=== PATIENT | female | born 1990 | race Caucasian/White ===

== ENCOUNTER 2023-02-13 10:09 | Emergency (ER) | payer BC, SELFPAY ==
[2023-02-13 10:14] VITALS: BP 151/104; PULSE 84; RESP 18; TEMP 36.5; O2SAT 99; BMI 29.8
--- NOTE | 2023-02-13 10:39 | ED_ITS ---
HPI - General Adult General Chief complaint: Headache Stated complaint: HEADACHE Time Seen by Provider: 02/13/23 10:30 Source: patient Mode of arrival: walk-in History of Present Illness HPI narrative: Patient is a 32-year-old female who is presenting to the Emergency Room today with chief complaint of nausea, vomiting, headache this started around 3:00 this morning. Patient's headache is slightly getting worse since 3:00 this morning. Patient has not been to the Emergency Room in several years for headache/migraine. Patient's complaining of 4 episodes of nausea and vomits morning, bile colored. No head injury. Patient felt fine when she went to bed last evening. Patient just finished her menses yesterday. 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 Patient has significant photophobia and mild phonophobia. Patient was brought to the Emergency Room by her mother. Patient still has her appendix. Patient has a headache specialist at [facility] ([place], [place]), neurologist. Patient was due to be on a special medication help prevent headaches or migraines, patient has multiple ALLERGIES and her insurance would not improve the medication Prandin. Neck pain. Patient has bilateral frontal and sinus headache, this is typical and classic of her previous migraines. Patient's headache was not the worse headache of her life, not sudden onset, not thunderclap in nature. . All systems are negative except as noted/marked. All systems reviewed and otherwise negative. . Nurses note and vital signs reviewed and patient is not hypoxic. General: The patient appears well and in no apparent distress. Patient is resting comfortably on cart. Patient is not toxic, lethargic, or listless Skin: Warm, dry, no pallor noted. There is no rash noted. No petechiae, purpura. Head: Normocephalic, atraumatic; No reproducible tenderness to palpation to bilateral frontomaxillary sinuses. Full range of motion of cervical spine no difficulty, no nuchal rigidity. No meningeal signs or symptoms. Eye: Normal conjunctiva, no drainage, EOMI. PERRL; Pupils are 4/2, equal, bilateral. Ears, Nose, Mouth, and Throat: oral mucosa is moist. Nares patent. Mouth without vesicles. Cardiovascular: Regular Rate and Rhythm, no murmur, gallop, rub Respiratory: Patient is in no distress, no accessory muscle use, lungs are clear to auscultation, no wheezing, rales or rhonchi Back: non-tender, no CVA tenderness bilaterally to percussion. No CT LS midline pain GI: soft, no tenderness to palpation, no masses appreciated. No rebound, guarding, or rigidity noted. No flank pain bilateral, No distention Musculoskeletal: Patient has full range of motion of all of the extremities, no motor, sensory, or focal neurological deficits. Neurological: A&O x3, normal speech, NIH 0 Psychiatric: Cooperative Related Data Previous Rx's Medication Instructions Recorded brxftztdox-vsztjzmtlbtio-ncvahiuq 1 cap PO Q8H PRN pain/headache #7 02/13/23 50 mg-300 mg-40 mg capsule caps (Fioricet) promethazine 25 mg rectal 25 mg MT Q6H PRN nausea and 02/13/23 suppository vomiting #6 ea Allergies Allergy/AdvReac Type Severity Reaction Status Date / Time acetaminophen [From Percocet] AdvReac Unknown Verified 02/13/23 10:19 hydrocodone [From Vicodin] AdvReac Unknown Verified 02/13/23 10:19 oxycodone [From Percocet] AdvReac Unknown Verified 02/13/23 10:19 vancomycin AdvReac Unknown Verified 02/13/23 10:19 wheat AdvReac Unknown Verified 02/13/23 10:19 Exam Constitutional Vital Signs, click to edit/add: Last Vital Signs Temp 97.7 F 02/13/23 10:14 Pulse 84 02/13/23 10:14 Resp 18 02/13/23 10:14 BP 151/104 H 02/13/23 10:14 Pulse Ox 99 02/13/23 10:14 O2 Del Method Room Air 02/13/23 10:14 Course Vital Signs Vital signs: Vital Signs Temperature 97.7 F 02/13/23 10:14 Pulse Rate 84 02/13/23 10:14 Respiratory Rate 18 02/13/23 10:14 Blood Pressure 151/104 H 02/13/23 10:14 Pulse Oximetry 99 02/13/23 10:14 Oxygen Delivery Method Room Air 02/13/23 10:14 Temperature 97.7 F 02/13/23 10:14 Pulse Rate 84 02/13/23 10:14 Respiratory Rate 18 02/13/23 10:14 Blood Pressure 151/104 H 02/13/23 10:14 Pulse Oximetry 99 02/13/23 10:14 Oxygen Delivery Method Room Air 02/13/23 10:14 Medical Decision Making MDM Narrative Medical decision making narrative: Patient's headache at discharge is a 6/10. Patient feels much better at discharge. Patient was thankful for help. Patient was given 1 L of IV fluid, patient was given multiple IV medications to help with nausea and vomiting as well. Patient was relieved that her lipase and LFTs were within normal limits as well secondary to her significant pancreas history. Patient was brought to your by her mother. Lab Data Lab results reviewed: Yes I reviewed the patient's lab results Labs: Lab Results 02/13/23 Range/Units 10:45 WBC 9.1 (4.0-11.0) 10^3/uL RBC 4.37 (4.20-5.40) 10^6/uL Hgb 13.1 (12.0-16.0) g/dL Hct 39.1 (36.0-48.0) % MCV 89.5 (81.0-99.0) fL MCH 30.0 (26.7-34.0) pg MCHC 33.5 (29.9-35.2) g/dL RDW 13.2 (11.0-15.0) % Plt Count 546 H (150-450) 10^3/uL MPV 9.6 (9.5-13.5) fL Neut % (Auto) 66.9 (43.0-75.0) % Lymph % (Auto) 24.0 (20.5-60.0) % [place] % (Auto) 6.1 (1.7-12.0) % Eos % (Auto) 1.9 (0.9-7.0) % Baso % (Auto) 0.9 (0.2-2.0) % Neut # (Auto) 6.1 (1.4-6.5) 10^3/uL Lymph # (Auto) 2.2 (1.2-3.8) 10^3/uL [place] # (Auto) 0.6 (0.3-0.8) 10^3/uL Eos # (Auto) 0.2 (0.0-0.7) 10^3/uL Baso # (Auto) 0.1 (0.0-0.1) 10^3/uL Abs Immat Gran (auto) 0.02 (0.00-0.03) 10^3/uL Imm/Tot Granulo (auto) 0.2 (0.0-0.5) % Sodium 140 (136-145) mmol/L Potassium 3.7 (3.5-5.1) mmol/L Chloride 105 (98-107) mmol/L Carbon Dioxide 25.7 (21.0-32.0) mmol/L Anion Gap 13.0 BUN 12.0 (7.0-18.0) mg/dL Creatinine 0.61 (0.55-1.02) mg/dL Est GFR ( Amer) >60 (>=60) Est GFR (Non-Af Amer) >60 (>=60) BUN/Creatinine Ratio 19.7 Glucose 120 H (74-106) mg/dL Calcium 8.5 (8.5-10.1) mg/dL Magnesium 1.9 (1.8-2.4) mg/dL Total Bilirubin 0.7 (0.2-1.0) mg/dL AST 12 L (15-37) U/L ALT 28 (14-59) U/L Alkaline Phosphatase 59 (46-116) U/L Total Protein 7.2 (6.4-8.2) g/dL Albumin 4.0 (3.4-5.0) g/dL Globulin 3.2 g/dL Albumin/Globulin Ratio 1.3 Lipase 39.0 (16.0-77.0) U/L Discharge Plan Discharge Chief Complaint: Headache Clinical Impression: Headache, Nausea & vomiting Patient Disposition: Home, Self-Care Time of Disposition Decision: 13:24 Condition: Fair Prescriptions / Home Meds: New promethazine 25 mg suppository 25 mg MT Q6H PRN (Reason: nausea and vomiting) Qty: 6 0RF [id number]-muutluflwshad-yhwz [Fioricet] 50-300-40 mg capsule 1 cap PO Q8H PRN (Reason: pain/headache) Qty: 7 0RF Instructions: Acute Nausea and Vomiting (DC), General Headache (ED) Additional Instructions: Follow-up with neurologist in [place] as well. Use Phenergan as needed for nausea, vomiting or headache at home. Fioricet is a tobacco medication to help with headache and migraine as well. Increase fluids at home. Stand Alone Forms: Portal Instructions Referrals: Gerardo Tapia MD [Primary Care Provider] - 1 week
[2023-02-13 10:53] LABS: Basophils Absolute Auto 0.1 10^3/uL (0.0-0.1); Basophils Percent Auto 0.9 % (0.2-2.0); Eosinophils Absolute Auto 0.2 10^3/uL (0.0-0.7); Eosinophils Percent Auto 1.9 % (0.9-7.0); Hematocrit 39.1 % (36.0-48.0); Hemoglobin 13.1 g/dL (12.0-16.0); Immature Granulocytes Abs Auto 0.02 10^3/uL (0.00-0.03); Immature Granulocytes Pct Auto 0.2 % (0.0-0.5); Lymphocytes Absolute Auto 2.2 10^3/uL (1.2-3.8); Mean Corpuscular HGB Conc 33.5 g/dL (29.9-35.2); Mean Corpuscular Volume 89.5 fL (81.0-99.0); Mean Platelet Volume 9.6 fL (9.5-13.5); Monocytes Absolute Auto 0.6 10^3/uL (0.3-0.8); Monocytes Percent Auto 6.1 % (1.7-12.0); Neutrophils Absolute Auto 6.1 10^3/uL (1.4-6.5); Neutrophils Percent Auto 66.9 % (43.0-75.0); Platelet Count 546 10^3/uL (150-450); Red Blood Count 4.37 10^6/uL (4.20-5.40); Red Cell Distribution Width 13.2 % (11.0-15.0); White Blood Count 9.1 10^3/uL (4.0-11.0)
[2023-02-13] MEDS: 0.9 % SODIUM CHLORIDE 1,000 ML 999 ML IV (10:55)
[2023-02-13] MEDS: ONDANSETRON PF 4 MG/2 ML VIAL IV (10:56)
[2023-02-13] MEDS: PROCHLORPERAZINE 10 MG/2 ML VIAL IV (10:56)
[2023-02-13] MEDS: KETOROLAC TROMETHAMINE 30 MG/ML VIAL 15 MG IVP (10:56)
[2023-02-13] MEDS: DIPHENHYDRAMINE HCL 50 MG/ML (1ML) VIAL 25 MG IV (10:56)
[2023-02-13 11:29] LABS: Alanine Aminotransferase 28 U/L (14-59); Albumin Globulin Ratio 1.3; Alkaline Phosphatase 59 U/L (46-116); Aspartate Amino Transferase 12 U/L (15-37); BUN Creatinine Ratio 19.7; Bilirubin Total 0.7 mg/dL (0.2-1.0); Calcium 8.5 mg/dL (8.5-10.1); Carbon Dioxide 25.7 mmol/L (21.0-32.0); Chloride 105 mmol/L (98-107); Estimated GFR (African America >60 (>=60); Estimated GFR (Non-African Ame >60 (>=60); Globulin 3.2 g/dL; Glucose 120 mg/dL (74-106); Magnesium 1.9 mg/dL (1.8-2.4); Potassium 3.7 mmol/L (3.5-5.1); Sodium 140 mmol/L (136-145); Total Protein 7.2 g/dL (6.4-8.2)
[2023-02-13] MEDS: DEXAMETHASONE SOD PHOS 10 MG/ML VIAL IV (12:30)
[2023-02-13] MEDS: BUTALB/ACETAMINOPHEN/CAFFEINE 50-325-40MG TABLET 1 TAB PO (12:30)
== END 2023-02-13 13:42 | disposition home or self-care (01) ==
PROVIDERS: Emergency Provider Emergency Medicine; PCP Family Medicine
DX: R51.9 Headache, unspecified (principal); R11.2 Nausea with vomiting, unspecified; Z90.49 Acquired absence of other specified parts of digestive tract; Z90.81 Acquired absence of spleen
CPT/HCPCS: 36415; 80053; 83690; 83735; 85025; 96361; 96374; 96375; 99284; J1100

== ENCOUNTER 2023-05-04 20:52 | Outpatient (REF) | payer BC, SELFPAY ==
--- OUTSIDE RECORDS SUMMARY | 2023-05-04 20:58 | XMS_ITS | CCD ---
Author Name Unknown Address [address] [place] [address] Organization [facility] Care Team Providers Care Regulatory Attorney Name Role Phone HASAN, BONG Admitting Unavailable HASAN, BONG Attending Unavailable HASAN, BONG Referring Unavailable STEFANO REBOLLAR Primary Care Unavailable NAWRAS, ALI T Admitting Unavailable NAWRAS, ALI T Attending Unavailable NADERERYESICA Referring Unavailable NADERER, YESICA Primary Care Unavailable MS Procedure Practitioner Unavailab OPAL Lozoya Surgeon Unavailable HASAN, BONG Admitting Unavailable HASAN, BONG Attending Unavailable HASAN, BONG Referring Unavailable NADEREYESICA Nassar Primary Care Unavailable JOSE ., DR YIN Attending Unavailable JOSE ., DR YIN Consulting Unavailable JOSE ., DR YIN Admitting Unavailable NADERER, DR YESICA Patterson Primary Care Unavailable NADERER, DR YESICA Patterson Primary Care Unavailable NADERER, DR YESICA Patterson Admitting Unavailable NADERER, DR YESICA Patterson Attending Unavailable ZIEBER, DR LUCERO Nassar Consulting Unavailable NADERER, DR YESICA Patterson Consulting Unavailable NADERER, DR YESICA Patterson Primary Care Unavailable NADERER, DR YESICA Patterson Admitting Unavailable NADERER, DR YESICA Patterson Attending Unavailable JOSE ., DR YIN Admitting Unavailable JOSE ., DR YIN Attending Unavailable JOSE ., DR YIN Consulting Unavailable NADERER, DR YESICA Patterson Primary Care Unavailable MALENFANTGIRISH Attending Unavaila ble Allergies Allergy Classification Reported Allergen(s) Allergy Type Date of Onset Reaction(s) Facility (1 source) Acetaminophen / HYDROcodone Drug Allergy 02-12-20 16 [facility] Repository (2 sources) Acetaminophen / oxyCODONE Drug Allergy 02-12-20 16 [facility] Repository (1 source) Adhesive Tape Drug allergy (disorder) 02-12-20 16 [facility] Repository (1 source) buPROPion Drug Allergy 06-21-19 19 [facility] Repository (3 sources) Latex Drug allergy (disorder) 02-11-20 16 [facility] Repository (3 sources) Sulfamethoxazole / Trimethoprim Drug Allergy 06-21-19 19 [facility] Repository (3 sources) Vancomycin Drug Allergy 02-28-20 16 [facility] Repository (1 source) Acetaminophen / HYDROcodone Drug Allergy [facility] Repository (1 source) Desonide Drug Allergy [facility] Repository (2 sources) Gluten Drug allergy (disorder) [facility] Repository (1 source) POLYETHYLENE GLYCOL 3350 Drug Allergy [facility] Repository (2 sources) traMADol; Translations: [TRAMADOL] Drug Allergy 07-02-19 [facility] Repository (1 source) Acetaminophen / HYDROcodone; Translations: [HYDROCODONE-ACETAMI NOPHEN] Drug Allergy 02-15-20 [facility] Repository (1 source) Acetaminophen / oxyCODONE; Translations: [OXYCODONE-ACETAMINO PHEN] Drug Allergy 02-15-20 [facility] Repository (1 source) Doxycycline; Translations: [DOXYCYCLINE] Drug Allergy 07-02-19 [facility] Repository (1 source) Feather; Translations: [FEATHERS] Propensity to adverse reactions to drug (disorder) 07-02-19 [facility] Repository (1 source) Glycopeptides (Antibiotic); Translations: [VANCOMYCIN ANALOGUES] Propensity to adverse reactions to drug (disorder) 08-24-19 [facility] Repository (1 source) Grass pollen; Translations: [GRASS POLLEN] Propensity to adverse reactions to drug (disorder) 07-02-19 [facility] Repository (1 source) Milk; Translations: [MILK] Propensity to adverse reactions to drug (disorder) 10-08-19 23 [facility] Repository (1 source) natural latex rubber; Translations: [LATEX, NATURAL RUBBER] Propensity to adverse reactions to drug (disorder) 08-24-19 [facility] Repository (1 source) Sulfamethoxazole / Trimethoprim; Translations: [SULFAMETHOXAZOLE-TR IMETHOPRIM] Drug Allergy 07-02-19 [facility] Repository (1 source) Wheat preparation; Translations: [WHEAT] Drug Allergy 07-02-19 [facility] Repository (1 source) WHEAT CONTAINING PROD; Translations: [WHEAT CONTAINING PROD] Propensity to adverse reactions to drug (disorder) 08-24-19 [facility] Repository (1 source) DYCLONINE-BENZETHONI UM; Translations: [DYCLONINE-BENZETHON IUM] Propensity to adverse reactions to drug (disorder) 08-24-19 [facility] Repository Problems Active Problems Problem Classification Problem Date Documented Da te Episodic/Chronic Abdominal pain (3 sources) Unspecified abdominal pain; Translations: [UNSPECIFIED ABDOMINAL PAIN] Onset: 06-27-2018 Episodic Allergic reactions (1 source) Latex allergy status; Translations: [LATEX ALLERGY STATUS] Onset: 06-27-2018 Episodic Headache; including migraine (1 source) Headache; including migraine; Translations: [HEADACHE UNSPECIFIED] Onset: 10-06-2021 Other disorders of stomach and duodenum (1 source) Other diseases of stomach and duodenum; Translations: [OTHER DISEASES OF STOMACH AND DUODENUM] Onset: 06-27-2018 Episodic Other gastrointestinal disorders (2 sources) Celiac disease; Translations: [Celiac disease] Onset: 10-07-2022 Chronic Other gastrointestinal disorders (1 source) Bariatric surgery status; Translations: [BARIATRIC SURGERY STATUS] Onset: 06-27-2018 Episodic Pancreatic disorders (not diabetes) (6 sources) Other chronic pancreatitis; Translations: [OTHER CHRONIC PANCREATITIS] Onset: 07-17-2018 Chronic Pancreatic disorders (not diabetes) (4 sources) Acute pancreatitis without necrosis or infection, unspecified; Translations: [ACUTE PANCREATITIS WITHOUT NECROSIS OR INFECTION, UNSP] Onset: 06-12-2018 Residual codes; unclassified (1 source) Acquired partial absence of pancreas; Translations: [ACQUIRED PARTIAL ABSENCE OF PANCREAS] Onset: 06-27-2018 Chronic Thyroid disorders (4 sources) Hypothyroidism, unspecified; Translations: [HYPOTHYROIDISM UNSPECIFIED] Onset: 05-25-2022 Chronic Unclassified (2 sources) LAB Onset: 06-12-2018 Past or Other Problems Problem Classification Problem Date Documented Date Episodic/Chronic Immunizations and screening for infectious disease (1 source) Encounter for screening for human papillomavirus (HPV); Translations: [ENC SCREENING HUMAN PAPILLOMAVIRUS] Onset: 10-06-2021 Episodic Other endocrine disorders (1 source) Endocrine disorder, unspecified; Translations: [ENDOCRINE DISORDER UNSPECIFIED] Onset: 10-06-2021 Episodic Other screening for suspected conditions (not mental disorders or infectious disease) (4 sources) Encounter for screening for malignant neoplasm of cervix; Translations: [ENC SCREENING MALIG NEOPLASM CERV] Onset: 10-05-2021 Episodic Results Test Name Value Interpretation Reference Range Facility 36on 01-02-2023 36 Follow up call made. M to call [phone]. Discussed with pharmacist Reina who is unsure if patient was able to parts picker her creon at an outlying pharmacy. If the patient was unable to fill at that rx, Reina has it available at the [facility] Access Rx. Normal [facility] 36on 12-30-2022 36 Patient calls today stating she went to refill her Creon and was told there is a nationwide shortage for the dosing she is on (36,000 - 2 capsules 3 times a day and 1 in evening). Pharmacist recommended a lower dose with more capsules but cannot garuntee there will not be a shortage of them also soon. She is wondering what she needs to do as she is down to two days left of her prescription. I talked with Reina at the pharmacy - Expected Resolution SPLR [employer]OCATION NEXT RELEASE LATE DEC 2022 Notes [employer] IS OUT OF STOCK. FULL RECOVERY TBD Please advise. Normal [facility] Telephoneon 12-30-2022 Telephone [id number] Reina Razo 1990 F Date Provider Department Center 12/30/2022 [facility] No family history on file Normal [facility] COPPER, SERUMon 10-11-2022 COPPER 117.3 ug/dL Normal 80.0-155.0 [facility] Comment on above: Result Comment: INTE RPRETIVE INFORMATION: Copper, Serum or Plasma Elevated results may be due to skin or collection-related contamination, including the use of a noncertified metal-free collection/transport tube. If contamination concerns exist due to elevated levels of serum/plasma copper, confirmation with a second specimen collected in a certified metal-free tube is recommended. Serum copper may be elevated with infection, inflammation, stress, and copper supplementation. In females, elevated copper may also be caused by oral contraceptives and (concentrations may be elevated up to 3 times normal during the third trimester). This test was developed and its performance characteristics determined by [facility]. It has not been cleared or approved by the US Food and Drug Administration. This test was performed in a CLIA certified laboratory and is intended for clinical purposes. Performed By: [facility] [address] [place] [address] Registered Dietitian: Jai Lawler MD, PhD Performed By: #### L [id number] #### [facility] ([facility]) [address] [place] [address] FERRITINon 10-11-2022 FERRITIN (NG/ML) IN SER/PLAS 7.0 ng/mL Low 11.0-307.0 [facility] Comment on above: Performed By: #### L [id number] #### [facility] ([facility]) [address] [place] [address] FOLATEon 10-11-2022 FOLATE (NG/ML) IN SER/PLAS 310.00 ng/mL Normal 6.6-1000 [facility] Comment on above: Performed By: #### L AB69 #### [facility] ([facility]) [address] [place] [address] IRON AND TIBCon 10-11-2022 IRON (UG/DL) IN SER/PLAS 139 ug/dL Normal 50-212 [facility] Comment on above: Performed By: #### L [id number] #### [facility] ([facility] [address] [place] [address] IRON BINDING CAPACITY (UG/DL) IN SER/PLAS 445 ug/dL Normal 250-450 [facility] Comment on above: Performed By: #### L [id number] #### [facility] ([facility] [place]) [address] [place] [address] IRON BINDING CAPACITY.UNSATURATED (UG/DL) IN SER/PLAS 306.0 ug/dL Normal 155.0-355.0 [facility] Comment on above: Performed By: #### L [id number] #### [facility] ([facility] [place]) [address] [place] [address] IRON SATURATION (%) IN SER/PLAS 31 % Normal 20-50 [facility] Comment on above: Performed By: #### L [id number] #### [facility] ([facility]) [address] [place] [address] Labon 10-11-2022 Lab [id number] Reina Razo 1990 F Date Provider Department [place] 10/11/2022 2244-[facility] MP LAB RESOURCE MP DRAW Medical Pavi No family history on file Normal [facility] MAGNESIUMon 10-11-2022 Magnesium [Mass/Vol] 1.7 mg/dL Low 1.9-2.7 [facility] Comment on above: Performed By: #### L AB125 #### [facility] [place] [address] [place] [address] Office Visiton 10-11-2022 Follow-up visit [id number] Reina Razo 1990 Date Provider Department [place] 10/11/2022 [id number]-TVSRPATRDMARÍA MONACO*MP GI [facility] Pavi No family history on file Level of Service:84754 MS OFFICE/OUTPATIENT ESTABLISHED MOD MDM 30-39 MIN Reason for Visit and Comments: yearly follow up [Other] Normal [facility] PHOSPHORUSon 10-11-2022 Magnesium [Mass/Vol] 3.7 mg/dL Normal 2.5-5.0 [facility] Comment on above: Performed By: #### L AB125 #### [facility] ([facility] [place] [address] [place] [address] PREALBUMINon 10-11-2022 Prealbumin [Mass/Vol] 21.8 mg/dL Normal [facility] Comment on above: Performed By: #### L [id number] #### [facility] ([facility]) [address] [place] [address] PROTIME-INRon 10-11-2022 INR IN PPP BY COAGULATION ASSAY 1.01 Normal 0.90-1.10 [facility] Comment on above: Result Comment: ACCC P RECOMMENDED INR FOR WARFARIN THERAPY CONDITION INR PROPHYLAXIS OF VENOUS THROMBOSIS 2-3 (HIGH-RISK SURGERY) TREATMENT OF VENOUS THROMBOSIS 2-3 TREATMENT OF PULMONARY EMBOLISM 2-3 PREVENTION OF SYSTEMIC EMBOLISM: 2-3 ACUTE MYOCARDIAL INFARCTION TISSUE HEART VALVES VALVULAR HEART DISEASE ATRIAL FIBRILLATION RECURRENT SYSTEMIC EMBOLISM MECHANICAL HEART VALVE 2.5-3.5 FROM: ORAL ANTICOAGULANTS. MECHANISM OF ACTION, CLINICAL EFFECTIVENESS, AND OPTIMAL THERAPEUTIC RANGE. CHEST 1995;108:231S-246S. Performed By: #### L AB125 #### [facility]) [address] [place] [address] PROTHROMBIN TIME (PT) IN PPP BY COAGULATION ASSAY 13.3 Seconds Normal 12.3-14.8 [facility] Comment on above: Performed By: #### L AB125 #### [employer]) [address] [place] [address] VITAMIN Aon 10-11-2022 VITAMIN A (RETINOL) 0.55 mg/L Normal 0.30-1.20 [facility] Comment on above: Performed By: #### L [id number] #### [employer]) [address] [place] [address] VITAMIN A (RETINYL PALMITATE) <0.02 Normal 0.00-0.10 [facility] Comment on above: Performed By: #### L [id number] #### [employer]) [address] [place] [address] VITAMIN A, SER/RADHA - INTERPRETATION Normal Normal [facility] Comment on above: Result Comment: This test was developed and its performance characteristics determined by [facility]. It has not been cleared or approved by the [place] Food and Drug Administration. This test was performed in a CLIA certified laboratory and is intended for clinical purposes. Performed By: [facility] [employer] [address] [place] [address] Registered Dietitian: Jai Lawler MD, PhD Performed By: #### L [id number] #### [facility] ([facility]) [address] [place] [address] VITAMIN B1on 10-11-2022 VITAMIN B1, PLASMA 4 nmol/L Normal 4-15 [facility] Comment on above: Result Comment: INTE RPRETIVE DATA: Vitamin B1, Plasma Thiamine (vitamin B1) is reported. However, thiamine diphosphate (TDP), the biologically active form of thiamine, is not found in measurable concentrations in plasma, and is best determined in whole blood specimens. Plasma thiamine concentration reflects recent intake rather than body stores. This test was developed and its performance characteristics determined by [facility]. It has not been cleared or approved by the US Food and Drug Administration. This test was performed in a CLIA certified laboratory and is intended for clinical purposes. Performed By: [facility] [address] [place] [address] Registered Dietitian: Jai Lawler MD, PhD Performed By: #### L AB125 #### [facility] ([address] [address] VITAMIN B12on 10-11-2022 Cobalamin (Vitamin B12) [Mass/Vol] 720 pg/mL Normal 180-914 [facility] Comment on above: Result Comment: REFE RENCE RANGES: 180-914 pg/mL Normal 145-179 pg/mL Indeterminate <145 pg/mL Deficient Performed By: #### L AB130 #### [facility] ([facility]) [address] [place] [address] VITAMIN B6on 10-11-2022 VITAMIN B6 83.5 nmol/L Normal 20.0-125.0 [facility] Comment on above: Result Comment: INTE RPRETIVE INFORMATION: Vitamin B6 (Pyridoxal 5-Phosphate) Pyridoxal 5'-phosphate measured in a specimen collected following an 8-hour or overnight fast accurately indicates vitamin B6 nutritional status. Non-fasting specimen concentration reflects recent vitamin intake. This test was developed and its performance characteristics determined by [facility]. It has not been cleared or approved by the US Food and Drug Administration. This test was performed in a CLIA certified laboratory and is intended for clinical purposes. Performed By: [facility] [address] [place] [address] Registered Dietitian: Jai Lawler MD, PhD Performed By: #### L [id number] #### [facility] ([facility]) [address] [place] [address] VITAMIN D 25 HYDROXYon 10-11 CALCIDIOL (25 [place] VITAMIN D3) (NG/ML) IN SER/PLAS 32.9 ng/mL Normal 30.0-80.0 [facility] Comment on above: Result Comment: >80. 0 Toxicity possible Performed By: #### L [id number] #### [facility] ([facility]) [address] [place] [address] VITAMIN Blane 10-11-2022 VITAMIN E LEVEL (ALPHA-TOCOPHEROL) 7.5 mg/L Normal 5.5-18.0 [facility] Comment on above: Result Comment: This test was developed and its performance characteristics determined by [facility]. It has not been cleared or approved by the US Food and Drug Administration. This test was performed in a CLIA certified laboratory and is intended for clinical purposes. Performed By: #### L AB130 #### [facility] ([facility]) [address] [place] [address] VITAMIN E LEVEL (GAMMA-TOCOPHEROL) 0.5 mg/L Normal 0.0-6.0 [facility] Comment on above: Result Comment: Perf ormed By: [facility] [address] [place] [address] Registered Dietitian: Jai Lawler MD, PhD Performed By: #### L AB130 #### [facility] ([facility]) [address] [place] [address] ZINCon 10-11-2022 ZINC 76.7 ug/dL Normal 60.0-120.0 [facility] Comment on above: Result Comment: INTE RPRETIVE INFORMATION: Zinc, Serum or Plasma Elevated results may be due to skin or collection-related contamination, including the use of a noncertified metal-free collection/transport tube. If contamination concerns exist due to elevated levels of serum/plasma zinc, confirmation with a second specimen collected in a certified metal-free tube is recommended. Circulating zinc concentrations are dependent on albumin status and are depressed with malnutrition. Zinc may also be lowered with infection, inflammation, stress, oral contraceptives, and . Zinc may be elevated with zinc supplementation or fasting. Elevated zinc concentrations may interfere with copper absorption. This test was developed and its performance characteristics determined by [facility]. It has not been cleared or approved by the US Food and Drug Administration. This test was performed in a CLIA certified laboratory and is intended for clinical purposes. Performed By: [facility] [address] [place] [address] Registered Dietitian: Jai Lawler MD, PhD Performed By: #### L [id number] #### [facility] ([facility] [place]) [address] [place] [address] THYROGLOBULINon 06-03-2022 Thyroglobulin 3.4 ng/mL Normal [facility] Comment on above: Result Comment: This test was developed and its performance characteristics determined by [facility]. It has not been cleared or approved by the Food and Drug Administration. Reference Range: Pubertal Children and Adults: <40 According to the National Academy of Clinical Biochemistry, the reference interval for Thyroglobulin (TG) should be related to euthyroid patients and not for patients who underwent thyroidectomy. TG reference intervals for these patients depend on the residual mass of the thyroid tissue left after surgery. Establishing a post-operative baseline is recommended. The assay quantitation limit is 2.0 ng/mL. Performed By: #### A 1C #### [facility] [address] [place] [address] Dr. Michael Williamson THYR STIM IMMUNOGLOBULINon 0 05-27-2022 Thyroid Sim Immunoglobulin <0.10 Normal 0.00-0.[address] [facility] Comment on above: Performed By: #### T HSI #### [facility] [address] [place] [address] Dr. Michael Williamson FREE T3on 05-25-2022 FREE T3 2.72 pg/mlL Normal 2.18-3.[address] [facility] Comment on above: Performed By: #### F T3, TSH #### [facility] [address] [place] [address] Dr. Michael Williamson FREE T4on 05-25-2022 Free T4 [Mass/Vol] 0.83 ng/dL Normal 0.76-1.46 [facility] Comment on above: Performed By: #### F T4 #### [facility] [address] [place] [address] [address] Michael Williamson TSHon 05-25-2022 TSH 0.798 uIU/mL Normal 0.358-3.740 [facility] Comment on above: Performed By: #### F T3, TSH #### [facility] [address] [address] [address] Michael Williamson US THYROIDon 05-25-2022 US THYROID EXAMINATION: US THYROID HISTORY: Hypothyroidism COMPARISON: No relevant comparison available. FINDINGS: RIGHT LOBE: Normal size and echotexture. Lobe size: 5.2 x 1.1 x 1.3 cm LEFT LOBE: Normal size and echotexture. Lobe size: 4.4 x 1.1 x 1.3 cm ISTHMUS: Normal size and echotexture. Thickness: 3 mm Other: Several benign-appearing lymph nodes with fatty hilum noted within left neck, largest is 2.1 x 1.0 x 0.5 cm. IMPRESSION: 1. Normal appearance of thyroid gland. 2. Several lymph nodes within left neck incidentally noted, favoring benign etiology. If there is clinical concern consider dedicated ultrasound evaluation of left neck soft tissues. Electronically authenticated by: LUCERO SCHROEDER Date: 2022-05-25 10:[address] [facility] PAP ACOG PANEL 2: 30 to 65on 10-08-2021 . . Normal [facility] Comment on above: Result Comment: Perf ormed at: WB Performed By: #### A 1C #### [facility] [address] [place] [address] [address] Michael Williamson Age Gdln ACOG Testing 30-65 [facility] Comment on above: Performed By: #### A 1C #### [facility] [address] [place] [address] [address] Michael Williamson DIAGNOSIS: Comment Normal [facility] Comment on above: Result Comment: NEGA TIVE FOR INTRAEPITHELIAL LESION OR MALIGNANCY. CELLULAR CHANGES ASSOCIATED WITH INFLAMMATION ARE PRESENT. Performed at: WB Performed By: #### A 1C #### [facility] [address] [place] [address] Dr. Michael Williamson HPV Aptima Negative Normal Negative [facility] Comment on above: Result Comment: This nucleic acid amplification test detects fourteen high-risk HPV types (16,18,31,33,35,39,45,51,52,56,58,59,66,68) without differentiation. Performed at: =G Performed By: #### A 1C #### [facility] [address] [place] [address] Dr. Michael Williamson Methodology: Comment Normal [facility] Comment on above: Result Comment: This liquid based ThinPrep(R) pap test was screened with the use of an image guided system. Performed at: WB Performed By: #### A 1C #### [facility] [address] [place] [address] Dr. Michael Williamson Note: Comment Normal [facility] Comment on above: Result Comment: The Pap smear is a screening test designed to aid in the detection of premalignant and malignant conditions of the uterine cervix. It is not a diagnostic procedure and should not be used as the sole means of detecting cervical cancer. Both false-positive and false-negative reports do occur. . Performed at: WB Performed By: #### A 1C #### [facility] [address] [place] [address] Dr. Michael Williamson Performed by: Comment Normal [facility] Comment on above: Result Comment: Toshia Cordoba, Supervisory Inpatient Auditor (ASCP) Performed at: WB Performed By: #### A 1C #### [facility] [address] [place] [address] Dr. Michael Williamson Specimen adequacy: Comment Normal [facility] Comment on above: Result Comment: Sati sfactory for evaluation. Endocervical and/or squamous metaplastic cells (endocervical component) are present. Performed at: WB Performed By: #### A 1C #### [facility] [address] [place] [address] Dr. Michael Williamson ESTRADIOLon 10-06-2021 Estradiol 7.1 pg/mL [facility] Comment on above: Result Comment: Adul t Female: Follicular phase 12.5 - 166.0 Ovulation phase 85.8 - 498.0 Luteal phase 43.8 - 211.0 Postmenopausal <6.0 - 54.7 1st trimester 215.0 - >4300.0 Kelsey ECLIA methodology Performed By: #### A 1C #### [facility] [address] [place] [address] Dr. Michael Williamson PROGESTERONEon 10-06-2021 Progesterone <0.[address] [facility] Comment on above: Result Comment: Foll icular phase 0.1 - 0.9 Luteal phase 1.8 - 23.9 Ovulation phase 0.1 - 12.0 First trimester 11.0 - 44.3 Second trimester 25.4 - 83.3 Third trimester 58.7 - 214.0 Postmenopausal 0.0 - 0.1 Performed By: #### P RADHA #### [facility] [address] [place] [address] Dr. Michael Williamson CALCIUMon 10-05-2021 Calcium [Mass/Vol] 8.5 mg/dL Normal 8.5-10.1 [facility] Comment on above: Performed By: #### A 1C #### [facility] [address] [place] [address] Dr. Michael Williamson CBC AUTO DIFFon 10-05-2021 BASO # 0.1 103/ul Normal 0.0-0.[address] [facility] Comment on above: Performed By: #### C BC #### [facility] [address] [place] [address] Dr. Michael Williamson Basophils/100 WBC (Bld) 0.9 % Normal 0.2-2.[address] [facility] Comment on above: Performed By: #### C BC #### [facility] [address] [place] [address] Dr. Michael Williamson EO # 0.2 103/ul Normal 0.0-0.[address] [facility] Comment on above: Performed By: #### C BC #### [facility] [address] [place] [address] Dr. Michael Williamson Eosinophils/100 WBC (Bld) 2.2 % Normal 0.9-7.[address] [facility] Comment on above: Performed By: #### C BC #### [facility] [address] [place] [address] Dr. Michael Williamson Erythrocyte distribution width (RBC) [Ratio] 13.3 % Normal 11.0-15.[address] [facility] Comment on above: Performed By: #### C BC #### [facility] [address] [place] [address] Dr. Michael Williamson Hematocrit (Bld) [Volume fraction] 39.4 % Normal 36.0-48.[address] [facility] Comment on above: Performed By: #### C BC #### [facility] [address] [place] [address] Dr. Michael Williamson Hemoglobin (Bld) [Mass/Vol] 12.7 g/dL Normal 12.0-16.[address] [facility] Comment on above: Performed By: #### C BC #### [facility] [address] [place] [address] Dr. Michael Williamson IG # 0.02 10e3/ul Normal 0.00-0.[address] [facility] Comment on above: Performed By: #### C BC #### [facility] [address] [place] [address] Dr. Michael Williamson IG % 0.2 % Normal 0.0-0.[address] [facility] Comment on above: Performed By: #### C BC #### [facility] [address] [place] [address] Dr. Michael Williamson LYMPH # 3.4 103/ul Normal 1.2-3.[address] [facility] Comment on above: Performed By: #### C BC #### [facility] [address] [place] [address] Dr. Michael Williamson Lymphocytes/100 WBC (Bld) 31.4 % Normal 20.5-60.[address] [facility] Comment on above: Performed By: #### C BC #### [facility] [address] [place] [address] Dr. Michael Williamson MANUAL DIFF REQ NO Normal [facility] Comment on above: Performed By: #### C BC #### [facility] [address] [address] [address] Michael Williamson MCH (RBC) [Entitic mass] 29.3 pg Normal 26.7-34.[address] [facility] Comment on above: Performed By: #### C BC #### [facility] [address] [address] [address] Michael Williamson MCHC (RBC) [Mass/Vol] 32.2 g/dL Normal 29.9-35.[address] [facility] Comment on above: Performed By: #### C BC #### [facility] [address] [address] [address] Michael Williamson MCV (RBC) [Entitic vol] 91.0 fL Normal 81.0-99.[address] [facility] Comment on above: Performed By: #### C BC #### [facility] [address] [place] [address] Dr. Michael Williamson MONO # 1.1 103/ul Critically high 0.3-0.8 [facility] Comment on above: Performed By: #### C BC #### [facility] [address] [place] [address] Dr. Michael Williamson Monocytes/100 WBC (Bld) 10.4 % Normal 1.7-12.0 [facility] Comment on above: Performed By: #### C BC #### [facility] [address] [place] [address] Dr. Michael Williamson NEUT # 6.0 103/ul Normal 1.4-6.5 [facility] Comment on above: Performed By: #### C BC #### [facility] [address] [place] [address] Dr. Michael Williamson Neutrophils/100 WBC (Bld) 54.9 % Normal 43.0-75.0 [facility] Comment on above: Performed By: #### C BC #### [facility] [address] [place] [address] Dr. Michael Williamson Platelet mean volume (Bld) [Entitic vol] 9.6 fL Normal 9.5-13.5 [facility] Comment on above: Performed By: #### C BC #### [facility] [address] [address] [address] Michael Williamson PLT 490 103/ul Critically high 150-450 [facility] Comment on above: Performed By: #### C BC #### [facility] [address] [address] [address] Michael Williamson RBC 4.33 106/ul Normal 4.20-5.[address] [facility] Comment on above: Performed By: #### C BC #### [facility] [address] [address] [address] Michael Williamson WBC 10.9 103/ul Normal 4.0-11.[address] [facility] Comment on above: Performed By: #### C BC #### [facility] [address] [address] [address] Michael Williamson ELECTROLYTESon 10-05-2021 Anion gap [Moles/Vol] 13.5 mmol/L Normal [facility] Comment on above: Performed By: #### A 1C #### [facility] [address] [address] [address] Michael Williamson Chloride [Moles/Vol] 105 mmol/L Normal 98-[address] [facility] Comment on above: Performed By: #### A 1C #### [facility] [address] [address] [address] Michael Williamson CO2 [Moles/Vol] 27.9 mmol/L Normal 21.0-32.0 [facility] Comment on above: Performed By: #### A 1C #### [facility] [address] [address] [address] Michael Williamson Potassium [Moles/Vol] 3.4 mmol/L Critically low 3.5-5.[address] [facility] Comment on above: Performed By: #### A 1C #### [facility] [address] [address] [address] Michael Williamson Sodium [Moles/Vol] 143 mmol/L Normal 136-145 [facility] Comment on above: Performed By: #### A 1C #### [facility] [address] [place] [address] Dr. Michael Williamson FREE T4on 10-05-2021 Free T4 [Mass/Vol] 0.85 ng/dL Normal 0.76-1.46 [facility] Comment on above: Performed By: #### F T4, VITB12 #### [facility] [address] [place] [address] Dr. Michael Williamson GLYCOHEMOGLOBIN A1Con 2021 ADA RECOMMENDATION SEE BELOW Normal [facility] Comment on above: Result Comment: ADA RECOMMENDED LIMIT 4.0 - 6.0 ADA THERAPEUTIC TARGET < 7.0 ACTION SUGGESTED > 7.0 Performed By: #### A 1C #### [facility] [address] [place] [address] Dr. Michael Williamson Glucose [Mass/Vol] 126 mg/dL Normal [facility] Comment on above: Performed By: #### A 1C #### [facility] [address] [place] [address] Dr. Michael Williamson HbA1c (Bld) [Mass fraction] 6.0 % Normal 4.5-6.2 [facility] Comment on above: Performed By: #### A 1C #### [facility] [address] [place] [address] Dr. Michael Williamson MAGNESIUMon 10-05-2021 Magnesium [Mass/Vol] 1.8 mg/dL Normal 1.8-2.4 [facility] Comment on above: Performed By: #### A 1C #### [facility] [address] [place] [address] Dr. Michael Williamson TSHon 10-05-2021 TSH 0.727 uIU/mL Normal 0.358-3.740 [facility] Comment on above: Performed By: #### A 1C #### [facility] [address] [place] [address] Dr. Michael Williamson TSH RANGE SEE BELOW Normal [facility] Comment on above: Result Comment: <0.3 4 UIU/ml HYPERTHYROID 0.34-5.60 UIU/ml EUTHYROID >5.60 UIU/ml HYPOTHYROID Performed By: #### A 1C #### [facility] [address] [address] [address] Michael Williamson VITAMIN B12on 10-05-2021 Cobalamin (Vitamin B12) [Mass/Vol] 1077.0 pg/mL Critically high 193.0-986.[address] [facility] Comment on above: Performed By: #### F T4, VITB12 #### [facility] [address] [address] [address] Michael Williamson Coagulation Profileon 2020 aPTT Coag (Bld) [Time] 31.0 s Normal 25.1-36.5 [facility] Comment on above: Order Comment: List the anticoagulant: COUMADIN/WARFARIN Result Comment: PERF ORMED BY: [place] [address] PATHOLOGIST BLOW MOULDING MACHINE OPERATOR PATRIZIA FITZPATRICK M.D. Performed By: #### P P #### [facility] [address] [place] [address] INR Coag (PPP) [Relative time] 0.9 {INR} Normal [facility] Comment on above: Order Comment: List the anticoagulant: COUMADIN/WARFARIN Result Comment: INR Therapeutic Range A) Pre- and Peroperative OAT started two weeks before surgery. NOT HIP SURGERY: 1.5 - 2.5 HIP SURGERY: 2 - 3 B) Primary and secondary prevention of venous THROMBOSIS: 2 - 3 C) Active venous thrombosis, pulmonary embolism and prevention of recurrent venous thrombosis: 2 - 3 D) Prevention of arterial thromboembolism including patients with mechanical heart valves: 3 - 4.5 Performed By: #### P P #### [facility] [address] [place] [address] PT Coag (PPP) [Time] 9.7 s Normal 9.0-12.9 [facility] Comment on above: Order Comment: List the anticoagulant: COUMADIN/WARFARIN Performed By: #### P P #### [facility] [address] [place] [address] Physician Orderon 12-13-2020 Physician Order [id number]# 1.00CD:[address] [facility] FOLATE SERUMon 07-17-2018 Folate mass conc 27.43 ng/mL Normal 6.60-1000.00 [facility] Comment on above: Result Comment: Norm al range reflects World Health Organization International Standard Performed By: #### 4 6413, 29879, 22448, 48620, 01941 #### [facility] [address] VITAMIN A [id number] 07-17-2018 INTERPRETATION (VIT A) Normal Normal [facility] Comment on above: Result Comment: Test developed and characteristics determined by [facility]. See Compliance Statement B: [employer] Performed by [facility], [address] [place] [address] www.[email or web address], Ahsan Abel MD - Lab. Director RETINYL PALMTATE <0.02 Normal 0.00-0.10 [facility] VITAMIN A MG/L 0.45 mg/L Normal 0.30-1.[address] [facility] VITAMIN B12on 07-17-2018 Cobalamin (Vitamin B12) mass conc 679 pg/mL Normal 180-914 [facility] Comment on above: Result Comment: REFE RENCE RANGES: 180-914 pg/mL Normal 145-179 pg/mL Indeterminate <145 pg/mL Deficient Performed By: #### 4 6413, 40697, 24690, 48527, 62232 #### [facility] [address] [place] [address], [facility] VITAMIN D 25-HYDROXYon 07-17 VITAMIN D 25-OH 21.0 ng/mL Low 30.0-80.0 [facility] Comment on above: Result Comment: >80. 0 Toxicity possible Performed By: #### 4 6413, 33920, 08255, 39463, 66586 #### [facility] [address] [place] [address], [facility] POC URINE PREGNANCYon 2018 HCG.beta subunit ( test) Ql (U) Negative Normal NEGATIVE [facility] Comment on above: Result Comment: Perf ormed in PACU Performed By: #### 8 4140 #### [facility] [address] [place] [address], [facility] AMYLASE BLOODon 06-12-2018 Amylase enzyme act/vol 21 Units/L Low 29-103 [facility] Comment on above: Performed By: #### 4 6413, 83143, 86468, 70189, 80699 #### [facility] [address] [place] [address], [facility] ANAon 06-12-2018 Nuclear Ab IF titer (S) 1:80 Abnormal <1:40,1:40 [facility] Comment on above: Performed By: #### 6 2510, 06814 #### [facility] [address] [facility] [address] Nuclear Ab IF titer (S) SPECKLED Normal [facility] Comment on above: Performed By: #### 6 2510, 44442 #### [facility] [address] [facility] [address] COMP METABOLIC PANELon 06-12 Albumin mass conc 4.4 g/dL Normal 3.5-5.7 [facility] Comment on above: Performed By: #### 4 6413, 71493, 25359, 21976, 59448 #### [facility] [address] [facility] [place] [address], [facility] ALKALINE PHOSPH 96 IU/L Normal 34-104 [facility] Comment on above: Performed By: #### 4 6413, 82213, 18705, 63634, 68947 #### [facility] [address] [place] [address], [facility] ALT enzyme act/vol 484 U/L Critically high 7-52 T [facility] Comment on above: Performed By: #### 4 6413, 80703, 22989, 86798, 55435 #### [facility] [address] [place] [address], [place] AST enzyme act/vol 424 U/L High 13-39 [facility] Comment on above: Performed By: #### 4 6413, 52070, 21190, 32543, 60362 #### [facility] [address] [place] [address], [place] Bilirubin mass conc 0.8 mg/dL Normal 0.3-1.0 [facility] Comment on above: Performed By: #### 4 6413, 37926, 03248, 99829, 19671 #### [facility] [address] [place] [address], [place] Calcium mass conc 9.1 mg/dL Normal 8.6-10.3 [facility] Comment on above: Performed By: #### 4 6413, 93656, 71954, 95864, 42690 #### [facility] [address] [place] [address], [place] Chloride molar conc 104 mmol/L Normal 98-107 [facility] Comment on above: Performed By: #### 4 6413, 29858, 51330, 78472, 22265 #### [facility] [address] [place] [address], [place] CO2 molar conc 28 mmol/L Normal 21-[address] [facility] Comment on above: Performed By: #### 4 6413, 13320, 77864, 83135, 09831 #### [facility] [address] [place] [address], [place] Creatinine mass conc 0.53 mg/dL Low 0.60-1.20 [facility] Comment on above: Performed By: #### 4 6413, 14290, 00143, 75131, 26592 #### [facility] [address] [place] [address], [place] GFR/1.73 sq M predicted among blacks MDRD vol rate/area (S/P/Bld) mL/min/{1.73_m2} Normal >60 [facility] Comment on above: Performed By: #### 4 6413, 36548, 91113, 90306, 59983 #### [facility] [address] [place] [address], [place] GFR/1.73 sq M predicted among non-blacks MDRD vol rate/area (S/P/Bld) mL/min/{1.73_m2} Normal >60 [facility] Comment on above: Performed By: #### 4 6413, 95627, 24453, 79614, 91072 #### [facility] [address] [place] [address], [place] Glucose mass conc 88 mg/dL Normal 70-100 [facility] Comment on above: Performed By: #### 4 6413, 56305, 07024, 31555, 26922 #### [facility] [address] [place] [address], [place] Potassium molar conc 4.0 mmol/L Normal 3.5-5.1 [facility] Comment on above: Performed By: #### 4 6413, 46376, 51201, 22249, 16731 #### [facility] [address] [place] [address], [place] Protein mass conc 7.0 g/dL Normal 6.0-8.3 [facility] Comment on above: Performed By: #### 4 6413, 05652, 47328, 05803, 49876 #### [facility] [address] [place] [address], [place] Sodium molar conc 139 mmol/L Normal 136-145 [facility] Comment on above: Performed By: #### 4 6413, 33493, 78555, 86948, 33048 #### [facility] [address] [place] [address], [facility] Urea nitrogen mass conc 8 mg/dL Normal 7-25 [facility] Comment on above: Performed By: #### 4 6413, 01316, 12863, 15530, 01718 #### [facility] [address] IGG SUBCLASSES (1,2,3,4) 505 77on 06-12-2018 IGG SUBCLASS 1 520 mg/dL Normal 240-[address] [facility] Comment on above: Result Comment: REFE RENCE INTERVAL: Immunoglobulin G Subclass 1 Access complete set of age- and/or gender-specific reference intervals for this test in the [facility] Test [facility] ([employer]). IGG SUBCLASS 2 265 mg/dL Normal 124-[address] [facility] Comment on above: Result Comment: REFE RENCE INTERVAL: Immunoglobulin G Subclass 2 Access complete set of age- and/or gender-specific reference intervals for this test in the [facility] Test [facility] ([employer]). IGG SUBCLASS 3 50 mg/dL Normal 21-[address] [facility] Comment on above: Result Comment: REFE RENCE INTERVAL: Immunoglobulin G Subclass 3 Access complete set of age- and/or gender-specific reference intervals for this test in the [facility] Test [facility] ([employer]). IGG SUBCLASS 4 19 mg/dL Normal 1-[address] [facility] Comment on above: Result Comment: The total IgG (mg/dL) can be derived by the sum of the subclasses IgG1, IgG2, IgG3 and IgG4 values. However, a confirmatory and more precise total IgG is available by the nephelometric method of total IgG (Test # [id number]). REFERENCE INTERVAL: Immunoglobulin G Subclass 4 Access complete set of age- and/or gender-specific reference intervals for this test in the [facility] Test Directory ([employer]). Performed by [facility], [address] [place] [address] www.[employer], Ahsan Abel MD - Lab. Director LIPASE BLOODon 06-12-2018 Lipase enzyme act/vol 82 Units/L Normal 11-82 [facility] Comment on above: Performed By: #### 4 6413, 02670, 31602, 36626, 04144 #### [facility] [address] [place] [address], [facility] LIPID PROFILEon 06-12-2018 Cholesterol in HDL mass conc 56 mg/dL Normal 23-92 [facility] Comment on above: Result Comment: Slig ht variation in normal range could be due to gender and/or age. HDL CHOLESTEROL REFERENCE RANGE: 20 years and older Cardiovascular Risk > or =60 mg/dL Desirable 40 TO 59 mg/dL Low Risk <40 mg/dL High Risk Performed By: #### 4 6413, 28889, 74363, 45103, 45373 #### [facility] [address] [place] [address], [facility] Cholesterol in LDL mass conc 56 mg/dL Normal 0-130 [facility] Comment on above: Result Comment: LDL IS A CALCULATION LDL IS ONLY VALID IF THE TRIG IS LESS THAN 400. Performed By: #### 4 6413, 11120, 90300, 40278, 28304 #### [facility] [address] [place] [address], [facility] Cholesterol mass conc 122 mg/dL Normal 120-200 [facility] Comment on above: Result Comment: CHOL ESTEROL REFERENCE RANGE: 20 YEARS AND OLDER CARDIOVASCULAR RISK Less than 200 mg/dl Low Risk 200 to 239 mg/dl Borderline Risk 240 mg/dl and greater High Risk Performed By: #### 4 6413, 45090, 20675, 83667, 12744 #### [facility] [address] [place] [address], [place] Cholesterol.total/Cho lesterol in HDL mass ratio 2.2 {ratio} Normal .0-4.5 [facility] Comment on above: Performed By: #### 4 6413, 05322, 26666, 58783, 21299 #### [facility] [address] [place] [address], [place] NON-HDL CHOLESTEROL 66 mg/dL Normal [facility] Comment on above: Performed By: #### 4 6413, 08065, 63524, 00091, 10564 #### [facility] [address] [facility]. [address] Triglyceride mass conc 49 mg/dL Normal 40-149 [facility] Comment on above: Result Comment: TRIG LYCERIDE REFERENCE RANGE: 20 YEARS AND OLDER CARDIOVASCULAR RISK LESS THAN 150 mg/dl LOW RISK 150 TO 199 mg/dl BORDERLINE RISK 200 mg/dl AND GREATER HIGH RISK Performed By: #### 4 6413, 07859, 02721, 79629, 06277 #### [facility] [address] VLDL CHOL 10 mg/dL Normal 0-40 [facility] Comment on above: Performed By: #### 4 6413, 10462, 47506, 30220, 96393 #### [facility] [address] [facility]. [address] SMOOTH MUSCLE ABon 9 SMOOTH MUSC AB 1:20 Abnormal NONE DETECTED [facility] Comment on above: Result Comment: NONE DETECTED: LESS THAN 1:20 WEAKLY POSITIVE: 1:20 - 1:40 SUGGESTIVE OF CHRONIC HEPATITIS: 1:80 OR GREATER NOTE: FOR WEAKLY POSITIVE RESULTS, TITER MAY BE PRESENT IN ACUTE VIRAL HEPATITIS, INFECTIOUS MONONUCLEOSIS OR MALIGNANCY. Performed By: #### 6 2510, 44003 #### [facility] [address] TISSUE TRANSGLUTAMINASE IGA [id number] 06-12-2018 TTG IGA 0 U/mL Normal 0-3 [facility] Comment on above: Result Comment: INTE RPRETIVE INFORMATION: Tissue Transglutaminase (tTG) Antibody, IgA 3 U/mL or less: Negative 4-10 U/mL: Weak Positive 11 U/mL or greater: Positive Presence of the tissue transglutaminase (tTG) IgA antibody is associated with glutensensitive enteropathies such as celiac disease and dermatitis herpetiformis. tTG IgA antibody concentrations greater than 40 U/mL usually correlate with results of duodenal biopsies consistent with a diagnosis of celiac disease. For antibody concentrations greater or equal to 4 U/mL but less than or equal to 40 U/mL, additional testing for endomysial (DAVID) IgA concentrations may improve the positive predictive value for disease. Performed by [facility], [address] [place] [address] www.[employer], Ahsan Abel MD - Lab. Director TSH3 WITH REFLEXon 9 T4 free mass conc 0.78 ng/dL Normal 0.71-1.85 [facility] Comment on above: Result Comment: This result added by IF on 06/12/2018 15:20. Performed By: #### 4 6413, 97639, 92443, 37406, 76683 #### [facility] [address] TSH 3RD GENERATION 1.27 uIU/mL Normal 0.34-5.60 [facility] Comment on above: Performed By: #### 4 6413, 70625, 12169, 03770, 14599 #### [facility] [address] Encounters Encounter Date Encounter Type Care Provider Facility Start: 10-11-2022 ambulatory GIRISH MONACO [facility] Start: 10-11-2022 End: 10-11-2022 ambulatory GIRISH MONACO [facility] Start: 09-15-[address] YESICA TOLBERT [facility] ity:[facility] Start: 05-25-2022 End: 05-26-[address] YESICA TOLBERT Facility:[facility] Start: 10-05-2021 End: 10-05-[address] ANNAMARIA GARCIA . Facility:[facility] Start: 10-05-2021 End: 10-06-[address] ANNAMARIA GARCIA . Facility: Start: 07-17-2018 End: 07-18-2018 Patient encounter procedure BONG ESCALERA Facility:[facility] Start: 06-27-2018 End: 06-28-2018 Patient encounter procedure WHITNEY MCKEON Facility:[facility] Start: 06-12-2018 End: 06-13-2018 Patient encounter procedure BONG ESCALERA Facility:[facility] Procedures Date Procedure Procedure Detail Performing Clinician Start: 06-27-2018 ANES UPR GI NDSC PX NOS OPAL BERRIOS Payers Date Payer Category Payer Unknown [id number] 1990 Unknown [id number] [id number] 1990 Unknown [id number] 2.16.8 [id number] 1990 Unknown [id number] 2.16.8 [id number] 1990 Unknown [id number] 2.16.84 [id number] 1991 Unknown [id number] 2.16.84 [id number] 1991 Unknown [id number] 2.16.84 [id number] 1990 Unknown [id number] 2.16.84 [id number] 1958 Private Health Insurance [id number] 1958 Unknown [id number] Progress note 10-11-2022 Note Date & Type Note Facility 10-11-2022 Note [facility] Gastroenterolog y Follow-Up Patient Visit CHIEF COMPLAINT Chief Complaint Patient presents with yearly follow up HISTORY OF PRESENT ILLNESS: Reina Razo is a 32 y.o. 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 Her ASMA was mildly elevated concerning for possible autoimmune pancreatitis. She has also been wheat sensitivity for quite some time and assumed it was celiac disease. She has been on Gluten Free diet for years and her last TTG was negative. Also has h/o gastric sleeve d/t scaring from the previous surgery and a sepsis infection. Back in [address] Mckeon she had equivocal EUS for chronic pancreatitis but was started on Creon 72K units with meals 36K with snacks. She also was noted to have gastric erosions. Was placed on protonix. She reported improvement in symptoms w/ Creon and PPI. When last in clinic back in 2020 she was , had been feeling well until she developed cholestasis at the end of her . INTERVAL HISTORY: Some days feels great, some days has horrible days and experiencing body weakness, headaches, generalized pain, poor memory. Reports these issues started years ago, after she developed sepsis back in 2016 however recently more severe. She doesn't complain of abd pain NV fever chills. Denies any persistent diarrhea, steatorrhea, bloody BMs. Her weight has been stable. Still on Creon 72K units with meals 36K with snacks Remains GF Eats 6 smaller meals per day. Avoids meat - recognized an total inability to digest it HISTORY: Problem list: Patient Active Problem List Diagnosis Abdominal pain, generalized ADHD (attention deficit hyperactivity disorder) Adult attention deficit hyperactivity disorder B12 deficiency Celiac disease Cervical herniated disc Degenerative disc disease, cervical Dehiscence of operative wound Dyspepsia and other specified disorders of function of stomach GERD (gastroesophageal reflux disease) Family history of factor V deficiency Flatulence, eructation, and gas pain History of pancreatectomy History of bariatric surgery History of partial splenectomy Hypothyroidism MRSA (methicillin resistant Staphylococcus aureus) 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 No pertinent past medical history. Past Surgical History: History reviewed. No pertinent surgical history. FAMILY HISTORY: No family history on file. SOCIAL HISTORY: Social History Tobacco Use Smoking status: Never Smokeless tobacco: Never Vaping Use Vaping Use: Never used Substance Use Topics Alcohol use: Never Drug use: Never ALLERGIES: Vancomycin analogues; Wheat containing prod; Doxycycline; Latex, natural rubber; Sulfamethoxazole-trimethoprim; Tramadol; Feathers; Grass pollen; Hydrocodone-acetaminophen; Milk; Oxycodone-acetaminophen; Wheat; and Dyclonine-benzethonium Current Medications: Current Outpatient Medications: amphetamine-dextroamphetamine (Adderall) 30 mg tablet, Take 1 tablet by mouth in the morning and at bedtime., Disp: , Rfl: blood sugar diagnostic (True Metrix Glucose Test Strip) strip, True metrix strips for true metrix meter testing 4 times per day, Disp: , Rfl: blood-glucose meter misc, OneTouch Ultra2 Meter use as directed, Disp: , Rfl: buPROPion XL (Wellbutrin XL) 150 mg 24 hr tablet, , Disp: , Rfl: zxtfmosxlc-ubxrvhvervzig-gsqm (Fioricet) 50-300-40 mg capsule, TAKE 1 CAPSULE BY MOUTH FOUR TIMES A DAY NEEDED, Disp: , Rfl: calcium-vits C6-M-L8-minerals 166.75 mg- 166.75 unit capsule, Take 1 capsule by mouth., Disp: , Rfl: cholecalciferol (Vitamin D-3) 25 MCG (1000 units) tablet, Take 1,000 Units by mouth in the morning., Disp: , Rfl: coenzyme Q-10 100 mg capsule, Take 100 mg by mouth twice a day., Disp: , Rfl: cranberry 500 mg capsule, Take 2,000 mg by mouth., Disp: , Rfl: lancets 33 gauge misc, 33 gauge lancets for true metrix meter testing 4 times per day, Disp: , Rfl: levothyroxine (Synthroid, Levoxyl) 25 mcg tablet, Take 25 mcg by mouth in the morning and at bedtime., Disp: , Rfl: pancrelipase, Hje-Nqfl-Miys, (Creon) 36,000-114,000- 180,000 unit capsule,delayed release(DR/EC) capsule, Take 1 capsule by mouth 6 (six) times a day. Corrected sig: Take 2 capsules six times daily, Disp: 1080 capsule, Rfl: 3 saccharomyces boulardii (Florastor) 250 mg capsule, Take 250 mg by mout (more content not included)... [facility] Summary Purpose Family History No Family History Records FoundNo Family History Records FoundNo Family History Records FoundNo Family History Records FoundNo Family History Records Found Advance Directives No Advanced Directives Records FoundNo Advanced Directives Records FoundNo Advanced Directives Records FoundNo Advanced Directives Records FoundNo Advanced Directives Records Found Procedure Findings Note MR#: [id number] [facility] Pt. Name: Reina Razo Surgery Date: 06/27/2018 Room #: 0C Date of : 1990 PROCEDURE NOTE ATTENDING: Whitney Mckeon M.D. PROCEDURE PERFORMED: Endoscopic ultrasound with biopsy. 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 MEDICATIONS: General anesthesia administered by Anesthesia team. REGULATORY ATTORNEY: Gibson Manriquez M.D. PROCEDURE IN DETAIL: After obtaining the informed consent, which include the risks, benefits, alternatives, and complications, complications include bleeding, perforation, and reaction to medications, the patient was placed in the left lateral decubitus position after receiving general anesthesia administered by Anesthesia team after which the Olympus video GIF-190 gastroscope was introduced through the mouth down to the esophagus, stomach, then to the 1st and 2nd part of the duodenum with no difficulties. The examination of the e (more content not included)... Additional Source Comments INFORMATION SOURCE (unrecogn ized section and content) DATE CREATED AUTHOR 07/21/2018 [facility] DATE CREATED AUTHOR AUTHOR'S ORGANIZ ATION 12/14/2020 [facility] DATE CREATED AUTHOR AUTHOR'S ORGANIZ ATION 05/17/2021 [facility] DATE CREATED AUTHOR AUTHOR'S ORGANIZ ATION 09/05/2022 [facility] DATE CREATED AUTHOR AUTHOR'S ORGANIZ ATION 01/02/2023 [facility] FOR RECORDS PERTAINING TO PATIENTS WHO ARE OR HAVE BEEN ENROLLED IN A CHEMICAL DEPENDENCY/SUBSTANCEABUSE PROGRAM, SOME INFORMATION MAY BE OMITTED. This clinical summary was aggregated from multiple sources. Caution should be exercised in using it in the provision of clinical care. This summary normalizes information from multiple sources, and as a consequence, information in this document may materially change the coding, format and clinical context of patient data. In addition, data may be omitted in some cases. CLINICAL DECISIONS SHOULD BE BASED ON THE PRIMARY CLINICAL RECORDS. [employer] provides no warranty or guarantee of the accuracy or completeness of information in this document.
[2023-05-09 14:12] LABS: Age Gdln ACOG Testing Note (.); HPV Aptima Negative (Negative); IGP, Aptima HPV, rfx 16/18,45 Note (.)
== END 2023-05-04 20:53 | disposition home or self-care (01) ==
LOC: LAB 20:52
PROVIDERS: PCP Family Medicine; Visit Provider Obstetrics & Gynecology
DX: Z01.419 Encounter for gynecological examination (general) (routine) without abnormal findings (principal)
CPT/HCPCS: 87624; 88142; G0145

== ENCOUNTER 2023-12-05 15:07 | Outpatient (REF) | payer BC, SELFPAY | END 2023-12-05 15:08 | disposition home or self-care (01) | LOC: LAB 15:07 | PROVIDERS: PCP Family Medicine; Visit Provider Obstetrics & Gynecology | DX: N94.9 Unspecified condition associated with female genital organs and menstrual cycle (principal); L91.8 Other hypertrophic disorders of the skin | CPT/HCPCS: 88305 ==

== ENCOUNTER 2024-02-15 10:16 | Outpatient (OUT) | payer BC, SELFPAY ==
--- OUTSIDE RECORDS SUMMARY | 2024-02-15 10:24 | XMS_ITS | CCD ---
Author Organization [facility] CliniSyga Care Team Providers Care Refrigeration Repair Supervisor Name Role Phone HASAN, BONG Admitting Unavailable HASAN, BONG Attending Unavailable HASAN, BONG Referring Unavailable JOSIAH REBOLLAR Primary Care Unavailable NAWRAS, ALI T Admitting Unavailable NALINDAAS, ALI T Attending Unavailable GERARDO TOLBERT Referring Unavailable HEAVENERER, GERARDO Primary Care Unavailable NE Procedure Practitioner Unavailab OPAL Lozoya Surgeon Unavailable HASAN, BONG Admitting Unavailable HASAN, BONG Attending Unavailable HASAN, BONG Referring Unavailable HEAVENEREMaday, GERARDO Primary Care Unavailable SUZANNA ., DR YIN Attending Unavailable SUZANNA ., DR YIN Consulting Unavailable SUZANNA ., DR YIN Admitting Unavailable NADERER, DR GERARDO Patterson Primary Care Unavailable NADERER, DR GERARDO Patterson Primary Care Unavailable NADERER, DR GERARDO Patterson Admitting Unavailable NADERER, DR GERADRO Patterson Attending Unavailable ZIEBER, DR LUCERO Nassar Consulting Unavailable NADERER, DR GERARDO Patterson Consulting Unavailable NADERER, DR GERARDO Patterson Primary Care Unavailable NADERER, DR GERARDO Patterson Admitting Unavailable NADERER, DR GERARDO Patterson Attending Unavailable SUZANNA ., DR YIN Admitting Unavailable SUZANNA ., DR YIN Attending Unavailable SUZANNA ., DR YIN Consulting Unavailable NADERER, DR GERARDO Patterson Primary Care Unavailable Gerardo Tolbert MD Primary Care Provider Gerardo Tolbert MD Primary Care Provider Gerardo Tolbert MD Unavailable DO Annamaria Briseno Attending Provider [phone] Annamaria Briseno Attending Unavailable Annamaria Briseno Admitting Unavailable SHAWN PICKETT Referring Unavailable MIKE MONTANEZ Attending Unavailable GIRISH MONACO Attending Unavaila ble SHAWN PICKETT Attending Unavailable ANNAMARIA BRISENO Attending Unavailable GERARDO TOLBERT Attending Unavailable GERARDO TOLBERT Attending Unavailable ANNAMARIA BRISENO Attending Unavailable ANNAMARIA BRISENO Attending Unavailable GERARDO TOLBERT Attending Unavailable Allergies Allergy Classification Reported Allergen(s) Allergy Type Date of Onset Reaction(s) Facility (1 source) Acetaminophen / HYDROcodone Drug Allergy [facility] Repository (2 sources) Acetaminophen / oxyCODONE Drug Allergy [facility] (1 source) Adhesive Tape Drug allergy (disorder) [facility] (1 source) buPROPion Drug Allergy [facility] (4 sources) Latex; Translations: [LATEX] Drug allergy (disorder) [facility] (3 sources) Sulfamethoxazole / Trimethoprim Drug Allergy [facility] (4 sources) Vancomycin; Translations: [VANCOMYCIN] Drug Allergy [facility] (1 source) Acetaminophen / HYDROcodone Drug Allergy [facility] Repository (1 source) Desonide Drug Allergy [facility] Rep[facility] (2 sources) Gluten Drug allergy (disorder) [facility] Repository (1 source) POLYETHYLENE GLYCOL 3350 Drug Allergy [facility] Repository (2 sources) traMADol; Translations: [TRAMADOL] Drug Allergy [facility] Repository (5 sources) Latex Propensity to adverse reactions Itching, Rash, Hives [facility] (5 sources) traMADol Drug Allergy Hallucinations [facility] Work Phone: (7 sources) Vancomycin Drug Allergy Other (See Comments) [facility] (3 sources) WHEAT DEXTRIN Drug Allergy [facility] (4 sources) Acetaminophen / HYDROcodone; Translations: [HYDROCODONE-ACETAM INOPHEN] Drug Allergy Vomiting [facility] (4 sources) Acetaminophen / oxyCODONE; Translations: [OXYCODONE-ACETAMIN OPHEN] Drug Allergy Vomiting [facility] (4 sources) Benzethonium / dyclonine; Translations: [DYCLONINE-BENZETHO NIUM] Drug Allergy Rash, Dermatitis, Itching [facility] (4 sources) Doxycycline; Translations: [DOXYCYCLINE] Drug Allergy Vomiting [facility] (3 sources) Feather; Translations: [FEATHERS] Propensity to adverse reactions to drug Hives [facility] (3 sources) Grass pollen; Translations: [GRASS POLLEN] Propensity to adverse reactions to drug [facility] (4 sources) Sulfamethoxazole / Trimethoprim; Translations: [SULFAMETHOXAZOLE-T RIMETHOPRIM] Drug Allergy [facility] (3 sources) Wheat; Translations: [WHEAT CONTAINING PROD] Propensity to adverse reactions to drug Other (See Comments) [facility] (3 sources) Wheat preparation; Translations: [WHEAT] Drug Allergy [facility] (2 sources) amLODIPine; Translations: [AMLODIPINE] Drug Allergy Itching, Swelling [facility] (2 sources) buPROPion; Translations: [BUPROPION] Drug Allergy [facility] (1 source) Glycopeptides (Antibiotic); Translations: [VANCOMYCIN ANALOGUES] Propensity to adverse reactions to drug (disorder) [facility] (1 source) Milk; Translations: [MILK] Propensity to adverse reactions to drug (disorder) [facility] (1 source) natural latex rubber; Translations: [LATEX, NATURAL RUBBER] Propensity to adverse reactions to drug (disorder) [facility] (2 sources) Psyllium; Translations: [PSYLLIUM] Drug Allergy [facility] (2 sources) OTHER; Translations: [OTHER] Propensity to adverse reactions (disorder) [facility] (1 source) FREMANEZUMAB-VFRM; Translations: [FREMANEZUMAB-VFRM] Propensity to adverse reactions to drug (disorder) 024 [facility] (1 source) Cow milk Allergy to substance 023 [facility] (1 source) Grass pollen Drug Intolerance 020 Hives [facility] (1 source) Fremanezumab Propensity to adverse reactions 024 [facility] Medications Current Medications Medication Drug Class(es) Dates Sig (Normalized) Sig (Original) acetaminophen 500 mg oral tablet (2 sources) Start: 12-18-2020 take 2 tablets by mouth every eight hours as needed for pain acetaminophen (TYLENOL EXTRA STRENGTH) 500 mg tablet Take 2 tablets (1,000 mg total) by mouth every 8 (eight) hours as needed for pain. 30 tablet 2 12/18/2020 Active amphetamine aspartate 7.5 mg / amphetamine sulfate 7.5 mg / dextroamphetamine saccharate 7.5 mg / dextroamphetamine sulfate 7.5 mg oral tablet (7 sources) Central Nervous System Stimulant Start: 12-27-2023 End: 02-22-2024 take 1 tablet by mouth in the morning amphetamine-dextro amphetamine (Adderall) 30 MG tablet Indications: ADHD, predominantly inattentive type (CMS/HCC) Take 1 tablet (30 mg) by mouth in the morning and 1 tablet (30 mg) before bedtime. 60 tablet 01/23/2024 02/22/2024 Active Start: 04-28-2023 End: 05-26-2023 take 1 tablet by mouth in the morning amphetamine-dextroamphetamine (Adderall) 30 MG tablet Indications: ADHD, predominantly inattentive type (CMS/HCC) Take 1 tablet (30 mg) by mouth in the morning and 1 tablet (30 mg) before bedtime. 60 tablet 0 05/26/2023 Active amylase 375429 unt / lipase 14145 unt / protease [id number] unt delayed release oral capsule (5 sources) pancrelipase, Li p-Prot-Amyl, (Creon) 97852-136223 units capsule delayed-release particles capsule Take 3 capsules by mouth 6 (six) times a day Active lipase-protease- amylase (CREON) 36,000-114,000- 180,000 unit capsule,delayed release(DR/EC) Take 1 capsule (36,000 units of lipase total) by mouth in the morning and 1 capsule (36,000 units of lipase total) at noon and 1 capsule (36,000 units of lipase total) in the evening. Take with meals. 0 Active pancrelipase, Li p-Prot-Amyl, (Creon) 18736-707418 units capsule delayed- release particles capsule Take 2 capsules by mouth in the morning and 2 capsules at noon and 2 capsules in the evening. Take with meals. 0 Active atogepant (QULIPTA) 60 mg tablet (3 sources) Start: 06-14-2023 take 1 tablet by mouth in the morning atogepant (QULIPTA) 60 mg tablet Indications: Migraine with aura and without status migrainosus, not intractable Take 60 mg by mouth in the morning. 30 tablet 5 06/14/2023 Active Start: 06-01-2023 End: 06-14-2023 take 1 tablet by mouth in the morning atogepant (QULIPTA) 60 mg tablet Indications: Migraine with aura and without status migrainosus, not intractable Take 60 mg by mouth in the morning. 30 tablet 5 06/01/2023 06/14/2023 Discontinued (Reorder) Start: 06-01-2023 take 1 tablet by ambar th in the morning atogepant (QULIPTA) 60 mg tablet Indications: Migraine with aura and without status migrainosus, not intractable Take 60 mg by mouth in the morning. 30 tablet 5 06/01/2023 Active Atogepant (Qulipta) 60 MG ta blet (1 source) Atogepant (Qulip ta) 60 MG tablet Take by mouth Active B Complex-C (SUPER B COMPLEX PO) (3 sources) B Complex-C (SUP ER B COMPLEX PO) Take by mouth Active B Complex-C (SUP ER B COMPLEX PO) Take by mouth 0 Active 12 hr buPROPion hydrochloride 150 mg extended release oral tablet (5 sources) Aminoketone Start: 01-16-2024 take 1 tablet by mouth every twelve hours in the morning buPROPion SR (Wellbutrin SR) 150 MG 12 hr tablet Indications: Generalized anxiety disorder (CMS/HCC) Take 1 tablet (150 mg) by mouth in the morning and 1 tablet (150 mg) before bedtime. Do not crush, chew, or split.. 60 tablet 3 01/16/2024 Active Start: 03-21-2023 take 1 tablet by ambar th once daily buPROPion XL (Wellbutrin XL) 150 MG 24 hr tablet Indications: EUGENE (generalized anxiety disorder) (CMS/HCC) TAKE 1 TABLET BY MOUTH EVERY DAY 90 tablet 3 03/21/2023 Active calcium-vits D8-Y-R6-minerals 166.75 mg- 166.75 unit capsule (2 sources) calcium-vits E5-R-N9-minerals 166.75 mg- 166.75 unit capsule Take 1 capsule by mouth. 0 Active cholecalciferol 0.025 mg oral capsule (5 sources) Vitamin D take 1 capsule by mouth in the morning cholecalciferol (Vitamin D-3) 25 MCG (1000 UT) capsule Take 1,000 Units by mouth in the morning. Active take 1 tablet by mouth in the mo rning cholecalciferol (VITAMIN D3) 1,000 units tablet Take 1 tablet (1,000 Units total) by mouth in the morning. 0 Active Glucose Blood (FREESTYLE PB T ) (3 sources) Glucose Blood (F REESTYLE TEST ) by In Vitro route Active Glucose Blood (F REESTYLE TEST ) by In Vitro route 0 Active guanFACINE 1 mg oral tablet (1 source) Central alpha-2 Adrenergic Agonist guanFACINE (Tenex) 1 MG tablet 1 mg in the morning and 1 mg before bedtime. Active Lactobacillus acidophilus (2 sources) Lactobacillus acidophilus (PROBIOTIC ORAL) Take by mouth. 0 Active levothyroxine sodium 0.025 mg oral tablet (5 sources) l-Thyroxine Start: 11-16-19 take 1 tablet by mouth twice daily levothyroxine (Synthroid, Levoxyl) 25 MCG tablet Indications: Hypothyroidism, unspecified (CMS/HCC) , Hypothyroidism (CMS/HCC) TAKE 1 TABLET BY MOUTH TWICE A DAY 180 tablet 3 11/16/2023 Active take 1 tablet by ambar th in the morning, then take 1 tablet by mouth at bedtime levothyroxine (SYNTHROID, LEVOTHROID) 25 MCG tablet Take 1 tablet (25 mcg total) by mouth in the morning and 1 tablet (25 mcg total) before bedtime. 0 Active Magnesium (5 sources) take 2 tablets by mo uth once daily magnesium 250 MG tablet Take 500 mg by mouth 1 (one) time each day Active take 400 mg by mouth at bedtime MAGNESIUM ORAL Take 400 mg by mouth in the morning and at bedtime. 0 Active take 2 tablets by mouth once so ly magnesium 250 MG tablet Take 500 mg by mouth 1 (one) time each day 0 Active Uni-Pde-CJ-Fish Oil ([facility] Gummy) 0.4-113.5 MG chewable tablet (3 sources) Vit-Min -FA-Fish Oil ([facility] Gummy) 0.4-113.5 MG chewable tablet Chew 1 tablet 1 (one) time each day Active Vit-Min -FA-Fish Oil ([facility] Gummy) 0.4-113.5 MG chewable tablet Chew 1 tablet 1 (one) time each day 0 Active rizatriptan 10 mg disintegrating oral tablet (2 sources) Serotonin-1b and Serotonin-1d Receptor Agonist Start: 10-18-2022 take 1 tablet by mouth every two hours, then take 2 tablets by mouth every twenty-four hours rizatriptan CLINICAL MOLECULAR GENETICIST (MAXALT-CLINICAL MOLECULAR GENETICIST) 10 mg disintegrating tablet Indications: Migraine with aura and without status migrainosus, not intractable Dissolve 1 tablet in mouth at the onset of migraine. May repeat the dose after 2 hours if headache persists. Max of 2 doses per 24 hours 12 tablet 2 10/18/2022 Active SUMAtriptan 20 mg/actuat nasal spray (3 sources) Serotonin-1b and Serotonin-1d Receptor Agonist SUMAtriptan (Imitrex) 20 MG/ACT nasal spray Administer 20 mg into one nostril See administration instructions Active ubidecarenone 30 mg oral capsule (3 sources) take 1 capsule by mouth once daily co-enzyme Q-10 30 MG capsule Take 30 mg by mouth Daily Active take 10 capsules by mouth once in the morning coenzyme Q10 200 mg capsule Take 100 mg by mouth in the morning. 0 Active Completed/Discontinued Medications Medication Drug Class(es) Dates Sig (Normalized) Sig (Original) 1.5 ml fremanezumab-vfrm 150 mg/ml auto-injector (3 sources) Start: 01-17-2023 End: 06-01-2023 fremanezumab-vfrm (AJOVY AUTOINJECTOR) 225 mg/1.5 mL Indications: Migraine with aura and without status migrainosus, not intractable Inject 1.5 mL (225 mg total) under the skin every 28 days. 1.5 mL 5 01/17/2023 06/01/2023 Discontinued Start: 01-17-2023 inject 225 mg by sub cutaneous injection every 30 days Ajovy 225 MG/1.5ML auto-injector Inject 225 mg under the skin every 30 (thirty) days 0 01/17/2023 Active Problems Active Problems Problem Classification Problem Date Documented Da te Episodic/Chronic Abdominal pain (3 sources) Unspecified abdominal pain; Translations: [UNSPECIFIED ABDOMINAL PAIN] Onset: 9 Episodic Allergic reactions (1 source) Latex allergy status; Translations: [LATEX ALLERGY STATUS] Onset: 9 Episodic Anxiety disorders (3 sources) Generalized anxiety disorder; Translations: [Generalized anxiety disorder] Onset: 3 03-30-2023 Chronic Attention-deficit, conduct, and disruptive behavior disorders (5 sources) Attention deficit hyperactivity disorder, predominantly inattentive type; Translations: [Attention-deficit hyperactivity disorder, predominantly inattentive type] Onset: 3 05-26-2023 Chronic Attention-deficit, conduct, and disruptive behavior disorders (2 sources) Attention deficit hyperactivity disorder; Translations: [Attention-deficit hyperactivity disorder, unspecified type] Onset: 7 02-15-2017 Chronic Cardiac dysrhythmias (2 sources) Postural orthostatic tachycardia syndrome ; Translations: [POTS (postural orthostatic tachycardia syndrome)] Onset: 1 07-17-2020 Chronic Esophageal disorders (2 sources) Gastroesophageal reflux disease; Translations: [Gastro-esophageal reflux disease without esophagitis] Onset: 7 02-15-2017 Chronic Essential hypertension (2 sources) Essential (primary) hypertension; Translations: [Essential (primary) hypertension] Onset: 4 Chronic Gastritis and duodenitis (3 sources) Chronic superficial gastritis; Translations: [Chronic superficial gastritis without bleeding] Onset: 3 03-30-2023 Chronic Headache; including migraine (7 sources) Migraine with aura; Translations: [Migraine with aura, not intractable, without status migrainosus] Onset: 3 05-11-2023 Chronic Headache; including migraine (1 source) Headache; including migraine; Translations: [HEADACHE UNSPECIFIED] Onset: 2 Nervous system congenital anomalies (2 sources) Cerebellar disorder; 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] Onset: 3 01-05-2023 Chronic Other disorders of stomach and duodenum (1 source) Other diseases of stomach and duodenum; Translations: [OTHER DISEASES OF STOMACH AND DUODENUM] Onset: 9 Episodic Other female genital disorders (1 source) Cyst of vagina; Translations: [Other specified noninflammatory disorders of vagina] Onset: 4 11-14-2023 Episodic Other gastrointestinal disorders (6 sources) Celiac disease; Translations: [Celiac disease] Onset: 1 05-11-2023 Chronic Other gastrointestinal disorders (1 source) Celiac disease; Translations: [Celiac disease] Onset: 3 Chronic Other gastrointestinal disorders (1 source) Bariatric surgery status; Translations: [BARIATRIC SURGERY STATUS] Onset: 9 Episodic Other nervous system disorders (6 sources) Disorder of autonomic nervous system; Translations: [Disorder of the autonomic nervous system, unspecified] Onset: 3 Resolved: 4 05-11-2023 Chronic Other nervous system disorders (2 sources) Disorder of the autonomic nervous system, unspecified; Translations: [Disorder of the autonomic nervous system, unspecified] Onset: 4 Chronic Other nutritional; endocrine; and metabolic disorders (3 sources) Insulin resistance; Translations: [Insulin resistance] Onset: 3 03-30-2023 Chronic Pancreatic disorders (not diabetes) (9 sources) Other chronic pancreatitis; Translations: [Chronic pancreatitis] Onset: 9 03-30-2023 Chronic Pancreatic disorders (not diabetes) (4 sources) Acute pancreatitis without necrosis or infection, unspecified; Translations: [ACUTE PANCREATITIS WITHOUT NECROSIS OR INFECTION, UNSP] Onset: 9 Residual codes; unclassified (1 source) Acquired partial absence of pancreas; Translations: [ACQUIRED PARTIAL ABSENCE OF PANCREAS] Onset: 9 Chronic Residual codes; unclassified (2 sources) History of pancreatectomy; 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] Onset: 0 07-02-2019 Chronic Spondylosis; intervertebral disc disorders; other back problems (7 sources) Degeneration of cervical intervertebral disc; Translations: [Other cervical disc degeneration, unspecified cervical region] Onset: 7 05-11-2023 Chronic Thyroid disorders (13 sources) Hypothyroidism, unspecified; Translations: [Unspecified acquired hypothyroidism] Onset: 1 Chronic Unclassified (2 sources) LAB Onset: 9 Past or Other Problems Problem Classification Problem Date Documented Da te Episodic/Chronic Bacterial infection; unspecified site (2 sources) Methicillin resistant Staphylococcus aureus infection; Translations: [Methicillin resistant Staphylococcus aureus infection, unspecified site] Onset: 04-24-2015 07-02-2019 Episodic Diabetes mellitus without complication (3 sources) Prediabetes; Translations: [Prediabetes] Onset: 03-30-2023 03-30-2023 Episodic Immunizations and screening for infectious disease (5 sources) Encounter for screening for human papillomavirus (HPV); Translations: [Methicillin resistant staphylococcus aureus carrier] Onset: 10-06-2021 03-30-2023 Episodic Lymphadenitis (3 sources) Cervical lymphadenopathy; Translations: [Localized enlarged lymph nodes] Onset: 03-30-2023 Resolved: 05-11-2023 05-11-2023 Episodic Mood disorders (2 sources) Mood disorders Onset: 01-05-2023 01-05-2023 Nausea and vomiting (2 sources) Postoperative nausea and vomiting; Translations: [Nausea with vomiting, unspecified] Onset: 07-02-2019 07-02-2019 Episodic Neoplasms of unspecified nature or uncertain behavior (2 sources) Neoplasm of pancreas; Translations: [Neoplasm of unspecified behavior of digestive system] Onset: 04-24-2007 07-02-2019 Episodic Nutritional deficiencies (5 sources) Cobalamin deficiency; Translations: [Deficiency of other specified B group vitamins] Onset: 02-14-2017 05-11-2023 Episodic Other circulatory disease (2 sources) Postural orthostatic tachycardia syndrome ; Translations: [Postural orthostatic tachycardia syndrome (POTS)] Onset: 10-07-2022 Episodic Other complications of (2 sources) Maternal obesity complicating , childbirth and the puerperium, antepartum; Translations: [Obesity complicating , unspecified trimester] Onset: 07-17-2020 Resolved: 12-21-2020 12-21-2020 Chronic Other complications of (2 sources) Nausea and vomiting; Translations: [Vomiting of , unspecified] Onset: 07-17-2020 Resolved: 12-21-2020 12-21-2020 Episodic Other endocrine disorders (1 source) Endocrine disorder, unspecified; Translations: [ENDOCRINE DISORDER UNSPECIFIED] Onset: 10-06-2021 Episodic Other gastrointestinal disorders (4 sources) History of bariatric surgical procedure; Translations: [Bariatric surgery status] Onset: 06-04-2017 07-17-2020 Episodic Other and delivery including normal (4 sources) Vaginal delivery; Translations: [Encounter for full-term uncomplicated delivery] Onset: 12-16-2020 Resolved: 12-21-2020 12-21-2020 Episodic Other screening for suspected conditions (not mental disorders or infectious disease) (4 sources) Encounter for screening for malignant neoplasm of cervix; Translations: [ENC SCREENING MALIG NEOPLASM CERV] Onset: 10-05-2021 Episodic Residual codes; unclassified (2 sources) Family history of factor V deficiency; Translations: [Family history of diseases of the blood and blood-forming organs and certain disorders involving the immune mechanism] Onset: 07-17-2020 07-17-2020 Episodic Spondylosis; intervertebral disc disorders; other back problems (3 sources) Chronic back pain ; Translations: [Dorsalgia, unspecified] Onset: 03-30-2023 03-30-2023 Episodic Results Test Name Value Interpretation Reference Range Facility Orders Onlyon 12-26-2023 Orders Only [id number] Freya Jennings 1990 F Date Provider Department Center 12/26/2023 [id number] MONACO* [facility] Family History Problem Relation Age of Onset Hypertension Mother Hypertension Father Gout Father Migraines Sister No Known Problems Brother Hypertension Paternal Grandmother Hypertension Paternal Grandfather Atrial fibrillation Paternal Grandfather No Known Problems Son Sudden Neg Hx SIDS Neg Hx Congenital heart disease Neg Hx Congenital Hearing Loss Neg Hx Autoimmune disease Neg Hx Family Status - Relation Status Age at Mother Alive Father Alive Sister Brother Paternal Grandmother Paternal Grandfather Son Alive Neg Hx Normal [facility] BASIC METABOLIC PANELon 08-2 Anion gap [Moles/Vol] 9 mmol/L Normal - [facility] Comment on above: Performed By: #### L [id number] #### [facility] ([facility]AK[facility]) [address] [place] [address] Calcium [Mass/Vol] 9.0 mg/dL Normal 8.6-10.3 [facility] Comment on above: Performed By: #### L [id number] #### [facility] ([facility]) [address] [place] [address] Chloride [Moles/Vol] 106 mmol/L Normal 98-107 [facility] Comment on above: Performed By: #### L [id number] #### [facility] ([facility] [place] [address] [place] [address] CO2 [Moles/Vol] 29 mmol/L Normal 21-31 [facility] Comment on above: Performed By: #### L [id number] #### [facility] ([facility] [place]) [address] [place] [address] Creatinine [Mass/Vol] 0.66 mg/dL Normal 0.60-1.20 [facility] Comment on above: Performed By: #### L [id number] #### [facility] ([facility]) [address] [place] [address] GLOMERULAR FILTRATION RATE ML/MIN/1.73 SQ M.PREDICTED 119.5 mL/min/1.73m*2 Normal >60.0 [facility] Comment on above: Result Comment: The [facility]???s estimated glomerular filtration rate (eGFR) will no longer include consideration of race in its calculation. The [employer]???s eGFR Task Force developed new recommendations for the estimation of the glomerular filtration rate in the [place] They recommend immediate implementation of the new equation refit without the race variable in all laboratories because the calculation does not include race. In addition to not including race in the calculation and reporting, it included diversity in its development, and has acceptable performance characteristics and potential consequences that do not disproportionately affect any one group of individuals. Performed By: #### L [id number] #### [facility] ([facility] [place]) [address] [place] [address] Glucose [Mass/Vol] 86 mg/dL Normal 70-100 [facility] Comment on above: Performed By: #### L [id number] #### [facility] ([facility]) [address] [place] [address] Potassium [Moles/Vol] 3.6 mmol/L Normal 3.5-5.1 [facility] Comment on above: Performed By: #### L [id number] #### [facility] ([facility]) [address] [place] [address] Sodium [Moles/Vol] 140 mmol/L Normal 136-145 [facility] Comment on above: Performed By: #### L [id number] #### [facility] ([facility]) [address] [place] [address] Urea nitrogen [Mass/Vol] 10 mg/dL Normal 7-25 [facility] Comment on above: Performed By: #### L [id number] #### [facility] ([facility]) [address] [place] [address] UREA NITROGEN/CREATININE (MASS RATIO) IN SER/PLAS 15.2 Normal [facility] Comment on above: Performed By: #### L [id number] #### [facility] ([facility]) [address] [place] [address] CBC WITH AUTO DIFFERENTIALon 12-19-2023 Basophils (Bld) [#/Vol] 0.08 10*3/uL Normal 0.00-0.20 [facility] Comment on above: Performed By: #### L [id number] #### [facility] ([facility]) [address] [place] [address] Basophils/100 WBC (Bld) 1.0 % Normal 0.0-1.0 [facility] Comment on above: Performed By: #### L [id number] #### [facility] ([facility]) [address] [place] [address] Eosinophils (Bld) [#/Vol] 0.28 10*3/uL Normal 0.00-0.50 [facility] Comment on above: Performed By: #### L [id number] #### [facility] ([facility]) [address] [place] [address] Eosinophils/100 WBC (Bld) 3.4 % Normal 0.0-6.0 [facility] Comment on above: Performed By: #### L [id number] #### [facility] ([facility]) [address] [place] [address] Erythrocyte distribution width (RBC) [Ratio] 12.6 % Normal 11.5-15.0 [facility] Comment on above: Performed By: #### L [id number] #### [facility] ([facility]) [address] [place] [address] ERYTHROCYTE MEAN CORPUSCULAR HEMOGLOBIN CONCENTRATION (G/DL) BY AUTOMATED 33.6 g/dL Normal 32.0-35.0 [facility] Comment on above: Performed By: #### L [id number] #### [facility] ([facility]) [address] [place] [address] Hematocrit (Bld) [Volume fraction] 41.4 % Normal 36.0-48.0 [facility] Comment on above: Performed By: #### L [id number] #### [facility] ([facility]) [address] [place] [address] Hemoglobin (Bld) [Mass/Vol] 13.9 g/dL Normal 12.0-15.0 [facility] Comment on above: Performed By: #### L [id number] #### [facility] ([facility]) [address] [place] [address] Immature granulocytes (Bld) [#/Vol] 0.01 10*3/uL Normal 0.00-0.20 [facility] Comment on above: Performed By: #### L [id number] #### [facility] ([facility]) [address] [place] [address] Immature granulocytes/100 WBC (Bld) 0.1 % Normal 0.0-1.0 [facility] Comment on above: Performed By: #### L [id number] #### [facility] ([facility]) [address] [place] [address] Lymphocytes (Bld) [#/Vol] 2.82 10*3/uL Normal 1.20-4.00 [facility] Comment on above: Performed By: #### L [id number] #### [facility] ([facility]) [address] [place] [address] Lymphocytes/100 WBC (Bld) 34.1 % Normal 20.0-45.0 [facility] Comment on above: Performed By: #### L [id number] #### [facility] ([facility]) [address] [place] [address] MCH (RBC) [Entitic mass] 30.6 pg Normal 27.0-33.0 [facility] Comment on above: Performed By: #### L [id number] #### [facility] ([facility]) [address] [place] [address] MCV (RBC) [Entitic vol] 91.2 fL Normal 82.0-98.0 [facility] Comment on above: Performed By: #### L [id number] #### [facility] ([facility]) [address] [place] [address] Monocytes (Bld) [#/Vol] 0.62 10*3/uL Normal 0.10-1.00 [facility] Comment on above: Performed By: #### L [id number] #### [facility] ([facility]) [address] [place] [address] Monocytes/100 WBC (Bld) 7.5 % Normal 5.0-12.0 [facility] Comment on above: Performed By: #### L [id number] #### [facility] ([facility]) [address] [place] [address] Neutrophils (Bld) [#/Vol] 4.46 10*3/uL Normal 1.60-7.60 [facility] Comment on above: Performed By: #### L [id number] #### [facility] ([facility]) [address] [place] [address] Neutrophils/100 WBC (Bld) 53.9 % Normal 40.0-72.0 [facility] Comment on above: Performed By: #### L [id number] #### [facility] ([facility]) [address] [place] [address] NRBC (PER 100 WBCS) BY AUTOMATED COUNT 0.0 % Normal 0 [facility] Comment on above: Performed By: #### L [id number] #### [facility] ([facility]) [address] [place] [address] PLATELETS (10*3/UL) IN BLOOD AUTOMATED COUNT 506 10*3/uL High 150-400 [facility] Comment on above: Performed By: #### L [id number] #### [facility] ([facility]) [address] [place] [address] RBC (Bld) [#/Vol] 4.54 10*6/uL Normal 3.80-5.00 [facility] Comment on above: Performed By: #### L [id number] #### [facility] ([facility]) [address] [place] [address] WBC (Bld) [#/Vol] 8.27 10*3/uL Normal 4.00-10.60 [facility] Comment on above: Performed By: #### L [id number] #### [facility] ([facility]) [address] [place] [address] COPPER, SERUMon 12-19-2023 COPPER 83.2 ug/dL Normal 80.0-155.0 [facility] Comment on above: Result Comment: INTE [...] developed and its performance characteristics determined by [employer]. It has not been cleared or approved by the US Food and Drug Administration. This test was performed in a CLIA certified laboratory and is intended for clinical purposes. Performed By: [employer] [address] [place] [address] Marketing Intern: Jai Lawler MD, PhD CLIA Number: [id number] Performed By: #### L [id number] ####[facility] ([facility])[address] [place] [address] FERRITINon 12-19-2023 FERRITIN (NG/ML) IN SER/PLAS 21.0 ng/mL Normal 11.0-307.0 [facility] Comment on above: Performed By: #### L [id number] ####[facility] ([facility])[address] [place] [address] FOLATEon 12-19-2023 FOLATE (NG/ML) IN SER/PLAS 25.0 ng/mL Normal 6.6-1000 [facility] Comment on above: Performed By: #### L [id number] ####[facility] ([facility])[address] [place] [address] HEPATIC FUNCTION PANELon Albumin [Mass/Vol] 4.4 g/dL Normal 3.5-5.7 [facility] Comment on above: Performed By: #### L [id number] #### [facility] ([facility]) [address] [facility] [place] [address] ALP [Catalytic activity/Vol] 46 U/L Normal 34-104 [facility] Comment on above: Performed By: #### L [id number] #### [facility] ([facility]) [address] [facility] [place] [address] ALT [Catalytic activity/Vol] 12 U/L Normal 7-52 [facility] Comment on above: Performed By: #### L [id number] #### [facility] ([facility]) [address] [place] [place] [address] AST [Catalytic activity/Vol] 11 U/L Low 13-39 [facility] Comment on above: Performed By: #### L [id number] #### [facility] ([facility]) [address] [place] [address] Bilirubin [Mass/Vol] 0.5 mg/dL Normal 0.3-1.0 [facility] Comment on above: Performed By: #### L [id number] #### [facility] ([facility]) [address] [place] [address] Magnesium [Mass/Vol] 0.1 mg/dL Normal 0-0.2 [facility] Comment on above: Performed By: #### L [id number] #### [facility] ([facility]) [address] [place] [address] Protein [Mass/Vol] 6.8 g/dL Normal 6.0-8.3 [facility] Comment on above: Performed By: #### L [id number] #### [facility] ([facility]) [address] [place] [address] IGAon 12-19-2023 Magnesium [Mass/Vol] 202 mg/dL Normal 60-413 [facility] Comment on above: Performed By: #### L [id number] ####[facility] ([facility])[address] [place] [address] IRON AND TIBCon 12-19-2023 IRON (UG/DL) IN SER/PLAS 193 ug/dL Normal 50-212 [facility] Comment on above: Performed By: #### L [id number] #### [facility] ([facility]) [address] [place] [address] IRON BINDING CAPACITY (UG/DL) IN SER/PLAS 322 ug/dL Normal 250-450 [facility] Comment on above: Performed By: #### L [id number] #### [facility] ([facility]) [address] [place] [address] IRON BINDING CAPACITY.UNSATURATED (UG/DL) IN SER/PLAS 129.0 ug/dL Low 155.0-355.0 [facility] Comment on above: Performed By: #### L [id number] #### [facility] ([facility]) [address] [place] [address] IRON SATURATION (%) IN SER/PLAS 60 % High 20-50 [facility] Comment on above: Performed By: #### L [id number] #### [facility] ([facility]) [address] [place] [address] Labon 12-19-2023 Lab [id number] Freya Jennings 1990 F Date Provider Department Center 12/19/2023 2[address]-[facility] MP LAB RESOURCE MP DRAW Medical Pavi Family History Problem Relation Age of Onset Hypertension Mother Hypertension Father Gout Father Migraines Sister No Known Problems Brother Hypertension Paternal Grandmother Hypertension Paternal Grandfather Atrial fibrillation Paternal Grandfather No Known Problems Son Sudden Neg Hx SIDS Neg Hx Congenital heart disease Neg Hx Congenital Hearing Loss Neg Hx Autoimmune disease Neg Hx Family Status - Relation Status Age at Mother Alive Father Alive Sister Brother Paternal Grandmother Paternal Grandfather Son Alive Neg Hx Normal [facility] MAGNESIUMon 12-19-2023 Magnesium [Mass/Vol] 1.8 mg/dL Low 1.9-2.7 [facility] Comment on above: Performed By: #### L [id number] #### [facility] ([facility]) [address] [place] [address] Office Visiton 12-19-2023 Follow-up visit [id number] Freya Jennings 1990 Provider Department Center 12/19/2023 [id number]-HJPGFTMUNMARÍA MONACO* GI Medical Pavi Family History Problem Relation Age of Onset Hypertension Mother Hypertension Father Gout Father Migraines Sister No Known Problems Brother Hypertension Paternal Grandmother Hypertension Paternal Grandfather Atrial fibrillation Paternal Grandfather No Known Problems Son Sudden Neg Hx SIDS Neg Hx Congenital heart disease Neg Hx Congenital Hearing Loss Neg Hx Autoimmune disease Neg Hx Family Status - Relation Status Age at Mother Alive Father Alive Sister Brother Paternal Grandmother Paternal Grandfather Son Alive Neg Hx Level of Service:95077 NE OFFICE/OUTPATIENT ESTABLISHED HIGH MDM 40 MIN Reason for Visit and Comments: Follow-up [608167] chronic pancreatitis [Other] Normal [facility] PHOSPHORUSon 12-19-2023 Magnesium [Mass/Vol] 2.3 mg/dL Low 2.5-5.0 [facility] Comment on above: Performed By: #### L [id number] #### [facility] ([facility]) [address] [place] [address] PREALBUMINon 12-19-2023 Prealbumin [Mass/Vol] 25.1 mg/dL Normal [facility] Comment on above: Performed By: #### L [id number] #### [facility] ([facility]) [address] [place] [address] PROTIME-INRon 12-19-2023 INR IN PPP BY COAGULATION ASSAY 1.01 Normal 0.90-1.10 [facility] Comment on above: Result Comment: ACCC [...] RANGE. CHEST 1995;108:[id number]. Performed By: #### L [id number] #### [facility] ([facility]) [address] [place] [address] PROTHROMBIN TIME (PT) IN PPP BY COAGULATION ASSAY 13.3 Seconds Normal 12.3-14.8 [facility] Comment on above: Performed By: #### L [id number] #### [facility] ([facility]) [address] [place] [address] TISSUE TRANSGLUTAMINASE, IGA on 12-19-2023 TISSUE TRANSGLUTAMINASE, IGA <1.02 Normal 0.00-4.99 [facility] Comment on above: Result Comment: INTE RPRETIVE INFORMATION: Tissue Transglutaminase (tTG) Antibody, IgA Presence of the tissue transglutaminase (tTG) IgA antibody is associated with gluten-sensitive enteropathies such as celiac disease and dermatitis herpetiformis. Individuals with positive results should be confirmed with small intestinal biopsy to establish celiac disease diagnosis. tTG IgA antibody concentrations greater than 50 FLU exhibits higher correlation with results of duodenal biopsies consistent with celiac disease. For antibody concentrations greater than or equal to 5 FLU but less than 10 FLU, additional testing for endomysial (DAVID) IgA concentrations may improve the positive predictive value for disease. A decrease in tTG IgA antibody concentration after initiation of a gluten-free diet may indicate a response to therapy. Performed By: [employer] [address] [place] [address] Marketing Intern: Jai Lawler MD, PhD CLIA Number: [id number] Performed By: #### L [id number] ####[facility] ([facility])[address] [place] [address] TRANSFERRINon 12-19-2023 Magnesium [Mass/Vol] 238 mg/dL Normal 168-348 [facility] Comment on above: Performed By: #### L [id number] #### [facility] ([facility]) [address] [place] [address] VITAMIN Aon 12-19-2023 VITAMIN A (RETINOL) 0.54 mg/L Normal 0.30-1.20 [facility] Comment on above: Performed By: #### L [id number] #### [facility] ([facility]) [address] [place] [address] VITAMIN A (RETINYL PALMITATE) <0.02 Normal 0.00-0.10 [facility] Comment on above: Performed By: #### L [id number] #### [facility] ([facility]) [address] [place] [address] VITAMIN A, SER/RADHA - INTERPRETATION Normal Normal [facility] Comment on above: Result Comment: This test was developed and its performance characteristics determined by [employer]. It has not been cleared or approved by the US Food and Drug Administration. This test was performed in a CLIA certified laboratory and is intended for clinical purposes. Performed By: [employer] [address] [place] [address] Marketing Intern: Jai Lawler MD, PhD CLIA Number: [id number] Performed By: #### L [id number] #### [facility] ([facility]) [address] [place] [address] VITAMIN B1on 12-19-2023 VITAMIN B1, PLASMA 20 nmol/L High 4-15 [facility] Comment on above: Result Comment: INTE RPRETIVE DATA: Vitamin B1, Plasma Thiamine (vitamin B1) is reported. However, thiamine diphosphate (TDP), the biologically active form of thiamine, is not found in measurable concentrations in plasma, and is best determined in whole blood specimens. Plasma thiamine concentration reflects recent intake rather than body stores. This test was developed and its performance characteristics determined by [employer]. It has not been cleared or approved by the US Food and Drug Administration. This test was performed in a CLIA certified laboratory and is intended for clinical purposes. Performed By: [employer] [address] [place] [address] Marketing Intern: Jai Lawler MD, PhD CLIA Number: [id number] Performed By: #### L [id number] ####[facility] ([facility])[address] [place] [address] VITAMIN B12on 12-19-2023 Cobalamin (Vitamin B12) [Mass/Vol] 696 pg/mL Normal 180-914 [facility] Comment on above: Result Comment: REFE RENCE RANGES: 180-914 pg/mL Normal 145-179 pg/mL Indeterminate <145 pg/mL Deficient Performed By: #### L [id number] ####[facility] ([facility])[address] [place] [address] VITAMIN B6on 12-19-2023 VITAMIN B6 197.2 nmol/L High 20.0-125.0 [facility] Comment on above: Result Comment: INTE RPRETIVE INFORMATION: Vitamin B6 (Pyridoxal 5-Phosphate) Pyridoxal 5'-phosphate measured in a specimen collected following an 8-hour or overnight fast accurately indicates vitamin B6 nutritional status. Non-fasting specimen concentration reflects recent vitamin intake. This test was developed and its performance characteristics determined by [employer]. It has not been cleared or approved by the US Food and Drug Administration. This test was performed in a CLIA certified laboratory and is intended for clinical purposes. Performed By: [employer] [address] [place] [address] Marketing Intern: Jai Lawler MD, PhD CLIA Number: [id number] Performed By: #### L [id number] #### [facility] ([facility]) [address] [place] [address] VITAMIN D 25 HYDROXYon 12-18 CALCIDIOL (25 [place] VITAMIN D3) (NG/ML) IN SER/PLAS 35.8 ng/mL Normal 30.0-80.0 [facility] Comment on above: Result Comment: >80. 0 Toxicity possible Performed By: #### L [id number] #### [facility] ([facility]) [address] [place] [address] VITAMIN Blane 12-19-2023 VITAMIN E LEVEL (ALPHA-TOCOPHEROL) 5.9 mg/L Normal 5.5-18.0 [facility] Comment on above: Result Comment: This test was developed and its performance characteristics determined by [employer]. It has not been cleared or approved by the US Food and Drug Administration. This test was performed in a CLIA certified laboratory and is intended for clinical purposes. Performed By: #### L [id number] ####[facility] ([facility])[address] [place] [address] VITAMIN E LEVEL (GAMMA-TOCOPHEROL) 0.5 mg/L Normal 0.0-6.0 [facility] Comment on above: Result Comment: Perf ormed By: [employer] [address] [place] [address] Marketing Intern: Jai Lawler MD, PhD CLIA Number: [id number] Performed By: #### L [id number] ####[facility] ([facility] [place])[address] [place], [place] [id number] ZINCon 12-19-2023 ZINC 73.8 ug/dL Normal 60.0-120.0 [facility] Comment on above: Result Comment: INTE [...] developed and its performance characteristics determined by [employer]. It has not been cleared or approved by the US Food and Drug Administration. This test was performed in a CLIA certified laboratory and is intended for clinical purposes. Performed By: [employer] [address] [place] [address] Marketing Intern: Jai Lawler MD, PhD CLIA Number: [id number] Performed By: #### L [id number] ####[facility] ([facility]ER)[address] [place] [address] Pathology Request for Lab Co rpon 12-05-2023 Pathology Request for Lab Jen Normal [facility] Comment on above: Order Comment: PATHO LOGY HIDE WASHER SPECIMEN Result Comment: See report. Scanned copy available in EMR. PERFORMED BY: [place] [address] PATHOLOGIST [employer] PATRIZIA FITZPATRICK M.D. Performed By: #### P ATH TO [facility] #### [address] 36on 10-19-2023 36 Called pt and inform ed of script sent to the pharmacy. [facility] 36 Pt calling wanting t o know if she can get a refill on her creon sent to the pharmacy until her scheduled appt in November. She is taking Creon 24,000 and she states that she is taking 18 pills a day. [facility] Orders Onlyon 10-19-2023 Orders Only [id number] Freya Jennings 1990 Date Provider Department Center 10/19/2023 [id number]-ZKCWRHEPGMARÍA MONACO*[facility] Medical Pavi Family History Problem Relation Age of Onset Hypertension Mother Hypertension Father Gout Father Migraines Sister No Known Problems Brother Hypertension Paternal Grandmother Hypertension Paternal Grandfather Atrial fibrillation Paternal Grandfather No Known Problems Son Sudden Neg Hx SIDS Neg Hx Congenital heart disease Neg Hx Congenital Hearing Loss Neg Hx Autoimmune disease Neg Hx Family Status - Relation Status Age at Mother Alive Father Alive Sister Brother Paternal Grandmother Paternal Grandfather Son Alive Neg Hx Normal [facility] 37on 07-27-2023 37 Please take your thyroid hormone medication (levothyroxine) first thing in the morning on empty stomach with plain water, from other medication by 1 to 2 hours (especially calcium, iron and multivitamin pills), and wait 30 min before eating. Normal [facility] Office Visiton 07-27-2023 Follow-up visit [id number] Freya Jennings 1990 Provider Department Center 07/27/2023 316-MIKE MONTANEZ [facility] END[facility] UTCF Family History Problem Relation Age of Onset Hypertension Mother Hypertension Father Gout Father Migraines Sister No Known Problems Brother Hypertension Paternal Grandmother Hypertension Paternal Grandfather Atrial fibrillation Paternal Grandfather No Known Problems Son Sudden Neg Hx SIDS Neg Hx Congenital heart disease Neg Hx Congenital Hearing Loss Neg Hx Autoimmune disease Neg Hx Family Status - Relation Status Age at Mother Alive Father Alive Sister Brother Paternal Grandmother Paternal Grandfather Son Alive Neg Hx Level of Service:31153 NE OFFICE/OP CONSLTJ NEW/EST PT MOD MDM 40 MINUTES (GC) Reason for Visit and Comments: Thyroid Problem [110] - New patient Normal [facility] Orders Onlyon 07-24-2023 Orders Only [id number] Freya Jennings 1990 Date Provider Department Center 07/24/2023 135-[facility] [place] [facility] Family History Problem Relation Age of Onset Hypertension Mother Hypertension Father Gout Father Migraines Sister No Known Problems Brother Hypertension Paternal Grandmother Hypertension Paternal Grandfather Atrial fibrillation Paternal Grandfather No Known Problems Son Sudden Neg Hx SIDS Neg Hx Congenital heart disease Neg Hx Congenital Hearing Loss Neg Hx Autoimmune disease Neg Hx Family Status - Relation Status Age at Mother Alive Father Alive Sister Brother Paternal Grandmother Paternal Grandfather Son Alive Neg Hx Normal [facility] Orders Onlyon 06-07-2023 Orders Only [id number] DickKeanuvanessa Lao 1990 F Date Provider Department Center 06/07/2023 JaneTRINISHAWN WAYNE [facility] CARD [place] [facility] Family History Problem Relation Age of Onset Hypertension Mother Hypertension Father Gout Father Migraines Sister No Known Problems Brother Hypertension Paternal Grandmother Hypertension Paternal Grandfather Atrial fibrillation Paternal Grandfather No Known Problems Son Sudden Neg Hx SIDS Neg Hx Congenital heart disease Neg Hx Congenital Hearing Loss Neg Hx Autoimmune disease Neg Hx Family Status - Relation Status Age at Mother Alive Father Alive Sister Brother Paternal Grandmother Paternal Grandfather Son Alive Neg Hx Normal [facility] CBC WITH AUTO DIFFERENTIALon 05-23-2023 Erythrocyte distribution width (RBC) [Ratio] 13.4 % Normal 11.5-15.0 [facility] Comment on above: Performed By: #### L [id number] #### [facility] ([facility]) [address] [place] [address] ERYTHROCYTE MEAN CORPUSCULAR HEMOGLOBIN CONCENTRATION (G/DL) BY AUTOMATED 33.3 g/dL Normal 32.0-35.0 [facility] Comment on above: Performed By: #### L [id number] #### [facility] ([facility]) [address] [place] [address] Hematocrit (Bld) [Volume fraction] 39.0 % Normal 36.0-48.0 [facility] Comment on above: Performed By: #### L [id number] #### [facility] ([facility]) [address] [place] [address] Hemoglobin (Bld) [Mass/Vol] 13.0 g/dL Normal 12.0-15.0 [facility] Comment on above: Performed By: #### L [id number] #### [facility] ([facility]) [address] [place] [address] MCH (RBC) [Entitic mass] 30.2 pg Normal 27.0-33.0 [facility] Comment on above: Performed By: #### L [id number] #### [facility] ([facility]) [address] [place] [address] MCV (RBC) [Entitic vol] 90.5 fL Normal 82.0-98.0 [facility] Comment on above: Performed By: #### L [id number] #### [facility] ([facility]) [address] [place] [address] NRBC (PER 100 WBCS) BY AUTOMATED COUNT 0.0 % Normal 0 [facility] Comment on above: Performed By: #### L [id number] #### [facility] ([facility]) [address] [place] [address] PLATELETS (10*3/UL) IN BLOOD AUTOMATED COUNT 444 10*3/uL High 150-400 [facility] Comment on above: Performed By: #### L [id number] #### [facility] ([facility]) [address] [place] [address] RBC (Bld) [#/Vol] 4.31 10*6/uL Normal 3.80-5.00 [facility] Comment on above: Performed By: #### L [id number] #### [facility] ([facility]) [address] [place] [address] WBC (Bld) [#/Vol] 11.91 10*3/uL High 4.00-10.60 [facility] Comment on above: Performed By: #### L [id number] #### [facility] ([facility]) [address] [place] [address] COMPREHENSIVE METABOLIC PANE Jason 05-23-2023 Albumin [Mass/Vol] 4.3 g/dL Normal 3.5-5.7 [facility] Comment on above: Performed By: #### L [id number] #### [facility] ([facility]) [address] [place] [address] ALP [Catalytic activity/Vol] 50 U/L Normal 34-104 [facility] Comment on above: Performed By: #### L [id number] #### [facility] ([facility]) [address] [place] [address] ALT [Catalytic activity/Vol] 41 U/L Normal 7-52 [facility] Comment on above: Performed By: #### L [id number] #### [facility] ([facility]) [address] [place] [address] Anion gap [Moles/Vol] 7 mmol/L Normal 7-20 [facility] Comment on above: Performed By: #### L [id number] #### [facility] ([facility]) [address] [place] [address] AST [Catalytic activity/Vol] 21 U/L Normal 13-39 [facility] Comment on above: Performed By: #### L [id number] #### [facility] ([facility]) [address] [place] [address] Bilirubin [Mass/Vol] 0.3 mg/dL Normal 0.3-1.0 [facility] Comment on above: Performed By: #### L [id number] #### [facility] ([facility]) [address] [place] [address] Calcium [Mass/Vol] 9.1 mg/dL Normal 8.6-10.3 [facility] Comment on above: Performed By: #### L [id number] #### [facility] ([facility]) [address] [place] [address] Chloride [Moles/Vol] 105 mmol/L Normal 98-107 [facility] Comment on above: Performed By: #### L [id number] #### [facility] ([facility]) [address] [place] [address] CO2 [Moles/Vol] 30 mmol/L Normal 21-31 [facility] Comment on above: Performed By: #### L [id number] #### [facility] ([facility]) [address] [place] [address] Creatinine [Mass/Vol] 0.52 mg/dL Low 0.60-1.20 [facility] Comment on above: Performed By: #### L [id number] #### [facility] ([facility]) [address] [place] [address] GLOMERULAR FILTRATION RATE ML/MIN/1.73 SQ M.PREDICTED 126.5 mL/min/1.73m*2 Normal >60.0 [facility] Comment on above: Result Comment: The [facility]???s estimated glomerular filtration rate (eGFR) will no longer include consideration of race in its calculation. The National Kidney Foundation???s eGFR Task Force developed new recommendations for the estimation of the glomerular filtration rate in the [place] They recommend immediate implementation of the new equation refit without the race variable in all laboratories because the calculation does not include race. In addition to not including race in the calculation and reporting, it included diversity in its development, and has acceptable performance characteristics and potential consequences that do not disproportionately affect any one group of individuals. Performed By: #### L [id number] #### [facility] ([facility]) [address] [facility] [place] [address] Glucose [Mass/Vol] 124 mg/dL High 70-100 [facility] Comment on above: Performed By: #### L [id number] #### [facility] ([facility]) [address] [place] [address] Potassium [Moles/Vol] 3.8 mmol/L Normal 3.5-5.1 [facility] Comment on above: Performed By: #### L [id number] #### [facility] ([facility]) [address] [place] [address] Protein [Mass/Vol] 6.6 g/dL Normal 6.0-8.3 [facility] Comment on above: Performed By: #### L [id number] #### [facility] ([facility]) [address] [place] [address] Sodium [Moles/Vol] 138 mmol/L Normal 136-145 [facility] Comment on above: Performed By: #### L [id number] #### [facility] ([facility]) [address] [place] [address] Urea nitrogen [Mass/Vol] 12 mg/dL Normal 7-25 [facility] Comment on above: Performed By: #### L [id number] #### [facility] ([facility]) [address] [place] [address] UREA NITROGEN/CREATININE (MASS RATIO) IN SER/PLAS 23.1 Normal [facility] Comment on above: Performed By: #### L [id number] #### [facility] ([facility]) [address] [place] [address] Labon 05-23-2023 Lab [id number] Freya Jennings 1990 F Date Provider Department Center 05/23/2023 2[address]-[facility] OPD LAB RESOURCE [facility] Family History Problem Relation Age of Onset Hypertension Mother Hypertension Father Gout Father Migraines Sister No Known Problems Brother Hypertension Paternal Grandmother Hypertension Paternal Grandfather Atrial fibrillation Paternal Grandfather No Known Problems Son Sudden Neg Hx SIDS Neg Hx Congenital heart disease Neg Hx Congenital Hearing Loss Neg Hx Autoimmune disease Neg Hx Family Status - Relation Status Age at Mother Alive Father Alive Sister Brother Paternal Grandmother Paternal Grandfather Son Alive Neg Hx Normal [facility] MANUAL DIFFERENTIALon 2023 BASOPHILS (10*3/UL) IN BLOOD BY CALCULATION 0.00 10*3/uL Normal 0.00-0.20 [facility] Comment on above: Performed By: #### L [id number] ####[facility] ([facility])[address] [place] [address] BASOPHILS/100 LEUKOCYTES IN BLOOD BY AUTOMATED COUNT 0.0 % Normal 0.0-1.0 [facility] Comment on above: Performed By: #### L [id number] ####[facility] ([facility])[address] [place] [address] EOSINOPHILS (10*3/UL) IN BLOOD BY CALCULATION 0.86 10*3/uL High 0.00-0.50 [facility] Comment on above: Performed By: #### L [id number] ####[facility] ([facility])[address] [place] [address] EOSINOPHILS/100 LEUKOCYTES IN BLOOD BY AUTOMATED COUNT 7.2 % High 0.0-6.0 [facility] Comment on above: Performed By: #### L [id number] ####[facility] ([facility])[address] [place] [address] IMMATURE GRANULOCYTES (10*3/UL) IN BLOOD BY CALCULATION 0.04 10*3/uL Normal 0.00-0.20 [facility] Comment on above: Performed By: #### L [id number] ####[facility] ([facility])[address] [place] [address] IMMATURE GRANULOCYTES/100 LEUKOCYTES IN BLOOD BY AUTOMATED COUNT 0.3 % Normal 0.0-1.0 [facility] Comment on above: Performed By: #### L [id number] ####[facility] ([facility])[address] [place] [address] LYMPHOCYTES (10*3/UL) IN BLOOD BY CALCULATION 3.37 10*3/uL Normal 1.20-4.00 [facility] Comment on above: Performed By: #### L [id number] ####[facility] ([facility])[address] [place] [address] LYMPHOCYTES/100 LEUKOCYTES IN BLOOD BY AUTOMATED COUNT 28.3 % Normal 20.0-45.0 [facility] Comment on above: Performed By: #### L [id number] ####[facility] ([facility])[address] [place] [address] MONOCYTES (10*3/UL) IN BLOOD BY CALCUATION 0.79 10*3/uL Normal 0.10-1.00 [facility] Comment on above: Performed By: #### L [id number] ####[facility] ([facility])[address] [place] [address] MONOCYTES/100 LEUKOCYTES IN BLOOD BY AUTOMATED COUNT 6.6 % Normal 5.0-12.0 [facility] Comment on above: Performed By: #### L [id number] ####[facility] ([facility])[address] [place] [address] NEUTROPHILS (10*3/UL) IN BLOOD BY CALCULATION 6.9 10*3/uL Normal 1.6-7.6 [facility] Comment on above: Performed By: #### L [id number] ####[facility] ([facility])[address] [place] [address] NEUTROPHILS/100 LEUKOCYTES IN BLOOD BY AUTOMATED COUNT 57.9 % Normal 40.0-72.0 [facility] Comment on above: Performed By: #### L [id number] ####[facility] ([facility])[address] [place] [address] PLASMA CELLS/100 LEUKOCYTES IN BLOOD 0 % Normal 0 [facility] Comment on above: Performed By: #### L [id number] ####[facility] ([facility])[address] [place] [address] PLATELETS GIANT PRESENCE IN BLOOD BY LIGHT MICROSCOPY Present Normal [facility] Comment on above: Performed By: #### L [id number] ####[facility] ([facility])[address] [place] [address] VARIANT LYMPHOCYTES (10*3/UL) IN BLOOD BY CALCULATION 0.00 10*3/uL Normal 0.00 [facility] Comment on above: Performed By: #### L [id number] ####[facility] ([facility])[address] [place] [address] VARIANT LYMPHOCYTES/100 LEUKOCYTES IN BLOOD CELLAVISION 0.0 % Normal 0.0-0.0 [facility] Comment on above: Performed By: #### L [id number] ####[facility] ([facility])[address] [place] [address] METANEPHRINES PLASMAon 05-23 METANEPHRINE <0.10 Normal 0.00-0.49 [facility] Comment on above: Performed By: #### L [id number] #### [facility] ([facility]) [address] [place] [address] METANEPHRINE INTERP See Note Normal [facility] Comment on above: Result Comment: INTE RPRETIVE INFORMATION: Metanephrines, Plasma (Free) This test is useful in the detection of pheochromocytoma, a rare neuroendocrine tumor. The majority of patients with pheochromocytoma have a plasma normetanephrine concentration in excess of 2.2 nmol/L and/or a metanephrine concentration in excess of 1.1 nmol/L. Increased concentrations of these analytes serve as confirmation for diagnosis. Patients with essential hypertension and plasma concentrations of normetanephrine below 0.9 nmol/L and a metanephrine concentration below 0.5 nmol/L, can be excluded from further testing. If clinical suspicion remains, repeat testing or testing for metanephrines in a 24-hr. urine specimen should be considered. This test was developed and its performance characteristics determined by [employer]. It has not been cleared or approved by the [place] Food and Drug Administration. This test was performed in a CLIA certified laboratory and is intended for clinical purposes. Performed By: [employer] [address] [place] [id number] Marketing Intern: Jai Lawler MD, PhD CLIA Number: [id number] Performed By: #### L [id number] #### [facility] ([facility]) [address] [place] [address] NORMETANEPHRINE 0.43 nmol/L Normal 0.00-0.89 [facility] Comment on above: Performed By: #### L [id number] #### [facility] ([facility]) [address] [place] [address] Office Visiton 05-23-2023 Follow-up visit [id number] Freya eJnnings 1990 F Date Provider Department Center 05/23/2023 [facility] Family History Problem Relation Age of Onset Hypertension Mother Hypertension Father Gout Father Migraines Sister No Known Problems Brother Hypertension Paternal Grandmother Hypertension Paternal Grandfather Atrial fibrillation Paternal Grandfather No Known Problems Son Sudden Neg Hx SIDS Neg Hx Congenital heart disease Neg Hx Congenital Hearing Loss Neg Hx Autoimmune disease Neg Hx Family Status - Relation Status Age at Mother Alive Father Alive Sister Brother Paternal Grandmother Paternal Grandfather Son Alive Neg Hx Level of Service:37944 NE OFFICE/OUTPATIENT ESTABLISHED MOD MDM 30 MIN Reason for Visit and Comments: Follow-up [045903] Normal [facility] PTH, INTACTon 05-23-2023 PARATHYRIN INTACT (PG/ML) IN SER/PLAS 31 pg/mL Normal 12-88 [facility] Comment on above: Performed By: #### L [id number] ####[facility] ([facility])[address] [place] [address] THYROID PEROXIDASE ANTIBODYo n 05-23-2023 THYROPEROXIDASE AB (IU/ML) IN SER/PLAS 26.6 IU/mL High 0.0-9.0 [facility] Comment on above: Result Comment: Perf ormed By: [employer] [address] [place] [address] Marketing Intern: Jai Lawler MD, PhD CLIA Number: [id number] Performed By: #### L [id number] ####[facility] ([facility])[address] [place] [address] THYROID STIMULATING IMMUNOGL OBULINon 05-23-2023 THYROID STIMULATING IMMUNOGLOBULIN <0.10 Normal <=0.54 [facility] Comment on above: Result Comment: INTE RPRETIVE INFORMATION: Thyroid Stimulating Immunoglobulin (TSI) 0.54 IU/L or less.........Consistent with healthy thyroid function or non-Graves thyroid or autoimmune disease. Those with healthy thyroid function typically have results less than 0.1 IU/L. 0.55 IU/L or greater......Consistent with Graves disease (autoimmune hyperthyroidism) This assay specifically detects thyroid stimulating autoantibodies. For diagnostic purposes, the results obtained from this assay should be used in combination with clinical examination, patient medical history, and other findings. Performed By: [employer] [address] [place] [address] Marketing Intern: Jai Lawler MD, PhD CLIA Number: [id number] Performed By: #### L [id number] #### [facility] ([facility]) [address] [place] [address] TSHon 05-23-2023 THYROTROPIN (MIU/L) IN SER/PLAS BY DETECTION LIMIT <= 0.05 MIU/L 0.86 mIU/L Normal 0.34-5.60 [facility] Comment on above: Performed By: #### L [id number] #### [facility] ([place]) [address] [place] [address] 36on 01-02-2023 36 Follow up call made. LVM to call [phone]. Discussed with pharmacist Reina who is unsure if patient was able to picker and packer her creon at an outlying pharmacy. If the patient was unable to fill at that rx, Reina has it available at the [facility] Access Rx. Normal [facility] 36on 12-30-2022 36 Patient calls today [...] ALLOCATION NEXT RELEASE LATE DEC 2022 Notes [employer] IS OUT OF STOCK. FULL RECOVERY TBD Please advise. Normal [facility] THYROGLOBULINon 06-03-2022 Thyroglobulin 3.4 ng/mL Normal [facility] Comment on above: Result Comment: This test was developed and its performance characteristics determined by [facility]. It has not been cleared or approved [...] ng/mL. Performed By: #### A 1C #### [facility] [address] [place] [address] [address] Michael Williamson THYR STIM IMMUNOGLOBULINon 0 05-27-2022 Thyroid Sim Immunoglobulin <0.10 Normal 0.00-0.55 [facility] Comment on above: Performed By: #### T HSI #### [facility] [address] [address] [address] Michael Williamson FREE T3on 05-25-2022 FREE T3 2.72 pg/mlL Normal 2.18-3.98 [facility] Comment on above: Performed By: #### F T3, TSH #### [facility] [address] [address] [address] Michael Williamson FREE T4on 05-25-2022 Free T4 [Mass/Vol] 0.83 ng/dL Normal 0.76-1.46 [facility] Comment on above: Performed By: #### F T4 #### [facility] [address] [address] [address] Michael Williamson TSHon 05-25-2022 TSH 0.798 uIU/mL Normal 0.358-3.740 [facility] Comment on above: Performed By: #### F T3, TSH #### [facility] [address] [place] [address] Dr. Michael Williamson US THYROIDon 05-25-2022 US [...] by: LUCERO SCHROEDER Date: 2022-05-25 10:55 Normal [facility] PAP ACOG PANEL 2: 30 to 65on 10-08-2021 . . Normal [facility] Comment on above: Result Comment: Perf ormed at: WB Performed By: #### A 1C #### [facility] [address] [place] [address] Dr. Michael Williamson Age Gdln ACOG Testing 30-65 Normal [facility] Comment on above: Performed By: #### A 1C #### [facility] [address] [place] [address] Dr. Michael Williamson DIAGNOSIS: Comment Normal [facility] Comment on above: Result Comment: NEGA TIVE FOR INTRAEPITHELIAL LESION OR MALIGNANCY. CELLULAR CHANGES ASSOCIATED WITH INFLAMMATION ARE PRESENT. Performed at: WB Performed By: #### A 1C #### [facility] [address] [address] [address] Michael Williamson HPV Aptima Negative Normal Negative [facility] Comment on above: Result Comment: This nucleic acid amplification test detects fourteen high-risk HPV types (16,18,31,33,35,39,45,51,52,56,58,59,66,68) without differentiation. Performed at: =G Performed By: #### A 1C #### [facility] [address] [place] [address] Dr. Michael Williamson Methodology: Comment Normal [facility] Comment on above: Result Comment: This liquid based ThinPrep(R) pap test was screened with the use of an image guided system. Performed at: WB Performed By: #### A 1C #### [facility] [address] [place] [address] Dr. Michael Williamson Note: Comment Normal [facility] Comment on above: Result Comment: The Pap smear is a screening test designed to aid in the detection of premalignant and malignant conditions of the uterine cervix. It is not a diagnostic procedure and should not be used as the sole means of detecting cervical cancer. Both false-positive and false-negative reports do occur. . Performed at: WB Performed By: #### A 1C #### [facility] [address] [place] [address] Dr. Michael Williamson Performed by: Comment Normal [facility] Comment on above: Result Comment: Toshia Cordoba, Supervisory Local Announcer (ASCP) Performed at: WB Performed By: #### A 1C #### [facility] [address] [place] [address] Dr. Michael Williamson Specimen adequacy: Comment Normal [facility] Comment on above: Result Comment: Sati sfactory for evaluation. Endocervical and/or squamous metaplastic cells (endocervical component) are present. Performed at: WB Performed By: #### A 1C #### [facility] [address] [place] [address] Dr. Michael Williamson ESTRADIOLon 10-06-2021 Estradiol 7.1 pg/mL Normal [facility] Comment on above: Result Comment: Adul t Female: Follicular phase 12.5 - 166.0 Ovulation phase 85.8 - 498.0 Luteal phase 43.8 - 211.0 Postmenopausal <6.0 - 54.7 1st trimester 215.0 - >4300.0 [facility] ECLIA methodology Performed By: #### A 1C #### [facility] [address] [place] [address] Dr. Michael Williamson PROGESTERONEon 10-06-2021 Progesterone <0.1 Normal [facility] Comment on above: Result Comment: Foll icular phase 0.1 - 0.9 Luteal phase 1.8 - 23.9 Ovulation phase 0.1 - 12.0 First trimester 11.0 - 44.3 Second trimester 25.4 - 83.3 Third trimester 58.7 - 214.0 Postmenopausal 0.0 - 0.1 Performed By: #### P RADHA #### [facility] [address] [place] [address] Dr. Michael Williamson CALCIUMon 10-05-2021 Calcium [Mass/Vol] 8.5 mg/dL Normal 8.5-10.1 [facility] Comment on above: Performed By: #### A 1C #### [facility] [address] [place] [address] Dr. Michael Williamson CBC AUTO DIFFon 10-05-2021 BASO # 0.1 103/ul Normal 0.0-0.1 [facility] Comment on above: Performed By: #### C BC #### [facility] [address] [place] [address] Dr. Michael Williamson Basophils/100 WBC (Bld) 0.9 % Normal 0.2-2.0 [facility] Comment on above: Performed By: #### C BC #### [facility] [address] [place] [address] Dr. Michael Williamson EO # 0.2 103/ul Normal 0.0-0.7 [facility] Comment on above: Performed By: #### C BC #### [facility] [address] [place] [address] Dr. Michael Williamson Eosinophils/100 WBC (Bld) 2.2 % Normal 0.9-7.0 [facility] Comment on above: Performed By: #### C BC #### [facility] [address] [place] [address] Dr. Michael Williamson Erythrocyte distribution width (RBC) [Ratio] 13.3 % Normal 11.0-15.0 [facility] Comment on above: Performed By: #### C BC #### [facility] [address] [place] [address] Dr. Michael Williamson Hematocrit (Bld) [Volume fraction] 39.4 % Normal 36.0-48.0 [facility] Comment on above: Performed By: #### C BC #### [facility] [address] [place] [address] Dr. Michael Williamson Hemoglobin (Bld) [Mass/Vol] 12.7 g/dL Normal 12.0-16.0 [facility] Comment on above: Performed By: #### C BC #### [facility] [address] [place] [address] Dr. Michael Willaimson IG # 0.02 10e3/ul Normal 0.00-0.03 [facility] Comment on above: Performed By: #### C BC #### [facility] [address] [place] [address] Dr. Michael Williamson IG % 0.2 % Normal 0.0-0.5 [facility] Comment on above: Performed By: #### C BC #### [facility] [address] [place] [address] Dr. Michael Williamson LYMPH # 3.4 103/ul Normal 1.2-3.8 [facility] Comment on above: Performed By: #### C BC #### [facility] [address] [place] [address] Dr. Michael Williamson Lymphocytes/100 WBC (Bld) 31.4 % Normal 20.5-60.0 [facility] Comment on above: Performed By: #### C BC #### [facility] [address] [place] [address] Dr. Michael Williamson MANUAL DIFF REQ NO Normal [facility] Comment on above: Performed By: #### C BC #### [facility] [address] [place] [address] Dr. Michael Williamson MCH (RBC) [Entitic mass] 29.3 pg Normal 26.7-34.0 The [facility] Comment on above: Performed By: #### C BC #### [facility] [address] [place] [address] Dr. Michael Williamson MCHC (RBC) [Mass/Vol] 32.2 g/dL Normal 29.9-35.2 [facility] Comment on above: Performed By: #### C BC #### [facility] [address] [place] [address] Dr. Michael Williamson MCV (RBC) [Entitic vol] 91.0 fL Normal 81.0-99.0 [facility] Comment on above: Performed By: #### C BC #### [facility] [address] [place] [address] Dr. Michael Williamson MONO # 1.1 103/ul Critically high 0.3-0.[address] [facility] Comment on above: Performed By: #### C BC #### [facility] [address] [place] [address] Dr. Michael Williamson Monocytes/100 WBC (Bld) 10.4 % Normal 1.7-12.0 [facility] Comment on above: Performed By: #### C BC #### [facility] [address] [place] [address] Dr. Michael Williamson NEUT # 6.0 103/ul Normal 1.4-6.5 [facility] Comment on above: Performed By: #### C BC #### [facility] [address] [place] [address] Dr. Michael Williamson Neutrophils/100 WBC (Bld) 54.9 % Normal 43.0-75.0 [facility] Comment on above: Performed By: #### C BC #### [facility] [address] [place] [address] Dr. Michael Williamson Platelet mean volume (Bld) [Entitic vol] 9.6 fL Normal 9.5-13.5 [facility] Comment on above: Performed By: #### C BC #### [facility] [address] [place] [address] Dr. Michael Williamson PLT 490 103/ul Critically high 150-[address] [facility] Comment on above: Performed By: #### C BC #### [facility] [address] [place] [address] Dr. Michael Williamson RBC 4.33 106/ul Normal 4.20-5.40 [facility] Comment on above: Performed By: #### C BC #### [facility] [address] [place] [address] Dr. Michael Williamson WBC 10.9 103/ul Normal 4.0-11.0 [facility] Comment on above: Performed By: #### C BC #### [facility] [address] [place] [address] Dr. Michael Williamson ELECTROLYTESon 10-05-2021 Anion gap [Moles/Vol] 13.5 mmol/L Normal [facility] Comment on above: Performed By: #### A 1C #### [facility] [address] [place] [address] Dr. Michael Williamson Chloride [Moles/Vol] 105 mmol/L Normal 98-107 [facility] Comment on above: Performed By: #### A 1C #### [facility] [address] [place] [address] Dr. Michael Williamson CO2 [Moles/Vol] 27.9 mmol/L Normal 21.0-32.0 The [facility] Comment on above: Performed By: #### A 1C #### [facility] [address] [place] [address] Dr. Michael Williamson Potassium [Moles/Vol] 3.4 mmol/L Critically low 3.5-5.1 [facility] Comment on above: Performed By: #### A 1C #### [facility] [address] [place] [address] Dr. Michael Williamson Sodium [Moles/Vol] 143 mmol/L Normal 136-145 The [facility] Comment on above: Performed By: #### A 1C #### [facility] [address] [place] [address] Dr. Michael Williamson FREE T4on 10-05-2021 Free T4 [Mass/Vol] 0.85 ng/dL Normal 0.76-1.46 The [facility] Comment on above: Performed By: #### F T4, VITB12 #### [facility] [address] [place] [address] Dr. Michael Williamson GLYCOHEMOGLOBIN A1Con 2021 ADA RECOMMENDATION SEE BELOW Normal The [facility] Comment on above: Result Comment: ADA RECOMMENDED LIMIT 4.0 - 6.0 ADA THERAPEUTIC TARGET < 7.0 ACTION SUGGESTED > 7.0 Performed By: #### A 1C #### [facility] [address] [place] [address] Dr. Michael Williamson Glucose [Mass/Vol] 126 mg/dL Normal [facility] Comment on above: Performed By: #### A 1C #### [facility] [address] [place] [address] Dr. Michael Williamson HbA1c (Bld) [Mass fraction] 6.0 % Normal 4.5-6.2 [facility] Comment on above: Performed By: #### A 1C #### [facility] [address] [place] [address] Dr. Michael Williamson MAGNESIUMon 10-05-2021 Magnesium [Mass/Vol] 1.8 mg/dL Normal 1.8-2.4 [facility] Comment on above: Performed By: #### A 1C #### [facility] [address] [place] [address] Dr. Michael Williamson TSHon 10-05-2021 TSH 0.727 uIU/mL Normal 0.358-3.740 The [facility] Comment on above: Performed By: #### A 1C #### [facility] [address] [place] [address] Dr. Michael Williamson TSH RANGE SEE BELOW Normal [facility] Comment on above: Result Comment: <0.3 4 UIU/ml HYPERTHYROID 0.34-5.60 UIU/ml EUTHYROID >5.60 UIU/ml HYPOTHYROID Performed By: #### A 1C #### [facility] [address] [place] [address] Dr. Michael Williamson VITAMIN B12on 10-05-2021 Cobalamin (Vitamin B12) [Mass/Vol] 1077.0 pg/mL Critically high 193.0-986.0 [facility] Comment on above: Performed By: #### F T4, VITB12 #### [facility] [address] [place] [address] Dr. Michael Williamson Physician Orderon 12-13-2020 Physician Order [id number]. [id number]:127 Normal [facility] FOLATE SERUMon 07-17-2018 Folate mass conc 27.43 ng/mL Normal 6.60-1000.00 [facility] Comment on above: Result Comment: Norm al range reflects World Health Organization International Standard Performed By: #### 4 6413, 18364, 06663, 88094, 35803 #### [facility] [address] VITAMIN A 83047ml 07-17-2018 INTERPRETATION (VIT A) Normal Normal [facility] Comment on above: Result Comment: Test developed and characteristics determined by [employer]. See Compliance Statement B: [email or web address]/CS Performed by [employer], [address] [place] [address] www.[email or web address], Ahsan Abel MD - Lab. Director RETINYL PALMTATE <0.02 Normal 0.00-0.10 [facility] VITAMIN A MG/L 0.45 mg/L Normal 0.30-1.20 The [facility] VITAMIN B12on 07-17-2018 Cobalamin (Vitamin B12) mass conc 679 pg/mL Normal 180-914 The [facility] Comment on above: Result Comment: REFE RENCE RANGES: 180-914 pg/mL Normal 145-179 pg/mL Indeterminate <145 pg/mL Deficient Performed By: #### 4 6413, 78940, 94256, 72125, 02216 #### [facility] [address] VITAMIN D 25-HYDROXYon 07-17 VITAMIN D 25-OH 21.0 ng/mL Low 30.0-80.0 The [facility] Comment on above: Result Comment: >80. 0 Toxicity possible Performed By: #### 4 6413, 50318, 04213, 62310, 64113 #### [facility] [address] [place] [address], [facility] POC URINE PREGNANCYon 2018 HCG.beta subunit ( test) Ql (U) Negative Normal NEGATIVE The [facility] Comment on above: Result Comment: Perf ormed in PACU Performed By: #### 8 4140 #### [facility] [address] [place] [address], [facility] AMYLASE BLOODon 06-12-2018 Amylase enzyme act/vol 21 Units/L Low 29-103 The [facility] Comment on above: Performed By: #### 4 6413, 20553, 81081, 60861, 28153 #### [facility] [address] [place] [address], [facility] ANAon 06-12-2018 Nuclear Ab IF titer (S) 1:80 Abnormal <1:40,1:40 The [facility] Comment on above: Performed By: #### 6 2870, 71161 #### [facility] [address] [place] [address], [facility] Nuclear Ab IF titer (S) SPECKLED Normal [facility] Comment on above: Performed By: #### 6 2510, 58236 #### [facility] [address] [place] [address], [facility] COMP METABOLIC PANELon 06-12 Albumin mass conc 4.4 g/dL Normal 3.5-5.7 The [facility] Comment on above: Performed By: #### 4 6413, 16858, 84690, 22570, 17565 #### [facility] [address] [place] [address], [facility] ALKALINE PHOSPH 96 IU/L Normal 34-104 The [facility] Comment on above: Performed By: #### 4 6413, 62512, 09715, 40397, 65910 #### [facility] [address] [place] [address], [facility] ALT enzyme act/vol 484 U/L Critically high 7-52 T he [facility] Comment on above: Performed By: #### 4 6413, 46354, 55601, 36723, 47314 #### [facility] [address] [place] [address], [place] AST enzyme act/vol 424 U/L High 13-39 The [facility] Comment on above: Performed By: #### 4 6413, 11787, 08085, 58506, 89032 #### [facility] [address] [place] [address], [facility] Bilirubin mass conc 0.8 mg/dL Normal 0.3-1.0 The [facility] Comment on above: Performed By: #### 4 6413, 36235, 01801, 50408, 91691 #### [facility] [address] [place] [address], [place] Calcium mass conc 9.1 mg/dL Normal 8.6-10.3 The [facility] Comment on above: Performed By: #### 4 6413, 50948, 65942, 40575, 19795 #### [facility] [address] [place] [address], [place] Chloride molar conc 104 mmol/L Normal 98-107 [facility] Comment on above: Performed By: #### 4 6413, 99916, 67737, 85852, 15480 #### [facility] [address] [place] [address], [place] CO2 molar conc 28 mmol/L Normal 21-31 The [facility] Comment on above: Performed By: #### 4 6413, 00328, 47236, 00759, 21774 #### [facility] [address] [place] [address], [place] Creatinine mass conc 0.53 mg/dL Low 0.60-1.20 [facility] Comment on above: Performed By: #### 4 6413, 76126, 39594, 37958, 92214 #### [facility] [address] [place] [address], [place] GFR/1.73 sq M predicted among blacks MDRD vol rate/area (S/P/Bld) mL/min/{1.73_m2} Normal >60 The [facility] Comment on above: Performed By: #### 4 6413, 65912, 95063, 01471, 28807 #### [facility] [address] [place] [address], [place] GFR/1.73 sq M predicted among non-blacks MDRD vol rate/area (S/P/Bld) mL/min/{1.73_m2} Normal >60 The [facility] Comment on above: Performed By: #### 4 6413, 08460, 27199, 74247, 30963 #### [facility] [address] [place] [address], [place] Glucose mass conc 88 mg/dL Normal 70-100 [facility] Comment on above: Performed By: #### 4 6413, 00852, 75741, 90765, 79475 #### [facility] [address] [place] [address], [facility] Potassium molar conc 4.0 mmol/L Normal 3.5-5.1 The [facility] Comment on above: Performed By: #### 4 6413, 72817, 25657, 52726, 59074 #### [facility] [address] [place] [address], [facility] Protein mass conc 7.0 g/dL Normal 6.0-8.3 [facility] Comment on above: Performed By: #### 4 6413, 95960, 25379, 83457, 84706 #### [facility] [address] [place] [address], [facility] Sodium molar conc 139 mmol/L Normal 136-145 [facility] Comment on above: Performed By: #### 4 6413, 53520, 75774, 46051, 90505 #### [facility] [address] [place] [address], [facility] Urea nitrogen mass conc 8 mg/dL Normal 7-25 The [facility] Comment on above: Performed By: #### 4 6413, 61349, 98188, 25674, 72164 #### [facility] [address] IGG SUBCLASSES (1,2,3,4) 505 77on 06-12-2018 IGG SUBCLASS 1 520 mg/dL Normal 240-1118 The [facility] Comment on above: Result Comment: REFE RENCE INTERVAL: Immunoglobulin G Subclass 1 Access complete set of age- and/or gender-specific reference intervals for this test in the [employer] [facility] Test Directory ([employer]). IGG SUBCLASS 2 265 mg/dL Normal 124-549 The [facility] Comment on above: Result Comment: REFE RENCE INTERVAL: Immunoglobulin G Subclass 2 Access complete set of age- and/or gender-specific reference intervals for this test in the [employer] [facility] Test Directory ([employer]). IGG SUBCLASS 3 50 mg/dL Normal 21-134 The [facility] Comment on above: Result Comment: REFE RENCE INTERVAL: Immunoglobulin G Subclass 3 Access complete set of age- and/or gender-specific reference intervals for this test in the [employer] [facility] Test Directory ([employer]). IGG SUBCLASS 4 19 mg/dL Normal 1-123 The [facility] Comment on above: Result Comment: The total IgG (mg/dL) can be derived by the sum of the subclasses IgG1, IgG2, IgG3 and IgG4 values. However, a confirmatory and more precise total IgG is available by the nephelometric method of total IgG (Test # [id number]). REFERENCE INTERVAL: Immunoglobulin G Subclass 4 Access complete set of age- and/or gender-specific reference intervals for this test in the [employer] [facility] Test Directory ([employer]). Performed by [employer], [address] [place] [address] www.[employer], Ahsan Abel MD - Lab. Director LIPASE BLOODon 06-12-2018 Lipase enzyme act/vol 82 Units/L Normal 11-82 [facility] Comment on above: Performed By: #### 4 6413, 31203, 72249, 90409, 30388 #### [facility] [address] [place] [address], [facility] LIPID PROFILEon 06-12-2018 Cholesterol in HDL mass conc 56 mg/dL Normal 23-92 The [facility] Comment on above: Result Comment: Slig ht variation in normal range could be due to gender and/or age. HDL CHOLESTEROL REFERENCE RANGE: 20 years and older Cardiovascular Risk > or =60 mg/dL Desirable 40 TO 59 mg/dL Low Risk <40 mg/dL High Risk Performed By: #### 4 6413, 01691, 84354, 83868, 25668 #### [facility] [address] [place] [address], [facility] Cholesterol in LDL mass conc 56 mg/dL Normal 0-130 The [facility] Comment on above: Result Comment: LDL IS A CALCULATION LDL IS ONLY VALID IF THE TRIG IS LESS THAN 400. Performed By: #### 4 7737, 85822, 14265, 82462, 66281 #### [facility] [address] [place] [address], [facility] Cholesterol mass conc 122 mg/dL Normal 120-200 [facility] Comment on above: Result Comment: CHOL ESTEROL REFERENCE RANGE: 20 YEARS AND OLDER CARDIOVASCULAR RISK Less than 200 mg/dl Low Risk 200 to 239 mg/dl Borderline Risk 240 mg/dl and greater High Risk Performed By: #### 4 6413, 01240, 21032, 35017, 69806 #### [facility] [address] [place] [address], [facility] Cholesterol.total/Ch olesterol in HDL mass ratio 2.2 {ratio} Normal .0-4.5 [facility] Comment on above: Performed By: #### 4 6413, 22404, 37063, 91018, 57990 #### [facility] [address] [place] [address], [facility] NON-HDL CHOLESTEROL 66 mg/dL Normal The [facility] Comment on above: Performed By: #### 4 6413, 62299, 83312, 56756, 42427 #### [facility] [address] [facility] [place] [address], [facility] Triglyceride mass conc 49 mg/dL Normal 40-149 [facility] Comment on above: Result Comment: TRIG LYCERIDE REFERENCE RANGE: 20 YEARS AND OLDER CARDIOVASCULAR RISK LESS THAN 150 mg/dl LOW RISK 150 TO 199 mg/dl BORDERLINE RISK 200 mg/dl AND GREATER HIGH RISK Performed By: #### 4 6413, 25700, 63419, 00328, 49475 #### [facility] [address] [place] [address], [facility] VLDL CHOL 10 mg/dL Normal 0-40 [facility] Comment on above: Performed By: #### 4 6413, 16160, 81242, 16123, 88280 #### [facility] [address] [place] [address], [facility] SMOOTH MUSCLE ABon 9 SMOOTH MUSC AB 1:20 Abnormal NONE DETECTED The [facility] Comment on above: Result Comment: NONE DETECTED: LESS THAN 1:20 WEAKLY POSITIVE: 1:20 - 1:40 SUGGESTIVE OF CHRONIC HEPATITIS: 1:80 OR GREATER NOTE: FOR WEAKLY POSITIVE RESULTS, TITER MAY BE PRESENT IN ACUTE VIRAL HEPATITIS, INFECTIOUS MONONUCLEOSIS OR MALIGNANCY. Performed By: #### 6 2510, 83846 #### [facility] [address] [facility] [address] TISSUE TRANSGLUTAMINASE IGA 15355ll 06-12-2018 TTG IGA 0 U/mL Normal 0-3 The [facility] Comment on above: Result Comment: INTE [...] positive predictive value for disease. Performed by [employer], [address] [place] [address] www.[employer], Ahsan Abel MD - Lab. Director TSH3 WITH REFLEXon 9 T4 free mass conc 0.78 ng/dL Normal 0.71-1.85 [facility] Comment on above: Result Comment: This result added by IF on 06/12/2018 15:20. Performed By: #### 4 6413, 70514, 59830, 29392, 34245 #### [facility] [address] [place] [address], [facility] TSH 3RD GENERATION 1.27 uIU/mL Normal 0.34-5.60 The [facility] Comment on above: Performed By: #### 4 6413, 14971, 41315, 23894, 82298 #### [facility] [address] [place] [address], [facility] Encounters Encounter Date Encounter Type Care Provider Facility Start: 01-23-2024 End: 01-23-2024 Refill Gerardo Tolbert MD Work Phone: [facility] Comment on above: ADHD, predominantly inattentive type (CMS/HCC) Start: 01-16-2024 End: 01-16-2024 ambulatory GERARDO TOLBERT Not Available Start: 12-19-2023 ambulatory SHAWN Deluca [facility] Start: 12-19-2023 End: 12-19-2023 ambulatory GIRISH MONACO [facility] Start: 12-05-2023 End: 12-05-2023 ambulatory Annamaria Suzanna [facility] Work Phone: Start: 12-05-2023 End: 12-05-2023 Departed Referred DO Annamaria Suzanna Work Phone: [facility] Start: 12-05-2023 End: 12-05-2023 ambulatory ANNAMARIA SZUANNA Not Available Start: 11-28-2023 End: 11-28-2023 ambulatory ANNAMARIA SUZANNA Not Available Start: 11-14-2023 End: 11-14-2023 ambulatory EGRARDO TOLBERT Not Available Start: 07-27-2023 End: 07-27-2023 ambulatory MIKE MONTANEZ [facility] Start: 06-14-2023 Refill Magalis Jeffries RN [facility] Comment on above: Migraine with aura a nd without status migrainosus, not intractable Start: 06-01-2023 Orders Only Leonidas boss PA-C Work Phone: [facility] Comment on above: Migraine with aura a nd without status migrainosus, not intractable (Primary Dx) Start: 05-26-2023 Refill Gerardo Cheema Work Phone: [facility] Comment on above: ADHD, predominantly inattentive type (CMS/HCC) Start: 05-23-2023 End: 05-23-2023 ambulatory SHAWN EDGEVanessa [facility] Start: 05-11-2023 End: 05-11-2023 ambulatory GERARDO TOLBERT Not Available Start: 05-04-2023 End: 05-04-2023 ambulatory ANNAMARIA BRISENO Not Available Start: 09-15-[address] GERARDO TOLBERT [facility] ity:H1 Start: 05-25-2022 End: 05-26-[address] GERARDO TOLBERT Facility: Start: 10-05-2021 End: 10-05-[address] ANNAMARIA BRISENO . Facility: Start: 10-05-2021 End: 10-06-[address] ANNAMARIA BRISENO . Facility: Start: 07-17-2018 End: 07-18-2018 Patient encounter procedure BONG ESCALERA Facility:[facility] Start: 06-27-2018 End: 06-28-2018 Patient encounter procedure WHITNEY MCKEON Facility:[facility] Start: 06-12-2018 End: 06-13-2018 Patient encounter procedure BONG ESCALERA Facility:[facility] Procedures Date Procedure Procedure Detail Performing Clinician Start: 05-04-2023 Microscopic observat ion [Identifier] in Cervix by Cyto stain Gearrdo Tolbert MD Work Phone: Start: 01-05-2023 Adult depression screening assessment Leonidas Antunez PA-C Work Phone: Start: 07-02-2019 H/O splenectomy History of par tial splenectomy Leonidas Antunez PA-C Work Phone: Start: 06-27-2018 ANES UPR GI NDSC PX NOS OPAL PITRODA Plan of Treatment Date Care Activity Detail Author Start: 05-04-2026 Screening for malign ant neoplasm of cervix [facility] Start: 05-09-2024 End: 05-09-2024 Patient encounter procedure 05/09/2024 9:00 AM EST Office Visit [facility] [address] [place] [id number] Annamaria Briseno, DO [address] [place] [address] [facility] Start: 02-15-2024 End: 02-15-2024 Patient encounter procedure 02/15/2024 9:30 AM EDT Office Visit [facility] [address] [place] [phone] Gerardo Tolbert MD [address] [place] [phone] [facility] Start: 01-06-2024 Adult BMI Screening Adult BMI Screen ing [facility] Start: 01-06-2024 Depression Screening Depression Scre ening [facility] Start: 01-06-2024 Tobacco Screening Tobacco Screening [facility] Start: 12-24-2023 Influenza vaccination Influenza Vacc ine (#1) [facility] Start: 12-05-2023 [facility] Start: 11-14-2023 End: 11-14-2023 Patient encounter procedure 11/14/2023 10:45 AM EDT Office Visit [facility] [address] [place] [phone] Gerardo Tolbert MD [address] [place] [address] [facility] Start: 12-23-2022 Influenza vaccination [facility] Start: 2021 Screening for malign ant neoplasm of cervix [facility] Start: 07-08-2017 DTaP,Tdap and Td Vaccines (7 - Td or Tdap) DTaP,Tdap and Td Vaccines (7 - Td or Tdap) [facility] Start: 2012 Screening for malign ant neoplasm of cervix Pap Smear [facility] Start: 2009 Adult BMI Follow Up Plan Adult BMI Follow Up Plan [facility] Immunizations Immunization Date Immunization Notes Care Provider Fa cility 01-23-2020 influenza virus vaccine, unspecified formulation Gerardo Tolbert MD Work Phone: [facility] 03-04-2018 Influenza, injectabl e, [place]in [place] Canine Kidney, preservative free, quadrivalent Leonidas Antunez PA-C Work Phone: [facility] [employer] [facility] 01-24-2017 influenza, injectabl e, quadrivalent, preservative free Leonidas Antunez PA-C Work Phone: [facility] [employer] [facility] 01-22-2017 influenza virus vaccine, unspecified formulation Leonidas Antunez PA-C Work Phone: [facility] Payers Date Payer Category Payer Self-pay [id number] 2022 Unknown [id number] 2014 Unknown [id number] 1991 Unknown [id number] [id number] .647 1991 Unknown [id number] 2.16.840.1.751289.3.579.2 .647 1991 Unknown [id number] 2.16.840.1.800043.3.579.2 .647 1991 Unknown [id number] 2.16.840.1.516220.3.579.2 .593 1991 Unknown [id number] 2.16.840.1.244056.3.579.2 .593 1991 Unknown [id number] 2.16.840.1.654526.3.579.2 .593 1991 Unknown [id number] 2.16.840.1.969751.3.579.2 .593 1991 Unknown [id number] 2.16.840.1.524036.3.579.2 .1259 1991 Unknown [id number] 2.16.840.1.654787.3.579.2 .1259 1991 Unknown [id number] 2.16.840.1.863987.3.579.2 .1259 1991 Unknown [id number] 1990 Unknown [id number] 1990 Unknown [id number] 1958 Private Health Insurance [id number] 1958 Unknown [id number] Unknown [facility] [id number] Unknown [facility] [id number] Unknown [id number] Worker's Compensation Industrial Self Ins Misc [id number] Social History Date Type Detail Facility Start: 08-23-2016 End: 05-11-2023 Tobacco smoking status NHIS Never smoked tobacco [facility] Start: 08-23-2016 End: 05-11-2023 Tobacco use and exposure Smokeless tobacco non-user [facility] Start: 05-11-2023 End: 01-10-2024 History of Social function [facility] Start: 05-11-2023 End: 01-10-2024 Tobacco use panel [facility] Start: 1990 Sex Assigned At Not on file [facility] Start: 01-05-2023 Alcohol intake 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 Yes [facility] Are you now , , , , never or living with a partner? [facility] How hard is it for y ou to pay for the very basics like food, housing, medical care, and heating Somewhat hard [facility] Do you feel stress - tense, restless, nervous, or anxious, or unable to sleep at night because your mind is troubled all the time - these days [OSQ] Only a little [facility] (I/We) worried wheth er (my/our) food would run out before (I/we) got money to buy more. Sometimes true [facility] The food that (I/we) bought just didn't last, and (I/we) didn't have money to get more. Never true [facility] In the past 12 month s, was there a time when you were not able to pay the mortgage or rent on time? No [facility] Medical Equipment Procedure Code Equipment Code Equipment Origin al Text Equipment Identifier Dates 1 (one) time eac h day [id number] Anch Sut 2.4mm 2 Sut Tk Fbrwr - [id number] Start: 08-23-2016 Plt Ant Cerv Xte nd 1-Lev 10 - [id number] Start: 02-14-2017 Scr Xtend 4.2x14 mm Vasd - [id number] Start: 02-14-2017 Cervical Allograft [id number] Start: 02-14-2017 Clinical Notes 05-23-2023 to 12-19-2023 Telephone Encounter - Magalis Jeffries RN - 06/14/2023 11:58 AM ESTTelephone Encounter - Magalis Jeffries RN - 06/14/2023 11:58 AM ESTTelephone Encounter - DARIUSZ PHILLIPS - 06/01/2023 1:50 PM EST Note Date & Type Note Facility 12-19-[address] [facility] Gastroenterolog y Follow-Up Patient Visit CHIEF COMPLAINT Chief Complaint Patient presents with Follow-up chronic pancreatitis HISTORY OF PRESENT ILLNESS: Freya aLo Dick is a 33 y.o. female w/ chronic pancreatitis in setting [...] surgery and a sepsis infection. Back in [address] Mckeon she had equivocal EUS [...] at the end of her . INTERVAL HISTORY 09/2022: Some days feels great, some days has [...] recognized an total inability to digest it INTERVAL HISTORY 12/19/23: Still on Creon 72K units with meals 36K with snacks. However, now having an issue tolerating the taste/smell. She reports the capsules look different and she does not feel like they are working the same. She is concerned for them affecting her absorption and effecting her blood sugars. Denies any GI symptoms or issues. Only issues today is chronic fatigue despite being on adderall and controlled thyroid markers. 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 Other specified disease of pancreas Pancreatic tumor Other acne PONV (postoperative nausea and vomiting) POTS (postural orthostatic tachycardia syndrome) Autonomic dysfunction Chronic back pain Chronic pancreatitis (CMS/HCC) Chronic superficial gastritis without bleeding Dizziness Generalized anxiety disorder Cerebellar tonsillar ectopia (CMS/HCC) Migraine with aura and without status migrainosus, not intractable MRSA (methicillin resistant Staphylococcus aureus) carrier Prediabetes Sepsis (CMS/HCC) Vaginal cyst Primary hypothyroidism Insulin resistance Malignant tumor of pancreas (CMS/HCC) Past Medical History: History reviewed. No pertinent past medical history. Past Surgical History: History reviewed. No pertinent surgical history. FAMILY HISTORY: Family History Problem Relation Name Age of Onset Hypertension Mother Hypertension Father Gout Father Migraines Sister No Known Problems Brother Hypertension Paternal Grandmother Hypertension Paternal Grandfather Atrial fibrillation Paternal Grandfather No Known Problems Son 2 Sudden Neg Hx SIDS Neg Hx Congenital heart disease Neg Hx Congenital Hearing Loss Neg Hx Autoimmune disease Neg Hx SOCIAL HISTORY: Social History Tobacco Use Smoking status: Never Smokeless tobacco: Never Vaping Use Vaping Use: Never used Substance Use Topics Alcohol use: Never Drug use: Never ALLERGIES: Fremanezumab-vfrm; Hydrocodone-acetaminophen; Oxycodone-acetaminophen; Vancomycin; Vancomycin analogues; Wheat; Wheat containing prod; Doxycycline; Latex; Latex, natural rubber; Sulfamethoxazole-trimethoprim; Tramadol; Amlodipine; Bupropion; Feathers; Grass pollen; Milk; Other; Psyllium; and Dyclonine-benzethonium Current Medications: Current Outpatient Medications: amphetamine-dextroamphetamine (Adderall) 30 mg tablet, Take 1 tablet by mouth in the morning and at bedtime., Disp: , Rfl: atogepant (Qulipta) 60 mg tablet, Take 1 tablet by (more content not included)... [facility] 07-27-2023 Note Attestation signed by Mike Montanez at 07/27/2023 9:50 AM By using the attestations below, the signing clinician agrees that I have read and verify that the documentation has been personally reviewed by me and ensure that the documentation accurately reflects the encounter. GC: I personally saw this patient on the day of the encounter, performed the davis portion(s) of the service and participated in the management and confirm the resident's documentation. Please note there may be an additional personal documentation from me. Reason for Visit: Freya Jennings is a 33 y.o. female who is being seen today in consultation at the request of Dr. oTlbert. History of Present Illness: She states that she has been having overwhelming fatigue. She also reports significant joint pain as well as raynaud phenomenon. She states that it hurts everywhere especially temperature changes. She states that the symptoms have been going on for about 2.5 years. She is asplenic. 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 Grandmother with breast cancer, other grandmother with lung cancer. Grandfather with prostate cancer. Uncle with esophagus cancer. No neck nodule other than lipoma that was found on outer neck. She has been taking synthroid 25mcg BID for increased absorption for 5-6 years. It was due to elevated TSH. Thyroid-related symptoms Constitutional Symptom Yes No Comment Irritability [] [x] Anxiety [x] [] Difficulty concentrating [x] [] Difficulty sleeping [x] [] Mood swings [] [x] Depression [] [x] Exhaustion [x] [] Forgetfulness [x] [] Decreased libido [x] [] Low energy fatigue [x] [] Heat intolerance [] [x] Excessive sweating [] [x] Cold intolerance [x] [] Weight loss [] [x] Weight gain [] [x] Increasing itchiness [] [x] Recent viral illness [] [x] Cardiovascular Symptom Yes No Comment Racing heartbeat [x] [] Palpitation [x] [] Slow heartbeat [] [x] Fluid retention [] [x] Trouble breathing [] [x] Neuromuscular Symptom Yes No Comment Proximal muscle weakness with upper extremities [x] [] Proximal muscle weakness with lower extremities [x] [] Muscle aches/cramps [x] [] Shakes/tremors [] [x] Joint pain [x] [] Decreased exercise capacity [x] [] Gastrointestinal Symptom Yes No Comment Hyperactive bowel movement [] [x] Constipation [] [x] Integumentary Symptom Yes No Comment Dry skin [x] [] Yellowing skin [] [x] Brittle hair [] [x] Hair loss [x] [] Brittle nail [x] [] Eyes Symptom Yes No Comment Dryness [x] [] Discomfort/pain [x] [] Tearing [] [x] Protrusion [] [x] Blurry vision [x] [] Double vision [] [x] Decreased near vision [] [x] Thyroid hormone administration Yes No Comment Taken on empty stomach [] [x] from food by 30 min before eating [] [x] from heavy metals (ex. calcium or iron pills), and multivitamin by 2 hours [] [x] Compressive symptoms in the neck Symptom Yes No Comment A new mass [] [x] Choking [] [x] Trouble swallowing [] [x] Change in voice [] [x] Fullness [] [x] Lower central neck pain [x] [] For thyroid nodule(s) Yes No Comment Personal history of radiation exposure under the age 20 years [] [] Family history of thyroid cancer [] [] If yes, what type? REVIEW OF SYSTEMS Negative except as above No past medical history on file. No past surgical history on file. Current Outpatient Medications: Ajovy Autoinjector 225 mg/1.5 mL auto-injector, INJECT 1.5 ML (225 MG TOTAL) UNDER THE SKIN EVERY 28 DAYS., Disp: , Rfl: amphetamine-dextroamphetamine (Adderall) 30 mg tablet, Take 1 [...] 24 hr tablet, , Disp: , Rfl: wrkzfgickc-iqmxqcdjohsna-lbpj (Fioricet) 50-300-40 mg capsule, TAKE 1 CAPSULE BY MOUTH FOUR TIMES A DAY NEEDED, Disp: , Rfl: calcium-vits I3-P-S0-minerals 166.75 mg- 166.75 unit capsule, Take 1 capsule by mouth., Disp: , Rfl: cholecalciferol (Vitamin D-3) 25 MCG (1000 units) tablet, Take 1,000 Units by mouth in the morning., Disp: , Rfl: Cinnamon 500 mg capsule, Take 1,000 mg by mouth in the morning., Disp: , Rfl: coenzyme Q-10 100 mg capsule, Take 100 mg by mouth twice a day., Disp: , Rfl: cranberry 500 mg capsule, Take 2,000 mg by mouth., Disp: , Rfl: guanFACINE (Tenex) 1 mg tablet, Take 0.5 tablets (0.5 mg) by mouth in the morning and at bedtime., Disp: 30 tablet, Rfl: 11 lancets 33 gauge misc, 33 gauge lancets f (more content not included)... [facility] 06-14-2023 Miscellaneous Notes Medication to be sent to [facility]. Script pended to Andrea. documented in this encounter [facility] 06-14-2023 Telephone encounter Note Medication to be sent to [facility]. [facility] to Andrea. [facility]-01-2023 Telephone encounter Note Patient called [facility] cardiology would like her to see an endo. Specialist as her thyroid antibody was 26.6 on recent bloodwork done at [facility] cardiology. Patient would like to go to [place] to see specialist. clm [facility] 06-01-2023 Miscellaneous Notes Patient called [facility] cardiology would like her to see an endo. Specialist as her thyroid antibody was 26.6 on recent bloodwork done at [facility] cardiology. Patient would like to go to [place] to see specialist. clm documented in this encounter [facility] 05-23-2023 Note Freya Jennings is a pleasant 32 year old female previously evaluated for orthostatic intolerance (OI) consistent with postural orthostatic tachycardia syndrome (POTS) our Syncope and Autonomic Disorders Clinic in the Heart and Vascular Center at the [facility]. Last evaluated as a new patient in 2018. I COPIED AND PASTED NOTE FROM [facility] FOR CONTINUITY OF CARE: As you well recall Freya is a 27-year-old female with a complicated past medical history noted for malignant tumor of the pancreas (2007) with then subsequent surgery ([facility]-removal 06/25 pancreas/spleen/cholecystectomy ). No radiation or chemotherapy. She underwent a gastric sleeve procedure at the due to obesity in 2014. She next underwent an abdominal reconstructive surgery and scar tissue revision November 2015, . After another surgery she developed complications postoperatively included including severe sepsis and dehiscence of surgical wound. She was hospitalized at [facility] (January 2016) and transferred immediately to [facility]. She was under the care of ID/ general surgeon and reconstructive surgery. 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 She underwent 5 rounds of dialysis for the kidney failure. She was at our facility for 21 days. Fortunately her kidney function improved and she is known to have a functioning pancreas. August 2016 Underwent left shoulder surgery for torn labrium. [facility]. OP. No problems with recovery. January 2017: C6-C7 Anterior spinal fusion. Dr. Rakes[facility]. Less migraines, improved. She reports healthy childhood except Kamas Palsy age 9. No syncope, near syncope, breath holding spells or seizures. 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 September 2016 Adderall for ADHD. HPI: She began to develop episodes of extreme fatigue and dizziness after sepsis 2015. Thoroughly evaluated by Dr. 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 She underwent an echocardiogram in January 2017, demonstrating normal left ventricular systolic function and diastolic function. Normal valves and normal aorta. Holter monitor demonstrated no significant arrhythmia. Not normal sinus rhythm. Head upright tilt table test negative for syncope, orthostatic hypotension and postural orthostatic tachycardia response. [place] awful on tilt and awful all night after the test . Despite the fact that the sepsis has resolved, she still has orthostatic intolerance. She is here for possible dysautonomia. ROS: Dizziness and lightheaded/near syncope daily. Triggers: Standing, morning, stairs, bending. I do not sweat . Wheat intolerant- hives, sick. Since pancreas surgery age 17. She reports her function: most days 70%. Some days 50%/weakness, fatigue. Current exercise: walks for short distances. Therapies: no therapy. Adderall for ADHD does not take consistently. Adult onset ADHD. Social History: . Lives in [place]. 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 Family Medical History: no sudden cardiac below the age of 40. No vascular ruptures or aneurysms. No congenital heart disease, congenital deafness, SIDS. No defibrillators. Mother: hypothyroidism, goiter, Father: hypertension Siblings: a/w Maternal uncle [place], 5 vessel coronary artery disease age 59. Maternal grandfather; PM Sick sinus syndrome (80). No syncope, seizures. No autoimmune disease. Cancer in family. The physical findings may be found in the body of this note. She's a pleasant female with an appropriate BMI 27.4. The blood pressure showed no evidence of orthostatic hypotension. 122/70 mmHg right arm and immediately upon standing, blood pressure 121/67 mmHg. Heart rate 90 bpm, strong and regular. Immediately upon standing, heart rate 10 7 bpm without any excessive upright tachycardia. 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 Likely the underlying trigger is the bariatric procedure. We have followed a number of individuals who develop orthostatic intolerance post bariatric procedures. The mechanism is thought to be due to a likely change in the autonomic blood pressure control mechanisms due to weight fluctuations. Nonetheless, we discussed this at length and we did discuss the importance of reconditioning. She will need to recondition to improve her skeletal muscle tone. I provided her with weight training guidelines and cardio/strengthening guidelines for cardiac reconditioning to be done in the recumbent position. We discussed the avoidance of triggers, fluids, sodium, therapeutic options. She is not quite sure if the Adderall gives an improvement to the orthostatic intolerance. I told her this is also potent venous constrictor and may help. In the interim, we can start a low dose of midodrine 2.5 mg up to 3 times daily as needed. We di (more content not included)... [facility] Evaluation note Diagnosis ADHD, 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 [facility] Diagnosis Migraine with aura and without status migrainosus, not intractable- [facility] Thyroid receptor antibody positive- Primary [facility]* Diagnosis Migraine with aura and without status migrainosus, not intractable documented [facility] noteNo assessment information available [facility] Work Phone: Evaluation note* Diagnosis ADHD, 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 documented in this encounter [facility] HealthcareInstructionsNot on filedocumented in this encounterProMedica Health SystemInstructionsNot on filedocumented in this encounterProMedica Health SystemReason for referral (narrative)* Consultation (Routine) - Pending Review Specialty Diagnoses / Procedures Referred By Blaise wolfe Referred To Contact Endocrinology Diagnoses Thyroid receptor antibody positive Procedures NE OFFICE/OUTPATIENT NEW HIGH MDM 60 MINUTES Gerardo Tolbert MD [address] [place] [address] Referral ID Status Reason Start Date Expiration Date Visits Requested Visits Authorized [id number] Pending Review Specialty Services Required 06/01/2023 11/28/2023 1 1 [facility] Summary Purpose Family History No Family History Records FoundNo Family History Records FoundNo Family History Records FoundNo Family History Records FoundNo Family History Records FoundNo Family History Records Found Advance Directives Advance Directive Response Recorded Date/ Time Advance Directives No December 16, 2020 12:55pm Procedure Findings Note MR#: [id number] [facility] Pt. Name: Freya Jennings Surgery Date: 06/27/2018 Room #: 0C Date of : 1990 PROCEDURE NOTE ATTENDING: Whitney Mckeon M.D. PROCEDURE PERFORMED: Endoscopic ultrasound with biopsy. 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 MEDICATIONS: General anesthesia administered by Anesthesia team. ANALYST MARKET INTELLIGENCE: Gibson Manriquez M.D. PROCEDURE IN DETAIL: After [...] of the e (more content not included)... Reason for Referral Specialty Diagnoses / Procedures Referred By Blaise wolfe Referred To Contact Diagnoses Migraine with aura and without status migrainosus, not intractable Leonidas Antunez PA-C [address] [facility] [place] [address] Referral ID Status Reason Start Date Expiration Date V isits Requested Visits Authorized [id number] Pending Review 1 1 Additional Source Comments INFORMATION SOURCE (unrecogn ized section and content) DATE CREATED AUTHOR 07/21/2018 [facility] DATE CREATED AUTHOR AUTHOR'S ORGANIZ ATION 12/14/2020 [facility] DATE CREATED AUTHOR AUTHOR'S ORGANIZ ATION 09/05/2022 [facility] DATE CREATED AUTHOR AUTHOR'S ORGANIZ ATION 12/11/2023 [facility] DATE CREATED AUTHOR AUTHOR'S ORGANIZ ATION 12/30/2023 [facility] DATE CREATED AUTHOR AUTHOR'S ORGANIZ ATION 01/18/2024 [facility] Reason for Visit (unrecogniz ed section and content) Reason Onset Date Comments Med Refill 05/26/2023 Reason Onset Date Comments Med Refill 06/14/2023 Reason Onset Date Comments Med Refill 01/23/2024 Care Teams (unrecognized sec tion and content) Refrigeration Repair Supervisor Relationship Specialty Start Date End Date Gerardo Tolbert MD [address] [place] [address] PCP - General Family Medicine 05/11/23 Refrigeration Repair Supervisor Relationship Specialty Start Date End Date Gerardo Tolbert MD [address] [place] [address] PCP - General Family Medicine 07/03/19 Refrigeration Repair Supervisor Relationship Specialty Start Date End Date Gerardo Tolbert MD [address] [place] [phone] PCP - General Family Medicine 05/11/23 Gerardo Tolbert MD [address] [place] [phone] PCP - [facility] 04/24/23 Refrigeration Repair Supervisor Relationship Specialty Start Date End Date Gerardo Tolbert MD [address] [place] [address] PCP - General Family Medicine 07/03/19 Team Status: Inactive Member Role Status Dates Annamaria Briseno DO Attending Provider Active Start : December 05, 2023 End: December 05, 2023 Refrigeration Repair Supervisor Relationship Specialty Start Date End Date Gerardo Tolbert MD [address] [place] [phone] PCP - General Family Medicine 05/11/23 Gerardo Tolbert MD [address] [place] [phone] [facility] [employer] 04/24/23 Goals (unrecognized section and content) Goals may be documented in a n alternate section FOR RECORDS PERTAINING TO PATIENTS WHO ARE [...] BE BASED ON THE PRIMARY CLINICAL RECORDS. [facility]. provides no warranty or guarantee of the accuracy or completeness of information in this document.
[2024-02-15 11:39] LABS: Free T4 0.94 ng/dL (0.76-1.46)
[2024-02-15 11:44] LABS: Estimated Average Glucose 108 mg/dL; Glycohemoglobin A1C 5.4 % (4.5-6.2)
[2024-02-15 11:50] LABS: Free T3 2.63 pg/mL (2.18-3.98)
== END 2024-02-15 10:17 | disposition home or self-care (01) ==
LOC: LAB 10:18
PROVIDERS: PCP Family Medicine; Visit Provider Family Medicine
DX: R73.03 Prediabetes (principal); E03.9 Hypothyroidism, unspecified
CPT/HCPCS: 36415; 83036; 84439; 84443; 84481

== ENCOUNTER 2024-05-09 19:00 | Outpatient (OUT) | payer BC, SELFPAY ==
--- OUTSIDE RECORDS SUMMARY | 2024-05-09 19:06 | XMS_ITS | CCD ---
Author Organization [facility]iniSyva Care Team Providers Care Systems Security Consultant Name Role Phone HASAN, BONG Admitting Unavailable HASAN, BONG Attending Unavailable HASAN, BONG Referring Unavailable JOSIAH REBOLLAR Primary Care Unavailable NAWRAS, ALI T Admitting Unavailable NALINDAAS, ALI T Attending Unavailable GERARDO TOLBERT Referring Unavailable HEAVENERER, GERARDO Primary Care Unavailable [place] Procedure Practitioner Unavailab OPAL Lozoya Surgeon Unavailable HASAN, BONG Admitting Unavailable HASAN, BONG Attending Unavailable HASAN, BONG Referring Unavailable HEAVENEREMaday, GERARDO Primary Care Unavailable JOSE ., DR YIN Attending Unavailable JOSE ., DR YIN Consulting Unavailable JOSE ., DR YIN Admitting Unavailable NADERER, DR GERARDO Patterson Primary Care Unavailable NADERER, DR GERARDO Patterson Primary Care Unavailable NADERER, DR GERARDO Patterson Admitting Unavailable NADERER, DR GERARDO Patterson Attending Unavailable ZIEBER, DR LUCERO Nassar Consulting Unavailable NADERER, DR GERARDO Patterson Consulting Unavailable NADERER, DR GERARDO Patterson Primary Care Unavailable NADERER, DR GERARDO Patterson Admitting Unavailable NADERER, DR GERARDO Patterson Attending Unavailable JOSE ., DR YIN Admitting Unavailable JOSE ., DR YIN Attending Unavailable JOSE ., DR YIN Consulting Unavailable NADERER, DR GERARDO Patterson Primary Care Unavailable Gerardo Tolbert MD Primary Care Provider Gerardo Tolbert MD Primary Care Provider [phone] Gerardo Tolbert MD Unavailable DO Annamaria Briseno Attending Provider Annamaria Briseno Attending Unavailable Annamaria Briseno Admitting Unavailable SHAWN PICKETT Referring Unavailable MIKE MONTANEZ Attending Unavailable GIRISH MONACO Attending Unavaila ble SHAWN PICKETT Attending Unavailable ANNAMARIA BRISENO Attending Unavailable NADGERARDO HILARIO Attending Unavailable GERARDO TOLBERT Attending Unavailable ANNAMARIA BRISENO Attending Unavailable ANNAMARIA BRISENO Attending Unavailable GERARDO TOLBERT Attending Unavailable GERARDO TOLBERT Attending Unavailable Allergies Allergy Classification Reported Allergen(s) Allergy Type Date of Onset Reaction(s) Facility (1 source) Acetaminophen / HYDROcodone Drug Allergy [facility] Repository (2 sources) Acetaminophen / oxyCODONE Drug Allergy [facility] Repository (1 source) Adhesive Tape Drug allergy (disorder) [facility] Repository (1 source) buPROPion Drug Allergy [facility] Repository (4 sources) Latex; Translations: [LATEX] Drug allergy (disorder) [facility] Repository (3 sources) Sulfamethoxazole / Trimethoprim Drug Allergy [facility] Repository (4 sources) Vancomycin; Translations: [VANCOMYCIN] Drug Allergy [facility] Repository (1 source) Acetaminophen / HYDROcodone Drug Allergy [facility] Repository (1 source) Desonide Drug Allergy [facility] Repository (2 sources) Gluten Drug allergy (disorder) [facility] Repository (1 source) POLYETHYLENE GLYCOL 3350 Drug Allergy [facility] Repository (2 sources) traMADol; Translations: [TRAMADOL] Drug Allergy [facility] Repository (17 sources) Latex Propensity to adverse reactions Itching, Rash, Hives [facility] Healthcare (17 sources) traMADol Drug Allergy Hallucinations [facility] Healthcare Work Phone: (19 sources) Vancomycin Drug Allergy Other (See Comments) [facility] (15 sources) WHEAT DEXTRIN Drug Allergy [facility] Healthcare (16 sources) Acetaminophen / HYDROcodone; Translations: [HYDROCODONE-ACETAM INOPHEN] Drug Allergy Vomiting [facility] (16 sources) Acetaminophen / oxyCODONE; Translations: [OXYCODONE-ACETAMIN OPHEN] Drug Allergy Vomiting [facility] (16 sources) Benzethonium / dyclonine; Translations: [DYCLONINE-BENZETHO NIUM] Drug Allergy Rash, Dermatitis, Itching [facility] (16 sources) Doxycycline; Translations: [DOXYCYCLINE] Drug Allergy Vomiting [facility] (3 sources) Feather; Translations: [FEATHERS] Propensity to adverse reactions to drug Hives [facility] (3 sources) Grass pollen; Translations: [GRASS POLLEN] Propensity to adverse reactions to drug [facility] (16 sources) Sulfamethoxazole / Trimethoprim; Translations: [SULFAMETHOXAZOLE-T RIMETHOPRIM] Drug Allergy [facility] (3 sources) Wheat; Translations: [WHEAT CONTAINING PROD] Propensity to adverse reactions to drug Other (See Comments) [facility] (3 sources) Wheat preparation; Translations: [WHEAT] Drug Allergy [facility] (14 sources) amLODIPine; Translations: [AMLODIPINE] Drug Allergy Itching, Swelling [facility] Repository (14 sources) buPROPion; Translations: [BUPROPION] Drug Allergy [facility] Repository (1 source) Glycopeptides (Antibiotic); Translations: [VANCOMYCIN ANALOGUES] Propensity to adverse reactions to drug (disorder) [facility] Repository (1 source) Milk; Translations: [MILK] Propensity to adverse reactions to drug (disorder) [facility] Repository (1 source) natural latex rubber; Translations: [LATEX, NATURAL RUBBER] Propensity to adverse reactions to drug (disorder) [facility] Repository (14 sources) Psyllium; Translations: [PSYLLIUM] Drug Allergy [facility] Repository (14 sources) OTHER; Translations: [OTHER] Propensity to adverse reactions (disorder) [facility] Repository (1 source) FREMANEZUMAB-VFRM; Translations: [FREMANEZUMAB-VFRM] Propensity to adverse reactions to drug (disorder) 024 [facility] Repository (13 sources) Cow milk Allergy to substance 023 [facility] (13 sources) Grass pollen Drug Intolerance 020 Hives [facility] (13 sources) Fremanezumab Propensity to adverse reactions 024 [facility] Medications Current Medications Medication Drug Class(es) Dates [...] / dextroamphetamine sulfate 7.5 mg oral tablet (20 sources) Central Nervous System Stimulant Start: 03-25-2024 End: 05-22-2024 take 1 tablet by mouth in the morning amphetamine-dextro amphetamine (Adderall) 30 MG tablet Indications: ADHD, predominantly inattentive type (CMS/HCC) Take 1 tablet (30 mg) by mouth in the morning and 1 tablet (30 mg) before bedtime. 60 tablet 04/22/2024 05/22/2024 Active Start: 11-23-2023 End: 03-23-2024 take 1 tablet by mouth twice daily at bedtime amphetamine-dextroamphetamine (Adderall) 30 MG tablet Indications: ADHD, predominantly inattentive type (CMS/HCC) TAKE 1 TABLET BY MOUTH TWICE DAILY (IN THE MORNING and BEFORE bedtime) 60 tablet 12/27/2023 Active Start: 04-28-2023 End: 05-26-2023 take 1 tablet by mouth in the morning amphetamine-dextroamphetamine (Adderall) 30 MG tablet Indications: ADHD, predominantly inattentive type (CMS/HCC) Take 1 tablet (30 mg) by mouth in the morning and 1 tablet (30 mg) before bedtime. 60 tablet 0 05/26/2023 Active amylase 185862 unt / lipase 96630 unt / protease [id number] unt delayed release oral capsule (17 sources) pancrelipase, Li p-Prot-Amyl, (Creon) 52409-787469 units capsule delayed-release particles capsule Take 3 [...] meals. 0 Active pancrelipase, Li p-Prot-Amyl, (Creon) 13480-614013 units capsule delayed- release particles capsule Take [...] Active Atogepant (Qulipta) 60 MG ta blet (13 sources) Atogepant (Qulip ta) 60 MG tablet Take by mouth Active B Complex-C (SUPER B COMPLEX PO) (15 sources) B Complex-C (SUP ER B COMPLEX PO) Take by mouth Active B Complex-C (SUP ER B COMPLEX PO) Take by mouth 0 Active 12 hr buPROPion hydrochloride 150 mg extended release oral tablet (20 sources) Aminoketone Start: 01-16-2024 End: 02-21-2024 take 1 tablet by mouth every twelve hours in the morning buPROPion SR (Wellbutrin SR) 150 MG 12 hr tablet Indications: Generalized anxiety disorder (CMS/HCC) Take 1 tablet (150 mg) by mouth in the morning and 1 tablet (150 mg) before bedtime. Do not crush, chew, or split.. 60 tablet 5 02/22/2024 Active Start: 11-14-2023 End: 01-16-2024 take 1 tablet by mouth once daily buPROPion XL (Wellbutrin XL) 300 MG 24 hr tablet Indications: EUGENE (generalized anxiety disorder) (CMS/HCC) Take 1 tablet (300 mg) by mouth Daily 30 tablet 5 11/14/2023 01/16/2024 Discontinued Start: 03-21-2023 take 1 tablet by ambar th once daily buPROPion XL (Wellbutrin XL) 150 MG 24 hr tablet Indications: EUGENE (generalized anxiety disorder) (CMS/HCC) TAKE 1 TABLET BY MOUTH EVERY DAY 90 tablet 3 03/21/2023 Active calcium-vits S6-P-Y6-minerals 166.75 mg- 166.75 unit capsule (2 sources) calcium-vits K2-I-T4-minerals 166.75 mg- 166.75 unit capsule Take 1 capsule by mouth. 0 Active cholecalciferol 0.025 mg oral capsule (17 sources) Vitamin D take 1 capsule by mouth in the morning cholecalciferol (Vitamin D-3) 25 MCG (1000 UT) capsule Take 1,000 Units by mouth in the morning. Active take 1 tablet by mouth in the mo rning cholecalciferol (VITAMIN D3) 1,000 units tablet Take 1 tablet (1,000 Units total) by mouth in the morning. 0 Active Glucose Blood (FREESTYLE PB T ) (15 sources) Glucose Blood (F REESTYLE TEST ) by In Vitro route Active Glucose Blood (F REESTYLE TEST ) by In Vitro route 0 Active guanFACINE 1 mg oral tablet (13 sources) Central alpha-2 Adrenergic Agonist take 0.5 mg by mouth in the morning guanFACINE (Tenex) 1 MG tablet Take 0.5 mg by mouth in the morning and 0.5 mg before bedtime. Active guanFACINE (Tene x) 1 MG tablet 1 mg in the morning and 1 mg before bedtime. Active Lactobacillus acidophilus (2 sources) Lactobacillus acidophilus (PROBIOTIC ORAL) Take by mouth. 0 Active levothyroxine sodium 0.025 mg oral tablet (17 sources) l-Thyroxine Start: 11-16-2023 take 1 tablet by mouth twice daily [...] mcg total) before bedtime. 0 Active Magnesium (17 sources) take 2 tablets by mo uth [...] 1 (one) time each day 0 Active Xzj-Owa-NL-Fish Oil ([facility] Gummy) 0.4-113.5 MG chewable tablet (15 sources) Vit-Min -FA-Fish Oil ([facility] Gummy) 0.4-113.5 [...] tablets by mouth every twenty-four hours rizatriptan FRUIT OR NUT GROWER (MAXALT-FRUIT OR NUT GROWER) 10 mg disintegrating tablet Indications: Migraine with aura and without status migrainosus, not intractable Dissolve 1 tablet in mouth at the onset of migraine. May repeat the dose after 2 hours if headache persists. Max of 2 doses per 24 hours 12 tablet 2 10/18/2022 Active SUMAtriptan 20 mg/actuat nasal spray (15 sources) Serotonin-1b and Serotonin-1d Receptor Agonist SUMAtriptan (Imitrex) 20 MG/ACT nasal spray Administer 20 mg into one nostril See administration instructions Active ubidecarenone 30 mg oral capsule (15 sources) take 1 capsule by mouth once [...] ALLERGY STATUS] Onset: 9 Episodic Anxiety disorders (20 sources) Generalized anxiety disorder; Translations: [Generalized anxiety disorder] Onset: 3 03-30-2023 Chronic Attention-deficit, conduct, and disruptive behavior disorders (20 sources) Attention deficit hyperactivity disorder, predominantly inattentive [...] hypertension] Onset: 4 Chronic Gastritis and duodenitis (15 sources) Chronic superficial gastritis; Translations: [Chronic superficial gastritis without bleeding] Onset: 3 03-30-2023 Chronic Headache; including migraine (20 sources) Migraine with aura; Translations: [Migraine with [...] STOMACH AND DUODENUM] Onset: 9 Episodic Other gastrointestinal disorders (18 sources) Celiac disease; Translations: [Celiac disease] Onset: 1 05-11-2023 Chronic Other gastrointestinal disorders (1 source) Celiac disease; Translations: [Celiac disease] Onset: 3 Chronic Other gastrointestinal disorders (1 source) Bariatric surgery status; Translations: [BARIATRIC SURGERY STATUS] Onset: 9 Episodic Other nervous system disorders (20 sources) Disorder of autonomic nervous system; Translations: [Disorder of the autonomic nervous system, unspecified] Onset: 3 Resolved: 4 05-11-2023 Chronic Other nervous system disorders (2 sources) Disorder of the autonomic nervous system, unspecified; Translations: [Disorder of the autonomic nervous system, unspecified] Onset: 4 Chronic Other nutritional; endocrine; and metabolic disorders (15 sources) Insulin resistance; Translations: [Insulin resistance] Onset: 3 03-30-2023 Chronic Pancreatic disorders (not diabetes) (20 sources) Other chronic pancreatitis; Translations: [Chronic pancreatitis] [...] Spondylosis; intervertebral disc disorders; other back problems (19 sources) Degeneration of cervical intervertebral disc; Translations: [Other cervical disc degeneration, unspecified cervical region] Onset: 7 05-11-2023 Chronic Thyroid disorders (20 sources) Hypothyroidism, unspecified; Translations: [Unspecified acquired hypothyroidism] Onset: 1 Chronic Unclassified (2 sources) LAB Onset: 9 Past or Other Problems Problem Classification Problem Date Documented Da te Episodic/Chronic Bacterial infection; unspecified site (2 sources) Methicillin resistant Staphylococcus aureus infection; Translations: [Methicillin resistant Staphylococcus aureus infection, unspecified site] Onset: 04-24-2015 07-02-2019 Episodic Diabetes mellitus without complication (17 sources) Prediabetes; Translations: [Prediabetes] Onset: 03-30-2023 03-30-2023 Episodic Immunizations and screening for infectious disease (17 sources) Encounter for screening for human papillomavirus (HPV); Translations: [Methicillin resistant staphylococcus aureus carrier] Onset: 10-06-2021 03-30-2023 Episodic Lymphadenitis (15 sources) Cervical lymphadenopathy; Translations: [Localized enlarged lymph [...] system] Onset: 04-24-2007 07-02-2019 Episodic Nutritional deficiencies (17 sources) Cobalamin deficiency; Translations: [Deficiency of other [...] [ENDOCRINE DISORDER UNSPECIFIED] Onset: 10-06-2021 Episodic Other female genital disorders (13 sources) Cyst of vagina; Translations: [Other specified noninflammatory disorders of vagina] Onset: 11-14-2023 11-14-2023 Episodic Other gastrointestinal disorders (4 sources) History [...] Spondylosis; intervertebral disc disorders; other back problems (15 sources) Chronic back pain ; Translations: [Dorsalgia, unspecified] Onset: 03-30-2023 03-30-2023 Episodic Results Test Name Value Interpretation Reference Range Facility ALL THYROXINE (T4) FREEon Free T4 [Mass/Vol] 0.94 ng/dL 0.76 - 1. 46 ng/dL [facility] Orders Onlyon 12-26-2023 Orders Only [id number] Freya Jennings 1990 F Date Provider Department Center 12/26/2023 [id number] MONACO*MP [facility] Family History Problem Relation [...] Paternal Grandfather Son Alive Neg Hx Normal [facility] BASIC METABOLIC PANELon 11-23 Anion gap [Moles/Vol] 9 mmol/L Normal 7-20 [facility] Comment on above: Performed By: #### L [id number] #### [facility] (BEAKER) [address] [place] [address] Calcium [Mass/Vol] 9.0 mg/dL Normal 8.6-10.3 [facility] Comment on above: Performed By: #### L [id number] #### [facility] (BEAKER) [address] [place] [address] Chloride [Moles/Vol] 106 mmol/L Normal 98-107 [facility] Comment on above: Performed By: #### L [id number] #### [facility] (BEAKER) [address] [place] [address] CO2 [Moles/Vol] 29 mmol/L Normal 21-31 [facility] Comment on above: Performed By: #### L [id number] #### [facility] ([facility]AKER) [address] [place] [address] Creatinine [Mass/Vol] 0.66 mg/dL Normal 0.60-1.20 [facility] Comment on above: Performed By: #### L [id number] #### [facility] ([facility]) [address] [place] [address] GLOMERULAR FILTRATION RATE ML/MIN/1.73 SQ M.PREDICTED 119.5 mL/min/1.73m*2 Normal >60.0 [facility] Comment on above: Result Comment: [facility]???s estimated glomerular filtration rate (eGFR) will [...] individuals. Performed By: #### L [id number] #### [facility] ([facility]) [address] [place] [address] Glucose [Mass/Vol] 86 mg/dL Normal 70-100 [facility] Comment on above: Performed By: #### L [id number] #### [facility] ([facility]) [address] [place] [address] Potassium [Moles/Vol] 3.6 mmol/L Normal 3.5-5.1 [facility] Comment on above: Performed By: #### L [id number] #### [facility] ([facility]) [address] [place] [address] Sodium [Moles/Vol] 140 mmol/L Normal 136-145 [facility] Comment on above: Performed By: #### L [id number] #### [facility] ([facility]) [address] [place] [address] Urea nitrogen [Mass/Vol] 10 mg/dL Normal 7-25 [facility] Comment on above: Performed By: #### L [id number] #### [facility] ([facility]) [address] [place] [address] UREA NITROGEN/CREATININE (MASS RATIO) IN SER/PLAS 15.2 Normal [facility] Comment on above: Performed By: #### L [id number] #### [facility] ([facility]) [address] [place] [address] CBC WITH AUTO DIFFERENTIALon 12-19-2023 Basophils (Bld) [#/Vol] 0.08 10*3/uL Normal 0.00-0.20 [facility] Comment on above: Performed By: #### L [id number] #### [facility] ([facility]) [address] [place] [address] Basophils/100 WBC (Bld) 1.0 % Normal 0.0-1.0 [facility] Comment on above: Performed By: #### L [id number] #### [facility] ([facility]) [address] [place] [address] Eosinophils (Bld) [#/Vol] 0.28 10*3/uL Normal 0.00-0.50 [facility] Comment on above: Performed By: #### L [id number] #### [facility] ([facility]) [address] [place] [address] Eosinophils/100 WBC (Bld) 3.4 % Normal 0.0-6.0 [facility] Comment on above: Performed By: #### L [id number] #### [facility] ([facility]) [address] [place] [address] Erythrocyte distribution width (RBC) [Ratio] 12.6 % Normal 11.5-15.0 [facility] Comment on above: Performed By: #### L [id number] #### [facility] ([facility]) [address] [place] [address] ERYTHROCYTE MEAN CORPUSCULAR HEMOGLOBIN CONCENTRATION (G/DL) BY AUTOMATED 33.6 g/dL Normal 32.0-35.0 [facility] Comment on above: Performed By: #### L [id number] #### [facility] ([facility]) [address] [place] [address] Hematocrit (Bld) [Volume fraction] 41.4 % Normal 36.0-48.0 [facility] Comment on above: Performed By: #### L [id number] #### [facility] (BEAKER) [address] [place] [address] Hemoglobin (Bld) [Mass/Vol] 13.9 g/dL Normal 12.0-15.0 [facility] Comment on above: Performed By: #### L [id number] #### [facility] ([facility]) [address] [place] [address] Immature granulocytes (Bld) [#/Vol] 0.01 10*3/uL Normal 0.00-0.20 [facility] Comment on above: Performed By: #### L [id number] #### [facility] ([facility]) [address] [place] [address] Immature granulocytes/100 WBC (Bld) 0.1 % Normal 0.0-1.0 [facility] Comment on above: Performed By: #### L [id number] #### [facility] ([facility]) [address] [place] [address] Lymphocytes (Bld) [#/Vol] 2.82 10*3/uL Normal 1.20-4.00 [facility] Comment on above: Performed By: #### L [id number] #### [facility] ([facility]) [address] [place] [address] Lymphocytes/100 WBC (Bld) 34.1 % Normal 20.0-45.0 [facility] Comment on above: Performed By: #### L [id number] #### [facility] ([facility]) [address] [place] [address] MCH (RBC) [Entitic mass] 30.6 pg Normal 27.0-33.0 [facility] Comment on above: Performed By: #### L [id number] #### [facility] (BEAKER) [address] [place] [address] MCV (RBC) [Entitic vol] 91.2 fL Normal 82.0-98.0 [facility] Comment on above: Performed By: #### L [id number] #### [facility] ([facility]) [address] [place] [address] Monocytes (Bld) [#/Vol] 0.62 10*3/uL Normal 0.10-1.00 [facility] Comment on above: Performed By: #### L [id number] #### [facility] ([facility]) [address] [place] [address] Monocytes/100 WBC (Bld) 7.5 % Normal 5.0-12.0 [facility] Comment on above: Performed By: #### L [id number] #### [facility] ([facility]) [address] [place] [address] Neutrophils (Bld) [#/Vol] 4.46 10*3/uL Normal 1.60-7.60 [facility] Comment on above: Performed By: #### L [id number] #### [facility] ([facility]) [address] [place] [address] Neutrophils/100 WBC (Bld) 53.9 % Normal 40.0-72.0 [facility] Comment on above: Performed By: #### L [id number] #### [facility] ([facility]) [address] [place] [address] NRBC (PER 100 WBCS) BY AUTOMATED COUNT 0.0 % Normal 0 [facility] Comment on above: Performed By: #### L [id number] #### [facility] ([facility]) [address] [place] [address] PLATELETS (10*3/UL) IN BLOOD AUTOMATED COUNT 506 10*3/uL High 150-400 [facility] Comment on above: Performed By: #### L [id number] #### [facility] ([facility]) [address] [place] [address] RBC (Bld) [#/Vol] 4.54 10*6/uL Normal 3.80-5.00 [facility] Comment on above: Performed By: #### L [id number] #### [facility] (BEAKER) [address] [place] [address] WBC (Bld) [#/Vol] 8.27 10*3/uL Normal 4.00-10.60 [facility] Comment on above: Performed By: #### L [id number] #### [facility] (BEAKER) [address] [place] [address] COPPER, SERUMon 12-19-2023 COPPER 83.2 ug/dL Normal 80.0-155.0 [facility] Comment on above: Result Comment: INTE [...] developed and its performance characteristics determined by [facility]. It has not been cleared or approved by the [place] Food and Drug Administration. This test was performed in a CLIA certified laboratory and is intended for clinical purposes. Performed By: [facility] [address] [place] [id number] Jig Filler: Jai Lawler MD, PhD CLIA Number: [id number] Performed By: #### L [id number] ####[facility] ([facility])[address] [place] [address] FERRITINon 12-19-2023 FERRITIN (NG/ML) IN SER/PLAS 21.0 ng/mL Normal 11.0-307.0 [facility] Comment on above: Performed By: #### L [id number] ####[facility] (BEAKER)[address] [place] [address] FOLATEon 12-19-2023 FOLATE (NG/ML) IN SER/PLAS 25.0 ng/mL Normal 6.6-1000 [facility] Comment on above: Performed By: #### L [id number] ####[facility] ([facility])[address] [place] [address] HEPATIC FUNCTION PANELon Albumin [Mass/Vol] 4.4 g/dL Normal 3.5-5.7 [facility] Comment on above: Performed By: #### L [id number] #### [facility] ([facility]) [address] [place] [address] ALP [Catalytic activity/Vol] 46 U/L Normal 34-104 [facility] Comment on above: Performed By: #### L [id number] #### [facility] ([facility]) [address] [place] [address] ALT [Catalytic activity/Vol] 12 U/L Normal 7-52 [facility] Comment on above: Performed By: #### L [id number] #### [facility] ([facility]) [address] [place] [address] AST [Catalytic activity/Vol] 11 U/L Low 13-39 [facility] Comment on above: Performed By: #### L [id number] #### [facility] ([facility]) [address] [place] [address] Bilirubin [Mass/Vol] 0.5 mg/dL Normal 0.3-1.0 [facility] Comment on above: Performed By: #### L [id number] #### [facility] ([facility]) [address] [place] [address] Magnesium [Mass/Vol] 0.1 mg/dL Normal 0-0.2 [facility] Comment on above: Performed By: #### L [id number] #### [facility] ([facility]) [address] [place] [address] Protein [Mass/Vol] 6.8 g/dL Normal 6.0-8.3 [facility] Comment on above: Performed By: #### L [id number] #### [facility] ([facility]) [address] [place] [address] IGAon 12-19-2023 Magnesium [Mass/Vol] 202 mg/dL Normal 60-413 [facility] Comment on above: Performed By: #### L [id number] ####[facility] ([facility])[address] [place] [address] IRON AND TIBCon 12-19-2023 IRON (UG/DL) IN SER/PLAS 193 ug/dL Normal 50-212 [facility] Comment on above: Performed By: #### L [id number] #### [facility] ([facility]) [address] [place] [address] IRON BINDING CAPACITY (UG/DL) IN SER/PLAS 322 ug/dL Normal 250-450 [facility] Comment on above: Performed By: #### L [id number] #### [facility] ([facility]) [address] [place] [address] IRON BINDING CAPACITY.UNSATURATED (UG/DL) IN SER/PLAS 129.0 ug/dL Low 155.0-355.[address] [facility] Comment on above: Performed By: #### L [id number] #### [facility] ([facility]) [address] [place] [address] IRON SATURATION (%) IN SER/PLAS 60 % High 20-50 [facility] Comment on above: Performed By: #### L [id number] #### [facility] ([facility]) [address] [place] [address] Labon 12-19-2023 Lab [id number] Freya Jennings 1990 F Date Provider Department Center 12/19/2023 2244[facility] MP LAB RESOURCE MP DRAW Medical Pavi [...] Paternal Grandfather Son Alive Neg Hx Normal [facility] MAGNESIUMon 12-19-2023 Magnesium [Mass/Vol] 1.8 mg/dL Low 1.9-2.7 [facility] Comment on above: Performed By: #### L [id number] #### [facility] ([facility]) [address] [place] [address] Office Visiton 12-19-2023 Follow-up visit [id number] Freya Jennings 1990 F Date Provider Department Center 12/19/2023 [id number] MONACO*MP GI Medical Pavi Family History Problem Relation [...] Grandfather Son Alive Neg Hx Level of Service:78367 [place] OFFICE/OUTPATIENT ESTABLISHED HIGH MDM 40 MIN Reason for Visit and Comments: Follow-up [562541] chronic pancreatitis [Other] Normal [facility] PHOSPHORUSon 12-19-2023 Magnesium [Mass/Vol] 2.3 mg/dL Low 2.5-5.0 [facility] Comment on above: Performed By: #### L [id number] #### [facility] ([place]) [address] [place] [address] PREALBUMINon 12-19-2023 Prealbumin [Mass/Vol] 25.1 mg/dL Normal [facility] Comment on above: Performed By: #### L [id number] #### [facility] (BEATUL) [address] [place] [address] PROTIME-INRon 12-19-2023 INR IN PPP BY COAGULATION ASSAY 1.01 Normal 0.90-1.10 [facility] Comment on above: Result Comment: ACCC [...] 1995;108:[id number]. Performed By: #### L [id number] #### [facility] ([facility]ER) [address] [place] [address] PROTHROMBIN TIME (PT) IN PPP BY COAGULATION ASSAY 13.3 Seconds Normal 12.3-14.8 [facility] Comment on above: Performed By: #### L [id number] #### [facility] ([facility]ER) [address] [place] [address] TISSUE TRANSGLUTAMINASE, IGA on 12-19-2023 TISSUE TRANSGLUTAMINASE, IGA <1.02 Normal 0.00-4.99 [facility] Comment on above: Result Comment: INTE [...] indicate a response to therapy. Performed By: [facility] [address] [place] [address] Jig Filler: Jai Lawler MD, PhD CLIA Number: [id number] Performed By: #### L [id number] ####[facility] ([facility])[address] [place] [address] TRANSFERRINon 12-19-2023 Magnesium [Mass/Vol] 238 mg/dL Normal 168-348 [facility] Comment on above: Performed By: #### L [id number] #### [facility] ([facility]) [address] [place] [address] VITAMIN Aon 12-19-2023 VITAMIN A (RETINOL) 0.54 mg/L Normal 0.30-1.20 [facility] Comment on above: Performed By: #### L [id number] #### [facility] ([facility]) [address] [place] [address] VITAMIN A (RETINYL PALMITATE) <0.02 Normal 0.00-0.10 [facility] Comment on above: Performed By: #### L [id number] #### [facility] ([facility]) [address] [place] [address] VITAMIN A, SER/RADHA - INTERPRETATION Normal Normal [facility] Comment on above: Result Comment: This test was developed and its performance characteristics determined by [facility]. It has not been cleared or approved by the US Food and Drug Administration. This test was performed in a CLIA certified laboratory and is intended for clinical purposes. Performed By: [facility] [address] [place] [address] Jig Filler: Jai Lawler MD, PhD CLIA Number: [id number] Performed By: #### L [id number] #### [facility] ([facility]) [address] [place] [address] VITAMIN B1on 12-19-2023 VITAMIN B1, PLASMA 20 nmol/L High 4-15 [facility] Comment on above: Result Comment: INTE RPRETIVE DATA: Vitamin B1, Plasma Thiamine (vitamin B1) is reported. However, thiamine diphosphate (TDP), the biologically active form of thiamine, is not found in measurable concentrations in plasma, and is best determined in whole blood specimens. Plasma thiamine concentration reflects recent intake rather than body stores. This test was developed and its performance characteristics determined by [facility]. It has not been cleared or approved by the US Food and Drug Administration. This test was performed in a CLIA certified laboratory and is intended for clinical purposes. Performed By: [facility] [address] [place] [address] Jig Filler: Jai Lawler MD, PhD CLIA Number: [id number] Performed By: #### L [id number] ####[facility] ([facility])[address] [place] [address] VITAMIN B12on 12-19-2023 Cobalamin (Vitamin B12) [Mass/Vol] 696 pg/mL Normal 180-914 [facility] Comment on above: Result Comment: REFE RENCE RANGES: 180-914 pg/mL Normal 145-179 pg/mL Indeterminate <145 pg/mL Deficient Performed By: #### L [id number] ####[facility] (BEAKER)[address] [place] [address] VITAMIN B6on 12-19-2023 VITAMIN B6 197.2 nmol/L High 20.0-125.[address] [facility] Comment on above: Result Comment: INTE RPRETIVE INFORMATION: Vitamin B6 (Pyridoxal 5-Phosphate) Pyridoxal 5'-phosphate measured in a specimen collected following an 8-hour or overnight fast accurately indicates vitamin B6 nutritional status. Non-fasting specimen concentration reflects recent vitamin intake. This test was developed and its performance characteristics determined by [facility]. It has not been cleared or approved by the US Food and Drug Administration. This test was performed in a CLIA certified laboratory and is intended for clinical purposes. Performed By: [facility] [address] [place] [address] Jig Filler: Jai Lawler MD, PhD CLIA Number: [id number] Performed By: #### L [id number] #### [facility] ([facility]) [address] [place] [address] VITAMIN D 25 HYDROXYon 12-18 CALCIDIOL (25 [place] VITAMIN D3) (NG/ML) IN SER/PLAS 35.8 ng/mL Normal 30.0-80.0 [facility] Comment on above: Result Comment: >80. 0 Toxicity possible Performed By: #### L [id number] #### [facility] ([facility]) [address] [place] [address] VITAMIN Blane 12-19-2023 VITAMIN E LEVEL (ALPHA-TOCOPHEROL) 5.9 mg/L Normal 5.5-18.0 [facility] Comment on above: Result Comment: This test was developed and its performance characteristics determined by [facility]. It has not been cleared or approved by the US Food and Drug Administration. This test was performed in a CLIA certified laboratory and is intended for clinical purposes. Performed By: #### L [id number] ####[facility] ([facility])[address] [place] [address] VITAMIN E LEVEL (GAMMA-TOCOPHEROL) 0.5 mg/L Normal 0.0-6.0 [facility] Comment on above: Result Comment: Perf ormed By: [facility] [address] [place] [address] Jig Filler: Jai Lawler MD, PhD CLIA Number: [id number] Performed By: #### L [id number] ####[facility] ([facility])[address] [place] [address] ZINCon 12-19-2023 ZINC 73.8 ug/dL Normal 60.0-120.0 [facility] Comment on above: Result Comment: INTE [...] developed and its performance characteristics determined by [facility]. It has not been cleared or approved by the US Food and Drug Administration. This test was performed in a CLIA certified laboratory and is intended for clinical purposes. 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 Scanned copy available in EMR. PERFORMED BY: [place] [address] PATHOLOGIST SAMPLE GRADER PATRIZIA FITZPATRICK M.D. Performed By: #### P ATH TO [facility] #### [address] 36on 10-19-2023 36 Called pt and inform ed of script sent to the pharmacy. [facility] 36 Pt calling wanting t o know if she can get a refill on her creon sent to the pharmacy until her scheduled appt in November. She is taking Creon 24,000 and she states that she is taking 18 pills a day. [facility] Orders Onlyon 10-19-2023 Orders Only [id number] Freya Jennings 1990 F Date Provider Department [place] 10/19/2023 MARÍA BURKS*SYLVIE GI Medical Pavi Family History Problem Relation [...] Grandmother Paternal Grandfather Son Alive Neg Hx [facility] 37on 07-27-2023 37 Please take your thyroid hormone medication (levothyroxine) first thing in the morning on empty stomach with plain water, from other medication by 1 to 2 hours (especially calcium, iron and multivitamin pills), and wait 30 min before eating. [facility] Office Visiton 07-27-2023 Follow-up visit [id number] Freya Jennings 1990 F Date Provider Department Center 07/27/2023 316-TARIK MIKE Crews [facility] ENDOCR [facility] Family History Problem Relation Age of Onset [...] Grandfather Son Alive Neg Hx Level of Service:13804 [place] OFFICE/OP CONSLTJ NEW/EST PT MOD MDM 40 MINUTES (GC) Reason for Visit and Comments: Thyroid Problem [110] - New patient Normal [facility] Orders Onlyon 07-24-2023 Orders Only [id number] Freya Jennings 1990 F Date Provider Department Center 07/24/2023 SHAWN INMAN bContext CARD [place] [facility] Family History Problem Relation Age of [...] Paternal Grandfather Son Alive Neg Hx Normal [facility] Orders Onlyon 06-07-2023 Orders Only [id number] Freya Jennings 1990 F Date Provider Department Center 06/07/2023 [id number] PICKETT bContext CARD [place] HeartVAS Family History Problem Relation Age of [...] Paternal Grandfather Son Alive Neg Hx Normal [facility] CBC WITH AUTO DIFFERENTIALon 05-23-2023 Erythrocyte distribution width (RBC) [Ratio] 13.4 % Normal 11.5-15.0 [facility] Comment on above: Performed By: #### L [id number] #### [facility] ([facility]) [address] [place] [address] ERYTHROCYTE MEAN CORPUSCULAR HEMOGLOBIN CONCENTRATION (G/DL) BY AUTOMATED 33.3 g/dL Normal 32.0-35.0 [facility] Comment on above: Performed By: #### L [id number] #### [facility] ([facility]) [address] [place] [address] Hematocrit (Bld) [Volume fraction] 39.0 % Normal 36.0-48.0 [facility] Comment on above: Performed By: #### L [id number] #### [facility] ([facility]) [address] [place] [address] Hemoglobin (Bld) [Mass/Vol] 13.0 g/dL Normal 12.0-15.0 [facility] Comment on above: Performed By: #### L [id number] #### [facility] ([facility]) [address] [place] [address] MCH (RBC) [Entitic mass] 30.2 pg Normal 27.0-33.0 [facility] Comment on above: Performed By: #### L [id number] #### [facility] ([facility]) [address] [place] [address] MCV (RBC) [Entitic vol] 90.5 fL Normal 82.0-98.0 [facility] Comment on above: Performed By: #### L [id number] #### [facility] ([facility]) [address] [place] [address] NRBC (PER 100 WBCS) BY AUTOMATED COUNT 0.0 % Normal 0 [facility] Comment on above: Performed By: #### L [id number] #### [facility] ([facility]) [address] [place] [address] PLATELETS (10*3/UL) IN BLOOD AUTOMATED COUNT 444 10*3/uL High 150-400 [facility] Comment on above: Performed By: #### L [id number] #### [facility] ([facility]) [address] [place] [address] RBC (Bld) [#/Vol] 4.31 10*6/uL Normal 3.80-5.00 [facility] Comment on above: Performed By: #### L [id number] #### [facility] ([facility]) [address] [place] [address] WBC (Bld) [#/Vol] 11.91 10*3/uL High 4.00-10.60 [facility] Comment on above: Performed By: #### L [id number] #### [facility] ([facility]) [address] [place] [address] COMPREHENSIVE METABOLIC PANE Jason 05-23-2023 Albumin [Mass/Vol] 4.3 g/dL Normal 3.5-5.7 [facility] Comment on above: Performed By: #### L [id number] #### [facility] ([facility]) [address] [place] [address] ALP [Catalytic activity/Vol] 50 U/L Normal 34-104 [facility] Comment on above: Performed By: #### L [id number] #### [facility] ([facility]) [address] [place] [address] ALT [Catalytic activity/Vol] 41 U/L Normal 7-52 [facility] Comment on above: Performed By: #### L [id number] #### [facility] ([facility]) [address] [place] [address] Anion gap [Moles/Vol] 7 mmol/L Normal 7-20 [facility] Comment on above: Performed By: #### L [id number] #### [facility] ([facility]) [address] [place] [address] AST [Catalytic activity/Vol] 21 U/L Normal 13-39 [facility] Comment on above: Performed By: #### L [id number] #### [facility] ([facility]) [address] [place] [address] Bilirubin [Mass/Vol] 0.3 mg/dL Normal 0.3-1.0 [facility] Comment on above: Performed By: #### L [id number] #### [facility] ([facility]) [address] [place] [address] Calcium [Mass/Vol] 9.1 mg/dL Normal 8.6-10.3 [facility] Comment on above: Performed By: #### L [id number] #### [facility] ([facility]) [address] [place] [address] Chloride [Moles/Vol] 105 mmol/L Normal 98-107 [facility] Comment on above: Performed By: #### L [id number] #### [facility] ([facility]) [address] [place] [address] CO2 [Moles/Vol] 30 mmol/L Normal 21-31 [facility] Comment on above: Performed By: #### L [id number] #### [facility] ([facility]) [address] [place] [address] Creatinine [Mass/Vol] 0.52 mg/dL Low 0.60-1.20 [facility] Comment on above: Performed By: #### L [id number] #### [facility] ([facility]) [address] [place] [address] GLOMERULAR FILTRATION RATE ML/MIN/1.73 SQ M.PREDICTED 126.5 mL/min/1.73m*2 Normal >60.0 [facility] Comment on above: Result Comment: [facility]???s estimated glomerular filtration rate (eGFR) will [...] individuals. Performed By: #### L [id number] #### [facility] ([facility]) [address] [place] [address] Glucose [Mass/Vol] 124 mg/dL High 70-100 [facility] Comment on above: Performed By: #### L [id number] #### [facility] [address] [place] [address] Potassium [Moles/Vol] 3.8 mmol/L Normal 3.5-5.1 [facility] Comment on above: Performed By: #### L [id number] #### [facility] [address] [place] [address] Protein [Mass/Vol] 6.6 g/dL Normal 6.0-8.3 [facility] Comment on above: Performed By: #### L [id number] #### [facility] ([facility]) [address] [place] [address] Sodium [Moles/Vol] 138 mmol/L Normal 136-145 [facility] Comment on above: Performed By: #### L [id number] #### [facility] ([facility]) [address] [place] [address] Urea nitrogen [Mass/Vol] 12 mg/dL Normal 7-25 [facility] Comment on above: Performed By: #### L [id number] #### [facility] ([facility]) [address] [place] [address] UREA NITROGEN/CREATININE (MASS RATIO) IN SER/PLAS 23.1 Normal [facility] Comment on above: Performed By: #### L [id number] #### [facility] ([facility]) [address] [place] [address] Labon 05-23-2023 Lab [id number] Freya Jennings 1990 F Date Provider Department Center 05/23/2023 2245-[facility] LAB RESOURCE [facility] OPD [place] Medical C Family History Problem Relation Age [...] Paternal Grandfather Son Alive Neg Hx Normal [facility] MANUAL DIFFERENTIALon 2023 BASOPHILS (10*3/UL) IN BLOOD BY CALCULATION 0.00 10*3/uL Normal 0.00-0.20 [facility] Comment on above: Performed By: #### L [id number] ####[facility] ([facility])[address] [place] [address] BASOPHILS/100 LEUKOCYTES IN BLOOD BY AUTOMATED COUNT 0.0 % Normal 0.0-1.0 [facility] Comment on above: Performed By: #### L [id number] ####[facility] ([facility])[address] [place] [address] EOSINOPHILS (10*3/UL) IN BLOOD BY CALCULATION 0.86 10*3/uL High 0.00-0.50 [facility] Comment on above: Performed By: #### L [id number] ####[facility] ([facility])[address] [place] [address] EOSINOPHILS/100 LEUKOCYTES IN BLOOD BY AUTOMATED COUNT 7.2 % High 0.0-6.0 [facility] Comment on above: Performed By: #### L [id number] ####[facility] ([facility])[address] [facility] [place] [address] IMMATURE GRANULOCYTES (10*3/UL) IN BLOOD BY CALCULATION 0.04 10*3/uL Normal 0.00-0.20 [facility] Comment on above: Performed By: #### L [id number] ####[facility] [place] [address] IMMATURE GRANULOCYTES/100 LEUKOCYTES IN BLOOD BY AUTOMATED COUNT 0.3 % Normal 0.0-1.0 [facility] Comment on above: Performed By: #### L [id number] ####[facility] [place] [address] LYMPHOCYTES (10*3/UL) IN BLOOD BY CALCULATION 3.37 10*3/uL Normal 1.20-4.00 [facility] Comment on above: Performed By: #### L [id number] ####[facility] ([facility])[address] [place] [address] LYMPHOCYTES/100 LEUKOCYTES IN BLOOD BY AUTOMATED COUNT 28.3 % Normal 20.0-45.0 [facility] Comment on above: Performed By: #### L [id number] ####[facility] ([facility])[address] [place] [address] MONOCYTES (10*3/UL) IN BLOOD BY CALCUATION 0.79 10*3/uL Normal 0.10-1.00 [facility] Comment on above: Performed By: #### L [id number] ####[facility] ([facility])[address] [place] [address] MONOCYTES/100 LEUKOCYTES IN BLOOD BY AUTOMATED COUNT 6.6 % Normal 5.0-12.0 [facility] Comment on above: Performed By: #### L [id number] ####[facility] ([facility])[address] [place] [address] NEUTROPHILS (10*3/UL) IN BLOOD BY CALCULATION 6.9 10*3/uL Normal 1.6-7.6 [facility] Comment on above: Performed By: #### L [id number] ####[facility] ([facility])[address] [place] [address] NEUTROPHILS/100 LEUKOCYTES IN BLOOD BY AUTOMATED COUNT 57.9 % Normal 40.0-72.0 [facility] Comment on above: Performed By: #### L [id number] ####[facility] ([facility])[address] [place] [address] PLASMA CELLS/100 LEUKOCYTES IN BLOOD 0 % Normal [address] [facility] Comment on above: Performed By: #### L [id number] ####[facility] ([facility])[address] [place] [address] PLATELETS GIANT PRESENCE IN BLOOD BY LIGHT MICROSCOPY Present Normal [facility] Comment on above: Performed By: #### L [id number] ####[facility] ([facility])[address] [place] [address] VARIANT LYMPHOCYTES (10*3/UL) IN BLOOD BY CALCULATION 0.00 10*3/uL Normal 0.00 [facility] Comment on above: Performed By: #### L [id number] ####[facility] ([facility])[address] [place] [address] VARIANT LYMPHOCYTES/100 LEUKOCYTES IN BLOOD CELLAVISION 0.0 % Normal 0.0-0.0 [facility] Comment on above: Performed By: #### L [id number] ####[facility] ([facility])[address] [place] [address] METANEPHRINES PLASMAon 05-23 METANEPHRINE <0.10 Normal 0.00-0.[address] [facility] Comment on above: Performed By: #### L [id number] #### [facility] ([facility]) [address] [place] [address] METANEPHRINE INTERP See Note Normal [facility] Comment on above: Result Comment: INTE [...] developed and its performance characteristics determined by [facility]. It has not been cleared or approved by the US Food and Drug Administration. This test was performed in a CLIA certified laboratory and is intended for clinical purposes. Performed By: [facility] [address] [place] [id number] Jig Filler: Jai Lawler MD, PhD CLIA Number: [id number] Performed By: #### L AB133 #### [facility] ([facility]) [address] [place] [address] NORMETANEPHRINE 0.43 nmol/L Normal 0.00-0.89 [facility] Comment on above: Performed By: #### L AB133 #### [facility] ([facility]) [address] [place] [address] Office Visiton 05-23-2023 Follow-up visit [id number] Freya Jennings 1990 F Date Provider Department Center 05/23/2023 [facility] HV CARD [facility] Family History Problem Relation [...] Grandfather Son Alive Neg Hx Level of Service:73867 TX OFFICE/OUTPATIENT ESTABLISHED MOD MDM 30 MIN Reason for Visit and Comments: Follow-up [695721] Normal [facility] PTH, INTACTon 05-23-2023 PARATHYRIN INTACT (PG/ML) IN SER/PLAS 31 pg/mL Normal 12-[address] [facility] Comment on above: Performed By: #### L AB108 ####[facility] ([facility])[address] [place] [address] THYROID PEROXIDASE ANTIBODYo n 05-23-2023 THYROPEROXIDASE AB (IU/ML) IN SER/PLAS 26.6 IU/mL High 0.0-9.[address] [facility] Comment on above: Result Comment: Perf ormed By: [facility] [address] [place] [id number] Jig Filler: Jai Lawler MD, PhD CLIA Number: [id number] Performed By: #### L AB858 ####[facility] ([facility])[address] [place] [address] THYROID STIMULATING IMMUNOGL OBULINon 05-23-2023 THYROID STIMULATING IMMUNOGLOBULIN <0.10 Normal <=0.54 [facility] Comment on above: Result Comment: INTE [...] medical history, and other findings. Performed By: [facility] [address] [place] [address] Jig Filler: Jai Lawler MD, PhD CLIA Number: [id number] Performed By: #### L AB133 #### [facility] ([facility]) [address] [place] [address] TSHon 05-23-2023 THYROTROPIN (MIU/L) IN SER/PLAS BY DETECTION LIMIT <= 0.05 MIU/L 0.86 mIU/L Normal 0.34-5.60 [facility] Comment on above: Performed By: #### L AB129 #### [facility] ([facility]) [address] [place] [address] 36on 01-02-2023 36 Follow up call made. LVM to call [phone]. Discussed with pharmacist Reina who is unsure if patient was able to last picker her creon at an outlying pharmacy. If the patient was unable to fill at that rx, Reina has it available at the [facility] Access Rx. Normal [facility] 36on 12-30-2022 36 Patient calls today [...] ALLOCATION NEXT RELEASE LATE DEC 2022 Notes [employer]IP [employer] IS OUT OF STOCK. FULL RECOVERY TBD Please advise. Normal [facility] THYROGLOBULINon 06-03-2022 Thyroglobulin 3.4 ng/mL Normal [facility] Comment on above: Result Comment: This test was developed and its performance characteristics determined by [employer]. It has not been cleared or approved [...] ng/mL. Performed By: #### A 1C #### [facility] [address] [place] [address] Dr. Michael Williamson THYR STIM IMMUNOGLOBULINon 0 05-27-2022 Thyroid Sim Immunoglobulin <0.10 Normal 0.00-0.55 [facility] Comment on above: Performed By: #### T HSI #### [facility] [address] [place] [address] Dr. Michael Williamson FREE T3on 05-25-2022 FREE T3 2.72 pg/mlL Normal 2.18-3.98 [facility] Comment on above: Performed By: #### F T3, TSH #### [facility] [address] [place] [address] Dr. Michael Williamson FREE T4on 05-25-2022 Free T4 [Mass/Vol] 0.83 ng/dL Normal 0.76-1.46 [facility] Comment on above: Performed By: #### F T4 #### [facility] [address] [place] [address] Dr. Michael Williamson TSHon 05-25-2022 TSH 0.798 uIU/mL Normal 0.358-3.740 [facility] Comment on above: Performed By: #### F T3, TSH #### [facility] [address] [place] [address] Dr. Michael Williamson US THYROIDon 05-25-2022 US [...] by: LUCERO SCHROEDER Date: 2022-05-25 10:55 Normal [facility] PAP ACOG PANEL 2: 30 to 65on 10-08-2021 . . Normal [facility] Comment on above: Result Comment: Perf ormed at: WB Performed By: #### A 1C #### [facility] [address] [address] [address] Michael Williamson Age Gdln ACOG Testing 30-65 Normal [facility] Comment on above: Performed By: #### A 1C #### [facility] [address] [address] [address] Michael Williamson DIAGNOSIS: Comment Normal [facility] Comment on above: Result Comment: NEGA TIVE FOR INTRAEPITHELIAL LESION OR MALIGNANCY. CELLULAR CHANGES ASSOCIATED WITH INFLAMMATION ARE PRESENT. Performed at: WB Performed By: #### A 1C #### [facility] [address] [address] [address] Michael Williamson HPV Aptima Negative Normal Negative [facility] Comment on above: Result Comment: This nucleic acid amplification test detects fourteen high-risk HPV types (16,18,31,33,35,39,45,51,52,56,58,59,66,68) without differentiation. Performed at: =G Performed By: #### A 1C #### [facility] [address] [address] [address] Michael Williamson Methodology: Comment Normal [facility] Comment on above: Result Comment: This liquid based ThinPrep(R) pap test was screened with the use of an image guided system. Performed at: WB Performed By: #### A 1C #### [facility] [address] [place] [address] Dr. Michael Williamson Note: Comment Normal [facility] Comment on above: Result Comment: The [...] WB Performed By: #### A 1C #### [facility] [address] [place] [address] Dr. Michael Williamson Performed by: Comment Normal [facility] Comment on above: Result Comment: Toshia Cordoba, Supervisory Instructor Weaving (ASCP) Performed at: WB Performed By: #### A 1C #### [facility] [address] [place] [address] Dr. Michael Williamson Specimen adequacy: Comment Normal [facility] Comment on above: Result Comment: Sati sfactory for evaluation. Endocervical and/or squamous metaplastic cells (endocervical component) are present. Performed at: WB Performed By: #### A 1C #### [facility] [address] [place] [address] Dr. Michael Williamson ESTRADIOLon 10-06-2021 Estradiol 7.1 pg/mL [facility] Comment on above: Result Comment: Adul t Female: Follicular phase 12.5 - 166.0 Ovulation phase 85.8 - 498.0 Luteal phase 43.8 - 211.0 Postmenopausal <6.0 - 54.7 1st trimester 215.0 - >4300.0 Kelsey ECLIA methodology Performed By: #### A 1C #### [facility] [address] [place] [address] Dr. Michael Williamson PROGESTERONEon 10-06-2021 Progesterone <0.1 [facility] Comment on above: Result Comment: Foll icular phase 0.1 - 0.9 Luteal phase 1.8 - 23.9 Ovulation phase 0.1 - 12.0 First trimester 11.0 - 44.3 Second trimester 25.4 - 83.3 Third trimester 58.7 - 214.0 Postmenopausal 0.0 - 0.1 Performed By: #### P RADHA #### [facility] [address] [place] [address] Dr. Michael Williamson CALCIUMon 10-05-2021 Calcium [Mass/Vol] 8.5 mg/dL Normal 8.5-10.1 [facility] Comment on above: Performed By: #### A 1C #### [facility] [address] [place] [address] Dr. Michael Williamson CBC AUTO DIFFon 10-05-2021 BASO # 0.1 103/ul Normal 0.0-0.1 [facility] Comment on above: Performed By: #### C BC #### [facility] [address] [place] [address] Dr. Michael Willaimson Basophils/100 WBC (Bld) 0.9 % Normal 0.2-2.0 [facility] Comment on above: Performed By: #### C BC #### [facility] [address] [place] [address] Dr. Michael Williamson EO # 0.2 103/ul Normal 0.0-0.7 [facility] Comment on above: Performed By: #### C BC #### [facility] [address] [place] [address] Dr. Michael Williamson Eosinophils/100 WBC (Bld) 2.2 % Normal 0.9-7.0 [facility] Comment on above: Performed By: #### C BC #### [facility] [address] [place] [address] Dr. Michael Williamson Erythrocyte distribution width (RBC) [Ratio] 13.3 % Normal 11.0-15.0 [facility] Comment on above: Performed By: #### C BC #### [facility] [address] [place] [address] Dr. Michael Williasmon Hematocrit (Bld) [Volume fraction] 39.4 % Normal 36.0-48.0 [facility] Comment on above: Performed By: #### C BC #### [facility] [address] [place] [address] Dr. Michael Williamson Hemoglobin (Bld) [Mass/Vol] 12.7 g/dL Normal 12.0-16.0 [facility] Comment on above: Performed By: #### C BC #### [facility] [address] [place] [address] Dr. Michael Williamson IG # 0.02 10e3/ul Normal 0.00-0.03 [facility] Comment on above: Performed By: #### C BC #### [facility] [address] [place] [address] Dr. Michael Williamson IG % 0.2 % Normal 0.0-0.5 [facility] Comment on above: Performed By: #### C BC #### [facility] [address] [place] [address] Dr. Michael Williamson LYMPH # 3.4 103/ul Normal 1.2-3.8 [facility] Comment on above: Performed By: #### C BC #### [facility] [address] [place] [address] Dr. Michael Williamson Lymphocytes/100 WBC (Bld) 31.4 % Normal 20.5-60.0 [facility] Comment on above: Performed By: #### C BC #### [facility] [address] [place] [address] Dr. Michael Williamson MANUAL DIFF REQ NO Normal [facility] Comment on above: Performed By: #### C BC #### [facility] [address] [place] [address] Dr. Michael Williamson MCH (RBC) [Entitic mass] 29.3 pg Normal 26.7-34.0 [facility] Comment on above: Performed By: #### C BC #### [facility] [address] [place] [address] Dr. Michael Williamson MCHC (RBC) [Mass/Vol] 32.2 g/dL Normal 29.9-35.2 [facility] Comment on above: Performed By: #### C BC #### [facility] [address] [address] [address] Michael Williamson MCV (RBC) [Entitic vol] 91.0 fL Normal 81.0-99.0 [facility] Comment on above: Performed By: #### C BC #### [facility] [address] [address] [address] Michael Williamson MONO # 1.1 103/ul Critically high 0.3-0.[address] [facility] Comment on above: Performed By: #### C BC #### [facility] [address] [address] [address] Michael Williamson Monocytes/100 WBC (Bld) 10.4 % Normal 1.7-12.0 [facility] Comment on above: Performed By: #### C BC #### [facility] [address] [place] [address] Dr. Michael Williamson NEUT # 6.0 103/ul Normal 1.4-6.5 [facility] Comment on above: Performed By: #### C BC #### [facility] [address] [place] [address] Dr. Michael Williamson Neutrophils/100 WBC (Bld) 54.9 % Normal 43.0-75.0 [facility] Comment on above: Performed By: #### C BC #### [facility] [address] [place] [address] Dr. Michael Williamson Platelet mean volume (Bld) [Entitic vol] 9.6 fL Normal 9.5-13.5 [facility] Comment on above: Performed By: #### C BC #### [facility] [address] [place] [address] Dr. Michael Williamson PLT 490 103/ul Critically high 150-[address] [facility] Comment on above: Performed By: #### C BC #### [facility] [address] [place] [address] Dr. Michael Williamson RBC 4.33 106/ul Normal 4.20-5.40 [facility] Comment on above: Performed By: #### C BC #### [facility] [address] [place] [address] Dr. Michael Williamson WBC 10.9 103/ul Normal 4.0-11.0 [facility] Comment on above: Performed By: #### C BC #### [facility] [address] [address] [address] Michael Williamson ELECTROLYTESon 10-05-2021 Anion gap [Moles/Vol] 13.5 mmol/L Normal [facility] Comment on above: Performed By: #### A 1C #### [facility] [address] [address] [address] Michael Williamson Chloride [Moles/Vol] 105 mmol/L Normal 98-107 [facility] Comment on above: Performed By: #### A 1C #### [facility] [address] [address] [address] Michael Williamson CO2 [Moles/Vol] 27.9 mmol/L Normal 21.0-32.0 [facility] Comment on above: Performed By: #### A 1C #### [facility] [address] [address] [address] Michael Williamson Potassium [Moles/Vol] 3.4 mmol/L Critically low 3.5-5.1 [facility] Comment on above: Performed By: #### A 1C #### [facility] [address] [place] [address] Dr. Michael Williamson Sodium [Moles/Vol] 143 mmol/L Normal 136-145 [facility] Comment on above: Performed By: #### A 1C #### [facility] [address] [place] [address] Dr. Michael Williamson FREE T4on 10-05-2021 Free T4 [Mass/Vol] 0.85 ng/dL Normal 0.76-1.46 [facility] Comment on above: Performed By: #### F T4, VITB12 #### [facility] [address] [place] [address] Dr. Michael Williamson GLYCOHEMOGLOBIN A1Con 2021 ADA RECOMMENDATION SEE BELOW Normal [facility] Comment on above: Result Comment: ADA RECOMMENDED LIMIT 4.0 - 6.0 ADA THERAPEUTIC TARGET < 7.0 ACTION SUGGESTED > 7.0 Performed By: #### A 1C #### [facility] [address] [place] [address] Dr. Michael Williamson Glucose [Mass/Vol] 126 mg/dL Normal [facility] Comment on above: Performed By: #### A 1C #### [facility] [address] [place] [address] Dr. Michael Williamson HbA1c (Bld) [Mass fraction] 6.0 % Normal 4.5-6.2 [facility] Comment on above: Performed By: #### A 1C #### [facility] [address] [place] [address] Dr. Michael Williamson MAGNESIUMon 10-05-2021 Magnesium [Mass/Vol] 1.8 mg/dL Normal 1.8-2.4 [facility] Comment on above: Performed By: #### A 1C #### [facility] [address] [place] [address] Dr. Michael Williamson TSHon 10-05-2021 TSH 0.727 uIU/mL Normal 0.358-3.740 [facility] Comment on above: Performed By: #### A 1C #### [facility] [address] [place] [address] Dr. Michael Williamson TSH RANGE SEE BELOW Normal [facility] Comment on above: Result Comment: <0.3 4 UIU/ml HYPERTHYROID 0.34-5.60 UIU/ml EUTHYROID >5.60 UIU/ml HYPOTHYROID Performed By: #### A 1C #### [facility] [address] [place] [address] Dr. Michael Williamson VITAMIN B12on 10-05-2021 Cobalamin (Vitamin B12) [Mass/Vol] 1077.0 pg/mL Critically high 193.0-986.0 [facility] Comment on above: Performed By: #### F T4, VITB12 #### [facility] [address] [place] [address] Dr. Michael Williamson Physician Orderon 12-13-2020 Physician Order [id number] Normal [facility] FOLATE SERUMon 07-17-2018 Folate mass conc 27.43 ng/mL Normal 6.60-1000.[address] [facility] Comment on above: Result Comment: Norm al range reflects World Health Organization International Standard Performed By: #### 4 6413, 52883, 29768, 80855, 94182 #### [facility] [address] VITAMIN A 03038dt 07-17-2018 INTERPRETATION (VIT A) Normal Normal [facility] Comment on above: Result Comment: Test developed and characteristics determined by [facility]. See Compliance Statement B: [employer]/CS Performed by [facility], [address] [place] [id number] [email or web address], Ahsan Abel MD - Lab. Director RETINYL PALMTATE <0.02 Normal 0.00-0.10 [facility] VITAMIN A MG/L 0.45 mg/L Normal 0.30-1.20 [facility] VITAMIN B12on 07-17-2018 Cobalamin (Vitamin B12) mass conc 679 pg/mL Normal 180-914 [facility] Comment on above: Result Comment: REFE RENCE RANGES: 180-914 pg/mL Normal 145-179 pg/mL Indeterminate <145 pg/mL Deficient Performed By: #### 4 6413, 66664, 18669, 80456, 42677 #### [facility] [address] [place] [address], [facility] VITAMIN D 25-HYDROXYon 07-17 VITAMIN D 25-OH 21.0 ng/mL Low 30.0-80.0 [facility] Comment on above: Result Comment: >80. 0 Toxicity possible Performed By: #### 4 6413, 07081, 92106, 44547, 16710 #### [facility] [address] [place] [address], [facility] POC URINE PREGNANCYon 2018 HCG.beta subunit ( test) Ql (U) Negative Normal NEGATIVE [facility] Comment on above: Result Comment: Perf ormed in PACU Performed By: #### 8 4140 #### [facility] [address] [place] [address], [facility] AMYLASE BLOODon 06-12-2018 Amylase enzyme act/vol 21 Units/L Low 29-103 [facility] Comment on above: Performed By: #### 4 6413, 40990, 23283, 57780, 55876 #### [facility] [address] [place] [address], [facility] ANAon 06-12-2018 Nuclear Ab IF titer (S) 1:80 Abnormal <1:40,1:40 [facility] Comment on above: Performed By: #### 6 2510, 67403 #### [facility] [address] [facility] [address] Nuclear Ab IF titer (S) SPECKLED Normal [facility] Comment on above: Performed By: #### 6 2510, 19355 #### [facility] [address] [facility]. [address] COMP METABOLIC PANELon 06-12 Albumin mass conc 4.4 g/dL Normal 3.5-5.7 The [facility] Comment on above: Performed By: #### 4 6413, 21815, 28862, 77797, 48368 #### [facility] [address] [facility] [place] [place] [address], [facility] ALKALINE PHOSPH 96 IU/L Normal 34-104 [facility] Comment on above: Performed By: #### 4 6413, 22156, 00035, 65040, 81306 #### [facility] [address] [place] [address], [facility] ALT enzyme act/vol 484 U/L Critically high 7-52 T he [facility] Comment on above: Performed By: #### 4 6413, 89108, 34531, 93863, 66940 #### [facility] [address] [place] [address], [place] AST enzyme act/vol 424 U/L High 13-39 The [facility] Comment on above: Performed By: #### 4 6413, 17595, 49522, 08115, 65629 #### [facility] [address] [place] [address], [place] Bilirubin mass conc 0.8 mg/dL Normal 0.3-1.[address] [facility] Comment on above: Performed By: #### 4 6413, 58039, 76019, 95610, 40683 #### [facility] [address] [place] [address], [place] Calcium mass conc 9.1 mg/dL Normal 8.6-10.3 The [facility] Comment on above: Performed By: #### 4 6413, 74689, 71000, 48338, 79665 #### [facility] [address] [place] [address], [place] Chloride molar conc 104 mmol/L Normal 98-[address] [facility] Comment on above: Performed By: #### 4 6413, 59499, 95616, 93421, 41860 #### [facility] [address] [place] [address], [place] CO2 molar conc 28 mmol/L Normal 21-31 The [facility] Comment on above: Performed By: #### 4 6413, 05540, 29322, 94183, 57211 #### [facility] [address] [place] [address], [place] Creatinine mass conc 0.53 mg/dL Low 0.60-1.20 [facility] Comment on above: Performed By: #### 4 6413, 59372, 29169, 90994, 57340 #### [facility] [address] [place] [address], [place] GFR/1.73 sq M predicted among blacks MDRD vol rate/area (S/P/Bld) mL/min/{1.73_m2} Normal >60 The [facility] Comment on above: Performed By: #### 4 6413, 80960, 83841, 05500, 27900 #### [facility] [address] [place] [address], [place] GFR/1.73 sq M predicted among non-blacks MDRD vol rate/area (S/P/Bld) mL/min/{1.73_m2} Normal >60 The [facility] Comment on above: Performed By: #### 4 6413, 62348, 03654, 69502, 02357 #### [facility] [address] [place] [address], [place] Glucose mass conc 88 mg/dL Normal 70-100 The [facility] Comment on above: Performed By: #### 4 6413, 88000, 92616, 32538, 38749 #### [facility] [address] [place] [address], [place] Potassium molar conc 4.0 mmol/L Normal 3.5-5.1 [facility] Comment on above: Performed By: #### 4 6413, 16721, 06289, 75146, 89742 #### [facility] [address] [place] [address], [place] Protein mass conc 7.0 g/dL Normal 6.0-8.3 [facility] Comment on above: Performed By: #### 4 6413, 04974, 09745, 69856, 97005 #### [facility] [address] [place] [address], [place] Sodium molar conc 139 mmol/L Normal 136-145 The [facility] Comment on above: Performed By: #### 4 6413, 20908, 23355, 05432, 28280 #### [facility] [address] [place] [address], [facility] Urea nitrogen mass conc 8 mg/dL Normal 7-25 [facility] Comment on above: Performed By: #### 4 6413, 05434, 98004, 60840, 26593 #### [facility] [address] [place] [address], [facility] IGG SUBCLASSES (1,2,3,4) 505 77on 06-12-2018 IGG SUBCLASS 1 520 mg/dL Normal 240-1118 The [facility] Comment on above: Result Comment: REFE RENCE INTERVAL: Immunoglobulin G Subclass 1 Access complete set of age- and/or gender-specific reference intervals for this test in the [facility] Test Directory ([employer]). IGG SUBCLASS 2 265 mg/dL Normal 124-549 The [facility] Comment on above: Result Comment: REFE RENCE INTERVAL: Immunoglobulin G Subclass 2 Access complete set of age- and/or gender-specific reference intervals for this test in the [facility] Test Directory (Footmarks). IGG SUBCLASS 3 50 mg/dL Normal 21-134 The [facility] Comment on above: Result Comment: REFE RENCE INTERVAL: Immunoglobulin G Subclass 3 Access complete set of age- and/or gender-specific reference intervals for this test in the [facility] Test Directory (Footmarks). IGG SUBCLASS 4 19 mg/dL Normal 1-123 [facility] Comment on above: Result Comment: The total IgG (mg/dL) can be derived by the sum of the subclasses IgG1, IgG2, IgG3 and IgG4 values. However, a confirmatory and more precise total IgG is available by the nephelometric method of total IgG (Test # [id number]). REFERENCE INTERVAL: Immunoglobulin G Subclass 4 Access complete set of age- and/or gender-specific reference intervals for this test in the [facility] Test Directory (Footmarks). Performed by [facility], [address] [facility] [place] [address] [email or web address], Ahsan Abel MD - Lab. Director LIPASE BLOODon 02-19-2019 Lipase enzyme act/vol 82 Units/L Normal 11-82 The [facility] Comment on above: Performed By: #### 4 6413, 72885, 61017, 71036, 15590 #### [facility] [address] [place] [address], [facility] LIPID PROFILEon 06-12-2018 Cholesterol in HDL mass conc 56 mg/dL Normal 23-92 [facility] Comment on above: Result Comment: Slig ht variation in normal range could be due to gender and/or age. HDL CHOLESTEROL REFERENCE RANGE: 20 years and older Cardiovascular Risk > or =60 mg/dL Desirable 40 TO 59 mg/dL Low Risk <40 mg/dL High Risk Performed By: #### 4 6413, 72228, 45675, 37589, 05630 #### [facility] [address] [place] [address], [facility] Cholesterol in LDL mass conc 56 mg/dL Normal 0-130 [facility] Comment on above: Result Comment: LDL IS A CALCULATION LDL IS ONLY VALID IF THE TRIG IS LESS THAN 400. Performed By: #### 4 6413, 74809, 91403, 76865, 66057 #### [facility] [address] [place] [address], [facility] Cholesterol mass conc 122 mg/dL Normal 120-200 [facility] Comment on above: Result Comment: CHOL ESTEROL REFERENCE RANGE: 20 YEARS AND OLDER CARDIOVASCULAR RISK Less than 200 mg/dl Low Risk 200 to 239 mg/dl Borderline Risk 240 mg/dl and greater High Risk Performed By: #### 4 6413, 13209, 37594, 22424, 68233 #### [facility] [address] [place] [address], [place] Cholesterol.total/Ch olesterol in HDL mass ratio 2.2 {ratio} Normal .0-4.5 [facility] Comment on above: Performed By: #### 4 6413, 80600, 75124, 07994, 32869 #### [facility] [address] [place] [address], [place] NON-HDL CHOLESTEROL 66 mg/dL Normal The [facility] Comment on above: Performed By: #### 4 6413, 32428, 53790, 48982, 81732 #### [facility] [address] Triglyceride mass conc 49 mg/dL Normal 40-149 [facility] Comment on above: Result Comment: TRIG LYCERIDE REFERENCE RANGE: 20 YEARS AND OLDER CARDIOVASCULAR RISK LESS THAN 150 mg/dl LOW RISK 150 TO 199 mg/dl BORDERLINE RISK 200 mg/dl AND GREATER HIGH RISK Performed By: #### 4 6413, 70586, 68945, 21915, 41053 #### [facility] [address] VLDL CHOL 10 mg/dL Normal 0-40 [facility] Comment on above: Performed By: #### 4 6413, 99107, 44145, 80555, 33525 #### [facility] [address] [facility] [address] SMOOTH MUSCLE ABon 9 SMOOTH MUSC AB 1:20 Abnormal NONE DETECTED The [facility] Comment on above: Result Comment: NONE DETECTED: LESS THAN 1:20 WEAKLY POSITIVE: 1:20 - 1:40 SUGGESTIVE OF CHRONIC HEPATITIS: 1:80 OR GREATER NOTE: FOR WEAKLY POSITIVE RESULTS, TITER MAY BE PRESENT IN ACUTE VIRAL HEPATITIS, INFECTIOUS MONONUCLEOSIS OR MALIGNANCY. Performed By: #### 6 2510, 16582 #### [facility] [address] [facility]. [address] TISSUE TRANSGLUTAMINASE IGA [id number] 06-12-2018 TTG IGA 0 U/mL Normal 0-3 [facility] Comment on above: Result Comment: INTE [...] positive predictive value for disease. Performed by [facility], [address] [place] [id number] [email or web address], Ahsan Abel MD - Lab. Director TSH3 WITH REFLEXon 9 T4 free mass conc 0.78 ng/dL Normal 0.71-1.85 [facility] Comment on above: Result Comment: This result added by IF on 06/12/2018 15:20. Performed By: #### 4 6413, 30482, 21092, 53398, 63367 #### [facility] [address] TSH 3RD GENERATION 1.27 uIU/mL Normal 0.34-5.[address] [facility] Comment on above: Performed By: #### 4 6413, 83466, 63975, 03741, 31868 #### [facility] [address] Vital Signs Date Time Vital Sign Value Performing Clinician Anson sage 02-15-2024 09:40-0400 Body height 170.2 cm Gerardo Tolbert MD Work Phone: [facility] 02-15-2024 09:40-0400 Body mass index (BMI) [Ratio] 27.72 kg/m2 Gerardo Tolbert MD Work Phone: [facility] 02-15-2024 09:40-0400 Body temperature 97.81 [degF] Gerardo Tolbert MD Work Phone: [facility] 02-15-2024 09:40-0400 Body weight 80.29 kg Gerardo Tolbert MD Work Phone: [facility] 02-15-2024 09:40-0400 Diastolic blood pressure 70 mm[Hg] Gerardo Tolbert MD Work Phone: [facility] 02-15-2024 09:40-0400 Heart rate 93 /min Gerardo Tolbert MD Work Phone: [facility] 02-15-2024 09:40-0400 Respiratory rate 22 /min Gerardo Tolbert MD Work Phone: [facility] 02-15-2024 09:40-0400 SaO2% (BldA) [Mass fraction] 99 % Gerardo Tolbert MD Work Phone: [facility] 02-15-2024 09:40-0400 Systolic blood pressure 120 mm[Hg] Gerardo Tolbert MD Work Phone: [facility] 01-16-2024 10:12-0400 Body height 170.2 cm Gerardo Tolbert MD Work Phone: [facility] 01-16-2024 10:12-0400 Body mass index (BMI) [Ratio] 27.41 kg/m2 Gerardo Tolbert MD Work Phone: [facility] 01-16-2024 10:12-0400 Body temperature 97.3 [degF] Gerardo Tolbert MD Work Phone: [facility] 01-16-2024 10:12-0400 Body weight 79.38 kg Gerardo Tolbert MD Work Phone: [facility] 01-16-2024 10:12-0400 Diastolic blood pressure 68 mm[Hg] Gerardo Tolbert MD Work Phone: [facility] 01-16-2024 10:12-0400 Heart rate 112 /min Gerardo Tolbert MD Work Phone: [facility] 01-16-2024 10:12-0400 Respiratory rate 20 /min Gerardo Tolbert MD Work Phone: [facility] 01-16-2024 10:12-0400 SaO2% (BldA) [Mass fraction] 99 % Gerardo Tolbert MD Work Phone: [facility] 01-16-2024 10:12-0400 Systolic blood pressure 120 mm[Hg] Gerardo Tolbert MD Work Phone: [facility] Encounters Encounter Date Encounter Type Care Provider Facility Start: 04-22-2024 End: 04-22-2024 Refill Gerardo Tolbert MD Work Phone: [facility] Comment on above: ADHD, predominantly inattentive type (CMS/HCC) Start: 03-22-2024 End: 03-25-2024 Refill Gerardo Tolbert MD Work Phone: [facility] Comment on above: ADHD, predominantly inattentive type (CMS/HCC) Start: 02-21-2024 End: 02-22-2024 Refill Gerardo Tolbert MD Work Phone: [facility] Comment on above: Generalized anxiety disorder (CMS/HCC); ADHD, predominantly inattentive type (CMS/HCC) Start: 02-15-2024 End: 02-15-2024 Bamboo flowsheet Gerardo Tolbert MD Work Phone: [facility] Start: 02-15-2024 End: 02-15-2024 Bamboo flowsheet Gerardo Tolbert MD Work Phone: [facility] Start: 02-15-2024 End: 02-15-2024 Clinisync Result Encounter Gerardo Tolbert MD Work Phone: [facility] External Department Unsolicited Start: 02-15-2024 End: 02-15-2024 ambulatory GERARDO TOLBERT Not Available Start: 02-15-2024 End: 02-15-2024 Office outpatient visit 15 minutes Gerardo Tolbert MD Work Phone: [facility] Comment on above: Autonomic dysfunctio n (Primary Dx); ADHD, predominantly inattentive type (CMS/HCC); Generalized anxiety disorder (CMS/HCC) Start: 01-23-2024 End: 01-23-2024 Refill Gerardo Tolbert MD Work Phone: [facility] Comment on above: ADHD, predominantly inattentive type (CMS/HCC) Start: 01-16-2024 End: 01-16-2024 Bamboo flowsheet Gerardo Tolbert MD Work Phone: [facility] Start: 01-16-2024 End: 01-16-2024 Bamboo flowsheet Gerardo Tolbert MD Work Phone: [facility] Start: 01-16-2024 End: 01-16-2024 ambulatory GERARDO TOLBERT Not Available Start: 01-16-2024 End: 01-16-2024 Office outpatient visit 25 minutes Gerardo Tolbert MD Work Phone: [facility] Comment on above: ADHD, predominantly inattentive type (CMS/HCC) (Primary Dx); Generalized anxiety disorder (CMS/HCC); Autonomic dysfunction; Migraine with aura and without status migrainosus, not intractable (CMS/HCC); Chronic pancreatitis, unspecified pancreatitis type (CMS/HCC); Prediabetes; Primary hypothyroidism (CMS/HCC) Start: 12-26-2023 End: 12-27-2023 Refill Gerardo Tolbert MD Work Phone: [facility] Comment on above: ADHD, predominantly inattentive type (CMS/HCC) Start: 12-26-2023 End: 12-27-2023 Refill Gerardo Tolbert MD Work Phone: [facility] Comment on above: ADHD, predominantly inattentive type (CMS/HCC) Start: 12-19-2023 ambulatory SHAWN Deluca [place] Start: 12-19-2023 End: 12-19-2023 ambulatory GIRISH MONACO [facility] Start: 12-05-2023 End: 12-05-2023 ambulatory Annamaria Briseno [facility] Work Phone: Start: 12-05-2023 End: 12-05-2023 Departed Referred DO Annamaria Briseno Work Phone: [facility] Start: 12-05-2023 End: 12-05-2023 ambulatory ANNAMARIA BRISENO Not Available Start: 11-28-2023 End: 11-28-2023 ambulatory ANNAMARIA BRISENO Not Available Start: 11-14-2023 End: 11-14-2023 ambulatory GERARDO TOLBERT Not Available Start: 07-27-2023 End: 07-27-2023 ambulatory MIKE MONTANEZ [facility] Start: 06-14-2023 Refill Magalis Jeffries RN [facility] Comment on above: Migraine with aura a nd without status migrainosus, not intractable Start: 06-01-2023 Orders Only Leonidas Justina CLAY-Justina Work Phone: [facility] Comment on above: Migraine with aura a nd without status migrainosus, not intractable (Primary Dx) Start: 05-26-2023 Refill Gerardo Cheema Work Phone: [facility] Comment on above: ADHD, predominantly inattentive type (CMS/HCC) Start: 05-23-2023 End: 05-23-2023 ambulatory SHAWN PICKETT [facility] Start: 05-11-2023 End: 05-11-2023 ambulatory GERARDO TOLBERT Not Available Start: 05-04-2023 End: 05-04-2023 ambulatory ANNAMARIA BRISENO Not Available Start: 09-15-[address] GERARDO TOLBERT [facility] ity:H1 Start: 05-25-2022 End: 05-26-[address] GERARDO TOLBERT Facility: Start: 10-05-2021 End: 10-05-[address] ANNAMARIA BRISENO . Facility:[facility] Start: 10-05-2021 End: 10-06-[address] ANNAMARIA BRISENO . Facility: Start: 07-17-2018 End: 07-18-2018 Patient encounter procedure BONG ESCALERA Facility:[facility] Start: 06-27-2018 End: 06-28-2018 Patient encounter procedure WHITNEY MCKEON Facility:[facility] Start: 06-12-2018 End: 06-13-2018 Patient encounter procedure BONG ESCALERA Facility:[facility] Procedures Date Procedure Procedure Detail Performing Clinician Start: 02-15-2024 ALL THYROXINE (T4) FREE Gerardo Tolbert MD Work Phone: Start: 05-04-2023 Microscopic observat ion [Identifier] in Cervix by Cyto stain Gerardo Tolbert MD Work Phone: Start: 01-05-2023 Adult [...] Office Visit [facility] [address] [place] [phone] Annamaria Briseno, [address] [address] [facility] Start: 04-25-2024 End: 04-25-2024 Patient encounter procedure 04/25/2024 9:45 AM EST Office Visit [facility] [address] [place] [phone] Gerardo Tolbert MD [address] [place] [phone] [facility] Start: 02-15-2024 End: 02-15-2024 Patient encounter procedure 02/15/2024 9:30 AM EDT Office Visit [facility] [address] [place] [phone] Gerardo Tolbert MD [address] [place] [phone] [facility] Start: 01-16-2024 End: 01-15-2025 Hemoglobin A1c/Hemoglobin.total in Blood Hemoglobin A1c Lab Routine Prediabetes Expected: 01/16/2024 (Approximate), Expires: 01/15/2025 [facility] Work Phone: Comment on above: Expected: 01/16/2024 (Approximate), Expires: 01/15/2025 Start: 01-16-2024 End: 01-15-2025 Thyrotropin [Units/volume] in Serum or Plasma TSH Lab Routine Primary hypothyroidism (CMS/HCC) Expected: 01/16/2024 (Approximate), Expires: 01/15/2025 [facility] Comment on above: Expected: 01/16/2024 (Approximate), Expires: 01/15/2025 Start: 01-16-2024 End: 01-15-2025 Thyroxine (T4) free [Mass/volume] in Serum or Plasma T4, free Lab Routine Primary hypothyroidism (CMS/HCC) Expected: 01/16/2024 (Approximate), Expires: 01/15/2025 [facility] Comment on above: Expected: 01/16/2024 (Approximate), Expires: 01/15/2025 Start: 01-16-2024 End: 01-15-2025 Triiodothyronine (T3) Free [Mass/volume] in Serum or Plasma T3, free Lab Routine Primary hypothyroidism (CMS/HCC) Expected: 01/16/2024 (Approximate), Expires: 01/15/2025 [facility] Comment on above: Expected: 01/16/2024 (Approximate), Expires: 01/15/2025 Start: 01-16-2024 End: 01-16-2024 Patient encounter procedure 01/16/2024 10:00 AM EDT Office Visit [facility] [address] [place] [phone] Gerardo Tolbert MD [address] [place] [phone] [facility] Start: 01-06-2024 Adult BMI Screening Adult BMI Screen [facility] Start: 01-06-2024 Depression Screening Depression Scre [facility] Start: 01-06-2024 Tobacco Screening Tobacco Screening [facility] Start: 12-24-2023 Influenza vaccination Influenza Vacc ine (#1) [facility] Start: 12-05-2023 [facility] Start: 11-14-2023 End: 11-14-2023 Patient encounter procedure 11/14/2023 10:45 AM EDT Office Visit [facility] [address] [place] [address] Gerardo Tolbert MD [address] [place] [address] [facility] Start: 12-23-2022 Influenza vaccination N [facility] Start: 2021 Screening for malign ant neoplasm of cervix [facility] Start: 07-08-2017 DTaP,Tdap and Td Vac cines (7 - Td or Tdap) DTaP,Tdap and Td Vaccines (7 - Td or Tdap) [facility] Start: 2012 Screening for malign ant neoplasm of cervix Pap Smear [facility] Start: 2009 Adult BMI Follow Up Plan Adult BMI Follow Up Plan [facility] Immunizations Immunization Date Immunization Notes Care Provider Fa cili 01-23-2020 influenza virus vaccine, unspecified formulation Gerardo Tolbert MD Work Phone: [facility] 03-04-2018 Influenza, injectabl e, Madin Richey Canine Kidney, preservative free, quadrivalent Leonidas Antunez PA-C Work Phone: [facility] 01-24-2017 influenza, injectabl e, quadrivalent, preservative free Leonidas Antunez PA-C Work Phone: [facility] 01-22-2017 influenza virus vaccine, unspecified formulation Leonidas Antunez PA-C Work Phone: [facility] Payers Date Payer Category Payer Self-pay [id number] 2022 [employer] BCBS [id number] 2022 Unknown [id number] .[id number] 2014 Unknown [id number] 1991 Unknown [id number] 2.16.840.1.416138.3.579.2 .647 1991 Unknown [id number] 2.16.840.1.079077.3.579.2 .647 1991 Unknown [id number] 2.16.840.1.675839.3.579.2 .647 1991 Unknown [id number] 2.16.840.1.528211.3.579.2 .593 1991 Unknown [id number] 2.16.840.1.261099.3.579.2 .593 1991 Unknown [id number] 2.16.840.1.465126.3.579.2 .593 1991 Unknown [id number] 2.16.840.1.258698.3.579.2 .593 1991 Unknown [id number] 2.16.840.1.720209.3.579.2 .1259 1991 Unknown [id number] 2.16.840.1.238678.3.579.2 .1259 1991 Unknown [id number] 2.16.840.1.209756.3.579.2 .1259 1991 Unknown [id number] 2.16.840.1.597675.3.579.2 .1259 1991 Unknown [id number] 2.16.840.1.254953.3.579.2 .1259 1991 Unknown [id number] 2.16.840.1.909500.3.579.2 .1259 1991 Unknown [id number] 2.16.840.1.334656.3.579.2 .1259 1959 Private Health Insurance [id number] 1959 Unknown [id number] Unknown [facility] [id number] Unknown [facility] [id number] Unknown [id number] [id number] .531 Worker's Compensation [employer] Ins Misc [id number] Social History Date Type Detail Facility Start: 08-23-2016 End: 05-11-2023 Tobacco smoking status NHIS Never smoked tobacco [facility] Start: 08-23-2016 End: 05-11-2023 Tobacco use and exposure Smokeless tobacco non-user [facility] Start: 05-11-2023 End: 01-10-2024 History of Social function [facility] Start: 05-11-2023 End: 01-10-2024 Tobacco use panel [facility] Start: 1991 Sex Assigned At Not on file N [facility] Start: 01-05-2023 Alcohol intake Current non-dr torque tester of alcohol (finding) [facility] How hard is it for y ou to pay for the very basics like food, housing, medical care, and heating Not very hard [facility] Adolescent depressio n screening assessment 0 [facility] The thought of harmi ng myself has occurred to me Never [facility] Start: 1990 Sex Assigned At Female F [facility] Do you belong to any clubs or organizations such as restorationism groups, unions, fraternal or athletic groups, or [...] Dates 1 (one) time eac h day [id number] Anch Sut 2.4mm 2 Sut Tk Fbrwr - [id number] Start: 08-23-2016 Plt Ant Cerv Xte nd 1-Lev 10 [id number] Start: 02-14-2017 Scr Xtend 4.2x14 mm Vasd - [id number] Start: 02-14-2017 Cervical Allograft [id number] Start: 02-14-2017 Clinical Notes 05-23-2023 to 02-15-2024 Gerardo Tolbert MD - 02/15/2024 9:57 AM Brooks Tolbert MD - 02/15/2024 9:57 AM Brooks Tolbert MD - 02/15/2024 9:57 AM Brooks Tolbert MD - 02/15/2024 9:30 AM EDT Note Date & Type Note Facility 02-15-2024 History of Presen t illness Narrative Associated Problem(s): Generalized anxiety disorder (CMS/HCC) Symptoms tolerable with wellbutrin and monitor. Associated Problem(s): Autonomic dysfunction Symptoms improved and monitor. Increase fluid intake and monitor BP. Associated Problem(s): ADHD, predominantly inattentive type (CMS/HCC) Decreased tenex and symptoms unchanged. Continue adderall and monitor. Images from the original note were not included. Subjective Patient ID: Freya Jennings is a 33 y.o. female who presents for Follow-up (1 m). Follow up ADD, autonomic dysfunction, and anxiety. Last visit changed formulation of wellbutrin but no change in symptoms. Patient noted worsening symptoms after tenex and cut dose in half. Better today and not as lightheaded. BP normal today. Still trying to increase fluids. Not notice any worsening of ADD with lower dose. Still on adderall which helps. Still occasionally not organized and distracted but tolerable. Anxiety stable. Not as stressed out or overwhelmed. Not as nervous or worry as much. Not as razo or irritable. Review of Systems Respiratory: Negative for cough, shortness of breath and wheezing. Cardiovascular: Negative for chest pain and palpitations. Gastrointestinal: Negative for abdominal pain, diarrhea, nausea and vomiting. Genitourinary: Negative for dysuria. Objective Physical Exam Constitutional: General: She is not in acute distress. Appearance: Normal appearance. HENT: Head: Normocephalic. Right Ear: Tympanic membrane normal. Left Ear: Tympanic membrane normal. Eyes: Extraocular Movements: Extraocular movements intact. Pupils: Pupils are equal, round, and reactive to light. Cardiovascular: Rate and Rhythm: Normal rate and regular rhythm. Heart sounds: No murmur heard. No friction rub. No gallop. Pulmonary: Effort: Pulmonary effort is normal. Breath sounds: Normal breath sounds. No wheezing, rhonchi or rales. Abdominal: General: Bowel sounds are normal. There is no distension. Palpations: Abdomen is soft. Tenderness: There is no abdominal tenderness. There is no guarding or rebound. Musculoskeletal: Cervical back: Neck supple. Right lower leg: No edema. Left lower leg: No edema. Neurological: Mental Status: She is alert. Assessment/Plan Problem List Items Addressed This Visit ADHD, predominantly inattentive type (CMS/HCC) Decreased tenex and symptoms unchanged. Continue adderall and monitor. Autonomic dysfunction - Primary Symptoms improved and monitor. Increase fluid intake and monitor BP. Generalized anxiety disorder (CMS/HCC) Symptoms tolerable with wellbutrin and monitor. documented in this encounter [facility] 01-16-2024 History of Presen t illness Narrative Associated Problem(s): Migraine with aura and without status migrainosus, not intractable (CMS/HCC) MORENO slightly better and use qulipta. Follow up with neurology as scheduled. Associated Problem(s): Generalized anxiety disorder (CMS/HCC) Symptoms improved with increased wellbutrin but side effects. Try SR formulation. Associated Problem(s): Chronic pancreatitis (CMS/HCC) Symptoms stable and continue creon. Follow up with GI. Associated Problem(s): Autonomic dysfunction Symptoms worse with increased wellbutrin and change to SR dose. Increase fluids. Associated Problem(s): ADHD, predominantly inattentive type (CMS/HCC) Symptoms controlled with adderall and continue. Images from the original note were not included. Subjective Patient ID: Freya Jennings is a 33 y.o. female who presents for Follow-up (2 m/) and Dizziness. Follow up ADD, anxiety, autonomic dysfunction, migraines, and chronic pancreatitis. Increased wellbutrin last visit and anxiety improved. Anxiety stable. Not as stressed out or overwhelmed. Not as nervous or worry as much. Not as razo or irritable. MORENO slightly better with qulipta and MORENO several times a week but not daily. Severe pain and pressure in back head and squeezing pain. Often will wake up with MORENO and hard to function. Throbbing pain in entire head associated with photophobia, phonophobia and nausea. Following with neurology. ADD controlled with medication. Able to stay focused and complete tasks. Not distracted and more organized. Autonomic dysfunction worse since increasing medication. Continues to increase fluids. Very lightheaded and dizzy. Feels like will pass out with position changes. No syncope and BP normal. Pancreatitis stable. No pain or nausea. Taking creon daily. Dizziness Pertinent negatives include no abdominal pain, chest pain, coughing, nausea or vomiting. Review of Systems Respiratory: Negative for cough, shortness of breath and wheezing. Cardiovascular: Negative for chest pain and palpitations. Gastrointestinal: Negative for abdominal pain, diarrhea, nausea and vomiting. Genitourinary: Negative for dysuria. Neurological: Positive for dizziness. Objective Physical Exam Constitutional: General: She is not in acute distress. Appearance: Normal appearance. HENT: Head: Normocephalic. Right Ear: Tympanic membrane normal. Left Ear: Tympanic membrane normal. Eyes: Extraocular Movements: Extraocular movements intact. Pupils: Pupils are equal, round, and reactive to light. Cardiovascular: Rate and Rhythm: Normal rate and regular rhythm. Heart sounds: No murmur heard. No friction rub. No gallop. Pulmonary: Effort: Pulmonary effort is normal. Breath sounds: Normal breath sounds. No wheezing, rhonchi or rales. Abdominal: General: Bowel sounds are normal. There is no distension. Palpations: Abdomen is soft. Tenderness: There is no abdominal tenderness. There is no guarding or rebound. Musculoskeletal: Cervical back: Neck supple. Right lower leg: No edema. Left lower leg: No edema. Neurological: Mental Status: She is alert. Assessment/Plan Problem List Items Addressed This Visit ADHD, predominantly inattentive type (CMS/HCC) - Primary Symptoms controlled with adderall and continue. Autonomic dysfunction Symptoms worse with increased wellbutrin and change to SR dose. Increase fluids. Chronic pancreatitis (CMS/HCC) Symptoms stable and continue creon. Follow up with GI. Generalized anxiety disorder (CMS/HCC) Symptoms improved with increased wellbutrin but side effects. Try SR formulation. Relevant Medications buPROPion SR (Wellbutrin SR) 150 MG 12 hr tablet Primary hypothyroidism (CMS/HCC) Relevant Orders TSH T4, free T3, free Migraine with aura and without status migrainosus, not intractable (CMS/HCC) MORENO slightly better and use qulipta. Follow up with neurology as scheduled. Prediabetes Relevant Orders Hemoglobin A1c documented in this encounter [facility] 12-19-2023 Note [facility] Gastroenterolog y Follow-Up Patient Visit CHIEF COMPLAINT Chief Complaint Patient presents with Follow-up chronic pancreatitis HISTORY OF PRESENT ILLNESS: Freya Jennings is a 33 y.o. female w/ chronic [...] 1 tablet by (more content not included)... [facility] 07-27-2023 Note Attestation signed by Mike [...] in consultation at the request of Dr. Tolbert. History of Present Illness: She states that [...] 24 hr tablet, , Disp: , Rfl: vjzdqidcow-itiapupgsbgwu-ipwe (Fioricet) 50-300-40 mg capsule, TAKE 1 CAPSULE BY MOUTH FOUR TIMES A DAY NEEDED, Disp: , Rfl: calcium-vits X4-O-F7-minerals 166.75 mg- 166.75 unit capsule, Take 1 [...] gauge lancets f (more content not included)... [facility] 06-14-2023 Miscellaneous Notes Medication to be sent to [facility]. Script pended to Andrea. documented in this encounter [facility] 06-14-2023 Telephone encounter Note Medication to be sent to [facility]. Script pended to Andrea. [facility] 06-01-2023 Telephone encounter Note Patient called [facility] cardiology would like her to see an endo. Specialist as her thyroid antibody was 26.6 on recent bloodwork done at [facility] cardiology. Patient would like to go to [place] to see specialist. clm [facility] 06-01-2023 Miscellaneous Notes Patient called [facility] cardiology would like her to see an endo. Specialist as her thyroid antibody was 26.6 on recent bloodwork done at [facility] cardiology. Patient would like to go to [place] to see specialist. clm documented in this encounter [facility] 05-23-2023 Note Freya Jennings is a pleasant 32 year old female previously evaluated for orthostatic intolerance (OI) consistent with postural orthostatic tachycardia syndrome (POTS) our [facility] in the Heart [facility] Vascular Center at the [facility]. Last evaluated as a new patient in 2018. I COPIED AND PASTED NOTE FROM [employer] FOR CONTINUITY OF CARE: As you well recall Freya is a 27-year-old female with a complicated past medical history noted for malignant tumor of the pancreas (2007) with then subsequent surgery ([facility]-removal 06/25 pancreas/spleen/cholecystectomy ). No radiation or chemotherapy. She underwent a gastric sleeve procedure at the due to obesity in 2014. She next underwent an abdominal reconstructive surgery and scar tissue revision November 2015, . After another surgery she developed complications postoperatively included including severe sepsis and dehiscence of surgical wound. She was hospitalized at [facility] (January 2016) and transferred immediately to [facility]. She was under the care of ID/ general surgeon and reconstructive surgery. 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 She underwent 5 rounds of dialysis for the kidney failure. She was at our facility for 21 days. Fortunately her kidney function improved and she is known to have a functioning pancreas. August 2016 Underwent left shoulder surgery for torn labrium. [facility]. OP. No problems with recovery. January 2017: C6-C7 Anterior spinal fusion. Dr. Rakesh [facility]. Less migraines, improved. She reports healthy childhood except Brigantine Palsy age 9. No syncope, near syncope, breath holding spells or seizures. 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 September 2016 Adderall for ADHD. HPI: She began to develop episodes of extreme fatigue and dizziness after sepsis 2015. Thoroughly evaluated by Dr. Josiah Marquez automotive accessory installer. She underwent an echocardiogram in January 2017, demonstrating normal left ventricular systolic function and diastolic function. Normal valves and normal aorta. Holter monitor demonstrated no significant arrhythmia. Not normal sinus rhythm. Head upright tilt table test negative for syncope, orthostatic hypotension and postural orthostatic tachycardia response. [place] awful on tilt and awful all night [...] onset ADHD. Social History: . Lives in [place]. 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 Family Medical History: no sudden cardiac below the age of 40. No vascular ruptures or aneurysms. No congenital heart disease, congenital deafness, SIDS. No defibrillators. Mother: hypothyroidism, goiter, Father: hypertension Siblings: a/w Maternal uncle [place], 5 vessel coronary artery disease age 59. [...] needed. We di (more content not included)... [facility] Evaluation note Diagnosis ADHD, predominantly inattentive [...] [facility] information available [facility] Work Phone: Evaluation note* Diagnosis ADHD, 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 [facility] Diagnosis ADHD, predominantly inattentive type (CMS/HCC)- Primary Attention deficit disorder without mention of hyperactivity Degenerative disc disease, cervical Generalized anxiety disorder (CMS/HCC) Generalized anxiety disorder Autonomic dysfunction Migraine with aura and without status migrainosus, not intractable (CMS/HCC) Chronic pancreatitis, unspecified pancreatitis type (CMS/HCC) ADHD, predominantly inattentive type (CMS/HCC)- Primary Attention deficit disorder without mention of hyperactivity Generalized anxiety disorder (CMS/HCC) Generalized anxiety disorder Autonomic dysfunction Migraine with aura and without status migrainosus, not intractable (CMS/HCC) Chronic pancreatitis, unspecified pancreatitis type (CMS/HCC) EUGENE (generalized anxiety disorder) (CMS/HCC) Generalized anxiety disorder Vaginal cyst Other specified noninflammatory disorder of vagina ADHD, predominantly inattentive type (CMS/HCC)- Primary Attention deficit disorder without mention of hyperactivity Generalized anxiety disorder (CMS/HCC) Generalized anxiety disorder Autonomic dysfunction Migraine with aura and without status migrainosus, not intractable (CMS/HCC) Chronic pancreatitis, unspecified pancreatitis type (CMS/HCC) Prediabetes Other abnormal glucose Primary hypothyroidism (CMS/HCC) Unspecified hypothyroidism Autonomic dysfunction- Primary ADHD, 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 Generalized anxiety disorder (CMS/HCC) Generalized anxiety disorder [facility] Diagnosis ADHD, predominantly inattentive type (CMS/HCC)- Primary Attention deficit disorder without mention of hyperactivity Degenerative disc disease, cervical Generalized anxiety disorder (CMS/HCC) Generalized anxiety disorder Autonomic dysfunction Migraine with aura and without status migrainosus, not intractable (CMS/HCC) Chronic pancreatitis, unspecified pancreatitis type (CMS/HCC) ADHD, predominantly inattentive type (CMS/HCC)- Primary Attention deficit disorder without mention of hyperactivity Generalized anxiety disorder (CMS/HCC) Generalized anxiety disorder Autonomic dysfunction Migraine with aura and without status migrainosus, not intractable (CMS/HCC) Chronic pancreatitis, unspecified pancreatitis type (CMS/HCC) EUGENE (generalized anxiety disorder) (CMS/HCC) Generalized anxiety disorder Vaginal cyst Other specified noninflammatory disorder of vagina ADHD, predominantly inattentive type (CMS/HCC)- Primary Attention deficit disorder without mention of hyperactivity Generalized anxiety disorder (CMS/HCC) Generalized anxiety disorder Autonomic dysfunction Migraine with aura and without status migrainosus, not intractable (CMS/HCC) Chronic pancreatitis, unspecified pancreatitis type (CMS/HCC) Prediabetes Other abnormal glucose Primary hypothyroidism (CMS/HCC) Unspecified hypothyroidism Autonomic dysfunction- Primary ADHD, 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 Generalized anxiety disorder (CMS/HCC) Generalized anxiety disorder Generalized anxiety disorder (CMS/HCC) Generalized anxiety disorder ADHD, 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 [facility] Diagnosis ADHD, predominantly inattentive type (CMS/HCC)- Primary Attention deficit disorder without mention of hyperactivity Degenerative disc disease, cervical Generalized anxiety disorder (CMS/HCC) Generalized anxiety disorder Autonomic dysfunction Migraine with aura and without status migrainosus, not intractable (CMS/HCC) Chronic pancreatitis, unspecified pancreatitis type (CMS/HCC) ADHD, predominantly inattentive type (CMS/HCC)- Primary Attention deficit disorder without mention of hyperactivity Generalized anxiety disorder (CMS/HCC) Generalized anxiety disorder Autonomic dysfunction Migraine with aura and without status migrainosus, not intractable (CMS/HCC) Chronic pancreatitis, unspecified pancreatitis type (CMS/HCC) EUGENE (generalized anxiety disorder) (CMS/HCC) Generalized anxiety disorder Vaginal cyst Other specified noninflammatory disorder of vagina ADHD, predominantly inattentive type (CMS/HCC)- Primary Attention deficit disorder without mention of hyperactivity Generalized anxiety disorder (CMS/HCC) Generalized anxiety disorder Autonomic dysfunction Migraine with aura and without status migrainosus, not intractable (CMS/HCC) Chronic pancreatitis, unspecified pancreatitis type (CMS/HCC) Prediabetes Other abnormal glucose Primary hypothyroidism (CMS/HCC) Unspecified hypothyroidism Autonomic dysfunction- Primary ADHD, 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 Generalized anxiety disorder (CMS/HCC) Generalized anxiety disorder ADHD, 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 [facility] Diagnosis ADHD, 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 [facility]* Diagnosis ADHD, 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 [facility]* Diagnosis ADHD, predominantly inattentive type (CMS/HCC)- Primary Attention deficit disorder without mention of hyperactivity Generalized anxiety disorder (CMS/HCC) Generalized anxiety disorder Autonomic dysfunction Migraine with aura and without status migrainosus, not intractable (CMS/HCC) Chronic pancreatitis, unspecified pancreatitis type (CMS/HCC) Prediabetes Other abnormal glucose Primary hypothyroidism (CMS/HCC) Unspecified hypothyroidism documented in this encounter [facility]* Diagnosis ADHD, predominantly inattentive type (CMS/HCC)- Primary Attention deficit disorder without mention of hyperactivity Degenerative disc disease, cervical Generalized anxiety disorder (CMS/HCC) Generalized anxiety disorder Autonomic dysfunction Migraine with aura and without status migrainosus, not intractable (CMS/HCC) Chronic pancreatitis, unspecified pancreatitis type (CMS/HCC) ADHD, predominantly inattentive type (CMS/HCC)- Primary Attention deficit disorder without mention of hyperactivity Generalized anxiety disorder (CMS/HCC) Generalized anxiety disorder Autonomic dysfunction Migraine with aura and without status migrainosus, not intractable (CMS/HCC) Chronic pancreatitis, unspecified pancreatitis type (CMS/HCC) EUGENE (generalized anxiety disorder) (CMS/HCC) Generalized anxiety disorder Vaginal cyst Other specified noninflammatory disorder of vagina ADHD, predominantly inattentive type (CMS/HCC)- Primary Attention deficit disorder without mention of hyperactivity Generalized anxiety disorder (CMS/HCC) Generalized anxiety disorder Autonomic dysfunction Migraine with aura and without status migrainosus, not intractable (CMS/HCC) Chronic pancreatitis, unspecified pancreatitis type (CMS/HCC) Prediabetes Other abnormal glucose Primary hypothyroidism (CMS/HCC) Unspecified hypothyroidism Autonomic dysfunction- Primary ADHD, 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 Generalized anxiety disorder (CMS/HCC) Generalized anxiety disorder ADHD, 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 documented in this encounter [facility]ructionsNot on filedocumented in this encounterProSt. [facility] SystemInstructionsNot on filedocumented in this encounterProSt. Elizabeth Hospital SystemReason for referral (narrative)* Consultation (Routine) - Pending Review Specialty Diagnoses / Procedures Referred By Blaise wolfe Referred To Contact Endocrinology Diagnoses Thyroid receptor antibody positive Procedures TX OFFICE/OUTPATIENT NEW HIGH MDM 60 MINUTES Gerardo Tolbert MD [address] [place] [address] Referral ID Status Reason Start Date Expiration Date Visits Requested Visits Authorized [id number] Pending Review Specialty Services Required 06/01/2023 11/28/2023 1 1 [facility] Summary Purpose Family History No Family History Records FoundNo Family History Records FoundNo Family History Records FoundNo Family History Records FoundNo Family History Records FoundNo Family History Records Found Advance Directives Advance Directive Response Recorded Date/ Time Advance Directives No December 16, 2020 12:55pm Procedure Findings Note MR#: [id number] [facility] Pt. Name: Freya Jennings Surgery Date: 06/27/2018 Room #: 0 Date of : 1990 PROCEDURE NOTE ATTENDING: Whitney Mckeon M.D. PROCEDURE PERFORMED: Endoscopic ultrasound with biopsy. 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 MEDICATIONS: General anesthesia administered by Anesthesia team. SEMICONDUCTOR PACKAGES SEALER: Gibson Manriquez M.D. PROCEDURE IN DETAIL: After [...] Specialty Diagnoses / Procedures Referred By Blaise t Referred To Contact Diagnoses Migraine with aura and without status migrainosus, not intractable Leonidas Antunez, SHELLY [address] [place] [address] Referral ID Status Reason Start Date Expiration Date V isits Requested Visits Authorized [id number] Pending Review 1 1 Additional Source Comments INFORMATION SOURCE (unrecogn ized section and content) DATE CREATED AUTHOR 07/21/[address] [facility] DATE CREATED AUTHOR AUTHOR'S ORGANIZ ATION 12/14/2020 [facility] DATE CREATED AUTHOR AUTHOR'S ORGANIZ ATION 09/05/2022 [facility] DATE CREATED AUTHOR AUTHOR'S ORGANIZ ATION 12/11/2023 [facility] DATE CREATED AUTHOR AUTHOR'S ORGANIZ ATION 12/30/2023 [facility] DATE CREATED AUTHOR AUTHOR'S ORGANIZ ATION 02/16/2024 [facility] EPIC Reason for Visit (unrecogniz ed section and content) Reason Onset Date Comments Med Refill 05/26/2023 Reason Onset Date Comments Med Refill 06/14/2023 Reason Onset Date Comments Med Refill 01/23/2024 Reason Comments Follow-up 1 m Reason Onset Date Comments Med Refill 02/21/2024 Reason Onset Date Comments Med Refill 03/22/2024 Reason Comments Med Refill Reason Onset Date Comments Med Refill 12/26/2023 Reason Comments Follow-up 2 m Dizziness Reason Onset Date Comments Med Refill 04/22/2024 Care Teams (unrecognized sec tion and content) Systems Security Consultant Relationship Specialty Start Date End Date Gerardo Tolbert MD [address] [place] [phone] PCP - General Family Medicine 05/11/23 Systems Security Consultant Relationship Specialty Start Date End Date Gerardo Tolbert MD [address] [place], [place] [id number] PCP - General Family Medicine 07/03/19 Systems Security Consultant Relationship Specialty Start Date End Date Gerardo Tolbert MD [address] [place] [place] [phone] PCP - General Family Medicine 05/11/23 Gerardo Tolbert MD [address] [place] [place] [phone] PCP - [place] [employer] 04/24/23 Systems Security Consultant Relationship Specialty Start Date End Date Gerardo Tolbert MD [address] [place], [place] [phone] PCP - General Family Medicine 07/03/19 Team Status: Inactive Member Role Status Dates Annamaria Briseno DO Attending Provider Active Start : December 05, 2023 End: December 05, 2023 Systems Security Consultant Relationship Specialty Start Date End Date Gerardo Tolbert MD [address] [place] [phone] PCP - General Family Medicine 05/11/23 Gerardo Tolbert MD [address] [place] [phone] PCP - [place] [employer] 04/24/23 Systems Security Consultant Relationship Specialty Start Date End Date Gerardo Tolbert MD [address] [place] [phone] PCP - General Family Medicine 05/11/23 Gerardo Tolbert MD [address] [place] [phone] PCP - [place] [employer] 04/24/23 Systems Security Consultant Relationship Specialty Start Date End Date Gerardo Tolbert MD [address] [place] [address] PCP - General Family Medicine 05/11/23 Gerardo Tolbert MD [address] [place] [address] PCP - [place] [employer] 04/24/23 Systems Security Consultant Relationship Specialty Start Date End Date Gerardo Tolbert MD [address] [place] [phone] PCP - General Family Medicine 05/11/23 Gerardo Tolbert MD [address] [place] [phone] PCP - [place] [employer] 04/24/23 Systems Security Consultant Relationship Specialty Start Date End Date Gerardo Tolbert MD [address] [place] [address] PCP - General Family Medicine 05/11/23 Gerardo Tolbert MD [address] [place] [phone] PCP - [place] [employer] 04/24/23 Systems Security Consultant Relationship Specialty Start Date End Date Gerardo Tolbert MD [address] [place] [phone] PCP - General Family Medicine 05/11/23 Gerardo Tolbert MD [address] [place] [address] PCP - [place] [employer] 04/24/23 Systems Security Consultant Relationship Specialty Start Date End Date Gerardo Tolbert MD [address] [place] [phone] PCP - General Family Medicine 05/11/23 Gerardo Tolbert MD [address] [place] [phone] PCP - [place] [employer] 04/24/23 Systems Security Consultant Relationship Specialty Start Date End Date Gerardo Tolbert MD [address] [place] [phone] PCP - General Family Medicine 05/11/23 Gerardo Tolbert MD [address] [place] [phone] PCP - [place] [employer] 04/24/23 Systems Security Consultant Relationship Specialty Start Date End Date Gerardo Tolbert MD [address] [place] [phone] PCP - General Family Medicine 05/11/23 Gerardo Tolbert MD [address] [place] [phone] PCP - [place] [employer] 04/24/23 Systems Security Consultant Relationship Specialty Start Date End Date Gerardo Tolbert MD [address] [place] [phone] PCP - General Family Medicine 05/11/23 Gerardo Tolbert MD [address] [place] [phone] PCP - [place] [employer] 04/24/23 Systems Security Consultant Relationship Specialty Start Date End Date Gerardo Tolbert MD [address] [place] [phone] PCP - General Family Medicine 05/11/23 Gerardo Tolbert MD [address] [place] [phone] PCP - [place] [employer] 04/24/23 Goals (unrecognized section and content) [...] BE BASED ON THE PRIMARY CLINICAL RECORDS. [facility] [employer] [facility]. provides no warranty or guarantee of the accuracy or completeness of information in this document.
[2024-05-14 16:08] LABS: Age Gdln ACOG Testing Note (.); HPV Aptima Negative (Negative); IGP, Aptima HPV, rfx 16/18,45 Note (.)
== END 2024-05-09 19:01 | disposition home or self-care (01) ==
PROVIDERS: PCP Family Medicine; Visit Provider Obstetrics & Gynecology
DX: Z01.419 Encounter for gynecological examination (general) (routine) without abnormal findings (principal)
CPT/HCPCS: 87624; 88175

== ENCOUNTER 2024-09-26 14:06 | Emergency (ER) | payer OTHER, SELFPAY ==
[2024-09-26 14:14] VITALS: BP 159/100; PULSE 81; TEMP 36.8; O2SAT 100; BMI 28.2
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
[2024-09-26 14:47] LABS: Bilirubin Urine NEGATIVE (NEGATIVE); Blood Urine NEGATIVE (NEGATIVE); Clarity Urine CLEAR (CLEAR); Color Urine LT. YELLOW (YELLOW); Glucose Urine UA NEGATIVE (NEGATIVE); Ketones Urine NEGATIVE (NEGATIVE); Leukocyte Esterase Urine SMALL (NEGATIVE); Nitrite Urine NEGATIVE (NEGATIVE); Protein Urine NEGATIVE (NEG/TRACE); Urobilinogen Urine 0.2 EU/dL (0.2-1.0); pH Urine 7.5 (5.0-9.0)
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
[2024-09-26 15:01] LABS: Bacteria Urine NONE SEEN #/HPF (NONE SEEN); Cast Seen? NONE SEEN #/LPF (NONE SEEN); Crystals Seen? None Seen #/HPF (None Seen); Mucus Urine NONE SEEN (NONE SEEN); RBC Urine 0-2 #/HPF (0-2); Squamous Epithelial Cell Urine RARE #/LPF (NONE/RARE); Urine Culture Indicated YES-FRMC
[2024-09-26 15:47] VITALS: BP 132/98; PULSE 72; O2SAT 99
== END 2024-09-26 16:04 | disposition home or self-care (01) ==
PROVIDERS: Emergency Provider Emergency Medicine; PCP Family Medicine
DX: S06.0X0A Concussion without loss of consciousness, initial encounter (principal); S16.1XXA Strain of muscle, fascia and tendon at neck level, initial encounter; V49.59XA Passenger injured in collision with other motor vehicles in traffic accident, initial encounter; M54.10 Radiculopathy, site unspecified
CPT/HCPCS: 70450; 72125; 73502; 81001; 87086; 99285

== ENCOUNTER 2024-10-08 11:40 | Outpatient (OUT) | payer BC, SELFPAY ==
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
--- OUTSIDE RECORDS SUMMARY | 2024-10-08 12:01 | XMS_ITS | CCD ---
Author Organization [facility] CliniSyhi Care Team Providers Care Polymer Specialist Name Role Phone HASAN, BONG Admitting Unavailable HASAN, BONG Attending Unavailable HASAN, BONG Referring Unavailable JOSIAH REBOLLAR Primary Care Unavailable NAWRAS, ALI T Admitting Unavailable NALINDAAS, ALI T Attending Unavailable GERARDO TOLBERT Referring Unavailable HEAVENEREMaday, GERARDO Primary Care Unavailable DC Procedure Practitioner Unavailab OPAL Lozoya Surgeon Unavailable HASAN, BONG Admitting Unavailable HASAN, BONG Attending Unavailable HASAN, BONG Referring Unavailable HEAVENEREMaday, GERARDO Primary Care Unavailable SZUANNA ., DR YIN Attending Unavailable SUZANNA ., [...] Care Provider Gerardo Tolbert MD Unavailable DO Kyrie Briseno Attending Provider SHAWN PICKETT Referring Unavailable MIKE YOUNG Attending Unavailable MALENFGIRISH LEMUS Attending Unavaila ble SHAWN PICKETT Attending Unavailable Kyrie Briseno DO Attending Provider [phone] GERARDO TOLBERT Attending Unavailable TOMASZGERARDO Attending Unavailable SUZANNA, KYRIE Attending Unavailable SUZANNA, KYRIE Attending Unavailable GERARDO TOLBERT Attending Unavailable GERARDO TOLBERT Attending Unavailable SUZANNA, KYRIE Attending Unavailable LEONIDAS ANTUNEZ Attending Unavailable TOMASZ, GERARDO Referring Unavailable TOMASZ, GERARDO Primary Care Unavailable Gerardo Tolbert MD Primary Care Provider [phone] Gerardo Tolbert MD Primary Care Provider [phone] Jose L Gomez DO Attending Provider Jose L Gomez Attending Unavailable Jose L Gomez Admitting Unavailable Suzanna, Kyrie Admitting Unavailable Suzanna, Kyrie Attending Unavailable Suzanna, Kyrie Attending Unavailable Suzanna, Kyrie Admitting Unavailable Allergies Allergy Classification Reported Allergen(s) Allergy Type Date of Onset Reaction(s) Facility (1 source) Acetaminophen / HYDROcodone Drug Allergy [facility] Repository (2 sources) Acetaminophen / oxyCODONE Drug Allergy [facility] Repository (1 source) Adhesive Tape Drug allergy (disorder) [facility] Repository (1 source) buPROPion Drug Allergy [facility] Repository (4 sources) Latex; Translations: [LATEX] Drug allergy (disorder) [facility] Repository (3 sources) Sulfamethoxazole / Trimethoprim Drug Allergy [facility] Repository (5 sources) Vancomycin; Translations: [VANCOMYCIN] Drug Allergy [facility] Repository (1 source) Acetaminophen / HYDROcodone Drug Allergy [facility] Repository (1 source) Desonide Drug Allergy [facility] Repository (2 sources) Gluten Drug allergy (disorder) [facility] Repository (1 source) POLYETHYLENE GLYCOL 3350 Drug Allergy [facility] Repository (3 sources) traMADol; Translations: [TRAMADOL] Drug Allergy [facility] Repository (20 sources) Latex Propensity to adverse reactions Itching, Rash, Hives [facility] (20 sources) traMADol Drug Allergy Hallucinations [facility] Work Phone: (20 sources) Vancomycin Drug Allergy Other (See Comments) [facility] (20 sources) WHEAT DEXTRIN Drug Allergy [facility] (20 sources) Acetaminophen / HYDROcodone; Translations: [HYDROCODONE-ACETAM INOPHEN] Drug Allergy Vomiting [facility] Repository (20 sources) Acetaminophen / oxyCODONE; Translations: [OXYCODONE-ACETAMIN OPHEN] Drug Allergy Vomiting [facility] Repository (20 sources) amLODIPine; Translations: [AMLODIPINE] Drug Allergy Itching, Swelling [facility] Repository (20 sources) buPROPion; Translations: [BUPROPION] Drug Allergy [facility] Repository (20 sources) Doxycycline; Translations: [DOXYCYCLINE] Drug Allergy [facility] Repository (10 sources) Feather; Translations: [FEATHERS] Propensity to adverse reactions to drug (disorder) [facility] Repository (2 sources) Glycopeptides (Antibiotic); Translations: [VANCOMYCIN ANALOGUES] Propensity to adverse reactions to drug (disorder) [facility] Repository (10 sources) Grass pollen; Translations: [GRASS POLLEN] Propensity to adverse reactions to drug (disorder) [facility] Repository (1 source) Milk; Translations: [MILK] Propensity to adverse reactions to drug (disorder) [facility] Repository (2 sources) natural latex rubber; Translations: [LATEX, NATURAL RUBBER] Propensity to adverse reactions to drug (disorder) [facility] Repository (20 sources) Psyllium; Translations: [PSYLLIUM] Drug Allergy [facility] Repository (20 sources) Sulfamethoxazole / Trimethoprim; Translations: [SULFAMETHOXAZOLE-T RIMETHOPRIM] Drug Allergy [facility] Repository (10 sources) Wheat preparation; Translations: [WHEAT] Drug Allergy [facility] Repository (20 sources) OTHER; Translations: [OTHER] Propensity to adverse reactions (disorder) [facility] Repository (3 sources) FREMANEZUMAB-VFRM; Translations: [FREMANEZUMAB-VFRM] Propensity to adverse reactions to drug (disorder) Swelling [facility] Repository (10 sources) WHEAT CONTAINING PROD; Translations: [WHEAT CONTAINING PROD] Propensity to adverse reactions to drug (disorder) Other (See Comments) [facility] Repository (10 sources) DYCLONINE-BENZETHON IUM; Translations: [DYCLONINE-BENZETHO NIUM] Propensity to adverse reactions to drug (disorder) Rash [facility] Repository (20 sources) Benzethonium / dyclonine Drug Allergy Dermatitis, Itching, Rash [facility] Healthcare (20 sources) Cow milk Allergy to substance 023 [facility] (20 sources) Grass pollen Drug Intolerance Hives [facility] (20 sources) Fremanezumab Propensity to adverse reactions [facility] Medications Current Medications Medication Drug Class(es) Dates Sig (Normalized) Sig (Original) acetaminophen 500 mg oral tablet (9 sources) Start: 09-17-2024 take 2 tablets by mouth every six hours as needed for pain and pain and pain and pain acetaminophen (Tylenol) 500 MG tablet Indications: Pain Take 2 tablets (1,000 mg) by mouth every 6 (six) hours if needed for mild pain or moderate pain 120 tablet 3 09/17/2024 Active Start: 12-18-2020 take 2 tablets by [facility] every eight hours as needed for pain acetaminophen (TYLENOL EXTRA STRENGTH) 500 mg tablet Take 2 tablets (1,000 mg total) by mouth every 8 (eight) hours as needed for pain. 30 tablet 2 12/18/2020 Active amphetamine aspartate 7.5 mg / amphetamine sulfate 7.5 mg / dextroamphetamine saccharate 7.5 mg / dextroamphetamine sulfate 7.5 mg oral tablet (20 sources) Central Nervous System Stimulant Start: 07-12-2024 End: 10-11-2024 take 1 tablet by mouth in the morning amphetamine-dextroamphetamine (Adderall) 30 MG tablet Indications: ADHD, predominantly inattentive type (CMS/HCC) Take 1 tablet (30 mg) by mouth in the morning and at noon 60 tablet 09/11/2024 10/11/2024 Active Start: 03-25-2024 End: 06-27-2024 take 1 tablet by mouth in the morning amphetamine-dextroamphetamine (Adderall) 30 MG tablet Indications: ADHD, predominantly inattentive type (CMS/HCC) Take 1 tablet (30 mg) by mouth in the morning and at noon 60 tablet 05/28/2024 06/27/2024 Active Start: 11-23-2023 End: 03-23-2024 take 1 [...] bedtime. 60 tablet 0 05/26/2023 Active amylase 889109 unt / lipase 41214 unt / protease [id number] unt delayed release oral capsule (20 sources) pancrelipase, Li p-Prot-Amyl, (Creon) 37010-207705 units capsule delayed-release particles capsule Take 3 capsules by mouth 6 (six) times a day Active lipase-protease- amylase (CREON) 36,000-114,000- 180,000 unit capsule,delayed release(DR/EC) Take 1 capsule (36,000 units of lipase total) by mouth in the morning and 1 capsule (36,000 units of lipase total) at noon and 1 capsule (36,000 units of lipase total) in the evening. Take with meals. Active pancrelipase, Li p-Prot-Amyl, (Creon) 28035-519153 units capsule delayed- release particles capsule Take 2 capsules by mouth in the morning and 2 capsules at noon and 2 capsules in the evening. Take with meals. 0 Active Atogepant (Qulipta) 60 MG tablet (20 sources) Atogepant (Qulip ta) 60 MG tablet Take by mouth Active atogepant (QULIPTA) 60 mg tablet (11 sources) Start: 05-30-2024 take 1 tablet by mouth in the morning atogepant (QULIPTA) 60 mg tablet Indications: Chronic migraine with aura without status migrainosus, not intractable Take 60 mg by mouth in the morning. 30 tablet 5 05/30/2024 Active Start: 11-12-2023 End: 05-30-2024 take 1 tablet by mouth in the morning atogepant (QULIPTA) 60 mg tablet Indications: Migraine with aura and without status migrainosus, not intractable Take 60 mg by mouth in the morning. 30 tablet 5 11/12/2023 05/30/2024 Discontinued (Reorder) Start: 11-12-2023 take 1 tablet by ambar th in the morning atogepant (QULIPTA) 60 mg tablet Indications: Migraine with aura and without status migrainosus, not intractable Take 60 mg by mouth in the morning. 30 tablet 5 11/12/2023 Active Start: 06-14-2023 End: 11-08-2023 take 1 tablet by mouth in the morning atogepant (QULIPTA) 60 mg tablet Indications: Migraine with aura and without status migrainosus, not intractable Take 60 mg by mouth in the morning. 30 tablet 5 06/14/2023 11/08/2023 Discontinued (Reorder) Start: 06-14-2023 take 1 tablet by ambar th in [...] the morning. 30 tablet 5 06/01/2023 Active B Complex-C (SUPER B COMPLEX PO) (20 sources) B Complex-C (SUP ER B COMPLEX [...] DAY 90 tablet 3 03/21/2023 Active calcium-vits O8-U-H6-mineral s 166.75 mg- 166.75 unit capsule (8 sources) calcium-vits D3- X-T5-kqtoteoc 166.75 mg- 166.75 unit capsule Take 1 capsule by mouth. Active calcium-vits D3- M-E1-zyxobfsg 166.75 mg- 166.75 unit capsule Take 1 capsule by mouth. 0 Active cholecalciferol 0.025 mg oral capsule (20 sources) Vitamin D take 1 capsule by mouth in the morning cholecalciferol (Vitamin D-3) 25 MCG (1000 UT) capsule Take 1,000 Units by mouth in the morning. Active take 1 tablet by mouth in the mo rning cholecalciferol (VITAMIN D3) 1,000 units tablet Take 1 tablet (1,000 Units total) by mouth in the morning. Active Glucose Blood (FREESTYLE PB T ) (20 sources) Glucose Blood (F REESTYLE TEST ) by In Vitro route Active Glucose Blood (F REESTYLE TEST ) by In Vitro route 0 Active ibuprofen 800 mg oral tablet (1 source) Nonsteroidal Anti-inflammatory Drug Start: 09-17-2024 take 1 tablet by mouth three times daily as needed for pain ibuprofen 800 MG tablet Indications: Pain Take 1 tablet (800 mg) by mouth 3 (three) times a day as needed for mild pain 90 tablet 2 09/17/2024 Active Lactobacillus acidophilus (8 sources) Lactobacillus acidophilus (PROBIOTIC ORAL) Take by mouth. Active Lactobacillus ac idophilus (PROBIOTIC ORAL) Take by mouth. 0 Active levothyroxine sodium 0.025 mg oral tablet (20 sources) l-Thyroxine Start: 11-16-2023 take 1 tablet by mouth twice daily levothyroxine (Synthroid, Levoxyl) 25 MCG tablet Indications: Hypothyroidism, unspecified , Hypothyroidism (CMS/HCC) TAKE 1 TABLET BY MOUTH TWICE A DAY 180 tablet 3 11/16/2023 Active Magnesium (20 sources) take 2 tablets by mouth once daily magnesium 250 MG tablet Take 500 mg by mouth 1 (one) time each day Active take 400 mg by mouth at bedtime MAGNESIUM ORAL Take 400 mg by mouth in the morning and at bedtime. Active take 400 mg by mouth at bedtime MAGNESIUM ORAL Take 400 mg by mouth in the morning and at bedtime. 0 Active take 2 tablets by mouth once so ly magnesium 250 MG tablet Take 500 mg by mouth 1 (one) time each day 0 Active Mbk-Dph-WS-Fish Oil ([facility] Gummy) 0.4-113.5 MG chewable tablet (20 sources) Vit-Min -FA-Fish Oil ([facility] Gummy) 0.4-113.5 MG chewable tablet Chew 1 tablet 1 (one) time each day Active Vit-Min -FA-Fish Oil ([facility] Gummy) 0.4-113.5 MG chewable tablet Chew 1 tablet 1 (one) time each day 0 Active rizatriptan 10 mg disintegrating oral tablet (9 sources) Serotonin-1b and Serotonin-1d Receptor Agonist Start: 10-18-2022 End: 05-30-2024 take 1 tablet by mouth every two hours, then take 2 tablets by mouth every twenty-four hours rizatriptan TUNNEL ELASTIC OPERATOR CHAINSTITCH (MAXALT-TUNNEL ELASTIC OPERATOR CHAINSTITCH) 10 mg disintegrating tablet Indications: Migraine with aura and without status migrainosus, not intractable DISSOLVE 1 TABLET IN MOUTH AT THE ONSET OF MIGRAINE. MAY REPEAT THE DOSE AFTER 2 HOURS IF HEADACHE PERSISTS. MAX OF 2 DOSES PER 24 HOURS 12 tablet 2 10/23/2023 Active SUMAtriptan 20 mg/actuat nasal spray (20 sources) Serotonin-1b and Serotonin-1d Receptor Agonist Start: 09-12-2024 SUMAtriptan (Imitrex) 20 MG/ACT nasal spray Indications: Migraine with aura and without status migrainosus, not intractable (CMS/HCC) INSTILL 1 SRPAY INTRANASALLY AT ONSET OF HEADACHE. MAY REPEAT IN 2 HOURS ONCE IF NEEDED 1 each 3 09/12/2024 Active Start: 09-11-2024 End: 09-11-2024 SUMAtriptan (Imitrex) 20 MG/ ACT nasal spray Indications: Migraine with aura and without status migrainosus, not intractable (CMS/HCC) Administer 1 spray (20 mg) into one nostril See administration instructions 6 each 5 09/11/2024 Active ubidecarenone 30 mg oral capsule (20 sources) take 1 capsule by mo ut once daily co-enzyme Q-10 30 MG capsule Take 30 mg by mouth Daily Active take 10 capsules by mouth once in the morning coenzyme Q10 200 mg capsule Take 100 mg by mouth in the morning. Active ubrogepant 100 mg oral table t (1 source) Start: 05-30-2024 ubrogepant (UB RELVY) 100 mg tablet Indications: Migraine without aura and without status migrainosus, not intractable Take 1 tablet just after onset of migraine. May repeat the dose after 2 hours if MORENO persists. Max of 2 doses per 24 hours. 16 tablet 5 05/30/2024 Active Completed/Discontinued Medications Medication Drug Class(es) Dates [...] every 30 (thirty) days 0 01/17/2023 Active guanFACINE 1 mg oral tablet (15 sources) Central alpha-2 Adrenergic Agonist End: 05-09-2024 take 0.5 mg by mouth in the morning guanFACINE (Tenex) 1 MG tablet Take 0.5 mg by mouth in the morning and 0.5 mg before bedtime. 05/09/2024 Discontinued (Other) guanFACINE (Tene x) 1 MG tablet 1 mg in the morning and 1 mg before bedtime. Active Problems Active Problems Problem Classification Problem [...] Chronic Attention-deficit, conduct, and disruptive behavior disorders (8 sources) Attention deficit hyperactivity disorder; Translations: [Attention-deficit hyperactivity disorder, unspecified type] Onset: 7 02-15-2017 Chronic Cardiac dysrhythmias (8 sources) Postural orthostatic tachycardia syndrome ; Translations: [POTS (postural orthostatic tachycardia syndrome)] Onset: 1 07-17-2020 Chronic Esophageal disorders (8 sources) Gastroesophageal reflux disease; Translations: [Gastro-esophageal reflux disease without esophagitis] Onset: 7 02-15-2017 Chronic Essential hypertension (2 sources) Essential (primary) hypertension; Translations: [Essential (primary) hypertension] Onset: 4 Chronic Gastritis and duodenitis (20 sources) Chronic superficial gastritis; Translations: [Chronic superficial gastritis without bleeding] Onset: 3 03-30-2023 Chronic Headache; including migraine (20 sources) Migraine with aura; Translations: [Migraine with aura, not intractable, without status migrainosus] Onset: 3 05-11-2023 Chronic Headache; including migraine (1 source) Headache; including migraine; Translations: [HEADACHE UNSPECIFIED] Onset: 2 Nervous system congenital anomalies (10 sources) Other specified congenital malformations of brain; 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] Onset: 3 05-30-2024 Chronic Other disorders of stomach and duodenum (1 source) Other diseases of stomach and duodenum; Translations: [OTHER DISEASES OF STOMACH AND DUODENUM] Onset: 9 Episodic Other gastrointestinal disorders (20 sources) Celiac disease; Translations: [Celiac disease] Onset: [...] Chronic Other nutritional; endocrine; and metabolic disorders (20 sources) Insulin resistance; Translations: [Insulin resistance] Onset: [...] PANCREAS] Onset: 9 Chronic Residual codes; unclassified (8 sources) History of pancreatectomy; 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] Onset: 0 07-02-2019 Chronic Spondylosis; intervertebral disc disorders; other back problems (20 sources) Degeneration of cervical intervertebral disc; Translations: [Other cervical disc degeneration, unspecified cervical region] Onset: 7 05-11-2023 Chronic Thyroid disorders (20 sources) Hypothyroidism, unspecified; Translations: [Unspecified acquired hypothyroidism] Onset: 1 Chronic Unclassified (2 sources) LAB Onset: 9 Unclassified (1 source) Chronic migraine with aura, not intractable, without status migrainosus; Translations: [Chronic migraine with aura, not intractable, without status migrainosus] Onset: 5 Past or Other Problems Problem Classification Problem Date Documented Da te Episodic/Chronic Bacterial infection; unspecified site (8 sources) Methicillin resistant Staphylococcus aureus infection; Translations: [Methicillin resistant Staphylococcus aureus infection, unspecified site] Onset: 04-24-2015 07-02-2019 Episodic Diabetes mellitus without complication (20 sources) Prediabetes; Translations: [Prediabetes] Onset: 03-30-2023 03-30-2023 Episodic Immunizations and screening for infectious disease (20 sources) Encounter for screening for human papillomavirus (HPV); Translations: [Methicillin resistant staphylococcus aureus carrier] Onset: 10-06-2021 03-30-2023 Episodic Lymphadenitis (20 sources) Cervical lymphadenopathy; Translations: [Localized enlarged lymph nodes] Onset: 03-30-2023 Resolved: 05-11-2023 05-11-2023 Episodic Mood disorders (8 sources) Mood disorders Onset: 01-05-2023 01-05-2023 Nausea and vomiting (8 sources) Postoperative nausea and vomiting; Translations: [Nausea with vomiting, unspecified] Onset: 07-02-2019 07-02-2019 Episodic Neoplasms of unspecified nature or uncertain behavior (8 sources) Neoplasm of pancreas; Translations: [Neoplasm of unspecified behavior of digestive system] Onset: 04-24-2007 07-02-2019 Episodic Nutritional deficiencies (20 sources) Cobalamin deficiency; Translations: [Deficiency of other specified B group vitamins] Onset: 02-14-2017 05-11-2023 Episodic Other circulatory disease (2 sources) Postural orthostatic tachycardia syndrome ; Translations: [Postural orthostatic tachycardia syndrome (POTS)] Onset: 10-07-2022 Episodic Other complications of (8 sources) Maternal obesity complicating , childbirth and the puerperium, antepartum; Translations: [Obesity complicating , unspecified trimester] Onset: 07-17-2020 Resolved: 12-21-2020 12-21-2020 Chronic Other complications of (1 source) Vomiting of , unspecified; Translations: [Unspecified vomiting of , unspecified as to episode of care or not applicable] Onset: 07-17-2020 Resolved: 12-21-2020 12-21-2020 Episodic Other complications of (7 sources) Nausea and vomiting; Translations: [Vomiting of , unspecified] Onset: 07-17-2020 Resolved: 12-21-2020 12-21-2020 Episodic Other endocrine disorders (1 source) Endocrine disorder, unspecified; Translations: [ENDOCRINE DISORDER UNSPECIFIED] Onset: 10-06-2021 Episodic Other female genital disorders (20 sources) Cyst of vagina; Translations: [Other specified noninflammatory disorders of vagina] Onset: 11-14-2023 11-14-2023 Episodic Other gastrointestinal disorders (16 sources) History of bariatric surgical procedure; Translations: [Bariatric surgery status] Onset: 06-04-2017 07-17-2020 Episodic Other and delivery including normal (16 sources) Vaginal delivery; Translations: [Encounter for full-term uncomplicated delivery] Onset: 12-16-2020 Resolved: 12-21-2020 12-21-2020 Episodic Other screening for suspected conditions (not mental disorders or infectious disease) (4 sources) Encounter for screening for malignant neoplasm of cervix; Translations: [ENC SCREENING MALIG NEOPLASM CERV] Onset: 10-05-2021 Episodic Residual codes; unclassified (8 sources) Family history of factor V deficiency; Translations: [Family history of diseases of the blood and blood-forming organs and certain disorders involving the immune mechanism] Onset: 07-17-2020 07-17-2020 Episodic Spondylosis; intervertebral disc disorders; other back problems (20 sources) Chronic back pain ; Translations: [Dorsalgia, unspecified] Onset: 03-30-2023 03-30-2023 Episodic Results Test Name Value Interpretation Reference Range [place] [facility] [place] C[place] [facility] [place] [facility] [place] No Growth 2 Days [facility] URINE CULTURE - [facility] [place] C[place] [place] [facility] [place] Testing performed a t [facility] [place]URE [place] [facility] [place] [address] [facility] Urine Cultureon 09-26-2024 Bacteria identified Cx Nom (U) No Growth 2 Days PERFORMED BY: [facility] [address] [facility] [place] [address] PATHOLOGIST COOK PRESSURE MICHELLE Hernandez [facility] Comment on above: Performed By: #### C UU #### [facility] [address] IGP,APTIMA HPV,AGE GDLNon AGE GDLN ACOG TESTING Note . [facility] Comment on above: TESTS RESULT FLAG UN ITS REF RANGE LAB Clinician Provided Cytology Information Source.............Cervix;Endocervix No. of containers..01 ThinPrep Vial Age Algo ACOG Pb... 30-65 FLAG LEGEND: L-Low Normal,H-High Normal,LL-Alert Low,HH-Alert High <-Panic Low,>-Panic High,A-Abnormal,AA-Critical Abnormal Performed at: 01 =[address] [place] [address] Sara Crenshaw MD, HPV APTIMA Negative Negative [facility] Comment on above: This nucleic acid am plification test detects fourteen high- risk HPV types (16,18,31,33,35,39,45,51,52,56,58,59,66,68) without differentiation. Performed at: =[address] [id number] [employer] Order Filler: Sara Crenshaw MD, Phone: [phone] Performed at: [address] [id number] [employer] Order Filler: Sara Crenshaw MD, Phone: [phone] IGP, APTIMA HPV, RFX 16/18,45 Note . [facility] Comment on above: TESTS RESULT FLAG UN ITS REF RANGE LAB DIAGNOSIS: 02 NEGATIVE FOR INTRAEPITHELIAL LESION OR MALIGNANCY. Specimen adequacy: 02 Satisfactory for evaluation. Endocervical and/or squamous metaplastic cells (endocervical component) are present. Performed by: Arnie Sierra, Rim Roller Operator (ASCP) . 02 Note: Note 02 The Pap smear is a screening test designed to aid in the detection of premalignant and malignant conditions of the uterine cervix. It is not a diagnostic procedure and should not be used as the sole means of detecting cervical cancer. Both false-positive and false-negative reports do occur. Test Methodology: Note 02 This liquid based ThinPrep(R) pap test was screened with the use of an image guided system. HPV Genotype Reflex Note 02 Criteria not met, HPV Genotype not performed. FLAG LEGEND: L-Low Normal,H-High Normal,LL-Alert Low,HH-Alert High <-Panic Low,>-Panic High,A-Abnormal,AA-Critical Abnormal Performed at: 02 [facility] [address], [place] [address] Sara Crenshaw MD, BRUSH-SPATULA [facility]IX [facility] L -- ---- Specimen: [id number] Received: 05/10/24 Status: ELIE Miles Num: [id number] Spec Type: Surgical Subm Dr: Kyrie Briseno Tissues: A Cervical Polyp (CERVICAL POLYP) Procedures: HE/4, Gross/Micro L4, AE1-AE3, CD68 ---- Age/ Patient Sex Location Account Attending Physician ---- Freya Razo 33/F LABELL [id number] Kyrie Briseno ---- SPEC NUM: [id number] RECD: 05/10/24 STATUS: ELIE MILES NUM: [id number] ARMANDO: 05/09/24- DR: Kyrie Briseno ENTERED: 05/10/24-[address] [facility] [address]: Varun,Lab SPEC TYPE: Surgical DEPT: ISABEL MORRIS ENTERED BY: [id number] RECV BY: [id number] ORDERED: HE/4, Gross/Micro L4, AE1-AE3, CD68 ORDERED: HE/4, Gross/Micro L4, AE1-AE3, CD68 Pathological Diagnosis Cervical polyp, polypectomy: -A benign large endocervical mucosal polyp with minor associated erosion, mild to moderate chronic inflammation, moderate reactive proliferation and congestion of vessels, mild reactive proliferation of mucosal glands with rare focal mild tubal metaplasia, and mild reactive proliferation the benign stromal cell components -No malignancy or dysplasia identified Note: -A small focus of perivascular mixed type reactive inflammation is noticed in the superficial lamina propria of 1 fragment of section, with the associated hyperchromasia of the histiocytic nuclei and rare mitosis. AE1/3 and CD68 IHC are applied for further confirmation. However, the small focus is entirely depleted in the deeper levels for IHC, and again meaning that this is only a small insignificant focus of nonspecific inflammation Clinical Information Cervical polyp ---- Specimen: [id number] Received: 05/10/24 Status: ELIE Miles Num: [id number] Spec Type: Surgical Subm Dr: Kyrie Briseno Tissues: A Cervical Polyp (CERVICAL POLYP) Procedures: HE/4, Gross/Micro L4, AE1-AE3, CD68 ---- Patient: Freya Razo [id number] (Continued) ---- Specimen: [id number] Received: 05/10/24 (Continued) Signed (signature on file) Tatiana Williamson MD 05/14/24 1727 ---- Specimen: [id number] Received: 05/10/24 Status: ELIE Miles Num: [id number] Spec Type: Surgical Subm Dr: Kyrie Briseno Tissues: A Cervical Polyp (CERVICAL POLYP) Procedures: HE/4, Gross/Micro L4, AE1-AE3, CD68 ---- Patient: DickFreya Lao [id number] (Continued) ---- Specimen: [id number] Received: 05/10/24 (Continued) Gross Description Part A is received in formalin labeled with the patients name, date of , and cervical polyp is a 1.1 x 0.9 x 1.3 cm polypoid structure with an adherent pale ruelas mucoid material, admixed with alvarado-pink, tissue fragments, 1.8 x 1.5 x 0.2 cm in aggregate. The polyp is inked black at the apparent point of attachment, serially sectioned, and entirely submitted in A1 with the mucoid material admixed with tissue fragments filtered, and entirely submitted in A2. (2, ns, [id number] A) Microscopic Description Microscopic examinations are performed supporting the above interpretation [facility] Codes [id number] ---- ---- Specimen: [id number] Received: 05/10/24 Status: ELIE Miles Num: [id number] Spec Type: Surgical Subm Dr: Kyrie Briseno Tissues: A Cervical Polyp (CERVICAL POLYP) Procedures: HE/4, Gross/Micro L4, AE1-AE3, CD68 ---- Patient: Freya Razo [id number] (Continued) ---- Signed (signature on file) Tatiana Williamson MD 05/14/24 172 Normal [facility] ALL THYROXINE (T4) FREEon Free T4 [Mass/Vol] 0.94 ng/dL 0.76 - 1. 46 ng/dL [facility] Orders Onlyon 12-26-2023 Orders Only [id number] Freya Razo 1990 F Date Provider Department Center 12/26/2023 30939-PSVKIEVOOLAUREANO MONACO GI Medical Pavi Family History Problem Relation [...] Paternal Grandfather Son Alive Neg Hx Normal [facility] BASIC METABOLIC PANELon 08-2 Anion gap [Moles/Vol] 9 mmol/L Normal 7-20 [facility] Comment on above: Performed By: #### L [id number] #### [facility] ([facility]) [address] [place] [address] Calcium [Mass/Vol] 9.0 mg/dL Normal 8.6-10.3 [facility] Comment on above: Performed By: #### L [id number] #### [facility] ([facility]) [address] [place] [address] Chloride [Moles/Vol] 106 mmol/L Normal 98-107 [facility] Comment on above: Performed By: #### L [id number] #### [facility] ([facility]) [address] [place] [address] CO2 [Moles/Vol] 29 mmol/L Normal 21-31 [facility] Comment on above: Performed By: #### L [id number] #### [facility] ([facility]) [address] [place] [address] Creatinine [Mass/Vol] 0.66 mg/dL Normal 0.60-1.20 [facility] Comment on above: Performed By: #### L [id number] #### [facility] ([facility]) [address] [place] [address] GLOMERULAR FILTRATION RATE ML/MIN/1.73 SQ M.PREDICTED 119.5 mL/min/1.73m*2 Normal >60.0 [facility] Comment on above: Result Comment: The [facility]???s estimated glomerular filtration rate (eGFR) will [...] individuals. Performed By: #### L [id number] #### [facility] ([facility]) [address] [place] [address] Glucose [Mass/Vol] 86 mg/dL Normal 70-100 [facility] Comment on above: Performed By: #### L [id number] #### [facility] ([facility]) [address] [place] [address] Potassium [Moles/Vol] 3.6 mmol/L Normal 3.5-5.1 [facility] Comment on above: Performed By: #### L [id number] #### [facility] ([facility]) [address] [place] [address] Sodium [Moles/Vol] 140 mmol/L Normal 136-145 [facility] Comment on above: Performed By: #### L [id number] #### [facility] ([facility]) [address] [facility] [place] [address] Urea nitrogen [Mass/Vol] 10 mg/dL Normal 7-25 [facility] Comment on above: Performed By: #### L [id number] #### [facility] ([facility]) [address] [place] [address] UREA NITROGEN/CREATININE (MASS RATIO) IN SER/PLAS 15.2 Normal [facility] Comment on above: Performed By: #### L [id number] #### [facility] ([facility]) [address] [facility] [place] [address] CBC WITH AUTO DIFFERENTIALon 12-19-2023 Basophils (Bld) [#/Vol] 0.08 10*3/uL Normal 0.00-0.20 [facility] Comment on above: Performed By: #### L [id number] #### [facility] ([facility]) [address] [place] [address] Basophils/100 WBC (Bld) 1.0 % Normal 0.0-1.0 [facility] Comment on above: Performed By: #### L [id number] #### [facility] ([facility]) [address] [place] [address] Eosinophils (Bld) [#/Vol] 0.28 10*3/uL Normal 0.00-0.50 [facility] Comment on above: Performed By: #### L [id number] #### [facility] ([facility]) [address] [place] [address] Eosinophils/100 WBC (Bld) 3.4 % Normal 0.0-6.0 [facility] Comment on above: Performed By: #### L [id number] #### [facility] ([facility]) [address] [place] [address] Erythrocyte distribution width (RBC) [Ratio] 12.6 % Normal 11.5-15.0 [facility] Comment on above: Performed By: #### L [id number] #### [facility] ([facility]) [address] [place] [address] ERYTHROCYTE MEAN CORPUSCULAR HEMOGLOBIN CONCENTRATION (G/DL) BY AUTOMATED 33.6 g/dL Normal 32.0-35.0 [facility] Comment on above: Performed By: #### L [id number] #### [facility] ([facility]) [address] [place] [address] Hematocrit (Bld) [Volume fraction] 41.4 % Normal 36.0-48.0 [facility] Comment on above: Performed By: #### L [id number] #### [facility] ([facility]) [address] [place] [address] Hemoglobin (Bld) [Mass/Vol] 13.9 g/dL Normal 12.0-15.0 [facility] Comment on above: Performed By: #### L [id number] #### [facility] ([facility]) [address] [place] [address] Immature granulocytes (Bld) [#/Vol] 0.01 10*3/uL Normal 0.00-0.20 [facility] Comment on above: Performed By: #### L [id number] #### [facility] ([facility]) [address] [place] [address] Immature granulocytes/100 WBC (Bld) 0.1 % Normal 0.0-1.0 [facility] Comment on above: Performed By: #### L [id number] #### [facility] ([facility]) [address] [place] [address] Lymphocytes (Bld) [#/Vol] 2.82 10*3/uL Normal 1.20-4.00 [facility] Comment on above: Performed By: #### L [id number] #### [facility] ([facility]) [address] [place] [address] Lymphocytes/100 WBC (Bld) 34.1 % Normal 20.0-45.0 [facility] Comment on above: Performed By: #### L [id number] #### [facility] ([facility]) [address] [place] [address] MCH (RBC) [Entitic mass] 30.6 pg Normal 27.0-33.0 [facility] Comment on above: Performed By: #### L [id number] #### [facility] ([facility] [address] [place] [address] MCV (RBC) [Entitic vol] 91.2 fL Normal 82.0-98.0 [facility] Comment on above: Performed By: #### L [id number] #### [facility] ([facility] [address] [place] [address] Monocytes (Bld) [#/Vol] 0.62 10*3/uL Normal 0.10-1.00 [facility] Comment on above: Performed By: #### L [id number] #### [facility] ([facility]) [address] [place] [address] Monocytes/100 WBC (Bld) 7.5 % Normal 5.0-12.0 [facility] Comment on above: Performed By: #### L [id number] #### [facility] ([facility]) [address] [place] [address] Neutrophils (Bld) [#/Vol] 4.46 10*3/uL Normal 1.60-7.60 [facility] Comment on above: Performed By: #### L [id number] #### [facility] ([facility]) [address] [place] [address] Neutrophils/100 WBC (Bld) 53.9 % Normal 40.0-72.0 [facility] Comment on above: Performed By: #### L [id number] #### [facility] ([facility]) [address] [place] [address] NRBC (PER 100 WBCS) BY AUTOMATED COUNT 0.0 % Normal 0 [facility] Comment on above: Performed By: #### L [id number] #### [facility] ([facility]) [address] [place] [address] PLATELETS (10*3/UL) IN BLOOD AUTOMATED COUNT 506 10*3/uL High 150-400 [facility] Comment on above: Performed By: #### L [id number] #### [facility] ([facility]) [address] [place] [address] RBC (Bld) [#/Vol] 4.54 10*6/uL Normal 3.80-5.00 [facility] Comment on above: Performed By: #### L [id number] #### [facility] ([facility]) [address] [place] [address] WBC (Bld) [#/Vol] 8.27 10*3/uL Normal 4.00-10.60 [facility] Comment on above: Performed By: #### L [id number] #### [facility] ([facility]) [address] [place] [address] COPPER, SERUMon 12-19-2023 COPPER 83.2 ug/dL Normal 80.0-155.0 [facility] Comment on above: Result Comment: [...] developed and its performance characteristics determined by [employer]. It has not been cleared or approved by the US Food and Drug Administration. This test was performed in a CLIA certified laboratory and is intended for clinical purposes. Performed By: [facility] [address] [place] [id number] Stamp Classifier: Jai Lawler MD, PhD CLIA Number: [id number] Performed By: #### L [id number] ####[facility] ([facility])[address] [place] [address] FERRITINon 12-19-2023 FERRITIN (NG/ML) IN SER/PLAS 21.0 ng/mL Normal 11.0-307.0 [facility] Comment on above: Performed By: #### L [id number] ####[facility] ([facility])[address] [place] [address] FOLATEon 12-19-2023 FOLATE (NG/ML) IN SER/PLAS 25.0 ng/mL Normal 6.6-1000 [facility] Comment on above: Performed By: #### L [id number] ####[facility] ([facility])[address] [place] [address] HEPATIC FUNCTION PANELon Albumin [Mass/Vol] 4.4 g/dL Normal 3.5-5.7 [facility] Comment on above: Performed By: #### L [id number] #### [facility] ([facility]) [address] [place] [address] ALP [Catalytic activity/Vol] 46 U/L Normal 34-104 [facility] Comment on above: Performed By: #### L [id number] #### [facility] ([facility] [address] [place] [address] ALT [Catalytic activity/Vol] 12 U/L Normal 7-52 [facility] Comment on above: Performed By: #### L [id number] #### [facility] ([facility] [address] [place] [address] AST [Catalytic activity/Vol] 11 U/L Low 13-39 [facility] Comment on above: Performed By: #### L [id number] #### [facility] ([facility]) [address] [place] [address] Bilirubin [Mass/Vol] 0.5 mg/dL Normal 0.3-1.0 [facility] Comment on above: Performed By: #### L [id number] #### [facility] ([facility]) [address] [place] [address] Magnesium [Mass/Vol] 0.1 mg/dL Normal 0-0.2 [facility] Comment on above: Performed By: #### L [id number] #### [facility] ([facility]) [address] [place] [address] Protein [Mass/Vol] 6.8 g/dL Normal 6.0-8.3 [facility] Comment on above: Performed By: #### L [id number] #### [facility] ([facility]) [address] [place] [address] IGAon 12-19-2023 Magnesium [Mass/Vol] 202 mg/dL Normal 60-413 [facility] Comment on above: Performed By: #### L [id number] ####[facility] ([facility])[address] [place] [address] IRON AND TIBCon 12-19-2023 IRON (UG/DL) IN SER/PLAS 193 ug/dL Normal 50-212 [facility] Comment on above: Performed By: #### L [id number] #### [facility] ([facility] [address] [place] [address] IRON BINDING CAPACITY (UG/DL) IN SER/PLAS 322 ug/dL Normal 250-450 [facility] Comment on above: Performed By: #### L [id number] #### [facility] ([facility]) [address] [place] [address] IRON BINDING CAPACITY.UNSATURATED (UG/DL) IN SER/PLAS 129.0 ug/dL Low 155.0-355.0 [facility] Comment on above: Performed By: #### L [id number] #### [facility] ([facility]) [address] [place] [address] IRON SATURATION (%) IN SER/PLAS 60 % High 20-50 [facility] Comment on above: Performed By: #### L [id number] #### [facility] ([facility]) [address] [place] [address] Labon 12-19-2023 Lab [id number] Freya Razo 1990 Provider Department Center 12/19/2023 2244-[facility] MP LAB RESOURCE MP DRAW Medical Pavi [...] Paternal Grandfather Son Alive Neg Hx Normal [facility] MAGNESIUMon 12-19-2023 Magnesium [Mass/Vol] 1.8 mg/dL Low 1.9-2.7 [facility] Comment on above: Performed By: #### L [id number] #### [facility] ([facility]) [address] [place] [address] Office Visiton 12-19-2023 Follow-up visit [id number] Freya Razo 1990 Date Provider Department Center 12/19/2023 91192-NPPNUJOKUMARÍA MONACO*MP GI Medical Pavi Family History Problem [...] Grandfather Son Alive Neg Hx Level of Service:85993 DC OFFICE/OUTPATIENT ESTABLISHED HIGH MDM 40 MIN Reason for Visit and Comments: Follow-up [901113] chronic pancreatitis [Other] Normal [facility] PHOSPHORUSon 12-19-2023 Magnesium [Mass/Vol] 2.3 mg/dL Low 2.5-5.0 [facility] Comment on above: Performed By: #### L [id number] #### [facility] ([facility]) [address] [place] [address] PREALBUMINon 12-19-2023 Prealbumin [Mass/Vol] 25.1 mg/dL Normal [facility] Comment on above: Performed By: #### L [id number] #### [facility] ([employer]) [address] [place] [address] PROTIME-INRon 12-19-2023 INR IN PPP BY COAGULATION ASSAY 1.01 Normal 0.90-1.10 [facility] Comment on above: Result Comment: [...] 1995;108:231S-246S. Performed By: #### L [id number] #### [facility] ([facility]) [address] [place] [address] PROTHROMBIN TIME (PT) IN PPP BY COAGULATION ASSAY 13.3 Seconds Normal 12.3-14.8 [facility] Comment on above: Performed By: #### L [id number] #### [facility] ([facility]) [address] [place] [address] TISSUE TRANSGLUTAMINASE, IGA on 12-19-2023 TISSUE TRANSGLUTAMINASE, IGA <1.02 Normal 0.00-4.99 [facility] Comment on above: Result Comment: [...] indicate a response to therapy. Performed By: [facility] [address] [place] [address] Stamp Classifier: Jai Lawler MD, PhD CLIA Number: [id number] Performed By: #### L [id number] ####[facility] ([facility])[address] [place] [address] TRANSFERRINon 12-19-2023 Magnesium [Mass/Vol] 238 mg/dL Normal 168-348 [facility] Comment on above: Performed By: #### L [id number] #### [facility] ([facility]) [address] [place] [address] VITAMIN Aon 12-19-2023 VITAMIN A (RETINOL) 0.54 mg/L Normal 0.30-1.20 [facility] Comment on above: Performed By: #### L [id number] #### [facility] ([facility]) [address] [place] [address] VITAMIN A (RETINYL PALMITATE) <0.02 Normal 0.00-0.10 [facility] Comment on above: Performed By: #### L [id number] #### [facility] ([facility]) [address] [place] [address] VITAMIN A, SER/RADHA - INTERPRETATION Normal Normal [facility] Comment on above: Result Comment: This test was developed and its performance characteristics determined by [employer]. It has not been cleared or approved by the US Food and Drug Administration. This test was performed in a CLIA certified laboratory and is intended for clinical purposes. Performed By: [facility] [address] [place] [address] Stamp Classifier: Jai Lawler MD, PhD CLIA Number: [id number] Performed By: #### L [id number] #### [facility] ([facility]) [address] [place] [address] VITAMIN B1on 12-19-2023 VITAMIN B1, PLASMA 20 nmol/L High 4-15 [facility] Comment on above: Result Comment: INTE RPRETIVE DATA: Vitamin B1, Plasma Thiamine (vitamin B1) is reported. However, thiamine diphosphate (TDP), the biologically active form of thiamine, is not found in measurable concentrations in plasma, and is best determined in whole blood specimens. Plasma thiamine concentration reflects recent intake rather than body stores. This test was developed and its performance characteristics determined by [employer]. It has not been cleared or approved by the US Food and Drug Administration. This test was performed in a CLIA certified laboratory and is intended for clinical purposes. Performed By: [facility] [address] [place] [address] Stamp Classifier: Jai Lawler MD, PhD CLIA Number: [id number] Performed By: #### L [id number] ####[facility] ([facility])[address] [place] [address] VITAMIN B12on 12-19-2023 Cobalamin (Vitamin B12) [Mass/Vol] 696 pg/mL Normal 180-914 [facility] Comment on above: Result Comment: REFE RENCE RANGES: 180-914 pg/mL Normal 145-179 pg/mL Indeterminate <145 pg/mL Deficient Performed By: #### L [id number] ####[facility] ([facility] [place] [address] VITAMIN B6on 12-19-2023 VITAMIN B6 197.2 nmol/L High 20.0-125.0 [facility] Comment on above: Result Comment: INTE RPRETIVE INFORMATION: Vitamin B6 (Pyridoxal 5-Phosphate) Pyridoxal 5'-phosphate measured in a specimen collected following an 8-hour or overnight fast accurately indicates vitamin B6 nutritional status. Non-fasting specimen concentration reflects recent vitamin intake. This test was developed and its performance characteristics determined by [employer]. It has not been cleared or approved by the US Food and Drug Administration. This test was performed in a CLIA certified laboratory and is intended for clinical purposes. Performed By: [facility] [address] [place] [address] Stamp Classifier: Jai Lawler MD, PhD CLIA Number: [id number] Performed By: #### L [id number] #### [facility] ([facility]) [address] [place] [address] VITAMIN D 25 HYDROXYon 12-18 CALCIDIOL (25 [place] VITAMIN D3) (NG/ML) IN SER/PLAS 35.8 ng/mL Normal 30.0-80.0 [facility] Comment on above: Result Comment: >80. 0 Toxicity possible Performed By: #### L [id number] #### [facility] ([facility]) [address] [place] [address] VITAMIN Blane 12-19-2023 VITAMIN E LEVEL (ALPHA-TOCOPHEROL) 5.9 mg/L Normal 5.5-18.0 [facility] Comment on above: Result Comment: This test was developed and its performance characteristics determined by [employer]. It has not been cleared or approved by the US Food and Drug Administration. This test was performed in a CLIA certified laboratory and is intended for clinical purposes. Performed By: #### L [id number] ####[facility] ([facility])[address] [place] [address] VITAMIN E LEVEL (GAMMA-TOCOPHEROL) 0.5 mg/L Normal 0.0-6.0 [facility] Comment on above: Result Comment: Perf ormed By: [employer] [address] [place] [address] Stamp Classifier: Jai Lawler MD, PhD CLIA Number: [id number] Performed By: #### L [id number] ####[facility] ([facility])[address] [place] [address] ZINCon 12-19-2023 ZINC 73.8 ug/dL Normal 60.0-120.0 [facility] Comment on above: Result Comment: [...] developed and its performance characteristics determined by [employer]. It has not been cleared or approved by the US Food and Drug Administration. This test was performed in a CLIA certified laboratory and is intended for clinical purposes. Performed By: [facility] [address] [place] [address] Stamp Classifier: aJi Lawler MD, PhD CLIA Number: [id number] Performed By: #### L [id number] ####[facility] ([facility])[address] [place], [place] [id number] Pathology Request for Lab Co rpon 12-05-2023 Pathology Request for Lab Jen Normal [facility] Comment on above: Order Comment: PATHO LOGY ORGANIC SECTION TECHNICAL LEAD SPECIMEN Result Comment: See report. Scanned copy available in EMR. PERFORMED BY: [place] [address] PATHOLOGIST [employer]OOK [employer] PATRIZIA FITZPATRICK M.D. Performed By: #### P ATH TO [facility] #### [address] 36on 10-19-2023 36 Called pt and inform ed of script sent to the pharmacy. [facility] 36 Pt calling wanting t o know if she can get a refill on her creon sent to the pharmacy until her scheduled appt in November. She is taking Creon 24,000 and she states that she is taking 18 pills a day. [facility] Orders Onlyon 10-19-2023 Orders Only [id number] Freya Razo 1990 F Date Provider Department Center 10/19/2023 63372-PYVEWIMBZMARÍA MONACO*MP GI Medical Pavi Family History Problem [...] Grandmother Paternal Grandfather Son Alive Neg Hx [facility] 37on 07-27-2023 37 Please take your thyroid hormone medication (levothyroxine) first thing in the morning on empty stomach with plain water, from other medication by 1 to 2 hours (especially calcium, iron and multivitamin pills), and wait 30 min before eating. [facility] Office Visiton 07-27-2023 Follow-up visit [id number] Freya Razo 1990 Date Provider Department Center 07/27/2023 MIKE LIPSCOMB [facility] END[facility]CR [facility] Family History Problem Relation Age of Onset [...] Grandfather Son Alive Neg Hx Level of Service:28052 DC OFFICE/OP CONSLTJ NEW/EST PT MOD MDM 40 MINUTES (GC) Reason for Visit and Comments: Thyroid Problem [110] - New patient [facility] Orders Onlyon 07-24-2023 Orders Only [id number] Keanu Razon 1990 F Date Provider Department Center 07/24/2023 SHAWN INMAN Ambassador [facility] [place] [facility] Family History Problem Relation Age of [...] Paternal Grandfather Son Alive Neg Hx Normal [facility] Orders Onlyon 06-07-2023 Orders Only [id number] Freya Razo 1990 F Date Provider Department Center 06/07/2023 SHAWN INMAN Ambassador [facility] [place] [facility] Family History Problem Relation Age of [...] Paternal Grandfather Son Alive Neg Hx Normal [facility] CBC WITH AUTO DIFFERENTIALon 05-23-2023 Erythrocyte distribution width (RBC) [Ratio] 13.4 % Normal 11.5-15.0 [facility] Comment on above: Performed By: #### L [id number] #### [facility] ([facility]) [address] [place] [address] ERYTHROCYTE MEAN CORPUSCULAR HEMOGLOBIN CONCENTRATION (G/DL) BY AUTOMATED 33.3 g/dL Normal 32.0-35.0 [facility] Comment on above: Performed By: #### L [id number] #### [facility] ([facility]) [address] [place] [address] Hematocrit (Bld) [Volume fraction] 39.0 % Normal 36.0-48.0 [facility] Comment on above: Performed By: #### L [id number] #### [facility] ([facility] [address] [place] [address] Hemoglobin (Bld) [Mass/Vol] 13.0 g/dL Normal 12.0-15.0 [facility] Comment on above: Performed By: #### L [id number] #### [facility] ([facility]) [address] [place] [address] MCH (RBC) [Entitic mass] 30.2 pg Normal 27.0-33.0 [facility] Comment on above: Performed By: #### L [id number] #### [facility] ([facility]) [address] [place] [address] MCV (RBC) [Entitic vol] 90.5 fL Normal 82.0-98.0 [facility] Comment on above: Performed By: #### L [id number] #### [facility] ([facility]) [address] [place] [address] NRBC (PER 100 WBCS) BY AUTOMATED COUNT 0.0 % Normal 0 [facility] Comment on above: Performed By: #### L [id number] #### [facility] ([facility]) [address] [place] [address] PLATELETS (10*3/UL) IN BLOOD AUTOMATED COUNT 444 10*3/uL High 150-400 [facility] Comment on above: Performed By: #### L [id number] #### [facility] ([facility]) [address] [place] [address] RBC (Bld) [#/Vol] 4.31 10*6/uL Normal 3.80-5.00 [facility] Comment on above: Performed By: #### L [id number] #### [facility] ([facility]) [address] [place] [address] WBC (Bld) [#/Vol] 11.91 10*3/uL High 4.00-10.60 [facility] Comment on above: Performed By: #### L [id number] #### [facility] ([facility] [address] [place] [address] COMPREHENSIVE METABOLIC PANE Jason 05-23-2023 Albumin [Mass/Vol] 4.3 g/dL Normal 3.5-5.7 [facility] Comment on above: Performed By: #### L [id number] #### [facility] ([facility] [address] [place] [address] ALP [Catalytic activity/Vol] 50 U/L Normal 34-104 [facility] Comment on above: Performed By: #### L [id number] #### [facility] ([facility] [address] [place] [address] ALT [Catalytic activity/Vol] 41 U/L Normal 7-52 [facility] Comment on above: Performed By: #### L [id number] #### [facility] ([facility] [address] [place] [address] Anion gap [Moles/Vol] 7 mmol/L Normal 7-20 [facility] Comment on above: Performed By: #### L [id number] #### [facility] ([facility])) [address] [place] [address] AST [Catalytic activity/Vol] 21 U/L Normal 13-39 [facility] Comment on above: Performed By: #### L [id number] #### [facility] ([facility])) [address] [place] [address] Bilirubin [Mass/Vol] 0.3 mg/dL Normal 0.3-1.0 [facility] Comment on above: Performed By: #### L [id number] #### [facility] ([facility])) [address] [place] [address] Calcium [Mass/Vol] 9.1 mg/dL Normal 8.6-10.3 [facility] Comment on above: Performed By: #### L [id number] #### [facility] ([facility])) [address] [place] [address] Chloride [Moles/Vol] 105 mmol/L Normal 98-107 [facility] Comment on above: Performed By: #### L [id number] #### [facility] ([facility] [address] [place] [address] CO2 [Moles/Vol] 30 mmol/L Normal 21-31 [facility] Comment on above: Performed By: #### L [id number] #### [facility] ([facility]) [address] [place] [address] Creatinine [Mass/Vol] 0.52 mg/dL Low 0.60-1.20 [facility] Comment on above: Performed By: #### L [id number] #### [facility] ([facility]) [address] [place] [address] GLOMERULAR FILTRATION RATE ML/MIN/1.73 SQ M.PREDICTED 126.5 mL/min/1.73m*2 Normal >60.0 [facility] Comment on above: Result Comment: [facility]???s estimated glomerular filtration rate (eGFR) will [...] individuals. Performed By: #### L [id number] #### [facility] ([facility]) [address] [place] [address] Glucose [Mass/Vol] 124 mg/dL High 70-100 [facility] Comment on above: Performed By: #### L [id number] #### [facility] ([facility] [address] [place] [address] Potassium [Moles/Vol] 3.8 mmol/L Normal 3.5-5.1 [facility] Comment on above: Performed By: #### L [id number] #### [facility] ([facility]) [address] [place] [address] Protein [Mass/Vol] 6.6 g/dL Normal 6.0-8.3 [facility] Comment on above: Performed By: #### L [id number] #### [facility] ([facility] [address] [place] [address] Sodium [Moles/Vol] 138 mmol/L Normal 136-145 [facility] Comment on above: Performed By: #### L [id number] #### [facility] ([facility] [address] [place] [address] Urea nitrogen [Mass/Vol] 12 mg/dL Normal 7-25 [facility] Comment on above: Performed By: #### L [id number] #### [facility] ([facility]) [address] [place] [address] UREA NITROGEN/CREATININE (MASS RATIO) IN SER/PLAS 23.1 Normal [facility] Comment on above: Performed By: #### L [id number] #### [facility] ([facility])) [address] [place] [address] Labon 05-23-2023 Lab [id number] Freya Razo 1990 F Date Provider Department Center 05/23/2023 2245-[facility] OPD LAB RESOURCE [facility] [place] [facility] Family History Problem Relation Age of Onset [...] Paternal Grandfather Son Alive Neg Hx Normal [facility] MANUAL DIFFERENTIALon 2023 BASOPHILS (10*3/UL) IN BLOOD BY CALCULATION 0.00 10*3/uL Normal 0.00-0.20 [facility] Comment on above: Performed By: #### L [id number] ####[facility] ([facility])[address] [place] [address] BASOPHILS/100 LEUKOCYTES IN BLOOD BY AUTOMATED COUNT 0.0 % Normal 0.0-1.0 [facility] Comment on above: Performed By: #### L [id number] ####[facility] ([facility])[address] [place] [address] EOSINOPHILS (10*3/UL) IN BLOOD BY CALCULATION 0.86 10*3/uL High 0.00-0.50 [facility] Comment on above: Performed By: #### L [id number] ####[facility] ([facility])[address] [place] [address] EOSINOPHILS/100 LEUKOCYTES IN BLOOD BY AUTOMATED COUNT 7.2 % High 0.0-6.0 [facility] Comment on above: Performed By: #### L [id number] ####[facility] ([facility])[address] [place] [address] IMMATURE GRANULOCYTES (10*3/UL) IN BLOOD BY CALCULATION 0.04 10*3/uL Normal 0.00-0.20 [facility] Comment on above: Performed By: #### L [id number] ####[facility] ([facility])[address] [place] [address] IMMATURE GRANULOCYTES/100 LEUKOCYTES IN BLOOD BY AUTOMATED COUNT 0.3 % Normal 0.0-1.0 [facility] Comment on above: Performed By: #### L [id number] ####[facility] ([facility])[address] [place] [address] LYMPHOCYTES (10*3/UL) IN BLOOD BY CALCULATION 3.37 10*3/uL Normal 1.20-4.00 [facility] Comment on above: Performed By: #### L [id number] ####[facility] ([facility])[address] [place] [address] LYMPHOCYTES/100 LEUKOCYTES IN BLOOD BY AUTOMATED COUNT 28.3 % Normal 20.0-45.0 [facility] Comment on above: Performed By: #### L [id number] ####[facility] ([facility])[address] [place] [address] MONOCYTES (10*3/UL) IN BLOOD BY CALCUATION 0.79 10*3/uL Normal 0.10-1.00 [facility] Comment on above: Performed By: #### L [id number] ####[facility] ([facility])[address] [place] [address] MONOCYTES/100 LEUKOCYTES IN BLOOD BY AUTOMATED COUNT 6.6 % Normal 5.0-12.0 [facility] Comment on above: Performed By: #### L [id number] ####[facility] ([facility])[address] [place] [address] NEUTROPHILS (10*3/UL) IN BLOOD BY CALCULATION 6.9 10*3/uL Normal 1.6-7.6 [facility] Comment on above: Performed By: #### L [id number] ####[facility] ([facility])[address] [place] [address] NEUTROPHILS/100 LEUKOCYTES IN BLOOD BY AUTOMATED COUNT 57.9 % Normal 40.0-72.0 [facility] Comment on above: Performed By: #### L [id number] ####[facility] ([facility])[address] [place] [address] PLASMA CELLS/100 LEUKOCYTES IN BLOOD 0 % Normal 0 [facility] Comment on above: Performed By: #### L [id number] ####[facility] ([facility])[address] [place] [address] PLATELETS GIANT PRESENCE IN BLOOD BY LIGHT MICROSCOPY Present Normal [facility] Comment on above: Performed By: #### L [id number] ####[facility] ([facility])[address] [place] [address] VARIANT LYMPHOCYTES (10*3/UL) IN BLOOD BY CALCULATION 0.00 10*3/uL Normal 0.00 [facility] Comment on above: Performed By: #### L [id number] ####[facility] ([facility] [place] [address] VARIANT LYMPHOCYTES/100 LEUKOCYTES IN BLOOD CELLAVISION 0.0 % Normal 0.0-0.0 [facility] Comment on above: Performed By: #### L [id number] ####[facility] ([facility]))[address] [place] [address] METANEPHRINES PLASMAon 05-23 METANEPHRINE <0.10 Normal 0.00-0.49 [facility] Comment on above: Performed By: #### L [id number] #### [facility] ([facility] [address] [place] [address] METANEPHRINE INTERP See Note Normal [facility] Comment on above: Result Comment: INTE RPRETIVE [...] developed and its performance characteristics determined by [facility]. It has not been cleared or approved by the [place] Food and Drug Administration. This test was performed in a CLIA certified laboratory and is intended for clinical purposes. Performed By: [facility] [address] [place] [id number] Stamp Classifier: Jai Lawler MD, PhD CLIA Number: [id number] Performed By: #### L [id number] #### [facility] ([facility])) [address] [place] [address] NORMETANEPHRINE 0.43 nmol/L Normal 0.00-0.89 [facility] Comment on above: Performed By: #### L [id number] #### [facility] ([facility])) [address] [place] [address] Office Visiton 05-23-2023 Follow-up visit [id number] Freya Razo 1990 F Date Provider Department Center 05/23/2023 SHAWN [facility]ARD [place] [facility] Family History [...] Grandfather Son Alive Neg Hx Level of Service:76981 DC OFFICE/OUTPATIENT ESTABLISHED MOD MDM 30 MIN Reason for Visit and Comments: Follow-up [143453] Normal [facility] PTH, INTACTon 05-23-2023 PARATHYRIN INTACT (PG/ML) IN SER/PLAS 31 pg/mL Normal 12- [facility] Comment on above: Performed By: #### L [id number] ####[facility] ([facility])[address] [place] [address] THYROID PEROXIDASE ANTIBODYo n 05-23-2023 THYROPEROXIDASE AB (IU/ML) IN SER/PLAS 26.6 IU/mL High 0.0-9.0 [facility] Comment on above: Result Comment: Perf ormed By: [facility] [address] [place] [address] Stamp Classifier: Jai Lawler MD, PhD CLIA Number: [id number] Performed By: #### L [id number] ####[facility] ([facility])[address] [place] [address] THYROID STIMULATING IMMUNOGL OBULINon 05-23-2023 THYROID STIMULATING IMMUNOGLOBULIN <0.10 Normal <=0.54 [facility] Comment on above: Result Comment: [...] medical history, and other findings. Performed By: [facility] [address] [place] [address] Stamp Classifier: Jai Lawler MD, PhD CLIA Number: [id number] Performed By: #### L [id number] #### [facility] ([place]) [address] [place] [address] TSHon 05-23-2023 THYROTROPIN (MIU/L) IN SER/PLAS BY DETECTION LIMIT <= 0.05 MIU/L 0.86 mIU/L Normal 0.34-5.60 [facility] Comment on above: Performed By: #### L [id number] #### [facility] ([facility]) [address] [place] [address] 36on 01-02-2023 36 Follow up call made. LVM to call [phone]. 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 If the patient was unable to fill at that rx, Reina has it available at the [facility] Access Rx. Normal [facility] 36on 12-30-2022 36 Patient calls [...] ALLOCATION NEXT RELEASE LATE DEC 2022 Notes FAMILY PSYCHOLOGIST IS OUT OF STOCK. FULL RECOVERY TBD Please advise. Normal [facility] THYROGLOBULINon 06-03-2022 Thyroglobulin 3.4 ng/mL Normal [facility] Comment on above: Result Comment: This test was developed and its performance characteristics determined by [facility]. It has not been cleared or approved [...] ng/mL. Performed By: #### A 1C #### [facility] [address] [place] [address] Dr. Michael Williamson THYR STIM IMMUNOGLOBULINon 0 05-27-2022 Thyroid Sim Immunoglobulin <0.10 Normal 0.00-0.55 [facility] Comment on above: Performed By: #### T HSI #### [facility] [address] [place] [address] Dr. Michael Williamson FREE T3on 05-25-2022 FREE T3 2.72 pg/mlL Normal 2.18-3.98 [facility] Comment on above: Performed By: #### F T3, TSH #### [facility] [address] [place] [address] Dr. Michael Williamson FREE T4on 05-25-2022 Free T4 [Mass/Vol] 0.83 ng/dL Normal 0.76-1.46 [facility] Comment on above: Performed By: #### F T4 #### [facility] [address] [place] [address] Dr. Michael Williamson TSHon 05-25-2022 TSH 0.798 uIU/mL Normal 0.358-3.740 [facility] Comment on above: Performed By: #### F T3, TSH #### [facility] [address] [place] [address] Dr. Michael Williamson US THYROIDon 05-25-2022 US [...] by: LUCERO SCHROEDER Date: 2022-05-25 10:55 Normal [facility] PAP ACOG PANEL 2: 30 to 65on 10-08-2021 . . Normal [facility] Comment on above: Result Comment: Perf ormed at: WB Performed By: #### A 1C #### [facility] [address] [address] [address] Michael Williamson Age Gdln ACOG Testing 30-65 Normal [facility] Comment on above: Performed By: #### A 1C #### [facility] [address] [address] [address] Michael Williamson DIAGNOSIS: Comment Normal [facility] Comment on above: Result Comment: NEGA TIVE FOR INTRAEPITHELIAL LESION OR MALIGNANCY. CELLULAR CHANGES ASSOCIATED WITH INFLAMMATION ARE PRESENT. Performed at: WB Performed By: #### A 1C #### [facility] [address] [place] [address] Dr. Michael Williamson HPV Aptima Negative Normal Negative [facility] Comment on above: Result Comment: This nucleic acid amplification test detects fourteen high-risk HPV types (16,18,31,33,35,39,45,51,52,56,58,59,66,68) without differentiation. Performed at: =G Performed By: #### A 1C #### [facility] [address] [place] [address] Dr. Michael Wliliamson Methodology: Comment Normal [facility] Comment on above: Result Comment: This liquid based ThinPrep(R) pap test was screened with the use of an image guided system. Performed at: WB Performed By: #### A 1C #### [facility] [address] [place] [address] Dr. Michael Williamson Note: Comment Normal [facility] Comment on above: Result Comment: The [...] WB Performed By: #### A 1C #### [facility] [address] [address] [address] Michael Williamson Performed by: Comment Normal [facility] Comment on above: Result Comment: Toshia Cordoba, Supervisory Rim Roller Operator (ASCP) Performed at: WB Performed By: #### A 1C #### [facility] [address] [address] [address] Michael Williamson Specimen adequacy: Comment Normal [facility] Comment on above: Result Comment: Sati sfactory for evaluation. Endocervical and/or squamous metaplastic cells (endocervical component) are present. Performed at: WB Performed By: #### A 1C #### [facility] [address] [address] [address] Michael Williamson ESTRADIOLon 10-06-2021 Estradiol 7.1 pg/mL Normal [facility] Comment on above: Result Comment: Adul t Female: Follicular phase 12.5 - 166.0 Ovulation phase 85.8 - 498.0 Luteal phase 43.8 - 211.0 Postmenopausal <6.0 - 54.7 1st trimester 215.0 - >4300.0 [facility] ECLIA methodology Performed By: #### A 1C #### [facility] [address] [address] [address] Michael Williamson PROGESTERONEon 10-06-2021 Progesterone <0.1 [facility] Comment on above: Result Comment: Foll icular phase 0.1 - 0.9 Luteal phase 1.8 - 23.9 Ovulation phase 0.1 - 12.0 First trimester 11.0 - 44.3 Second trimester 25.4 - 83.3 Third trimester 58.7 - 214.0 Postmenopausal 0.0 - 0.1 Performed By: #### P RADHA #### [facility] [address] [address] [address] Michael Williamson CALCIUMon 10-05-2021 Calcium [Mass/Vol] 8.5 mg/dL Normal 8.5-10.1 [facility] Comment on above: Performed By: #### A 1C #### [facility] [address] [place] [address] Dr. Michael Williamson CBC AUTO DIFFon 10-05-2021 BASO # 0.1 103/ul Normal 0.0-0.1 [facility] Comment on above: Performed By: #### C BC #### [facility] [address] [place] [address] Dr. Michael Williamson Basophils/100 WBC (Bld) 0.9 % Normal 0.2-2.0 [facility] Comment on above: Performed By: #### C BC #### [facility] [address] [place] [address] Dr. Michael Williamson EO # 0.2 103/ul Normal 0.0-0.7 [facility] Comment on above: Performed By: #### C BC #### [facility] [address] [place] [address] Dr. Michael Williamson Eosinophils/100 WBC (Bld) 2.2 % Normal 0.9-7.0 [facility] Comment on above: Performed By: #### C BC #### [facility] [address] [place] [address] Dr. Michael Williamson Erythrocyte distribution width (RBC) [Ratio] 13.3 % Normal 11.0-15.0 [facility] Comment on above: Performed By: #### C BC #### [facility] [address] [place] [address] Dr. Michael Williamson Hematocrit (Bld) [Volume fraction] 39.4 % Normal 36.0-48.0 [facility] Comment on above: Performed By: #### C BC #### [facility] [address] [place] [address] Dr. Michael Williamson Hemoglobin (Bld) [Mass/Vol] 12.7 g/dL Normal 12.0-16.0 [facility] Comment on above: Performed By: #### C BC #### [facility] [address] [place] [address] Dr. Michael Williamson IG # 0.02 10e3/ul Normal 0.00-0.03 [facility] Comment on above: Performed By: #### C BC #### [facility] [address] [place] [address] Dr. Michael Williamson IG % 0.2 % Normal 0.0-0.5 [facility] Comment on above: Performed By: #### C BC #### [facility] [address] [place] [address] Dr. Michael Williamson LYMPH # 3.4 103/ul Normal 1.2-3.8 [facility] Comment on above: Performed By: #### C BC #### [facility] [address] [place] [address] Dr. Michael Williamson Lymphocytes/100 WBC (Bld) 31.4 % Normal 20.5-60.0 [facility] Comment on above: Performed By: #### C BC #### [facility] [address] [place] [address] Dr. Michael Williamson MANUAL DIFF REQ NO Normal [facility] Comment on above: Performed By: #### C BC #### [facility] [address] [place] [address] Dr. Michael Williamson MCH (RBC) [Entitic mass] 29.3 pg Normal 26.7-34.0 [facility] Comment on above: Performed By: #### C BC #### [facility] [address] [place] [address] Dr. Michael Williamson MCHC (RBC) [Mass/Vol] 32.2 g/dL Normal 29.9-35.2 [facility] Comment on above: Performed By: #### C BC #### [facility] [address] [place] [address] Dr. Michael Williamson MCV (RBC) [Entitic vol] 91.0 fL Normal 81.0-99.0 [facility] Comment on above: Performed By: #### C BC #### [facility] [address] [place] [address] Dr. Michael Williamson MONO # 1.1 103/ul Critically high 0.3-0.8 [facility] Comment on above: Performed By: #### C BC #### [facility] [address] [place] [address] Dr. Michael Williamson Monocytes/100 WBC (Bld) 10.4 % Normal 1.7-12.0 [facility] Comment on above: Performed By: #### C BC #### [facility] [address] [place] [address] Dr. Michael Williamson NEUT # 6.0 103/ul Normal 1.4-6.5 [facility] Comment on above: Performed By: #### C BC #### [facility] [address] [place] [address] Dr. Michael Williamson Neutrophils/100 WBC (Bld) 54.9 % Normal 43.0-75.0 [facility] Comment on above: Performed By: #### C BC #### [facility] [address] [place] [address] Dr. Michael Williamson Platelet mean volume (Bld) [Entitic vol] 9.6 fL Normal 9.5-13.5 [facility] Comment on above: Performed By: #### C BC #### [facility] [address] [place] [address] Dr. Michael Williamson PLT 490 103/ul Critically high 150-450 [facility] Comment on above: Performed By: #### C BC #### [facility] [address] [place] [address] Dr. Michael Williamson RBC 4.33 106/ul Normal 4.20-5.40 [facility] Comment on above: Performed By: #### C BC #### [facility] [address] [place] [address] Dr. Michael Williamson WBC 10.9 103/ul Normal 4.0-11.0 [facility] Comment on above: Performed By: #### C BC #### [facility] [address] [place] [address] Dr. Michael Williamson ELECTROLYTESon 10-05-2021 Anion gap [Moles/Vol] 13.5 mmol/L Normal [facility] Comment on above: Performed By: #### A 1C #### [facility] [address] [place] [address] Dr. Michael Williamson Chloride [Moles/Vol] 105 mmol/L Normal 98-107 [facility] Comment on above: Performed By: #### A 1C #### [facility] [address] [place] [address] Dr. Michael Williamson CO2 [Moles/Vol] 27.9 mmol/L Normal 21.0-32.0 [facility] Comment on above: Performed By: #### A 1C #### [facility] [address] [place] [address] Dr. Michael Williamson Potassium [Moles/Vol] 3.4 mmol/L Critically low 3.5-5.1 [facility] Comment on above: Performed By: #### A 1C #### [facility] [address] [place] [address] Dr. Michael Williamson Sodium [Moles/Vol] 143 mmol/L Normal 136-145 [facility] Comment on above: Performed By: #### A 1C #### [facility] [address] [place] [address] Dr. Michael Williamson FREE T4on 10-05-2021 Free T4 [Mass/Vol] 0.85 ng/dL Normal 0.76-1.46 [facility] Comment on above: Performed By: #### F T4, VITB12 #### [facility] [address] [place] [address] Dr. Michael Williamson GLYCOHEMOGLOBIN A1Con 2021 ADA RECOMMENDATION SEE BELOW Normal [facility] Comment on above: Result Comment: ADA RECOMMENDED LIMIT 4.0 - 6.0 ADA THERAPEUTIC TARGET < 7.0 ACTION SUGGESTED > 7.0 Performed By: #### A 1C #### [facility] [address] [place] [address] Dr. Michael Williamsno Glucose [Mass/Vol] 126 mg/dL Normal [facility] Comment on above: Performed By: #### A 1C #### [facility] [address] [place] [address] Dr. Michael Williamson HbA1c (Bld) [Mass fraction] 6.0 % Normal 4.5-6.2 [facility] Comment on above: Performed By: #### A 1C #### [facility] [address] [place] [address] Dr. Michael Williamson MAGNESIUMon 10-05-2021 Magnesium [Mass/Vol] 1.8 mg/dL Normal 1.8-2.4 [facility] Comment on above: Performed By: #### A 1C #### [facility] [address] [place] [address] Dr. Michael Williamson TSHon 10-05-2021 TSH 0.727 uIU/mL Normal 0.358-3.740 [facility] Comment on above: Performed By: #### A 1C #### [facility] [address] [place] [address] Dr. Michael Williamson TSH RANGE SEE BELOW Normal [facility] Comment on above: Result Comment: <0.3 4 UIU/ml HYPERTHYROID 0.34-5.60 UIU/ml EUTHYROID >5.60 UIU/ml HYPOTHYROID Performed By: #### A 1C #### [facility] [address] [place] [address] Dr. Michael Williamson VITAMIN B12on 10-05-2021 Cobalamin (Vitamin B12) [Mass/Vol] 1077.0 pg/mL Critically high 193.0-986.0 [facility] Comment on above: Performed By: #### F T4, VITB12 #### [facility] [address] [place] [address] Dr. Michael Williamson Physician Orderon 12-13-2020 Physician Order [id number] 00 [id number]. 00CD:127 Normal [facility] FOLATE SERUMon 07-17-2018 Folate mass conc 27.43 ng/mL Normal 6.60-1000.00 [facility] Comment on above: Result Comment: Norm al range reflects World Health Organization International Standard Performed By: #### 4 6413, 18783, 63021, 33191, 64173 #### [facility] [address] [place] [address], [place] VITAMIN A [id number] 07-17-2018 INTERPRETATION (VIT A) Normal Normal [facility] Comment on above: Result Comment: Test developed and characteristics determined by [employer]. See Compliance Statement B: [facility]/CS Performed by [employer], [address] [place] [address] www.[employer], Ahsan Abel MD - Lab. Director RETINYL PALMTATE <0.02 Normal 0.00-0.10 The [facility] VITAMIN A MG/L 0.45 mg/L Normal 0.30-1.20 The [facility] VITAMIN B12on 07-17-2018 Cobalamin (Vitamin B12) mass conc 679 pg/mL Normal 180-914 The [facility] Comment on above: Result Comment: REFE RENCE RANGES: 180-914 pg/mL Normal 145-179 pg/mL Indeterminate <145 pg/mL Deficient Performed By: #### 4 6413, 47947, 35553, 67007, 89569 #### [facility] [address] VITAMIN D 25-HYDROXYon 07-17 VITAMIN D 25-OH 21.0 ng/mL Low 30.0-80.0 The [facility] Comment on above: Result Comment: >80. 0 Toxicity possible Performed By: #### 4 6413, 26045, 56875, 61588, 73455 #### [facility] [address] [place] [address], [facility] POC URINE PREGNANCYon 2018 HCG.beta subunit ( test) Ql (U) Negative Normal NEGATIVE The [facility] Comment on above: Result Comment: Perf ormed in PACU Performed By: #### 8 4140 #### [facility] [address] [place] [address], [facility] AMYLASE BLOODon 06-12-2018 Amylase enzyme act/vol 21 Units/L Low 29-103 [facility] Comment on above: Performed By: #### 4 6413, 47476, 86152, 18226, 31097 #### [facility] [address] [place] [address], [place] ANAon 06-12-2018 Nuclear Ab IF titer (S) 1:80 Abnormal <1:40,1:40 [facility] Comment on above: Performed By: #### 6 2510, 83435 #### [facility] [address] [place] [address], [facility] Nuclear Ab IF titer (S) SPECKLED Normal [facility] Comment on above: Performed By: #### 6 2510, 97406 #### [facility] [address] [place] [address], [facility] COMP METABOLIC PANELon 06-12 Albumin mass conc 4.4 g/dL Normal 3.5-5.7 The [facility] Comment on above: Performed By: #### 4 6413, 14022, 33106, 55721, 87806 #### [facility] [address] [place] [address], [facility] ALKALINE PHOSPH 96 IU/L Normal 34-104 [facility] Comment on above: Performed By: #### 4 6413, 80988, 93655, 28366, 33836 #### [facility] [address] [place] [address], [facility] ALT enzyme act/vol 484 U/L Critically high 7-52 T he [facility] Comment on above: Performed By: #### 4 6413, 62068, 17404, 99175, 18232 #### [facility] [address] [place] [address], [facility] AST enzyme act/vol 424 U/L High 13-39 [facility] Comment on above: Performed By: #### 4 6413, 82452, 18607, 99334, 95138 #### [facility] [address] [place] [id number], [facility] Bilirubin mass conc 0.8 mg/dL Normal 0.3-1.0 [facility] Comment on above: Performed By: #### 4 6413, 85888, 55108, 06321, 71435 #### [facility] [address] [place] [address], [place] Calcium mass conc 9.1 mg/dL Normal 8.6-10.3 [facility] Comment on above: Performed By: #### 4 6413, 74013, 84498, 91525, 07864 #### [facility] [address] [place] [address], [place] Chloride molar conc 104 mmol/L Normal 98-107 [facility] Comment on above: Performed By: #### 4 6413, 87874, 03948, 65623, 29046 #### [facility] [address] [place] [address], [place] CO2 molar conc 28 mmol/L Normal 21-31 The [facility] Comment on above: Performed By: #### 4 6413, 65801, 03074, 79090, 44214 #### [facility] [address] [place] [address], [place] Creatinine mass conc 0.53 mg/dL Low 0.60-1.20 [facility] Comment on above: Performed By: #### 4 6413, 56209, 76220, 09547, 07450 #### [facility] [address] [place] [address], [place] GFR/1.73 sq M predicted among blacks MDRD vol rate/area (S/P/Bld) mL/min/{1.73_m2} Normal >60 The [facility] Comment on above: Performed By: #### 4 6413, 23117, 71055, 58054, 03190 #### [facility] [address] [place] [address], [place] GFR/1.73 sq M predicted among non-blacks MDRD vol rate/area (S/P/Bld) mL/min/{1.73_m2} Normal >60 The [facility] Comment on above: Performed By: #### 4 6413, 88432, 69993, 41448, 40168 #### [facility] [address] [place] [address], [place] Glucose mass conc 88 mg/dL Normal 70-100 The [facility] Comment on above: Performed By: #### 4 6413, 37372, 28060, 07040, 54244 #### [facility] [address] [place] [address], [facility] Potassium molar conc 4.0 mmol/L Normal 3.5-5.1 The [facility] Comment on above: Performed By: #### 4 6413, 79976, 99090, 58714, 78518 #### [facility] [address] [place] [address], [facility] Protein mass conc 7.0 g/dL Normal 6.0-8.3 The [facility] Comment on above: Performed By: #### 4 6413, 09886, 58916, 66225, 81845 #### [facility] [address] [place] [address], [facility] Sodium molar conc 139 mmol/L Normal 136-145 The [facility] Comment on above: Performed By: #### 4 6413, 63257, 20470, 03993, 98261 #### [facility] [address] [place] [address], [facility] Urea nitrogen mass conc 8 mg/dL Normal 7-25 The [facility] Comment on above: Performed By: #### 4 6413, 13542, 82522, 73149, 08638 #### [facility] [address] [place] [address], [place] IGG SUBCLASSES (1,2,3,4) 505 77on 06-12-2018 IGG SUBCLASS 1 520 mg/dL Normal 240-1118 The [facility] Comment on above: Result Comment: REFE RENCE INTERVAL: Immunoglobulin G Subclass 1 Access complete set of age- and/or gender-specific reference intervals for this test in the [facility] Laboratory Test Directory ([facility]). IGG SUBCLASS 2 265 mg/dL Normal 124-549 The [facility] Comment on above: Result Comment: REFE RENCE INTERVAL: Immunoglobulin G Subclass 2 Access complete set of age- and/or gender-specific reference intervals for this test in the [facility] Test Directory (Return Path). IGG SUBCLASS 3 50 mg/dL Normal 21-134 The [facility] Comment on above: Result Comment: REFE RENCE INTERVAL: Immunoglobulin G Subclass 3 Access complete set of age- and/or gender-specific reference intervals for this test in the [facility]arrative Laboratory Test Directory (Return Path). IGG SUBCLASS 4 19 mg/dL Normal 1-123 The [facility] Comment on above: Result Comment: The total IgG (mg/dL) can be derived by the sum of the subclasses IgG1, IgG2, IgG3 and IgG4 values. However, a confirmatory and more precise total IgG is available by the nephelometric method of total IgG (Test # [id number]). REFERENCE INTERVAL: Immunoglobulin G Subclass 4 Access complete set of age- and/or gender-specific reference intervals for this test in the [facility]arrative Laboratory Test Directory (Return Path). Performed by [employer], [address] [place] [id number] www.[employer], Ahsan Abel MD - Lab. Director LIPASE BLOODon 06-12-2018 Lipase enzyme act/vol 82 Units/L Normal 11-82 The [facility] Comment on above: Performed By: #### 4 6413, 24351, 84945, 10565, 69919 #### [facility] [address] LIPID PROFILEon 06-12-2018 Cholesterol in HDL mass conc 56 mg/dL Normal 23-92 The [facility] Comment on above: Result Comment: Slig ht variation in normal range could be due to gender and/or age. HDL CHOLESTEROL REFERENCE RANGE: 20 years and older Cardiovascular Risk > or =60 mg/dL Desirable 40 TO 59 mg/dL Low Risk <40 mg/dL High Risk Performed By: #### 4 6413, 47131, 08572, 93976, 58468 #### [facility] [address] [place] [address], [facility] Cholesterol in LDL mass conc 56 mg/dL Normal 0-130 [facility] Comment on above: Result Comment: LDL IS A CALCULATION LDL IS ONLY VALID IF THE TRIG IS LESS THAN 400. Performed By: #### 4 6413, 42978, 64597, 35088, 48097 #### [facility] [address] [place] [address], [facility] Cholesterol mass conc 122 mg/dL Normal 120-200 [facility] Comment on above: Result Comment: CHOL ESTEROL REFERENCE RANGE: 20 YEARS AND OLDER CARDIOVASCULAR RISK Less than 200 mg/dl Low Risk 200 to 239 mg/dl Borderline Risk 240 mg/dl and greater High Risk Performed By: #### 4 6413, 10924, 88313, 19163, 46043 #### [facility] [address] [place] [address], [facility] Cholesterol.total/Ch olesterol in HDL mass ratio 2.2 {ratio} Normal .0-4.5 [facility] Comment on above: Performed By: #### 4 6413, 97316, 27111, 60225, 92509 #### [facility] [address] [place] [address], [facility] NON-HDL CHOLESTEROL 66 mg/dL Normal The [facility] Comment on above: Performed By: #### 4 6413, 86276, 02396, 00033, 53027 #### [facility] [address] [place] [address], [place] Triglyceride mass conc 49 mg/dL Normal 40-149 The [facility] Comment on above: Result Comment: TRIG LYCERIDE REFERENCE RANGE: 20 YEARS AND OLDER CARDIOVASCULAR RISK LESS THAN 150 mg/dl LOW RISK 150 TO 199 mg/dl BORDERLINE RISK 200 mg/dl AND GREATER HIGH RISK Performed By: #### 4 6413, 99967, 79302, 81977, 45159 #### [facility] [address] [place] [address], [facility] VLDL CHOL 10 mg/dL Normal 0-40 [facility] Comment on above: Performed By: #### 4 6413, 18953, 81668, 33274, 86113 #### [facility] [address] SMOOTH MUSCLE ABon 9 SMOOTH MUSC AB 1:20 Abnormal NONE DETECTED The [facility] Comment on above: Result Comment: NONE DETECTED: LESS THAN 1:20 WEAKLY POSITIVE: 1:20 - 1:40 SUGGESTIVE OF CHRONIC HEPATITIS: 1:80 OR GREATER NOTE: FOR WEAKLY POSITIVE RESULTS, TITER MAY BE PRESENT IN ACUTE VIRAL HEPATITIS, INFECTIOUS MONONUCLEOSIS OR MALIGNANCY. Performed By: #### 6 2510, 43862 #### [facility] [address] [facility]. [address] TISSUE TRANSGLUTAMINASE IGA [id number] 06-12-2018 TTG IGA 0 U/mL Normal 0-3 The [facility] Comment on above: Result Comment: [...] positive predictive value for disease. Performed by [employer], [address] [place] [address] www.[employer], Ahsan Abel MD - Lab. Director TSH3 WITH REFLEXon 9 T4 free mass conc 0.78 ng/dL Normal 0.71-1.85 The [facility] Comment on above: Result Comment: This result added by IF on 06/12/2018 15:20. Performed By: #### 4 6413, 15450, 43772, 35934, 65374 #### [facility] [address] [place] [address], [facility] TSH 3RD GENERATION 1.27 uIU/mL Normal 0.34-5.60 The [facility] Comment on above: Performed By: #### 4 6413, 54559, 39932, 04646, 47508 #### [facility] [address] Vital Signs Date Time Vital Sign Value Performing Clinician Facility 05-30-2024 14:13-0500 Body height 170.2 cm Leonidas CLAY-C Work Phone: [facility] 05-30-2024 14:13-0500 Body mass index (BMI) [Ratio] 27.25 kg/m2 Leonidas CLAY-C Work Phone: [facility] 05-30-2024 14:13-0500 Body weight 78.93 kg Leonidas Antunez PA-C Work Phone: [facility] 05-30-2024 14:13-0500 Diastolic blood pressure 84 mm[Hg] Leonidas CLAY-C Work Phone: [facility] 05-30-2024 14:13-0500 Heart rate 68 /min Leonidas CLAY-C Work Phone: [facility] 05-30-2024 14:13-0500 Systolic blood pressure 122 mm[Hg] [facility]C [facility] 05-28-2024 13:18-0500 Body height 170.2 cm Gerardo Tolbert MD Work Phone: [facility] 05-28-2024 13:18-0500 Body mass index (BMI) [Ratio] 27.41 kg/m2 Gerardo Tolbert MD Work Phone: [facility] 05-28-2024 13:18-0500 Body temperature 97.81 [degF] Gerardo Tolbert MD Work Phone: [facility] 05-28-2024 13:18-0500 Body weight 79.38 kg Gerardo Tolbert MD Work Phone: [facility] 05-28-2024 13:18-0500 Diastolic blood pressure 78 mm[Hg] Gerardo Tolbert MD Work Phone: [facility] 05-28-2024 13:18-0500 Heart rate 93 /min Gerardo Tolbert MD Work Phone: [facility] 05-28-2024 13:18-0500 Respiratory rate 20 /min Gerardo Tolbert MD Work Phone: [facility] 05-28-2024 13:18-0500 SaO2% (BldA) [Mass fraction] 99 % Gerardo Tolbert MD Work Phone: [facility] 05-28-2024 13:18-0500 Systolic blood pressure 122 mm[Hg] Gerardo Tolbert MD Work Phone: [facility] 05-09-2024 09:34-0500 Body mass index (BMI) [Ratio] 27.53 kg/m2 Kyrie Suzanna DO Work Phone: [facility] 05-09-2024 09:34-0500 Body weight 79.74 kg Kyrie Suzanna DO Work Phone: [facility] 05-09-2024 09:34-0500 Diastolic blood pressure 86 mm[Hg] Kyrie Suzanna DO Work Phone: [facility] 05-09-2024 09:34-0500 Systolic blood pressure 122 mm[Hg] Kyrie Suzanna DO Work Phone: [facility] 02-15-2024 09:40-0400 Body height 170.2 cm Gerardo Tolbert MD Work Phone: [facility] 02-15-2024 09:40-0400 Body mass index (BMI) [Ratio] 27.72 kg/m2 Gerardo Tolbert MD Work Phone: [facility] 02-15-2024 09:40-0400 Body temperature 97.81 [degF] Gerardo Tolbert MD Work Phone: [facility] 02-15-2024 09:40-0400 Body weight 80.29 kg Gerardo Tolbert MD Work Phone: [facility] 02-15-2024 09:40-0400 Diastolic blood pressure 70 mm[Hg] Gerardo Tolbert MD Work Phone: [facility] 02-15-2024 09:40-0400 Heart rate 93 /min Gerardo Tolbert MD Work Phone: [facility] 02-15-2024 09:40-0400 Respiratory rate 22 /min Gerardo Tolbert MD Work Phone: [facility] 02-15-2024 09:40-0400 SaO2% (BldA) [Mass fraction] 99 % Gerardo Tolbert MD Work Phone: [facility] 02-15-2024 09:40-0400 Systolic blood pressure 120 mm[Hg] Gerardo Tolbert MD Work Phone: [facility] 01-16-2024 10:12-0400 Body height 170.2 cm Gerardo Tolbert MD Work Phone: [facility] 01-16-2024 10:12-0400 Body mass index (BMI) [Ratio] 27.41 kg/m2 Gerardo Tolbert MD Work Phone: [facility] 01-16-2024 10:12-0400 Body temperature 97.3 [degF] Gerardo Tolbert MD Work Phone: [facility] 01-16-2024 10:12-0400 Body weight 79.38 kg Gerardo Tolbert MD Work Phone: [facility] 01-16-2024 10:12-0400 Diastolic blood pressure 68 mm[Hg] Gerardo Tolbert MD Work Phone: [facility] 01-16-2024 10:12-0400 Heart rate 112 /min Gerardo Tolbert MD Work Phone: [facility] 01-16-2024 10:120400 Respiratory rate 20 /min Gerardo Tolbert MD Work Phone: [facility] 01-16-2024 10:12-0400 SaO2% (BldA) [Mass fraction] 99 % Gerardo Tolbert MD Work Phone: [facility] 01-16-2024 10:12-0400 Systolic blood pressure 120 mm[Hg] Gerardo Tolbert MD Work Phone: [facility] Encounters Encounter Date Encounter Type Care Provider Facility Start: 09-26-2024 End: 09-26-2024 ambulatory Jose L Gomez [facility] Work Phone: Start: 09-26-2024 End: 09-26-2024 Departed Referred Jose L Gomez DO Work Phone: [facility] Start: 09-26-2024 End: 09-30-2024 Clinisync Result Encounter Generic External Data Provider [facility] Unsolicited Start: 09-26-2024 End: 09-30-2024 Clinisync Result Encounter Generic External Data Provider [facility] External [facility] Unsolicited Start: 09-11-2024 End: 09-11-2024 Refill Gerardo Tolbert MD Work Phone: [facility] Comment on above: Migraine with aura a nd without status migrainosus, not intractable (CMS/HCC) (Primary Dx); ADHD, predominantly inattentive type (CMS/HCC) Start: 08-12-2024 End: 08-13-2024 Refill Gerardo Tolbert MD Work Phone: [facility] Comment on above: ADHD, predominantly inattentive type (CMS/HCC) Start: 05-30-2024 End: 05-30-2024 ambulatory LEONIDAS ANTUNEZ [facility] Start: 05-30-2024 End: 05-30-2024 Office outpatient visit 25 minutes Leonidas Antunez PA-C Work Phone: [facility] Comment on above: Chronic migraine wit h aura without status migrainosus, not intractable (Primary Dx); Migraine without aura and without status migrainosus, not intractable; Cerebellar tonsillar ectopia (CMS-HCC) Start: 05-28-2024 End: 05-28-2024 Bamboo flowsheet Gerardo Tolbert MD Work Phone: [facility] Start: 05-28-2024 End: 05-28-2024 Bamboo flowsheet Gerardo Tolbert MD Work Phone: [facility] Start: 05-28-2024 End: 05-28-2024 ambulatory GERARDO TOLBERT Not Available Start: 05-28-2024 End: 05-28-2024 Patient encounter procedure Gerardo Tolbert MD Work Phone: [facility] Work Phone: Start: 05-28-2024 End: 05-28-2024 Periodic preventive med est patient 18-39 yrs Gerardo Tolbert MD Work Phone: [facility] Comment on above: Annual physical exam (Primary Dx); ADHD, predominantly inattentive type (CMS/HCC); Primary hypothyroidism (CMS/HCC); Chronic pancreatitis, unspecified pancreatitis type (CMS/HCC) Start: 05-09-2024 End: 05-14-2024 Clinisync Result Encounter Generic External Data Provider [facility] Unsolicited Start: 05-09-2024 End: 05-14-2024 Clinisync Result Encounter Generic External Data Provider [facility] Unsolicited Start: 05-09-2024 End: 05-09-2024 ambulatory Kyrie Suzanna [facility] Work Phone: Start: 05-09-2024 End: 05-09-2024 Departed Referred Kyrie Suzanna DO Work Phone: [facility] Start: 05-09-2024 End: 05-09-2024 ambulatory KYRIE SUZANNA Not Available Start: 05-09-2024 End: 05-09-2024 Patient encounter procedure Kyrie Briseno DO Work Phone: [facility] Start: 05-09-2024 End: 05-09-2024 Periodic preventive med est patient 18-39 yrs Kyrie Briseno DO Work Phone: [facility] Comment on above: Well woman exam with routine gynecological exam Start: 04-22-2024 End: 04-22-2024 Refill Gerardo Tolbert MD Work Phone: [facility] Comment on above: ADHD, predominantly inattentive type (CMS/HCC) Start: 03-22-2024 End: 03-25-2024 Refill Gerardo Tolbert MD Work Phone: [facility] Comment on above: ADHD, predominantly inattentive type (CMS/HCC) Start: 02-21-2024 End: 02-22-2024 Refill eGrardo Tolbert MD Work Phone: [facility] Comment on above: Generalized anxiety disorder (CMS/HCC); ADHD, predominantly inattentive type (CMS/HCC) Start: 02-15-2024 End: 02-15-2024 Bamboo flowsheet Gerardo Tolbert MD Work Phone: [facility] Start: 02-15-2024 End: 02-15-2024 Bamboo flowsheet Gerardo Tolbert MD Work Phone: [facility] Start: 02-15-2024 End: 02-15-2024 Clinisync Result Encounter Gerardo Tolbert MD Work Phone: [facility] Unsolicited Start: 02-15-2024 End: 02-15-2024 [...] [facility] Start: 01-16-2024 End: 01-16-2024 ambulatory EGRARDO TOLBERT Not Available Start: 01-16-2024 End: 01-16-2024 Office outpatient visit 25 minutes Gerardo Tolbert MD Work Phone: [facility] Comment on above: ADHD, predominantly inattentive type (CMS/HCC) (Primary Dx); Generalized anxiety disorder (CMS/HCC); Autonomic dysfunction; Migraine with aura and without status migrainosus, not intractable (CMS/HCC); Chronic pancreatitis, unspecified pancreatitis type (CMS/HCC); Prediabetes; Primary hypothyroidism (CMS/HCC) Start: 12-29-2023 End: 01-01-2024 Telephone encounter Judy Merino CMA [facility] Comment on above: Med PA Request Start: 12-26-2023 End: 12-27-2023 Refill Gerardo Tolbert MD Work Phone: [facility] Comment on above: ADHD, predominantly inattentive type (CMS/HCC) Start: 12-26-2023 End: 12-27-2023 Refill Gerardo Tolbert MD Work Phone: [facility] Comment on above: ADHD, predominantly inattentive type (CMS/HCC) Start: 12-19-2023 ambulatory SHAWN Deluca [facility] Start: 12-19-2023 End: 12-19-2023 ambulatory GIRISH MONACO [facility] Start: 12-05-2023 End: 12-05-2023 ambulatory [facility] Work Phone: Start: 12-05-2023 End: 12-05-2023 Departed Referred DO Kyrie Briseno Work Phone: [facility] Start: 12-05-2023 End: 12-05-2023 ambulatory KYRIE WILLIAMO Not Available Start: 11-28-2023 End: 11-28-2023 ambulatory KYRIEAntoinette WILLIAMO Not Available Start: 11-14-2023 End: 11-14-2023 ambulatory GERARDO TOLBERT Not Available Start: 11-08-2023 End: 11-12-2023 Refill Magalis Jeffries RN [facility] Comment on above: Migraine with aura a nd without status migrainosus, not intractable Start: 11-03-2023 End: 11-03-2023 Orders Only Leonidas Antunez PA-C Work Phone: [facility] Start: 10-22-2023 End: 10-23-2023 Refill Leonidas Antunez PA-C Work Phone: [facility] Comment on above: Migraine with aura a nd without status migrainosus, not intractable Start: 07-27-2023 End: 07-27-2023 ambulatory MIKE YOUNG [facility] Start: 06-14-2023 Refill Magalis Jeffries RN [facility] Comment on above: Migraine with aura a nd without status migrainosus, not intractable Start: 06-05-2023 Telephone encounter Mikaela [facility] Start: 06-01-2023 Telephone encounter Gerardo sebastian MD Work Phone: [facility] Comment on above: Migraine with aura a nd without status migrainosus, not intractable (Primary Dx) Start: 05-26-2023 Refill Gerardo Cheema Work Phone: [facility] Comment on above: ADHD, predominantly inattentive type (CMS/HCC) Start: 05-23-2023 End: 05-23-2023 ambulatory SHAWN PICKETT [facility] Start: 09-15-[address] GERARDO TOLBERT Facil ity:H1 Start: 05-25-2022 End: 05-26-[address] GERARDO TOLBERT Facility: Start: 10-05-2021 End: 10-05-[address] KYRIE BRISENO . Facility: Start: 10-05-2021 End: 10-06-[address] KYRIE BRISENO . Facility: Start: 07-17-2018 End: 07-18-2018 Patient encounter procedure BONGRAY RESENDIZAMY Facility:[facility] Start: 06-27-2018 End: 06-28-2018 Patient encounter procedure WHITNEY Wolfe MIKE Facility:[facility] Start: 06-12-2018 End: 06-13-2018 [facility] Procedures Date Procedure Procedure Detail Performing Clinician Start: 09-26-2024 [place] [facility] [place] External Data Provider Start: 05-09-2024 IGP,APTIMA HPV,AGE GDLN Kyrie Briseno DO Work Phone: Start: 05-09-2024 Microscopic observat ion [Identifier] in Cervix by Cyto stain Gerardo Tolbert MD Work Phone: Start: 02-15-2024 ALL THYROXINE (T4) FREE Gerardo [...] Treatment Date Care Activity Detail Author Start: 05-09-2027 Screening for malign ant neoplasm of cervix [facility] Start: 05-04-2026 Screening for malign ant neoplasm of cervix [facility] Start: 05-30-2025 Adult BMI Screening Adult BMI Screen [facility] Start: 05-30-2025 Tobacco Screening Tobacco Screening [facility] Start: 05-13-2025 End: 05-13-2025 Patient encounter procedure 05/13/2025 2:00 PM EST Office Visit [facility] [address] [place] [phone] Kyrie Briseno, [address] [place] [address] [facility] Start: 12-23-2024 Influenza vaccination Influenz a Vaccine (Season Ended) [facility] Start: 11-26-2024 End: 11-26-2024 Patient encounter procedure 11/26/2024 1:00 PM EDT Office Visit [facility] [address] [place] [address] Gerardo Tolbert MD [address] [place] [phone] [facility] Start: 10-01-2024 End: 10-01-2024 Patient encounter procedure 10/01/2024 1:00 PM EDT Office Visit [facility] [place] [address] [place] [address] Leonidas Antunez PA-C [address] [place] [phone] [facility] [place] Start: 09-26-2024 Urine culture [facility] Start: 09-26-2024 Bacteria identified in Urine by Culture Urine Culture [facility] Start: 05-28-2024 End: 05-28-2025 Basic metabolic 1998 panel - Serum or Plasma Basic metabolic panel Lab Routine Annual physical exam Expected: 05/28/2024 (Approximate), Expires: 05/28/2025 [facility] Comment on above: Expected: 05/28/2024 (Approximate), Expires: 05/28/2025 Start: 05-28-2024 End: 05-28-2025 CBC W Auto Differential panel - Blood CBC and differential Lab Routine Annual physical exam Expected: 05/28/2024 (Approximate), Expires: 05/28/2025 [facility] Comment on above: Expected: 05/28/2024 (Approximate), Expires: 05/28/2025 Start: 05-28-2024 End: 05-28-2025 Hemoglobin A1c/Hemoglobin.total in Blood Hemoglobin A1c Lab Routine Annual physical exam Expected: 05/28/2024 (Approximate), Expires: 05/28/2025 [facility] Work Phone: Comment on above: Expected: 05/28/2024 (Approximate), Expires: 05/28/2025 Start: 05-28-2024 End: 05-28-2025 Hepatic function 2000 panel - Serum or Plasma Hepatic function panel Lab Routine Annual physical exam Expected: 05/28/2024 (Approximate), Expires: 05/28/2025 [facility] Comment on above: Expected: 05/28/2024 (Approximate), Expires: 05/28/2025 Start: 05-28-2024 End: 05-28-2025 Lipid 1996 panel - Serum or Plasma Lipid panel Lab Routine Annual physical exam Expected: 05/28/2024 (Approximate), Expires: 05/28/2025 [facility] Comment on above: Expected: 05/28/2024 (Approximate), Expires: 05/28/2025 Start: 05-28-2024 End: 05-28-2025 Thyroxine (T4) free [Mass/volume] in Serum or Plasma T4, free Lab Routine Primary hypothyroidism (CMS/HCC) Expected: 05/28/2024 (Approximate), Expires: 05/28/2025 [facility] Comment on above: Expected: 05/28/2024 (Approximate), Expires: 05/28/2025 Start: 05-28-2024 End: 05-28-2025 TSH W/REFLEX TO FT4 TSH W/REFLEX TO FT4 Lab Routine Annual physical exam Expected: 05/28/2024 (Approximate), Expires: 05/28/2025 [facility] Comment on above: Expected: 05/28/2024 (Approximate), Expires: 05/28/2025 Start: 05-28-2024 End: 05-28-2024 Patient encounter procedure 05/28/2024 1:00 PM EST Office Visit [facility] [address] [place] [address] Gerardo Tolbert MD [address] [place] [phone] [facility] Start: 05-09-2024 End: 05-09-2024 Patient encounter procedure 05/09/2024 9:00 AM EST Office Visit [facility] [address] [place] [phone] Kyrie Briseno DO [address] [place] [address] [facility] Start: 04-25-2024 End: 04-25-2024 Patient encounter procedure 04/25/2024 9:45 AM EST Office Visit [facility] [address] [place] [address] Gerardo Tolbert MD [address] [place] [phone] [facility] Start: 02-15-2024 End: 02-15-2024 Patient encounter procedure 02/15/2024 9:30 AM EDT Office Visit [facility] [address] [place] [address] Gerardo Tolbert MD [address] [place] [phone] [facility] Start: 01-16-2024 End: 01-15-2025 Hemoglobin A1c/Hemoglobin.total in Blood Hemoglobin A1c Lab Routine Prediabetes Expected: 01/16/2024 (Approximate), Expires: 01/15/2025 [facility] Work Phone: Comment on above: Expected: 01/16/2024 (Approximate), Expires: 01/15/2025 Start: 01-16-2024 End: 01-15-2025 Thyrotropin [Units/volume] in Serum or Plasma TSH Lab Routine Primary hypothyroidism (CMS/HCC) Expected: 01/16/2024 (Approximate), Expires: 01/15/2025 [facility] Comment on above: Expected: 01/16/2024 (Approximate), Expires: 01/15/2025 Start: 01-16-2024 End: 01-15-2025 Thyroxine (T4) free [Mass/volume] in Serum or Plasma T4, free Lab Routine Primary hypothyroidism (CMS/HCC) Expected: 01/16/2024 (Approximate), Expires: 01/15/2025 [facility] Comment on above: Expected: 01/16/2024 (Approximate), Expires: 01/15/2025 Start: 01-16-2024 End: 01-15-2025 Triiodothyronine (T3) Free [Mass/volume] in Serum or Plasma T3, free Lab Routine Primary hypothyroidism (CMS/HCC) Expected: 01/16/2024 (Approximate), Expires: 01/15/2025 [facility] Comment on above: Expected: 01/16/2024 (Approximate), Expires: 01/15/2025 Start: 01-16-2024 End: 01-16-2024 Patient encounter procedure 01/16/2024 10:00 AM EDT Office Visit [facility] [address] [place] [address] Gerardo Tolbert MD [address] [place] [address] [facility] Start: 01-06-2024 Adult BMI Screening Adult BMI Screen ing [facility] Start: 01-06-2024 Depression Screening Depression Scre ening [facility] Start: 01-06-2024 Tobacco Screening Tobacco Screening [facility] Start: 12-24-2023 Influenza vaccination N [facility] Start: 12-05-2023 [facility] Start: 11-14-2023 End: 11-14-2023 Patient encounter procedure 11/14/2023 10:45 AM EDT Office Visit [facility] [address] [place] [phone] Gerardo Tolbert MD [address] [place] [address] [facility] Start: 12-23-2022 Influenza vaccination [facility] Start: 2021 Screening for malign ant neoplasm of cervix [facility] Start: 07-08-2017 DTaP,Tdap and Td Vac cines (7 - Td or Tdap) DTaP,Tdap and Td Vaccines (7 - Td or Tdap) [facility] Start: 2012 Screening for malign ant neoplasm of cervix Pap Smear [facility] Start: 2009 Adult BMI Follow Up Plan Adult BMI Follow Up Plan [facility] Cytology Cervical or vaginal smear or scraping study Pap Smear Pathology and Cytology Routine Well woman exam with routine gynecological exam Ordered: 05/09/2024 [facility] Work Phone: Comment on above: Ordered: 05/09/2024 Human papilloma viru s DNA [Presence] in Unspecified specimen by Probe with amplification HPV DNA probe, amplified Microbiology Routine Well woman exam with routine gynecological exam Ordered: 05/09/2024 [facility] Comment on above: Ordered: 05/09/2024 Immunizations Immunization Date Immunization Notes Care Provider Fa [facility] 01-23-2020 influenza virus vaccine, unspecified formulation Gerardo Tolbert MD Work Phone: [facility] 03-04-2018 Influenza, injectabl e, Madin Yelitza Canine Kidney, preservative free, quadrivalent Leonidas Antunez PA-C Work Phone: [facility] 01-24-2017 influenza, injectabl e, quadrivalent, preservative free Leonidas Antunez PA-C Work Phone: [facility] 01-22-2017 influenza virus vaccine, unspecified formulation Leonidas Antunez PA-C Work Phone: [facility] Payers Date Payer Category Payer Self-pay [id number] 2022 Blue [employer] Blue Shield [id number] [id number] 2022 Blue Cross Blue Shie ld Managed Care - Other ANTHEM [id number] 2022 Unknown [id number]. 1.13.693. [id number] 2014 Unknown [id number] 1991 Unknown [id number] 2.16.840.1.219865.3.579. 2.647 1991 Unknown [id number] 2.16.840.1.300059.3.579. 2.647 1991 Unknown [id number] 2.16.840.1.657482.3.579. 2.647 1991 Unknown [id number] 2.16.840.1.974265.3.579. 2.593 1991 Unknown [id number] 2.16.840.1.118685.3.579. 2.593 1991 Unknown [id number] 2.16.840.1.072972.3.579. 2.593 1991 Unknown [id number] 2.16.840.1.550562.3.579. 2.593 1991 Unknown [id number] 2.16.840.1.469728.3.579. 2.9 1991 Unknown [id number] 2.16.840.1.974893.3.579. 2.9 1991 Unknown [id number] 2.16.840.1.931515.3.579. 2.9 1991 Unknown [id number] 2.16.840.1.308469.3.579. 2.9 1991 Unknown [id number] 2.16.840.1.684823.3.579. 2.9 1991 Unknown [id number] 2.16.840.1.345625.3.579. 2.9 1991 Unknown [id number] 2.16.840.1.208007.3.579. 2.1258 1991 Unknown [id number] 2.16.840.1.629749.3.579. 2.1286 1959 Private Health Insurance [id number] 1959 Unknown [id number] Unknown [facility] [id number] Unknown [facility] [id number] Unknown [id number] 2.16840.1.441996.3.579. 2.531 Unknown [id number] 2.16840.1.048628.3.579. 2.531 Unknown [id number] 2.16840.1.708323.3.579. 2.531 Worker's Compensation Industrial Self Ins Misc [id number] Social History Date Type Detail Facility Start: 08-23-2016 End: 05-11-2023 Tobacco smoking status NHIS Never smoked tobacco [facility] Start: 08-23-2016 End: 05-11-2023 Tobacco use and exposure Smokeless tobacco non-user [facility] Start: 05-11-2023 End: 01-10-2024 History of Social function [facility] Start: 05-11-2023 End: 01-10-2024 Tobacco use panel [facility] Start: 1990 Sex Assigned At Not on file [facility] Start: 1990 Sex Assigned At Female F [facility] How often do you nee d to have someone help you when you read instructions, pamphlets, or other written material from your doctor or pharmacy [SILS] Never [facility] Do you belong to any clubs or organizations such as sabianist groups, unions, fraternal or athletic groups, or school groups? Yes [facility] Are you now , , , , never or living with a partner? [facility] How often to you hav e a drink containing alcohol? Never [facility] How hard is it for [...] or rent on time? No [facility] Tobacco smoking stat us VTIS Unknown if ever smoked [facility] Work Phone: Start: 05-11-2024 End: 09-28-2024 Sex Female (finding) [facility] Start: 01-05-2023 End: 05-30-2024 Alcoholic beverage intake Current non-drinker of alcohol (finding) [facility] How hard is it for y ou to pay for the very basics like food, housing, medical care, and heating Not very hard [facility] Medical Equipment Procedure Code Equipment Code Equipment Origin al Text Equipment Identifier Dates 1 (one) time eac h day [id number] Anch Sut 2.4mm 2 Sut Tk Fbrwr - [id number] Start: 08-23-2016 Plt Ant Cerv Xte nd 1-Lev 10 - [id number] Start: 02-14-2017 Scr Xtend 4.2x14 mm Vasd - [id number] Start: 02-14-2017 Cervical Allograft [id number] Start: 02-14-2017 Clinical Notes 05-23-2023 to 05-30-2024 Leonidas Antunez PA-C - 05/30/2024 2:00 PM Kirk Tolbert MD - 05/28/2024 1:48 PM Kirk Tolbert MD - 05/28/2024 1:47 PM Kirk Tolbert MD - 05/28/2024 1:46 PM EST Note Date & Type Note Facility 05-30-2024 History of Presen t illness Narrative [facility] Office Note 05/29/2024 2:01 PM Patient info: Freya Razo is a 34 y.o. female Account No.: [id number] Acct: : 1990 PCP: GERARDO TOLBERT MD Chief Complaint: Patient, 32 year old female, presents today for initial Neurological evaluation regarding migraines in context of cerebellar tonsillar ectopia. Last seen in the office on 01/05/23 Freya is present in the office today by herself. Interval Hx: Freya is taking Qulipta 60 mg daily for migraine prevention. 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 She reports migraines being present around her menstrual period; daily migrainous MORENO for 10-12 consecutive days each month. Rizatriptan TUNNEL ELASTIC OPERATOR CHAINSTITCH 10 mg provides relief at varying degrees of success. She rarely gets a MORENO throughout the rest of the month. Her baseline was 16-20 migraine days per month, lasting longer than 4 hours each time, typically > 6/10 intensity on pain scale, associated with photophobia > phonophobia, nausea, and dizziness. Current preventative MORENO/migraine medication: Mag Oxide, CoQ10, Qulipta Preventative med/s previously tried include: Topiramate, Nortriptyline, Emgality, Ajovy Preventative med/s not indicated include: Propranolol (asthma), Aimovig (latex allergy) Current abortive/symptomatic relief MORENO/migraine medication: Rizatriptan TUNNEL ELASTIC OPERATOR CHAINSTITCH Abortive/Symptomatic relief med/s previously tried include: Sumatriptan Abortive/Symptomatic relief med/s not indicated include: NSAIDs (gastric bypass) Previous Studies: 11/29/22: Brain MRI without contrast - No intracranial pathology - The cerebellar tonsils extend 6 mm below the plane of the foramen magnum but not to the level of the posterior arch of C1. There is no significant compression upon the brainstem. The remainder of the posterior cranial fossa structures, sella turcica, corpus callosum, and third and fourth ventricles are unremarkable. Prior Hx: Initial Consultation 10/18/22 Headache Hx: Onset of headaches was 8-10 years ago. Worsened initially in [id number]. Worsened again over the past 21 months (since late 2020). Headache Characteristics: - Frequency: most days of the week (4+) - Timing: onset varies - Duration: at least a few hours up to 2-3 days - Location: bi-temporal, retro-orbital, occipital - Quality: pounding/throbbing - Intensity: moderate-severe - Aura: (+) visual aura - Associated sxs.: photophobia > phonophobia, nausea, dizziness - Complicated sxs.: No associated loss of consciousness, confusional episodes, dysarthria, aphasia, paresthesias, or focal/lateralized weakness. Contributing Factors: (-) hx of significant head injury/trauma: (-) hx of LIBRARY MANAGER infection: (-) hx of stroke or cerebrovascular malformation: (-) hx of intracranial mass/tumor/cyst: Family Hx: (+) known family member/s with hx of recurrent MORENO/migraines: Sister (-) known family member/s with hx of cerebral aneurysm: (+) known family member/s with hx of intracranial mass/tumor/cyst: Cousin Freya does wear corrective eye lenses. Most recent eye exam was within the last couple months. Freya does not currently take preventative MORENO medication. She previously tried Topiramate which she could not tolerate. Propranolol is not indicated secondary to a hx of exercise induced Asthma. MORENO's are currently being treated symptomatically with Sumatriptan. NSAIDs are not indicated secondary to gastric sleeve. Follow up 01/05/23 Brain MRI without contrast was completed on 11/29/22. The cerebellar tonsils extend 6 mm below the plane of the foramen magnum but not to the level of the posterior arch of C1. There is no significant compression upon the brainstem. The remainder of the posterior cranial fossa structures, sella turcica, corpus callosum, and third and fourth ventricles are unremarkable. There is no intracranial pathology. I reviewed the brain images with Freya in detail during today's office visit (01/05/23). All questions and concerns were addressed. At last office visit (10/18/22) we started Nortriptyline 25 mg HS for migraine prevention. - other considerations include Aimovig/Ajovy/Emgality, Qulipta, or Nurtec ODT We also switched Sumatriptan to Rizatriptan TUNNEL ELASTIC OPERATOR CHAINSTITCH 10 mg for symptomatic migraine relief. Unfortunately, Freya did not tolerate the Nortriptyline, experiencing significant GI effects along with dizziness. Subsequently, she discontinued the medication after a short time of taking it. Migraine frequency remains at 'most days of the week'. Past Medical Hx: See EMR Surgical Hx: See EMR Allergies: See EMR Review of Systems: Constitutional: Negative for fever, chills, sweats, or unintentional weight loss Eyes: Negative HENT: Negative Cardiovascular: Negative for chest pain and palpitations Respiratory: Negative for cough and shortness of breath Gastrointestinal: Negative for nausea, vomiting, abdominal pain and diarrhea Genitourinary: Negative for dysuria, urgency, frequency, or hematuria Musculoskeletal: Negative for myalgias or joint swelling Skin: Negative for skin rash Neurological: - as noted in the HPI Psychiatric/Behavioral: - anxiety, ADHD Endocrine: Negative Hem/Onc: Negative Allergy/immunology: Negative The remainder of ROS is negative Vitals: BP: 122/84 HR: 68 Weight: 78.9 kg Physical Exam: General: well groomed, appears stated age, and is interactive Extremities: extremities are normal Neurological Exam: The patient is awake, alert, and attentive Speech and language are normal for age Normal affect, with normal orientation and cognition for age EOMI, PERRL, No gross visual field deficits Face is symmetric, without dysmorphic features Tongue protrudes midline Palate rises symmetrically with uvula midline Shoulder shrug is strong bilaterally Nose to finger testing is without dysmetria Fine motor skills are approximately equal in each hand Tremor: (-) Sensation is intact and symmetric in the extremities bilaterally DTR's are 2+ throughout Strength is 5/5 in all 4 extremities Gait is steady with normal base, normal stride and bilateral arm swing ASSESSMENT: Freya is a 32 year old female with a complex medical hx, including cerebellar tonsillar ectopia, who has chronic migraine, some with aura and some without. PLAN: Refer for BOTOX injections for migraine prevention Continue Qulipta 60 mg daily for migraine prevention Discontinue Rizatriptan TUNNEL ELASTIC OPERATOR CHAINSTITCH and start Ubrelvy 100 mg for abortive/symptomatic migraine relief MORENO log is recommended Identification and avoidance of personal MORENO/migraine triggers discussed Trying to stay on a regular sleep and eating schedule, staying well hydrated, and working on stress management to help reduce MORENO/migraine frequency discussed Follow up in the office in 4-5 months Electronically Signed by: Leonidas Antunez PA-C 06/02/24 1321 [facility] History of Presen t illness Narrative Associated Problem(s): Chronic pancreatitis (CMS/HCC) Symptoms stable and continue creon. Follow up with GI. Associated Problem(s): Annual physical exam Due for labs. Discussed proper diet and regular aerobic exercise. Need aerobic exercise 5-6 days a week for 30 minutes at a time. Smaller portions and limit total calories. Colonoscopy after age 45. Tetanus every 10 years. Advised not to smoke. Associated Problem(s): ADHD, predominantly inattentive type (CMS/HCC) Symptoms controlled with adderall and continue. Images from the original note were not included. Subjective Patient ID: Freya Razo is a 34 y.o. female who presents for Annual Exam (wellness). Presents for annual PE. Patient feels well today. Weight down 21 pounds in the past year. Active at work and home but no specific exercise. Tries to watch diet and eat healthy. Increased fruits and vegetables. Smaller portions and limits snacking. Tries to limit total daily calories. Due for labs. ADD controlled with medication and able to stay focused. Review of Systems Respiratory: Negative for cough, [...] There is no guarding or rebound. Musculoskeletal: General: No swelling or tenderness. Cervical back: Neck supple. Right lower leg: No edema. Left lower leg: No edema. Skin: Findings: No erythema or rash. Neurological: General: No focal deficit present. Mental Status: She is alert and oriented to person, place, and time. Cranial Nerves: No cranial nerve deficit. Motor: No weakness. Gait: Gait normal. Assessment/Plan Problem List Items Addressed This Visit ADHD, predominantly inattentive type (CMS/HCC) Symptoms controlled with adderall and continue. Relevant Medications amphetamine-dextroamphetamine (Adderall) 30 MG tablet Primary hypothyroidism (CMS/HCC) Relevant Orders T4, free Annual physical exam - Primary Due for labs. Discussed proper diet and regular aerobic exercise. Need aerobic exercise 5-6 days a week for 30 minutes at a time. Smaller portions and limit total calories. Colonoscopy after age 45. Tetanus every 10 years. Advised not to smoke. Relevant Orders Hemoglobin A1c Basic metabolic panel CBC and differential Hepatic function panel Lipid panel TSH W/REFLEX TO FT4 documented in this encounter [facility] 05-09-2024 History of Presen t illness Narrative Reason for Appointment: Patient ID: Freya Razo is a 33 y.o. female who presents for Well Women Visit Patient presents today for Annual Exam. MEDICATIONS Current Outpatient Medications Medication Instructions amphetamine-dextroamphetamine (Adderall) 30 MG tablet 30 mg, Oral, 2 times daily Atogepant (Qulipta) 60 MG tablet Take by mouth B Complex-C (SUPER B COMPLEX PO) Take by mouth buPROPion SR (WELLBUTRIN SR) 150 mg, Oral, 2 times daily, Do not crush, chew, or split. cholecalciferol (VITAMIN D-3) 1,000 Units, Daily co-enzyme Q-10 30 mg, Daily Glucose Blood (FREESTYLE TEST ) by In Vitro route Lancets Ultra Thin misc Daily levothyroxine (SYNTHROID, LEVOXYL) 25 mcg, Oral, 2 times daily magnesium 500 mg, Daily pancrelipase, Sst-Dmdm-Ucbb, (Creon) 59280-724492 units capsule delayed-release particles capsule 3 capsules, 6 times daily Nnu-Okb-EK-Fish Oil ([facility] Gummy) 0.4-113.5 MG chewable tablet 1 tablet, Daily SUMAtriptan (IMITREX) 20 mg, See admin instructions ALLERGIES Allergies Allergen Reactions Fremanezumab Other Reaction(s): Other (See Comments) Terrible swelling on area injected Other reaction(s): Other (See Comments) Terrible swelling on area injected Hydrocodone-Acetaminophen Other Reaction(s): Not available Other Reaction(s): Other (See Comments), Vomiting Severe vomiting Profusely vomits, Other reaction(s): Vomiting Profusely vomits, Oxycodone-Acetaminophen Other Reaction(s): Other (See Comments), Vomiting Severe vomiting Profusely vomits Other reaction(s): Vomiting Profusely vomits Vancomycin Kidney failure Other Reaction(s): Not available, Other (See Comments), Other (See Comments) Renal failure Other reaction(s): Other (See Comments) Kidney failure Wheat Difficulty swallowing, Swelling; Wheat Gluten Other Reaction(s): GI Intolerance, Not available, Other (See Comments), Other (See Comments), Unknown Skin breaks out, pain Throat swells Abdomen rigid Other reaction(s): Other (See Comments) Throat swells Abdomen rigid Doxycycline Other Reaction(s): Other (See Comments), Vomiting unknown Other reaction(s): Vomiting Latex Itching, Rash and Hives Other Reaction(s): Not available, Other (See Comments) Trouble breathing, skin turns super red Rash Sulfamethoxazole-Trimethoprim Other Reaction(s): Other (See Comments) Red man syndrome Ariela Syndrome Tramadol Hallucinations Other Reaction(s): Other (See Comments) hallucinations Amlodipine Itching and Swelling Bupropion Other Reaction(s): Not available Grass Pollen(K-O-R-T-Swt Nasim) Hives Milk (Cow) Other Reaction(s): Not available, Other (See Comments) lactose intolerance Other Liquid Dermabound: skin turns purple Psyllium Other Reaction(s): Other (See Comments) vomiting Dyclonine Hcl-Benzethonium Cl Dermatitis, Itching and Rash PROBLEMS Active Ambulatory Problems Diagnosis Date Noted ADHD, predominantly inattentive type ([facility]) 03/30/2023 Autonomic dysfunction 03/30/2023 Chronic pancreatitis ([facility]) 03/30/2023 Chronic superficial gastritis without bleeding 03/30/2023 Generalized anxiety disorder ([facility]) 03/30/2023 Primary hypothyroidism ([facility]) 03/30/2023 Insulin resistance 03/30/2023 Migraine with aura and without status migrainosus, not intractable ([facility]) 10/18/2022 MRSA (methicillin resistant Staphylococcus aureus) carrier 03/30/2023 Prediabetes 03/30/2023 Chronic back pain 03/30/2023 B12 deficiency 02/14/2017 Celiac disease ([facility]) 07/17/2020 Degenerative disc disease, cervical 02/07/2017 Vaginal cyst 11/14/2023 Resolved Ambulatory Problems Diagnosis Date Noted Disorder of autonomic nervous system 03/30/2023 Cervical lymphadenopathy 03/30/2023 Past Medical History: Diagnosis Date Acute renal failure (ARF) (CMS/HCC) Adnexal cyst Attention deficit hyperactivity disorder (ADHD), predominantly inattentive type (CMS/HCC) Chronic low blood pressure Chronic recurrent pancreatitis (CMS/HCC) EUGENE (generalized anxiety disorder) (CMS/HCC) History of renal dialysis History of sleeve gastrectomy Hypothyroidism (CMS/HCC) Iron deficiency anemia secondary to blood loss (chronic) Lymphadenopathy, cervical Malignant tumor of pancreas (CMS/HCC) Migraine without aura and without status migrainosus, not intractable (CMS/HCC) MRSA carrier Pancreatic abnormality Upper back pain, chronic HISTORY PAST MEDICAL HISTORY SOCIAL HISTORY Past Medical History: Diagnosis Date Acute renal failure (ARF) (CMS/HCC) Adnexal cyst Attention deficit hyperactivity disorder (ADHD), predominantly inattentive type (CMS/HCC) Autonomic dysfunction Chronic low blood pressure Chronic recurrent pancreatitis (CMS/HCC) Chronic superficial gastritis without bleeding EUGENE (generalized anxiety disorder) (CMS/HCC) History of renal dialysis Vancomycin shut down her kidneys, 5 rounds of dialysis were completed, dialysis port procedure was placed into left side of neck. History of sleeve gastrectomy Hypothyroidism (CMS/HCC) Insulin resistance Iron deficiency anemia secondary to blood loss (chronic) Lymphadenopathy, cervical Malignant tumor of pancreas (CMS/HCC) Softball size Migraine without aura and without status migrainosus, not intractable (CMS/HCC) MRSA carrier Pancreatic abnormality Prediabetes Upper back pain, chronic Social History Tobacco Use Smoking status: Never Smokeless tobacco: Never Substance Use Topics Alcohol use: Not on file Drug use: Not on file FAMILY HISTORY No family history on file. SURGICAL HISTORY Past Surgical History: Procedure Laterality Date ABDOMINAL SURGERY 11/2015 8.5 pounds skin removal skin removal ADENOIDECTOMY 1998 ANKLE SURGERY Right 2006 CHOLECYSTECTOMY 12/03/2007 [place] GUIDED INJECTION SHOULDER LEFT Left 06/08/2016 [place] GUIDED INJECTION SHOULDER LEFT 06/08/2016 GASTRIC BYPASS 07/2014 Sleeve PANCREAS SURGERY 12/03/2007 Removal of softball size malignant tumor SHOULDER SURGERY 08/2016 Arthroscopic, Posterior labrum repair SPINAL FUSION 02/14/2017 C5-C6 plate bone graph and screws SPLENECTOMY, TOTAL 12/03/2007 TONSILLECTOMY 1998 WISDOM TOOTH EXTRACTION REVIEW OF SYSTEMS Review of Systems: Review of Systems All other systems reviewed and are negative. OBJECTIVE Objective: Physical Exam Constitutional: Appearance: Normal appearance. She is well-developed. Genitourinary: Vulva normal. Breasts: Breasts are soft. Right: Normal. Left: Normal. Cardiovascular: Rate and Rhythm: Normal rate and regular rhythm. Pulmonary: Effort: Pulmonary effort is normal. Breath sounds: Normal breath sounds. Abdominal: General: Bowel sounds are normal. There is no distension. Palpations: Abdomen is soft. Tenderness: There is no abdominal tenderness. There is no guarding or rebound. Musculoskeletal: General: No swelling. Normal range of motion. Right lower leg: No edema. Left lower leg: No edema. Neurological: Mental Status: She is alert and oriented to person, place, and time. Skin: General: Skin is warm and dry. Psychiatric: Mood and Affect: Mood normal. Behavior: Behavior normal. Vitals and nursing note reviewed. Exam conducted with a lead pharmacy technician present. Vitals: Estimated body mass index is 27.53 kg/m as calculated from the following: Height as of 02/15/24: 5' 7 . Weight as of this encounter: 175 lb 12.8 oz. BP: 122/86 Patient's last menstrual period was 04/17/2024 (exact date). ASSESSMENT & PLAN ICD-10-CM 1. Well woman exam with routine gynecological exam Z01.419 Pap Smear HPV DNA probe, amplified Annual Exam: Patient presents today for an annual exam. Patient states she is doing well and has no complaints. Pap was obtained without difficulty. Reviewed patient All Natural Hormone Replacement Kit she brought in. Patient feels better after taking replacement. Cervical polyp removed and sent out to pathology. Orders Placed This Encounter Procedures HPV DNA probe, amplified Follow Up: Patient is to return in one year for annual unless needed otherwise. Documented by Leyla Rosario LPN on behalf of: Kyrie Briseno DO documented in this encounter [facility] 02-15-2024 History of Presen t illness Narrative Associated Problem(s): Generalized anxiety disorder (CMS/HCC) Symptoms tolerable with wellbutrin and monitor. Associated Problem(s): Autonomic dysfunction Symptoms improved and monitor. Increase fluid intake and monitor BP. Associated Problem(s): ADHD, predominantly inattentive type (CMS/HCC) Decreased tenex and symptoms unchanged. Continue adderall and monitor. Images from the original note were not included. Subjective Patient ID: Freya Razo is a 33 y.o. female who presents [...] wellbutrin and monitor. documented in this encounter [facility] 01-16-2024 History of Presen t illness Narrative [...] were not included. Subjective Patient ID: Freya Razo is a 33 y.o. female who presents [...] squeezing pain. Often will wake up with MOREON and hard to function. Throbbing pain in [...] Orders Hemoglobin A1c documented in this encounter [facility] 12-29-2023 Miscellaneous Notes Fax received from [facility] specialty requesting for the prior auth of the medication Qulipta. PA for Qulipta pending on CMM with davis # [id number] Auth approved with case # [id number] valid till 12/28/24 documented in this encounter [facility] 12-29-2023 Telephone encounter Note Fax received from [facility] specialty requesting for the prior auth of the medication Qulipta. [facility] 12-29-2023 Telephone encounter Note PA for Qulipta pending on CMM with davis # [id number] [facility] 12-29-2023 Telephone encounter Note Auth approved with case # [id number] valid till 12/28/24 [facility] 12-19-2023 Note [facility] Gastroenterolog y Follow-Up Patient Visit CHIEF COMPLAINT Chief Complaint Patient presents with Follow-up chronic pancreatitis HISTORY OF PRESENT ILLNESS: Freya Razo is a 33 y.o. female w/ chronic [...] sepsis infection. Back in [address] Arrington she had equivocal EUS for chronic pancreatitis [...] 1 tablet by (more content not included)... [facility] 11-08-2023 Miscellaneous Notes See Portr message. documented in this encounter [facility] 11-08-2023 Telephone encounter Note See Portr message. [facility] Note Attestation signed by Mike Young at 07/27/2023 9:50 AM By using the [...] documentation from me. Reason for Visit: Freya Razo is a 33 y.o. female who is being seen today in consultation at the request of Dr. Tolbret. History of Present Illness: She states that [...] per day, Disp: , Rfl: blood-glucose meter [facility], [employer] InternationalTouch Ultra2 Meter use as directed, Disp: , Rfl: buPROPion XL (Wellbutrin XL) 150 mg 24 hr tablet, , Disp: , Rfl: bsclurfqyy-knmvoznnlqaiz-oqgg (Fioricet) 50-300-40 mg capsule, TAKE 1 CAPSULE BY MOUTH FOUR TIMES A DAY NEEDED, Disp: , Rfl: calcium-vits W5-I-Z0-minerals 166.75 mg- 166.75 unit capsule, Take 1 [...] gauge lancets f (more content not included)... [facility] 06-14-2023 Miscellaneous Notes Medication to be sent to [facility]. Script pended to Andrea. documented in this encounter [facility] 06-14-2023 Telephone encounter Note Medication to be sent to [facility]. Script pended to Andrea. [facility] 06-05-2023 Miscellaneous Notes Received PA request for emerson Platt approved with case # [id number] valid till 11/28/23 documented in this encounter [facility] 06-05-2023 Telephone encounter Note Received PA request for emerson Platt approved with case # [id number] valid till 11/28/23 [facility] 06-01-2023 Telephone encounter Note Patient called [facility] cardiology would like her to see an endo. Specialist as her thyroid antibody was 26.6 on recent bloodwork done at [facility] cardiology. Patient would like to go to [place] to see specialist. clm [facility] 06-01-2023 Miscellaneous Notes Patient called [facility] cardiology would like her to see an endo. Specialist as her thyroid antibody was 26.6 on recent bloodwork done at [facility] cardiology. Patient would like to go to [place] to see specialist. clm documented in this encounter [facility] 05-23-2023 Note Freya Razo is a pleasant 32 year old female previously evaluated for orthostatic intolerance (OI) consistent with postural orthostatic tachycardia syndrome (POTS) our S[facility]ope [facility] in the [facility] at the [facility]. Last evaluated as a new patient in 2018. I COPIED AND PASTED NOTE FROM [employer] FOR CONTINUITY OF CARE: As you well recall Freya is a 27-year-old female with a complicated past medical history noted for malignant tumor of the pancreas (2007) with then subsequent surgery ([facility]-removal 06/25 pancreas/spleen/cholecystectomy ). No radiation or chemotherapy. She underwent a gastric sleeve procedure at the due to obesity in 2014. She next underwent an abdominal reconstructive surgery and scar tissue revision November 2015, . After another surgery she developed complications postoperatively included including severe sepsis and dehiscence of surgical wound. She was hospitalized at [facility] (January 2016) and transferred immediately to [facility]. She was under the care of ID/ [...] migraines, improved. She reports healthy childhood except [place] Palsy age 9. No syncope, near syncope, breath holding spells or seizures. Swimmer. 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 September 2016 Adderall for ADHD. HPI: She began to develop episodes of extreme fatigue and dizziness after sepsis 2015. Thoroughly evaluated by Dr. Josiah Marquez informatica developer. She underwent an echocardiogram in January 2017, demonstrating normal left ventricular systolic function and diastolic function. Normal valves and normal aorta. Holter monitor demonstrated no significant arrhythmia. Not normal sinus rhythm. Head upright tilt table test negative for syncope, orthostatic hypotension and postural orthostatic tachycardia response. [place] awful on tilt and awful all night [...] onset ADHD. Social History: . Lives in [place]. 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 Family Medical History: no sudden cardiac below the age of 40. No vascular ruptures or aneurysms. No congenital heart disease, congenital deafness, SIDS. No defibrillators. Mother: hypothyroidism, goiter, Father: hypertension Siblings: a/w Maternal uncle [place], 5 vessel coronary artery disease age 59. [...] needed. We di (more content not included)... [facility] Evaluation note Diagnosis ADHD, 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 documented in this encounter [facility] HealthcareEvaluation note* Diagnosis Thyroid receptor antibody positive- Primary documented in this encounter [facility] HealthcareEvaluation noteNo assessment information availableZanesville City Hospital Work Phone: Evaluation note* Diagnosis ADHD, predominantly [...] (CMS/HCC) Unspecified hypothyroidism documented in this encounter [facility]* [...] Generalized anxiety disorder (CMS/HCC) Generalized anxiety disorder Well woman exam with routine gynecological exam Routine gynecological examination documented in this encounter [facility]* [...] Generalized anxiety disorder (CMS/HCC) Generalized anxiety disorder Annual physical exam- Primary Routine general medical examination at a health care facility ADHD, 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 Primary hypothyroidism (CMS/HCC) Unspecified hypothyroidism Chronic pancreatitis, unspecified pancreatitis type (CMS/HCC) documented in this encounter [facility]* Diagnosis Chronic migraine with aura without status migrainosus, not intractable- Primary Migraine without aura and without status migrainosus, not intractable Cerebellar tonsillar ectopia (CMS-HCC) [facility] Diagnosis Migraine with aura and without status migrainosus, not intractable- Primary [facility]* Diagnosis Migraine with aura and without status migrainosus, not intractable [facility]* Diagnosis Migraine with aura and without status migrainosus, not intractable [facility]* Diagnosis ADHD, predominantly inattentive type (CMS/HCC)- [...] Generalized anxiety disorder (CMS/HCC) Generalized anxiety disorder Annual physical exam- Primary Routine general medical examination at a health care facility ADHD, 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 Primary hypothyroidism (CMS/HCC) Unspecified hypothyroidism Chronic pancreatitis, unspecified pancreatitis type (CMS/HCC) ADHD, 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 documented in this encounter [facility] Healthcare[facility]* Diagnosis ADHD, predominantly inattentive [...] Generalized anxiety disorder (CMS/HCC) Generalized anxiety disorder Annual physical exam- Primary Routine general medical examination at a health care facility ADHD, 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 Primary hypothyroidism (CMS/HCC) Unspecified hypothyroidism Chronic pancreatitis, unspecified pancreatitis type (CMS/HCC) Migraine with aura and without status migrainosus, not intractable (CMS/HCC)- Primary ADHD, 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 documented in this encounter [facility] HealthcareInstructionsNot on filedocumented in this encounterProMedica [facility] SystemInstructionsNot on filedocumented in this encounterProMediTriHealth [facility] SystemInstructionsNot on filedocumented in this encounterProMediTriHealth [facility] SystemInstructionsNot on filedocumented in this encounterProMediLightCyber [facility] System InstructionsNot on filedocumented in this encounterProDoctors Hospitalca [facility] System InstructionsNot on filedocumented in this encounterProKettering Health Preble SystemReason for referral (narrative)* Consultation (Routine) - Pending Review Specialty Diagnoses / Procedures Referred By Blaise wolfe Referred To Contact Endocrinology Diagnoses Thyroid receptor antibody positive Procedures DC OFFICE/OUTPATIENT NEW HIGH MDM 60 MINUTES Gerardo Tolbert MD [address] [place] [address] Referral ID Status Reason Start Date Expiration Date Visits Requested Visits Authorized [id number] Pending Review Specialty Services Required 06/01/2023 11/28/2023 1 1 [facility] Summary Purpose Family History No Family History Records FoundNo Family History Records FoundNo Family History Records FoundNo Family History Records FoundNo Family History Records FoundNo Family History Records FoundNo Family History Records Found Advance Directives Advance Directive Response Recorded Date/ Time Advance Directives No December 16, 2020 12:55pm Advance Directive Response Recorded Date/ Time Advance Directives No December 16, 2020 11:55am Procedure Findings Note MR#: [id number] [facility] Pt. Name: Freya Razo Surgery Date: 06/27/2018 Room #: 0C Date of : 1990 PROCEDURE NOTE ATTENDING: Whitney Arrington M.D. PROCEDURE PERFORMED: Endoscopic ultrasound with biopsy. 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 MEDICATIONS: General anesthesia administered by Anesthesia team. ENTRY LEVEL STAFF ACCOUNTANT: Gibson Manriquez M.D. PROCEDURE IN DETAIL: After [...] status migrainosus, not intractable Leonidas Antunez, SHELLY [address] [place] [address] Referral ID Status Reason Start Date Expiration Date V isits Requested Visits Authorized [id number] Pending Review 1 1 Additional Source Comments INFORMATION SOURCE (unrecogn ized section and content) DATE CREATED AUTHOR 07/21/2018 [facility] DATE CREATED AUTHOR AUTHOR'S ORGANIZ ATION 12/14/2020 [facility] DATE CREATED AUTHOR AUTHOR'S ORGANIZ ATION 09/05/2022 [facility] DATE CREATED AUTHOR AUTHOR'S ORGANIZ ATION 12/30/2023 [facility] DATE CREATED AUTHOR AUTHOR'S ORGANIZ ATION 05/30/2024 [facility] EPIC DATE CREATED AUTHOR AUTHOR'S ORGANIZ ATION 06/02/2024 [facility] DATE CREATED AUTHOR AUTHOR'S ORGANIZ ATION 09/29/2024 [facility] Reason for Visit (unrecogniz ed section and content) Reason Onset Date Comments Med Refill 05/26/2023 Reason Onset Date Comments Med Refill 01/23/2024 Reason Comments Follow-up 1 m Reason Onset Date Comments Med Refill 02/21/2024 Reason Onset Date Comments Med Refill 03/22/2024 Reason Comments Med Refill Reason Onset Date Comments Med Refill 12/26/2023 Reason Comments Follow-up 2 m Dizziness Reason Onset Date Comments Med Refill 04/22/2024 Reason Comments Well Women Visit Reason Comments Annual Exam wellness Reason Onset Date Comments Med Refill 06/14/2023 Reason Onset Date Comments Med Refill 11/08/2023 Reason Onset Date Comments Med PA Request 12/29/2023 Reason Onset Date Comments Med Refill 08/12/2024 Reason Onset Date Comments Med Refill 09/11/2024 Care Teams (unrecognized sec tion and content) Polymer Specialist Relationship Specialty Start Date End Date Gerardo Tolbert MD [address] [place] [address] PCP - General Family Medicine 05/11/23 Polymer Specialist Relationship Specialty Start Date End Date Gerardo Tolbert MD [address] [place] [address] PCP - General Family Medicine 05/11/23 Gerardo Tolbert MD [address] [place] [phone] PCP - [place] [employer] 04/24/23 Team Status: Inactive Member Role Status Dates Kyrie Briseno DO Attending Provider Active Start : December 05, 2023 End: December 05, 2023 Polymer Specialist Relationship Specialty Start Date End Date Gerardo Tolbert MD [address] [place] [phone] PCP - General Family Medicine 05/11/23 Gerardo Tolbert MD [address] [place] [phone] PCP - [place] [employer] 04/24/23 Polymer Specialist Relationship Specialty Start Date End Date Gerardo Tolbert MD [address] [place] [phone] PCP - General Family Medicine 05/11/23 Gerardo Tolbert MD [address] [place] [phone] PCP - [place] [employer] 04/24/23 Polymer Specialist Relationship Specialty Start Date End Date Gerardo Tolbert MD [address] [place] [address] PCP - General Family Medicine 05/11/23 Gerardo Tolbert MD [address] [place] [address] PCP - [facility] 04/24/23 Polymer Specialist Relationship Specialty Start Date End Date Gerardo Tolbert MD [address] [place] [address] PCP - [facility] 05/11/23 Gerardo Tolbert MD [address] [place] [address] PCP - [facility] 04/24/23 Polymer Specialist Relationship Specialty Start Date End Date Gerardo Tolbert MD [address] [place] [address] PCP [facility] 05/11/23 Gerardo Tolbert MD [address] [place] [address] PCP - [facility] 04/24/23 Polymer Specialist Relationship Specialty Start Date End Date Gerardo Tolbert MD [address] [place] [address] PCP - [facility] 05/11/23 Gerardo Tolbert MD [address] [place] [address] PCP - [facility] 04/24/23 Polymer Specialist Relationship Specialty Start Date End Date Gerardo Tolbert MD [address] [place] [address] PCP [facility] 05/11/23 Gerardo Tolbert MD [address] [place] [address] PCP - [facility] 04/24/23 Polymer Specialist Relationship Specialty Start Date End Date Gerardo Tolbert MD [address] [place] [address] PCP - General Family Medicine 05/11/23 Gerardo Tolbert MD [address] [place] [address] PCP - [facility] 04/24/23 Polymer Specialist Relationship Specialty Start Date End Date Gerardo Tolbert MD [address] [place] [address] PCP - General Family Medicine 05/11/23 Gerardo Tolbert MD [address] [place] [address] PCP - [facility] 04/24/23 Polymer Specialist Relationship Specialty Start Date End Date Gerardo Tolbert MD [address] [place] [address] PCP - General Family Medicine 05/11/23 Gerardo Tolbert MD [address] [place] [address] PCP - [facility] 04/24/23 Polymer Specialist Relationship Specialty Start Date End Date Gerardo Tolbert MD [address] [place] [address] PCP - General Family Medicine 05/11/23 Gerardo Tolbert MD [address] [place] [address] PCP - [facility] 04/24/23 Team Status: Inactive Member Role Status Dates Kyrie Briseno DO Attending Provider Active Start : May 09, 2024 End: May 09, 2024 Polymer Specialist Relationship Specialty Start Date End Date Gerardo Tolbert MD [address] [place] [address] PCP - General Family Medicine 05/11/23 Gerardo Tolbert MD [address] [place] [address] PCP - [facility] 04/24/23 Polymer Specialist Relationship Specialty Start Date End Date Gerardo Tolbert MD [address] [place] [address] PCP - General Family Medicine 05/11/23 Gerardo Tolbert MD [address] [place] [address] PCP - [facility] 04/24/23 Polymer Specialist Relationship Specialty Start Date End Date Gerardo Tolbert MD [address] [place] [address] PCP - General Family Medicine 05/11/23 Gerardo Tolbert MD [address] [place] [address] PCP - [facility] 04/24/23 Polymer Specialist Relationship Specialty Start Date End Date Gerardo Tolbert MD PCP - General Family Medicine 3/11/20 Polymer Specialist Relationship Specialty Start Date End Date Gerardo Tolbert MD [address] [place] [facility] [address] PCP - General Family Medicine 07/03/19 Polymer Specialist Relationship Specialty Start Date End Date Gerardo Tolbert MD [address] [place] [facility] [address] PCP - General Family Medicine 07/03/19 Polymer Specialist Relationship Specialty Start Date End Date Gerardo Tolbert MD [address] [place] [facility] [address] PCP - General Family Medicine 07/03/19 Polymer Specialist Relationship Specialty Start Date End Date Gerardo Tolbert MD [address] [place] [facility] [address] PCP - General Family Medicine 07/03/19 Polymer Specialist Relationship Specialty Start Date End Date Gerardo Tolbert MD [address] [place] [facility] [address] PCP - General Family Medicine 07/03/19 Polymer Specialist Relationship Specialty Start Date End Date Gerardo Tolbert MD PCP - General Family Medicine 07/03/19 Polymer Specialist Relationship Specialty Start Date End Date Gerardo Tolbert MD [address] [place] [address] PCP - General Family Medicine 05/11/23 Gerardo Tolbert MD [address] [place] [address] PCP - [facility] 04/24/23 Polymer Specialist Relationship Specialty Start Date End Date Gerardo Tolbert MD [address] [place] [address] PCP - General Family Medicine 05/11/23 Gerardo Tolbert MD [address] [place] [phone] PCP - [facility] 04/24/23 Team Status: Inactive Member Role Status Dates Jose L Gomez DO Attending Provider Active S tart: September 26, 2024 End: September 26, 2024 Goals (unrecognized section and content) Goals may be documented in a n alternate sectionGoals may be documented in an alternate sectionNot on filedocumented as of this encounterNot on filedocumented as of this encounterNot on filedocumented as of this encounterNot on filedocumented as of this encounterNot on filedocumented as of this encounterNot on filedocumented as of this encounterNot on filedocumented as of this encounterNot on filedocumented as of this encounterGoals may be documented in an alternate section FOR RECORDS PERTAINING TO PATIENTS [...] BE BASED ON THE PRIMARY CLINICAL RECORDS. [employer] provides no warranty or guarantee of the accuracy or completeness of information in this document.
[2024-10-08 12:07] LABS: Basophils Absolute Auto 0.1 10^3/uL (0.0-0.1); Basophils Percent Auto 0.9 % (0.2-2.0); Eosinophils Absolute Auto 0.4 10^3/uL (0.0-0.7); Eosinophils Percent Auto 4.7 % (0.9-7.0); Hematocrit 37.5 % (36.0-48.0); Hemoglobin 12.5 g/dL (12.0-16.0); Immature Granulocytes Abs Auto 0.02 10^3/uL (0.00-0.03); Immature Granulocytes Pct Auto 0.2 % (0.0-0.5); Lymphocytes Absolute Auto 2.8 10^3/uL (1.2-3.8); Lymphocytes Percent Auto 32.9 % (20.5-60.0); Mean Corpuscular HGB Conc 33.3 g/dL (29.9-35.2); Mean Corpuscular Hemoglobin 30.4 pg (26.7-34.0); Mean Corpuscular Volume 91.2 fL (81.0-99.0); Mean Platelet Volume 10.1 fL (9.5-13.5); Monocytes Absolute Auto 0.7 10^3/uL (0.3-0.8); Monocytes Percent Auto 7.9 % (1.7-12.0); Neutrophils Absolute Auto 4.5 10^3/uL (1.4-6.5); Neutrophils Percent Auto 53.4 % (43.0-75.0); Platelet Count 460 10^3/uL (150-450); Red Blood Count 4.11 10^6/uL (4.20-5.40); Red Cell Distribution Width 13.2 % (11.0-15.0); White Blood Count 8.5 10^3/uL (4.0-11.0)
[2024-10-08 12:51] LABS: Estimated Average Glucose 117 mg/dL; Glycohemoglobin A1C 5.7 % (4.5-6.2)
[2024-10-08 13:19] LABS: Free T4 1.07 ng/dL (0.76-1.46)
[2024-10-08 13:23] LABS: Alanine Aminotransferase 29 U/L (14-59); Albumin Globulin Ratio 1.3; Alkaline Phosphatase 60 U/L (46-116); Anion Gap 7.2; Aspartate Amino Transferase 16 U/L (15-37); BUN Creatinine Ratio 27.9; Bilirubin Direct 0.1 mg/dL (0.0-0.2); Bilirubin Total 0.5 mg/dL (0.2-1.0); Calcium 9.1 mg/dL (8.5-10.1); Carbon Dioxide 33.5 mmol/L (21.0-32.0); Chloride 105 mmol/L (98-107); Chol HDL Ratio 1.9; Cholesterol 105 mg/dL (<=200); Estimated GFR (African America >60 (>=60 mL/min/1.73m^2); Estimated GFR (Non-African Ame >60 (>=60 mL/min/1.73m^2); Globulin 3.1 g/dL; Glucose 93 mg/dL (74-106); HDL Cholesterol 54 mg/dL (40-60); LDL Cholesterol Calculated 42.8 mg/dL; Potassium 3.7 mmol/L (3.5-5.1); Sodium 142 mmol/L (136-145); Thyroid Stimulating Hormone 1.016 uIU/mL (0.358-3.740); Total Protein 7.1 g/dL (6.4-8.2); Triglycerides 41 mg/dL (<=150); VLDL CHOLESTEROL 8.2 mg/dL
== END 2024-10-08 11:41 | disposition home or self-care (01) ==
LOC: LAB 11:42
PROVIDERS: PCP Family Medicine; Visit Provider Family Medicine
DX: Z00.00 Encounter for general adult medical examination without abnormal findings (principal); E03.9 Hypothyroidism, unspecified; M54.16 Radiculopathy, lumbar region
CPT/HCPCS: 36415; 72100; 80048; 80061; 80076; 83036; 84439; 84443; 85025

== ENCOUNTER 2024-11-12 10:46 | Outpatient (RCR) | payer BC, SELFPAY | END 2025-02-18 14:52 | disposition home or self-care (01) | LOC: PT 10:46 | PROVIDERS: PCP Family Medicine; Visit Provider Family Medicine | DX: M54.50 Low back pain, unspecified (principal); M54.2 Cervicalgia; R51.9 Headache, unspecified | CPT/HCPCS: 97110; 97112; 97113; 97140; 97162 ==